=== PATIENT | male | born 1950 | race Caucasian/White ===

== ENCOUNTER 2021-09-22 14:38 | Inpatient (IN) | payer MEDICARE, BC, SELFPAY ==
--- NOTE | ~2021-09-22 | XR_ITS ---
EXAMINATION: XR abdomen/kub 1V INDICATION: Small bowel obstruction TECHNIQUE: Supine views of the abdomen were obtained on 3 radiographs. COMPARISON: 09/23/2021, 09/22/2021 FINDINGS: Enteric contrast from yesterday's small bowel follow-through partially opacifies the large bowel. There is a persistently dilated small bowel loop of the left upper quadrant. Overall, degree o f small bowel distention has improved. No free intraperitoneal gas is identified. The nasogastric tub e is in the stomach. IMPRESSION: 1. Persistent but improving small bowel distention in the left upper quadrant, consistent with ileus versus partial obstruction. Reviewed, dictated and finalized at location A. ENTICE STYLIST
--- NOTE | ~2021-09-22 | XR_ITS ---
EXAMINATION: XR sm bowel follow through WS DATE: 09/23/2021 14:27 INDICATION: Small bowel obstruction TECHNIQUE: Underground Bolting Machine Operator radiograph(s) of the abdomen was/were obtained. Water-soluble contrast was administe red through the nasogastric tube, and sequential radiographs of the abdomen were obtained until oral contrast was noted to be in the proximal colon. COMPARISON: None. FINDINGS: Underground Bolting Machine Operator radiograph demonstrates dilated small bowel in the left abdomen. The nasogastric tube is in the stomach. Transit time from the stomach to proximal colon was approximately three hours. Th e proximal small bowel is dilated. The distal small bowel appears normal in caliber. IMPRESSION: 1. Findings consistent with ileus versus partial small bowel obstruction. Reviewed, dictated and finalized at location A. RSTATE BUS DRIVER
--- NOTE | ~2021-09-22 | US_ITS ---
EXAMINATION: US renal BI DATE: 09/24/2021 08:36 INDICATION: Acute renal failure TECHNIQUE: Multiple ultrasound grayscale images of the kidneys were obtained. COMPARISON: None. FINDINGS: The right kidney measures 12.3 x 5.6 x 5.1 cm. The left kidney measures 11.0 x 4.5 x 5.7 cm. The kidn eys demonstrate normal echogenicity. There is no hydronephrosis in either kidney. No stones identifi ed. The bladder is normal. IMPRESSION: 1. Normal kidneys without hydronephrosis. Reviewed, dictated and finalized at location A. EYBALL COMMENTATOR
--- NOTE | ~2021-09-22 | CT_ITS ---
EXAMINATION: CT abdomen pelvis wo con DATE: 09/22/2021 17:04 INDICATION: Abdominal pain and vomiting TECHNIQUE: Computed tomography (CT) of the abdomen and pelvis was performed without intravenous contr ast. Automated exposure control and iterative reconstruction technique were employed. The dose-lengt h product was 919.28 mGy-cm. COMPARISON: None FINDINGS: Mild dependent atelectasis/scarring the bilateral lower lobes and in the lingula. There are couple 3 mm subpleural nodules in the posterior right lower lobe. Heart size is normal. Aortic valve calcifica tion and small amount of atherosclerotic coronary artery calcific location. No pericardial or pleural effusion. Elevation of the left hemidiaphragm which appears to result from prominent fluid distention of the st omach. There are dilated fluid-filled loops of bowel extending distally from the stomach and measurin g up to 4.5 cm maximal diameter. There to of feces consistent with delayed transit in the dilated sma ll bowel immediately proximal to the abrupt transition point which is seen in the anterior left upper quadrant of the abdomen located approximately 13 cm superolateral from the umbilicus. This is been i ndicated on series 3, image 84. The more distal small bowel is decompressed extending to the ileoceca l valve. There is a diverticulum arising anteriorly from the second portion of the duodenum. There is prominent sigmoid and distal descending colon predominance diverticulosis without adjacent inflammat ory change to suggest diverticulitis. The appendix is not visualized. No pericecal inflammatory chan e to suggest acute appendicitis. Diffuse hepatic steatosis. 1.8 cm cyst in segment Marco A of the liver. A few tiny splenic calcific lesio ns consistent with old granulomatous disease. Gallbladder, pancreas and bilateral adrenal glands are normal. There are few <2 mm nonobstructing stones in both kidneys. No hydronephrosis. Small amount of likely reactive ascites in the pelvis. No abscess or free intraperitoneal gas. Bladder is normal. No pathologically enlarged abdominal or pelvic lymphadenopathy. Mild lumbar levocurvature with moderate to severe spondylosis. L5 spondylolysis with bilateral pars intra-articular is defects and 4 mm ante rolisthesis L5 on S1. Fat attenuation within a lucent lesion at the L3 vertebral body which would be most consistent with a hemangioma. IMPRESSION: 1. Small bowel obstruction with transition point in the left upper quadrant. 2. A few tiny bilateral nonobstructing renal calculi. Reviewed, dictated and finalized at location A. TECHNICIAN
--- NOTE | ~2021-09-22 | XR_ITS ---
XR abdomen NG/feed tube insert INDICATION: Evaluate NG tube position. TECHNIQUE: Limited KUB perform for evaluating NG tube . COMPARISON: No prior studies for comparison. FINDINGS: NG tube tip in the stomach. Visualized bowel gas pattern is unremarkable.There is moderate gastric distention with air-fluid level. IMPRESSION: 1: NG tube tip in the stomach. Reviewed, dictated and finalized at location A. FACILITY MANAGER
[2021-09-22 15:23] VITALS: BP 118/88; PULSE 120; RESP 18; TEMP 36.2; O2SAT 97
[2021-09-22 15:52] LABS: Hematocrit 40.4 % (42.0-52.0); Hemoglobin 14.1 g/dL (14.0-18.0); Mean Corpuscular HGB Conc 34.9 g/dl (32-36); Mean Corpuscular Hemoglobin 34.4 pg (26-34); Mean Corpuscular Volume 98.5 fl (80-100); Mean Platelet Volume 10.8 fl (7.4-10.4); Platelet Count Result 228 k/mm3 (150-375); Red Cell Distribution Width 13.8 % (11.5-14.5); White Blood Count 15.3 K/mm3 (4.5-10.0)
[2021-09-22 16:02] LABS: Alanine Aminotransferase 31 U/L (4-50); Albumin Level 5.2 g/dL (3.5-5.1); Alkaline Phosphatase 96 U/L (38-126); Anion Gap 12 mmol/L (8-16); Aspartate Amino Transferase 42 U/L (17-59); Bilirubin,Total 0.6 mg/dL (0.2-1.3); Blood Urea Nitrogen 30 mg/dL (9-20); Calcium 10.8 mg/dL (8.4-10.2); Carbon Dioxide 32 mmol/L (22-30); Chloride 92 mmol/L (98-107); Estimated CRCL calculation 38 ml/min; Estimated Glomerular Filt Rate 40; Glucose 300 mg/dL (65-110); Lipase 166 U/L (23-300); Potassium 5.2 mmol/L (3.4-5.0); Sodium 136 mmol/L (137-145)
--- NOTE | 2021-09-22 16:32 | ED.GENADULT ---
HPI - General Adult General Chief complaint: Abdominal Pain Stated complaint: abd pain x 1 day, n/v Time Seen by Provider: 09/22/21 16:24 Source: patient and RN notes reviewed History of Present Illness HPI narrative: Patient is a 71 y/o male complaining of generalized abdominal pain starting 7:00 PM yesterday. He describes his pain as constant with no radiation. He rates his pain as 10/10. There is no alleviating or exacerbating factor. He has some vomiting, but no diarrhea. Related Data Home Medications Medication Instructions Recorded Confirmed aspirin 81 mg tablet,delayed 81 mg PO DAILY 09/11/19 09/22/21 release multivitamin,ic-dxnl-erofwjnm 1 tablet PO DAILY 09/11/19 09/22/21 rizatriptan 10 mg tablet See Rx Instructions PO .COMPLEX PRN 09/11/19 09/22/21 Allergies Allergy/AdvReac Type Severity Reaction Status Date / Time No Known Allergies AdvReac Unknown Unverified 09/22/21 20:26 Review of Systems Constitutional: Constitutional: Denies chills, Denies fever(s), Denies headache(s) and Denies weakness Eyes: Eyes: Denies blurry vision ENT: Denies headache(s) and Denies neck pain Cardiovascular: Cardiovascular: Denies chest pain and Denies dyspnea Respiratory: Respiratory: Denies cough and Denies dyspnea Gastrointestinal: Gastrointestinal: Reports abdominal pain, Denies diarrhea, Reports nausea and Reports vomiting Genitourinary: Genitourinary: Denies hematuria and Denies dysuria Musculoskeletal: Musculoskeletal: Denies back pain and Denies neck pain Neurologic: Denies headache(s) and Denies weakness [facility] Past Medical History Medical History Acute bilateral low back pain with left-sided sciatica Arthritis BMI 30.0-30.9,adult Body mass index (bmi) 29.0-29.9, adult (06/20/19) BPH without obstruction/lower urinary tract symptoms Chronic bilateral low back pain Dependence on other enabling machines and devices Diabetic eye exam no retinopathy on 03/18/2021 Diabetic peripheral neuropathy associated with type 2 diabetes mellitus Fatigue Fever blister Infection of mouth Insomnia Mixed hyperlipidemia Myalgia APARNA on CPAP Seasonal allergic rhinitis Type 2 diabetes mellitus without complication, without long-term current use of insulin Surgical History Surgical History History of appendectomy S/P tonsillectomy and adenoidectomy Family History Family History Grandparent Cerebrovascular accident, Onset Age: 78 Father Family history of Alzheimer's disease, Onset Age: 79 Mother Family history of Alzheimer's disease, Onset Age: 85 Social History Social History (Updated 09/22/21 @ 22:03 by Yesika Vernon NP) Social History: The patient lives with his . He has 4 children. He is retired from the [employer] service. The patient has never smoked. He used to drink alcohol but he does anymore. His is the durable power workers compensation defense attorney for healthcare. Code status full code Smoking status: Never smoker Alcohol intake: never Substance use: never Substance use type: does not use Spiritual care concerns: No Exam Const: General: no acute distress and well developed Orientation/consciousness: oriented to person, oriented to place, oriented to time and patient oriented x3 HENMT: Head: normocephalic Ears: external ears normal General nose exam: Normal external nose present Eyes: General: appearance normal, both eyes and all related structures Conjunctivae: conjunctivae normal Neck: Neck: normal visual inspection and full ROM Chest: Chest palpation & inspection: normal inspection of the chest and no tenderness Resp: Effort & Inspection: normal respiratory effort Auscultation: clear to auscultation bilaterally Cardio: Rate: tachycardic Rhythm: regular rhythm GI:
[2021-09-22 16:35] LABS: Add Urine Microscopic? YES; Appearance Urine Cloudy (Clear); Bilirubin Urine Negative (Negative); Blood Urine Negative (Negative); Color Urine Amber (Yellow); Glucose Urine UA 3+ mg/dL (Negative); Ketones Urine Trace mg/dL (Negative); Leukocyte Esterase Ur Negative LEU/UL (Negative); Mucus Urine Rare /lpf; Nitrate Urine Negative (Negative); Protein Urine 2+ mg/dL (Negative); RBC Urine 0-2 /hpf (0-2); Specific Grav Ur 1.021 (1.001-1.035); Squamous Epithelial Cell Urine Rare /hpf (Few); Urobilinogen Urine Negative mg/dL (<2.0); WBC Urine 0-3 /hpf
[2021-09-22] MEDS: SODIUM CHLORIDE 0.9% IV 1,000 ML 999 ML IV CONT (16:48)
[2021-09-22] MEDS: ONDANSETRON INJ 4 MG/2 ML VIAL IV PUSH ×2 (16:48→20:09)
[2021-09-22 16:55] LABS: Platelet Estimate Adequate (Adequate)
[2021-09-22 16:57] LABS: Band Neutrophils Percent 5 % (0-6); Lymphocytes Absolute Manual 0.61 K/mm3 (1.1-4.5); Monocytes Absolute Manual 1.22 K/mm3 (0.1-0.90); Monocytes Percent Manual 8 % (3-9); Neutrophils Absolute Manual 13.46 K/mm3 (1.3-6.7); Neutrophils Percent Manual 83 % (46-73); Total Cells Counted 100
[2021-09-22] MEDS: fentaNYL CITRATE INJ (*CRX) 100 MCG/2 ML VIAL 50 MCG IV PUSH (17:31)
[2021-09-22 17:32] VITALS: BP 160/83; PULSE 85; RESP 20; O2SAT 98
--- NOTE | 2021-09-22 17:33 | ECG_ITS ---
Measurements Intervals [place] Rate: 98 P: 29 NM: 164 QRS: -35 QRSD: 100 T: 30 QT: 340 QTc: 434 Interpretive Statements SINUS RHYTHM LEFT AXIS DEVIATION EARLY PRECORDIAL R/S TRANSITION VOLTAGE CRITERIA FOR LVH BORDERLINE T WAVE ABNORMALITY- INFERIOR LEADS BASELINE WANDER- III, AVR, AVL, AVF, V3-V5 BORDERLINE ECG Electronically Signed On 09-22-2021 19:53:32 REHABILITATION PSYCHOLOGIST by Jamison Oswald D.O.
[2021-09-22 18:37] VITALS: BP 154/97; PULSE 80; RESP 12; O2SAT 98
[2021-09-22 19:55] VITALS: BP 147/94; PULSE 96; RESP 20; O2SAT 98
[2021-09-22 20:00] VITALS: PULSE 80; RESP 12; O2SAT 98
[2021-09-22] MEDS: SODIUM CHLORIDE 0.9% IV 1,000 ML 125 ML IV CONT (20:09)
[2021-09-22 20:23] VITALS: BMI 29.0
--- NOTE | 2021-09-22 20:23 | ADMGEN ---
This patient, Hernan Delong, was admitted to 2 Medical Room 260-. Patient/family oriented to hospital policies and general routines including ID bracelet, bed and alarms, visiting hours, pain management, procedures, bathroom and other care routines, personal items, smoking policy, room service/diet, and visiting hours. Information on how to activate the Rapid Response Team has been discussed. Patient/Family are encouraged to report perceived risks to care and to ask questions if they do not understand what they are told or what they should do.
[2021-09-22 21:00] VITALS: BP 130/77; PULSE 100; RESP 16; TEMP 36.5; O2SAT 97
--- NOTE | 2021-09-22 21:53 | PM.IMHP ---
H&P: HPI History of Present Illness Date/Time: 09/22/21 21:53 this is a 71-year-old male patient who is only had 1 abdominal surgery which was his appendix many years ago. The patient has had no prior small-bowel obstructions. And the patient stated he has not had any colonoscopies. The patient came to the emergency room complaining of generalized abdominal pain that started around 7:00 p.m. yesterday. No radiation. The patient rated his pain 10/10. His abdomen was distended. The patient stated that he did vomit but he did notice any blood in his emesis. No diarrhea. No fever no chills. His white count is 15.3. Sodium 136. Potassium 5.2. Creatinine was 1.7 from a previous value 2 months ago was 1.33. Blood sugar was 300. Calcium 10.8. Urine 3+ glucose. An NG-tube was placed in the left near draining coffee-ground. The patient was started on normal saline, Zofran morphine and then given fentanyl. Abdominal pelvis CT was read as small bowel obstruction with transition point on the left upper quadrant. A few tiny bilateral nonobstructing renal calculi. Abdominal x-ray shows the NG tube in the tip of the stomach. Initially the patient had 500 cc abdomen is NG tube I flushed it and had another 500 out. Patient's abdomen was still distended but he did have some relief. Surgery has been consulted. I explained to the patient that most the time we can use conservative treatment such as an NG tube to resolve this small-bowel obstruction. The patient is being admitted to inpatient services on the date of service of 09/22/2021. Chief Complaint: Abdominal pain Review of Systems Review of Systems: All systems reviewed & are unremarkable except as noted in HPI and below Constitutional: Constitutional: Reports as per HPI and Reports no additional constitutional complaints Eyes: Eyes: Reports as per HPI and Reports no additional eye complaints ENT: Reports system reviewed and no additional complaints, except as documented and Reports Normal hearing present Cardiovascular: Cardiovascular: Reports no additional cardiovascular complaints Respiratory: Respiratory: Reports no additional respiratory complaints and Reports no additional respiratory complaints Gastrointestinal: Gastrointestinal: Reports as per HPI and Reports no additional gastrointestinal complaints Musculoskeletal: Musculoskeletal: Reports no additional musculoskeletal complaints Integumentary/Breasts: Skin/Breast: Reports system reviewed and no additional complaints, except as docu and Reports as per HPI Neurologic: Reports system reviewed and no additional complaints, except as documented, Reports as per HPI and Reports Normal hearing present Psychiatric: Psychiatric: Reports no additional psychiatric complaints and Reports as per HPI Endocrine: Endocrine: Reports no additional endocrine complaints Hematologic/Lymphatic: Hematologic/Lymphatic: Reports no additional hematologic/lymphatic complaints Allergic/Immunologic: Allergic/Immunologic: Reports no additional allergic/immunologic complaints PMFSH Past Medical History Medical History Acute bilateral low back pain with left-sided sciatica Arthritis BMI 30.0-30.9,adult Body mass index (bmi) 29.0-29.9, adult (06/20/19) BPH without obstruction/lower urinary tract symptoms Chronic bilateral low back pain Dependence on other enabling machines and devices Diabetic eye exam no retinopathy on 03/18/2021 Diabetic peripheral neuropathy associated with type 2 diabetes mellitus Fatigue Fever blister Infection of mouth Insomnia Mixed hyperlipidemia Myalgia APARNA on CPAP Seasonal allergic rhinitis Type 2 diabetes mellitus without complication, without long-term current use of insulin Surgical History Surgical History History of appendectomy S/P tonsillectomy and adenoidectomy Family History Family History (Review
[2021-09-22 23:45] LABS: Glucose Point of Care 202 mg/dl (65-105)
[2021-09-22] MEDS: INSULIN ASPART (*BKC) 100 UNITS/ML SUB-Q (23:45)
[2021-09-23] VITALS (7 sets, daily range): BP systolic 119–136; BP diastolic 66–81; PULSE 90–108; RESP 16; TEMP 36–37.2; O2SAT 90–97
[2021-09-23] MEDS: ONDANSETRON INJ 4 MG/2 ML VIAL IV PUSH (00:07)
--- NOTE | 2021-09-23 00:20 | PCRCNOTE ---
Pt does not want CPAP at this time, doesn't feel he can tolerate with NG tube
[2021-09-23] MEDS: SODIUM CHLORIDE 0.9% IV 1,000 ML 125 ML IV CONT ×2 (04:15→15:15)
[2021-09-23] MEDS: fentaNYL CITRATE INJ (*CRX) 100 MCG/2 ML VIAL 50 MCG IV PUSH (04:24)
[2021-09-23 05:59] LABS: Hematocrit 37.3 % (42.0-52.0); Hemoglobin 12.7 g/dL (14.0-18.0); Mean Corpuscular Hemoglobin 34.4 pg (26-34); Mean Corpuscular Volume 101.1 fl (80-100); Mean Platelet Volume 10.8 fl (7.4-10.4); Platelet Count Result 196 k/mm3 (150-375); Red Blood Count 3.69 M/mm3 (4.6-6.20); Red Cell Distribution Width 14.4 % (11.5-14.5); White Blood Count 22.6 K/mm3 (4.5-10.0)
[2021-09-23 06:06] LABS: Hemoglobin A1C 7.3 % (<5.7)
[2021-09-23 06:09] LABS: Lactate Dehydrogenase 646 U/L (313-618); Lipase 107 U/L (23-300)
[2021-09-23 06:10] LABS: Lactic Acid Reflex 1.9 mmol/L (0.7-2.1)
[2021-09-23] MEDS: INSULIN ASPART (*BKC) 100 UNITS/ML SUB-Q ×3 (06:15→18:03)
[2021-09-23 06:20] LABS: Glucose Point of Care 207 mg/dl (65-105)
[2021-09-23 06:31] LABS: Band Neutrophils Percent 11 % (0-6); Basophils Absolute Manual 0.22 K/mm3 (0.0-0.1); Basophils Percent Manual 1 % (0-1); Lymphocytes Absolute Manual 1.13 K/mm3 (1.1-4.5); Monocytes Absolute Manual 1.13 K/mm3 (0.1-0.90); Monocytes Percent Manual 5 % (3-9); Neutrophils Absolute Manual 20.11 K/mm3 (1.3-6.7); Neutrophils Percent Manual 78 % (46-73); Platelet Estimate Adequate (Adequate); Total Cells Counted 100
[2021-09-23 07:11] LABS: Anion Gap 10 mmol/L (8-16); Blood Urea Nitrogen 51 mg/dL (9-20); Calcium 10.2 mg/dL (8.4-10.2); Carbon Dioxide 35 mmol/L (22-30); Chloride 97 mmol/L (98-107); Estimated CRCL calculation 35 ml/min; Estimated Glomerular Filt Rate 35; Glucose 218 mg/dL (65-110); Potassium 4.8 mmol/L (3.4-5.0); Sodium 142 mmol/L (137-145)
--- NOTE | 2021-09-23 09:58 | PM.CNGS ---
Assessment and Plan Assessment and plan (1) Small bowel obstruction: Code(s): K56.609 - Unspecified intestinal obstruction, unspecified as to partial versus complete obstruction Status: Acute Assessment and Plan: Continue conservative management with NG tube decompression, bowel rest, IV rehydration, will get small-bowel series for evaluation and workup (2) LUIS DANIEL (acute kidney injury): Code(s): N17.9 - Acute kidney failure, unspecified Status: Acute Assessment and Plan: continue IV rehydration History of Present Illness Consult details Consult date: 09/23/21 Reason for consult: abdominal pain Requesting physician: Martha Ibarra MD Narrative: The patient is a 71-year-old male presenting to the emergency department complaining of severe, crampy abdominal pain. The patient reports the symptoms started acutely 7:00 p.m. on Monday. The patient reports his last bowel movement was 5:00 p.m. on Monday, and he noted it was loose. The patient reports progressively worsening symptoms since onset, including nausea and vomiting. He reports he has not had an appetite and has taken in very little orally. The patient denies previous symptomatology. The patient reports that his only abdominal surgery was an appendectomy many years ago. Review of Systems Constitutional: Constitutional: Reports anorexia, Denies body ache(s), Denies chills, Reports fatigue, Denies fever(s), Denies increased appetite, Reports lethargy, Reports poor appetite, Denies stops breathing during sleep, Reports weakness, Denies weight gain and Denies weight loss Eyes: Eyes: Reports no additional eye complaints ENT: Reports system reviewed and no additional complaints, except as documented Cardiovascular: Cardiovascular: Reports no additional cardiovascular complaints Respiratory: Respiratory: Reports no additional respiratory complaints Gastrointestinal: Gastrointestinal: Reports as per HPI, Reports abdominal pain, Reports belching, Reports bloating, Reports change in bowel habits, Reports change in stool character, Reports constipation, Reports GI cramping, Denies excessive flatus, Reports early satiety, Denies heartburn, Denies fecal incontinence, Denies diarrhea, Reports loose stools, Reports nausea, Reports vomiting and Denies hematemesis Genitourinary: Genitourinary: Reports no additional male genitourinary complaints Musculoskeletal: Musculoskeletal: Reports no additional musculoskeletal complaints Integumentary/Breasts: Skin/Breast: Reports system reviewed and no additional complaints, except as docu Neurologic: Reports system reviewed and no additional complaints, except as documented Psychiatric: Psychiatric: Reports no additional psychiatric complaints Endocrine: Endocrine: Reports no additional endocrine complaints Hematologic/Lymphatic: Hematologic/Lymphatic: Reports no additional hematologic/lymphatic complaints Allergic/Immunologic: Allergic/Immunologic: Reports no additional allergic/immunologic complaints [facility] Past Medical History Medical History Acute bilateral low back pain with left-sided sciatica Arthritis BMI 30.0-30.9,adult Body mass index (bmi) 29.0-29.9, adult (06/20/19) BPH without obstruction/lower urinary tract symptoms Chronic bilateral low back pain Dependence on other enabling machines and devices Diabetic eye exam no retinopathy on 03/18/2021 Diabetic peripheral neuropathy associated with type 2 diabetes mellitus Fatigue Fever blister Infection of mouth Insomnia Mixed hyperlipidemia Myalgia APARNA on CPAP Seasonal allergic rhinitis Type 2 diabetes mellitus without complication, without long-term current use of insulin Surgical History Surgical History History of appendectomy S/P tonsillectomy and adenoidectomy Family History Family History (Reviewed 09/23/21 @ 10:02 b
--- NOTE | 2021-09-23 10:05 | PM.IMPN ---
Progress Note: A&P Assessment and Plan (1) Small bowel obstruction: Code(s): K56.609 - Unspecified intestinal obstruction, unspecified as to partial versus complete obstruction Status: Acute Assessment and Plan: Presented with abdominal pain. CT showed small bowel obstruction with transition point in left upper quadrant. Continue bowel rest and NG suction. NPO diet. Appreciate general surgery consultation. Continue gentle IV fluids while NPO. Antiemetics analgesics available as needed. (2) LUIS DANIEL (acute kidney injury): Code(s): N17.9 - Acute kidney failure, unspecified Status: Acute Assessment and Plan: Creatinine elevated up to 1.9 today. Etiology for this unclear, may be prerenal but would have expected improvement with IV fluids. No signs of urinary obstruction but he does have history of BPH and tamsulosin is on hold while NPO, therefore will proceed with bladder scan to ensure he is not retaining urine. Renal ultrasound ordered, although this will not be completed until tomorrow due to the holiday. Consider Nephrology consultation if no improvement/further worsening of renal function. Continue IV fluids. Renally dose medications and avoid nephrotoxins. (3) Diabetic peripheral neuropathy associated with type 2 diabetes mellitus: Code(s): E11.42 - Type 2 diabetes mellitus with diabetic polyneuropathy Status: Chronic Assessment and Plan: A1c is 7.3. Blood sugars ranging 200-220 today. Continue Accu-Cheks, sliding scale insulin, hypoglycemic protocol. Home metformin on hold. Consider addition of Lantus if blood sugars remain elevated but will hold off for now as he is not eating. (4) Essential (primary) hypertension: Code(s): I10 - Essential (primary) hypertension Status: Acute Assessment and Plan: Blood pressure reviewed and has been well controlled. Last BP 128/71. P.o. antihypertensives are on hold at this time. Resume when no longer NPO. (5) APARNA on CPAP: Code(s): G47.33 - Obstructive sleep apnea (adult) (pediatric); Z99.89 - Dependence on other enabling machines and devices Status: Chronic Assessment and Plan: Resume CPAP when NG is removed. (6) Leukocytosis: Code(s): D72.829 - Elevated white blood cell count, unspecified Status: Acute Assessment and Plan: [place] [address]. Does have elevated bands, though no signs/symptoms to suggest underlying infectious process. He is afebrile. Will monitor closely for now. Repeat CBC with differential tomorrow morning. Subjective Date/time seen: 09/23/21 10:05 Interval history: Date of service: 09/23/2021 Hernan Delong is a 71-year-old male with a history of BPH, chronic back pain, type 2 diabetes mellitus, APARNA on CPAP, hyperlipidemia who is seen in follow-up for small-bowel obstruction. He is feeling better today. He endorses no abdominal pain at this time. He feels his abdomen is less swollen and no longer tender. He did have 2 episodes of emesis this morning, stating this was related to his NG tube being ?clogged.? No further episodes of emesis this morning and he denies nausea. He is not passing any gas. No belching. He denies urinary symptoms. He has been sitting up at the side the bed and the urinal. He has not been out of bed yet as he is hooked up to suction. He denies dizziness or lightheadedness. No chest pain, palpitations, shortness of breath, cough. Denies swelling in his extremities. He does complain of sore throat due to his NG tube in notes that it is difficult to talk because of the tube. Review of Systems Review of Systems: All systems reviewed & are unremarkable except as noted in HPI and below Exam Narrative: Mr. Delong is a well-nourished, well-appearing 71-year-old male who is lying supine in bed. He appears comfortable and is in NARD. Neuro: awake, alert and oriented x4, speech cl
[2021-09-23 13:11] LABS: Glucose Point of Care 203 mg/dl (65-105)
[2021-09-23 16:24] LABS: Glucose Point of Care 204 mg/dl (65-105)
[2021-09-24] VITALS: BP 141/78; PULSE 94; RESP 16; TEMP 36.1; O2SAT 93
[2021-09-24 00:51] LABS: Glucose Point of Care 178 mg/dl (65-105)
[2021-09-24] MEDS: SODIUM CHLORIDE 0.9% IV 1,000 ML 100 ML IV CONT ×2 (01:00→11:41)
[2021-09-24 04:00] VITALS: BP 160/86; PULSE 95; RESP 18; TEMP 36.5; O2SAT 93
[2021-09-24 06:01] LABS: Basophils Percent Auto 0.2 % (0.2-1.2); Hematocrit 36.6 % (42.0-52.0); Immature Granulocyte Percent A 2.2 % (0-0.5); Lymphocytes Absolute Auto 1.45 K/mm3 (0.9-3.2); Lymphocytes Percent Auto 10.6 % (18.3-44.2); Mean Corpuscular HGB Conc 32.8 g/dl (32-36); Mean Corpuscular Hemoglobin 34.4 pg (26-34); Mean Corpuscular Volume 104.9 fl (80-100); Mean Platelet Volume 11.5 fl (7.4-10.4); Monocytes Absolute Auto 1.8 K/mm3 (0.1-0.6); Neutrophils Absolute Auto 10.1 K/mm3 (1.3-6.7); Platelet Count Result 159 k/mm3 (150-375); Red Blood Count 3.49 M/mm3 (4.6-6.20); Red Cell Distribution Width 14.8 % (11.5-14.5); White Blood Count 13.7 K/mm3 (4.5-10.0)
[2021-09-24 06:02] LABS: Glucose Point of Care 188 mg/dl (65-105)
[2021-09-24 06:09] LABS: Alanine Aminotransferase 22 U/L (4-50); Albumin Level 4.2 g/dL (3.5-5.1); Alkaline Phosphatase 81 U/L (38-126); Anion Gap 6 mmol/L (8-16); Aspartate Amino Transferase 35 U/L (17-59); Bilirubin,Total 0.5 mg/dL (0.2-1.3); Blood Urea Nitrogen 54 mg/dL (9-20); Calcium 9.4 mg/dL (8.4-10.2); Carbon Dioxide 38 mmol/L (22-30); Chloride 103 mmol/L (98-107); Estimated CRCL calculation 43 ml/min; Estimated Glomerular Filt Rate 46; Glucose 210 mg/dL (65-110); Magnesium 2.7 mg/dL (1.6-2.3); Potassium 3.8 mmol/L (3.4-5.0); Sodium 147 mmol/L (137-145)
[2021-09-24 07:45] LABS: Glucose Point of Care 195 mg/dl (65-105)
[2021-09-24 08:55] VITALS: BP 150/83; PULSE 85; RESP 16; TEMP 36.6; O2SAT 95
--- NOTE | 2021-09-24 10:10 | PM.PNGS ---
Progress Note: A&P Assessment and Plan (1) Small bowel obstruction: Code(s): K56.609 - Unspecified intestinal obstruction, unspecified as to partial versus complete obstruction Status: Acute Assessment and Plan: improved, exam benign, SBS and KUB reviewed, will clamp NG, likely out later today, ADAT, home when kezia diet Subjective Subjective Date/Time Seen: 09/24/21 10:10 feels much better today, multiple BMs overnight Review of Systems Review of Systems: All systems reviewed & are unremarkable except as noted in HPI and below Exam Const: General: cooperative and comfortable Resp: Effort & Inspection: normal respiratory effort Auscultation: clear to auscultation bilaterally Cardio: Rate: regular rate Rhythm: regular rhythm GI: Inspection: normal to inspection and non-distended GI Palp: Yes Soft to palpation and No Tenderness to palpation present (GI) Objective Data Vital Signs Vital Signs: Vital Signs - 24 hr 09/23/21 12:00 09/23/21 15:45 09/23/21 19:56 Temperature 36.4 C L 37.2 C Pulse Rate 106 H 106 H 102 H Respiratory Rate 16 16 16 Blood Pressure 130/74 128/66 Pulse Oximetry 91 90 92 09/23/21 20:00 09/24/21 00:00 09/24/21 04:00 Temperature 36.0 C L 36.1 C L 36.5 C Pulse Rate 90 94 95 Respiratory Rate 16 16 18 Blood Pressure 136/81 141/78 H 160/86 H Pulse Oximetry 94 93 93 09/24/21 08:55 Temperature 36.6 C Pulse Rate 85 Respiratory Rate 16 Blood Pressure 150/83 H Pulse Oximetry 95 Intake/Output Intake/Output: Intake & Output 09/21/21 09/22/21 09/23/21 09/24/21 23:59 23:59 23:59 23:59 Intake Total 1000 2000 1240 Output Total 4700 1000 Balance 1000 -2700 240 Meds/Results Medications: Active Medications Generic Name Dose Route Start Last Admin Trade Name Freq PRN Reason Stop Dose Admin Dextrose 12.5 gm 09/22/21 21:59 Dextrose 50% 25 Gm/50 Ml Syringe IV PUSH PRN PRN Hypoglycemia Protocol Glucagon 1 mg 09/22/21 21:59 Glucagon For Inj 1 Mg Vial IM PRN PRN Hypoglycemia Protocol Glucose 15 gm 11/24/21 21:59 Glucose Oral Gel 15 Gm Of Glucse In 37.5 Gm Tube PO PRN PRN Hypoglycemia Protocol Hydralazine HCl 10 mg 09/22/21 22:19 Hydralazine Hcl 20 Mg/Ml Vial IV PUSH Q8H PRN Blood Pressure - High Sodium Chloride 1,000 mls @ 100 mls/hr 09/22/21 18:20 09/24/21 01:00 Normal Saline Iv IV CONT 100 mls/hr .Q10H SPENCER Administration Dextrose 1,000 mls @ 100 mls/hr 09/22/21 21:59 Dextrose 5% 1,000 Ml IVPB PRN PRN Hypoglycemia Protocol Acetaminophen 1,000 mg in 100 mls @ 400 mls/hr 09/23/21 10:26 Ofirmev 1,000 Mg Ivpb IVPB 09/24/21 10:25 Q6H PRN Pain Rated 1-6 Insulin Aspart 2 - 5 units 09/23/21 00:00 09/24/21 06:58 Insulin Aspart (*Bkc) 100 Units/Ml SUB-Q Not Given Q6HR SPENCER Protocol Morphine Sulfate 2 mg 09/23/21 10:26 Morphine Sulfate (*Crx) 2 Mg/Ml Inj IV PUSH Q4H PRN Pain Rated 7-10 Ondansetron HCl 4 mg 09/22/21 18:18 09/23/21 00:07 Ondansetron Inj 4 Mg/2 Ml Vial IV PUSH 4 mg Q4H PRN Administration Nausea Phenol 1 spray 09/23/21 10:34 Phenol/Sod Pheno [place] [facility] (*Bkc) MUCOUS MEM PRN PRN Sore Throat Radiology Results: ITS Impressions Abdomen/Pelvis CT 09/22/21 17:07 IMPRESSION: 1. Small bowel obstruction with transition point in the left upper quadrant. 2. A few tiny bilateral nonobstructing renal calculi. Small Bowel X-Ray 09/24/21 07:46 IMPRESSION: 1. Findings consistent with ileus versus partial small bowel obstruction. Abdomen X-Ray 09/24/21 08:34 IMPRESSION: 1. Persistent but improving small bowel distention in the left upper quadrant, consistent with ileus versus partial obstruction. Labs Labs: Laboratory Results - last 24 hr 09/23/21 09/23/21 09/24/21 13:09 16:20 00:47 WBC RBC Hgb Hct MCV MCH M
[2021-09-24 11:36] LABS: Glucose Point of Care 177 mg/dl (65-105)
[2021-09-24 13:01] VITALS: BP 148/89; PULSE 100; RESP 16; TEMP 36.6; O2SAT 97
--- NOTE | 2021-09-24 13:53 | PM.DS ---
DS: Admitting Diagnosis Discharge Date 09/24/2021 Admitting Diagnosis Small-bowel obstruction DS: Discharge Diagnosis Discharge Diagnosis (1) Small bowel obstruction: Code(s): K56.609 - Unspecified intestinal obstruction, unspecified as to partial versus complete obstruction Status: Acute Assessment and Plan: Presented with abdominal pain. CT showed small bowel obstruction with transition point in left upper quadrant. Managed with bowel rest, NG decompression, IV fluids. He was seen in consultation by General surgery. Small-bowel follow-through 09/24/2021 with transit time from stomach to proximal colon of 3 hours. He had an several stools following this. Abdominal x-ray on 09/24/2021 showed persistent but improving small bowel distension. NG tube was discontinued and he was able to tolerate a regular diet. Discussed case with General surgery, no need for surgical follow-up. He will follow with PCP. (2) LUIS DANIEL (acute kidney injury): Code(s): N17.9 - Acute kidney failure, unspecified Status: Acute Assessment and Plan: Creatinine increased up to 1.9 during admission. No evidence of retention or obstruction. Renal ultrasound showed normal kidneys without hydronephrosis. Likely due to dehydration and did improve with IV fluids. Creatinine 1.5 at time of discharge. Recommend repeat BMP in 1 week. Metformin held due to LUIS DANIEL until repeat labs. (3) Diabetic peripheral neuropathy associated with type 2 diabetes mellitus: Code(s): E11.42 - Type 2 diabetes mellitus with diabetic polyneuropathy Status: Chronic Assessment and Plan: A1c is 7.3. Blood sugars reasonably controlled during admission. Home metformin held as above due to LUIS DANIEL. Encouraged close monitoring of blood sugars at home. (4) Essential (primary) hypertension: Code(s): I10 - Essential (primary) hypertension Status: Acute Assessment and Plan: Blood pressure reviewed and was generally well controlled. Continue home antihypertensive regimen. (5) APARNA on CPAP: Code(s): G47.33 - Obstructive sleep apnea (adult) (pediatric); Z99.89 - Dependence on other enabling machines and devices Status: Chronic Assessment and Plan: CPAP not able to be continued during admission with NG in place. Continue with CPAP at home. (6) Leukocytosis: Code(s): D72.829 - Elevated white blood cell count, unspecified Status: Acute Assessment and Plan: [place] [address]. Does have elevated bands, though no signs/symptoms to suggest underlying infectious process. He remained afebrile. White count declined to 13,000 without intervention. Anticipate complete resolution. DS: Summary Hospital Course Hospital Course: Date of admission: 09/22/2021 Date of discharge: 09/24/2021 Hernan Delong is a 71-year-old male with a history of BPH, chronic back pain, type 2 diabetes mellitus, APARNA on CPAP, hyperlipidemia who presented to the emergency department on 09/22/2021 with complaints of generalized abdominal pain that he rated as 10/10. On presentation to the emergency department, he was tachycardic with additional vital signs stable, he was afebrile, WBC 15.3, potassium 5.2, BUN 30, creatinine 1.7, and CT abdomen/pelvis showed small-bowel obstruction with transition point in the left upper quadrant. NG tube was placed and he was admitted to the hospitalist service for further evaluation and management and he was seen in consultation by General surgery. Please see above for further details. He had symptomatic improvement with conservative management. NG tube was able to be discontinued and he was able to tolerate a regular diet. Per General surgery, he was determined to no longer require inpatient care for his resolving small-bowel obstruction. The patient was feeling back to his baseline and requested discharge home. Given overall improvement, he was det
[2021-09-24 14:13] LABS: Vitamin B12 > 1000.0 pg/mL (239-931)
[2021-09-24 15:34] LABS: Folic Acid > 20.0 ng/mL (2.76->20)
[2021-09-24 16:39] LABS: Glucose Point of Care 114 mg/dl (65-105)
[2021-09-24 16:44] VITALS: BP 155/86; PULSE 93; RESP 18; TEMP 36.8; O2SAT 98
== END 2021-09-24 17:30 | disposition home or self-care (01) | DRG 389 ==
LOC: ANHED 17:27 → ANH2MED 22:08
PROVIDERS: Emergency Medicine; Nurse Practitioner; Admitting Provider Internal Medicine; Emergency Provider Emergency Medicine; PCP Family Medicine; Visit Provider Physician Assistant
DX: K56.609 Unspecified intestinal obstruction, unspecified as to partial versus complete obstruction (principal); N17.9 Acute kidney failure, unspecified; E11.42 Type 2 diabetes mellitus with diabetic polyneuropathy; G47.33 Obstructive sleep apnea (adult) (pediatric); N40.0 Benign prostatic hyperplasia without lower urinary tract symptoms; I10 Essential (primary) hypertension; E78.2 Mixed hyperlipidemia; D72.829 Elevated white blood cell count, unspecified; M54.42 Lumbago with sciatica, left side; Z28.21 Immunization not carried out because of patient refusal; Z79.82 Long term (current) use of aspirin; Z79.84 Long term (current) use of oral hypoglycemic drugs; Z98.890 Other specified postprocedural states; Z99.89 Dependence on other enabling machines and devices
CPT/HCPCS: 36415; 74018; 74176; 74250; 76775; 80048; 80053; 81001; 82607; 82728; 82746; 82948; 83036; 83605; 83615; 83690; 83735; 84443; 85025; 85027; 93005; 96361; 96374; 96375; 99285; A9270; J1815; J2405; J3010; J7030

== ENCOUNTER 2022-03-19 13:45 | Inpatient (IN) | payer MEDICARE, BC, SELFPAY ==
[2022-03-19] VITALS (24 sets, daily range): BP systolic 96–145; BP diastolic 58–91; PULSE 64–103; RESP 18–20; TEMP 36.4–36.5; O2SAT 94–100; BMI 28.5; BMI 28.3
--- NOTE | ~2022-03-19 | XR_ITS ---
EXAMINATION: XR abdomen/kub 1V DATE: 03/21/2022 09:09 INDICATION: Small bowel obstruction TECHNIQUE: A supine view of the abdomen and pelvis was obtained. COMPARISON: 03/20/2022 FINDINGS: The diaphragm and cephalad portion of the abdomen including the stomach are excluded from the field-o f-view. Unclear whether the nasogastric tube remains in place. A couple persistent short segments of mildly dilated small bowel are seen in the abdomen along with small amounts of gas within a few addit ional nondilated loops of small bowel consistent with likely improving small bowel obstruction versus ileus. Small amount of gas and stool scattered throughout the colon. Couple phleboliths in the right hemipelvis. Moderate lumbar spondylosis. Moderate left and mild right sacroiliac and hip osteoarthri tis. IMPRESSION: 1. Improving small bowel obstruction versus ileus. Reviewed, dictated and finalized at location B.
--- NOTE | ~2022-03-19 | XR_ITS ---
EXAM: XR abdomen/kub 1V DATE: 03/19/2022 18:55 HISTORY: ng placement . COMPARISON: CT abdomen and pelvis performed on the same date. FINDINGS: NG tube terminating in the stomach. Clear lung bases. Dilated loops of small bowel in the upper abdomen. IMPRESSION: NG tube, in good position. Small bowel obstruction. Reviewed, dictated and finalized at location K.
--- NOTE | ~2022-03-19 | CT_ITS ---
EXAMINATION: CT abdomen pelvis w con DATE: 03/19/2022 15:15 INDICATION: abdominal pain, potential SBO TECHNIQUE: Computed tomography (CT) of the abdomen and pelvis was performed with 100 mL Omnipaque-300 intravenous contrast. Automated exposure control and iterative reconstruction technique were employe d. The dose-length product was 894.28 mGy-cm. COMPARISON: 09/22/2021 FINDINGS: Lower thorax: Unremarkable Liver: Left lobe cyst. Borderline steatosis. Biliary/Gallbladder: Gallbladder is normal. No bile duct dilation. Pancreas: No mass or duct dilation. Spleen: Normal. Adrenals:No mass. Kidneys: No mass or hydronephrosis. Bilateral ectopia. Punctate nonobstructive bilateral calcificatio ns. GI tract: Short segment water density wall edema affecting the mid small bowel in the right abdomen, with proximal small bowel dilation. Appendix not visualized. Diverticulosis without diverticulitis. Mesentery/Peritoneum: Interloop fluid surrounding loops of small bowel. Retroperitoneum: No mass. Pelvis: Pelvic organs are within normal limits. Small volume free pelvic fluid. Soft Tissues: Soft tissues and body wall unremarkable. Bones: No acute osseous finding. IMPRESSION: Short segment infectious, inflammatory, or ischemic small bowel wall edema in the right mid abdomen c ausing obstruction of more proximal small bowel. Presence of interloop fluid may indicate a higher gr feli of obstruction or early ischemia. Recommend surgical consultation. Reviewed, dictated and finalized at location K. IMPRESSION: Short segment infectious, inflammatory, or ischemic small bowel wall edema in t he right mid abdomen causing obstruction of more proximal small bowel. Presence of interloop fluid may indicate a higher grade of obstruction or early ischemi a. Recommend surgical consultation.
--- NOTE | ~2022-03-19 | XR_ITS ---
SMALL BOWEL SERIES ONLY INDICATION: Small bowel obstruction TECHNIQUE: Serial plain films and fluoroscopic spot films are performed following oral demonstration of thin barium. COMPARISON: 03/21/2022 FINDINGS: Barium was followed sequentially through the small bowel. Transit time to the small bowel i s less than 1 hour 30 minutes. There is mildly dilated proximal and mid small bowel with transition i n the central lower pelvis. There is point tenderness in the area of transition without compressing w ith balloon paddle. IMPRESSION: 1: Mildly dilated proximal and mid small bowel with transition in the lower abdomen near the midline with associated point tenderness. Findings suspicious for partial obstruction, although there is nor mal transit time to the colon. Reviewed, dictated and finalized at location A. IMPRESSION: 1: Mildly dilated proximal and mid small bowel with transition in the lower ab domen near the midline with associated point tenderness. Findings suspicious fo r partial obstruction, although there is normal transit time to the colon.
--- NOTE | ~2022-03-19 | XR_ITS ---
XR abdomen NG/feed tube insert INDICATION: Evaluate G-tube position. TECHNIQUE: Limited KUB perform for evaluating NG tube . COMPARISON: 03/21/2022 FINDINGS: NG tube tip in the stomach. There are dilated small bowel loops in the left upper abdomen.. IMPRESSION: 1: NG tube tip in the stomach. 2: Dilated small bowel left upper abdomen which may represent ileus or partial obstruction. Reviewed, dictated and finalized at location A.
--- NOTE | ~2022-03-19 | XR_ITS ---
EXAMINATION: XR abdomen NG/feed tube insert DATE: 03/20/2022 10:19 INDICATION: Nasogastric tube placement TECHNIQUE: A supine view of the abdomen and lower chest was obtained for evaluation of feeding tube placement. COMPARISON: 03/19/2022 FINDINGS: Again seen is a nasogastric tube with distal tip in proximal side port in the body of the stomach. Pe rsistent mildly dilated gas-filled loops of small bowel in the left upper quadrant. Additional gas sc attered throughout nondilated loops of small bowel in the right abdomen along with small amount of st ool in the transverse colon. Visualized portions of the lungs are clear. Heart size is normal. IMPRESSION: 1. Nasogastric tube in the stomach. 2. Small bowel obstruction. Reviewed, dictated and finalized at location A.
[2022-03-19 14:04] LABS: Basophils Percent Auto 0.4 % (0.2-1.2); Eosinophils Percent Auto 0.1 % (0-4.4); Hematocrit 41.3 % (42.0-52.0); Hemoglobin 13.7 g/dL (14.0-18.0); Immature Granulocyte Absolute 0.15 K/mm3 (0.00-0.031); Immature Granulocyte Percent A 1.5 % (0-0.5); Lymphocytes Absolute Auto 2.28 K/mm3 (0.9-3.2); Lymphocytes Percent Auto 22.3 % (18.3-44.2); Mean Corpuscular HGB Conc 33.2 g/dl (32-36); Mean Corpuscular Hemoglobin 33.7 pg (26-34); Mean Corpuscular Volume 101.7 fl (80-100); Mean Platelet Volume 10.9 fl (7.4-10.4); Monocytes Percent Auto 9.5 % (2.6-8.5); Neutrophils Absolute Auto 6.8 K/mm3 (1.3-6.7); Neutrophils Percent Auto 66.2 % (45.5-73.1); Platelet Count Result 168 k/mm3 (150-375); Red Blood Count 4.06 M/mm3 (4.6-6.20); Red Cell Distribution Width 14.2 % (11.5-14.5); White Blood Count 10.2 K/mm3 (4.5-10.0)
[2022-03-19 14:15] LABS: Alanine Aminotransferase 23 U/L (6-50); Alkaline Phosphatase 86 U/L (38-126); Anion Gap 10 mmol/L (8-16); Aspartate Amino Transferase 39 U/L (17-59); Bilirubin,Total 0.4 mg/dL (0.2-1.3); Blood Urea Nitrogen 20 mg/dL (9-20); Calcium 10.4 mg/dL (8.4-10.2); Carbon Dioxide 29 mmol/L (22-30); Chloride 101 mmol/L (98-107); Estimated CRCL calculation 58 ml/min; Estimated Glomerular Filt Rate > 60; Glucose 229 mg/dL (65-110); Lipase 212 U/L (23-300); Potassium 4.9 mmol/L (3.4-5.0); Sodium 140 mmol/L (137-145)
--- NOTE | 2022-03-19 14:26 | ED.NAVMDI ---
HPI - Nausea/Vomiting/Diarrhea General Chief complaint: Nausea/Vomiting/Diarrhea Stated complaint: vomiting, poss bowel obstruction Time Seen by Provider: 03/19/22 14:26 Source: patient Mode of arrival: ambulatory Limitations: no limitations History of Present Illness HPI Narrative: The patient is a 71-year-old male with a history of previous bowel obstruction in August/2021, hypertension, type 2 diabetes presenting to the emergency department for evaluation of vomiting, abdominal distention and pain. Patient reports acute onset nausea, with 3 episodes of nonbloody, nonbilious emesis this morning. Patient reports he has significant abdominal distention and pain in a bandlike pattern across his middle abdomen. Patient reports chronic back pain, that is somewhat exacerbated from the abdominal pain. He reports diaphoresis and general malaise. He denies fever or chills. Patient has a history of appendectomy, states that he was admitted in August for a small bowel obstruction that resolved with conservative management. Patient states that this feels similar. He reports belching sensation. He denies any passing of flatus, is unsure if he has had a bowel movement today. Patient denies testicular pain, penile pain, dysuria or hematuria. Related Data Home Medications Medication Instructions Recorded Confirmed aspirin 81 mg tablet,delayed 81 mg PO DAILY 09/11/19 12/13/21 release multivitamin,[id number] 1 tablet PO DAILY 09/11/19 12/13/21 rizatriptan 10 mg tablet See Rx Instructions PO .COMPLEX PRN 09/11/19 12/13/21 Allergies Allergy/AdvReac Type Severity Reaction Status Date / Time No Known Allergies AdvReac Unknown Verified 03/19/22 15:08 Review of Systems Review of Systems: CONSTITUTIONAL: Denies fever, chills, or sweats. EYES: Denies visual changes, redness, or discharge. ENT: Denies rhinorrhea, congestion, sore throat, or otalgia. CARDIOVASCULAR: Denies chest pain, palpitations, or edema. RESPIRATORY: Denies cough or dyspnea. GASTROINTESTINAL: Reports abdominal pain, nausea and vomiting, reports abdominal distension GENITOURINARY: Denies dysuria or hematuria. SKIN: Denies rash or itching. MUSCULOSKELETAL: Denies back pain, joint pain, or myalgia. NEUROLOGIC: Denies headache, numbness, or weakness. [facility] Past Medical History Medical History Acute bilateral low back pain with left-sided sciatica Acute non-recurrent maxillary sinusitis Arthritis BMI 30.0-30.9,adult Body mass index (bmi) 29.0-29.9, adult (06/20/19) BPH without obstruction/lower urinary tract symptoms Chronic bilateral low back pain Dependence on other enabling machines and devices Diabetic eye exam no retinopathy on 03/18/2021 Diabetic peripheral neuropathy associated with type 2 diabetes mellitus Fatigue Fever blister Infection of mouth Insomnia Mixed hyperlipidemia Myalgia APARNA on CPAP Seasonal allergic rhinitis Type 2 diabetes mellitus without complication, without long-term current use of insulin glucose 163 with hemoglobin A1c 7.6 on 12/08/2021 Surgical History Surgical History History of appendectomy S/P tonsillectomy and adenoidectomy Family History Family History Grandparent Cerebrovascular accident, Onset Age: 78 Father Family history of Alzheimer's disease, Onset Age: 79 Mother Family history of Alzheimer's disease, Onset Age: 85 Social History Social History Social History: The patient lives with his . He has 4 children. He is retired from the [employer]. The patient has never smoked. He used to drink alcohol but he does anymore. His is the [employer] labour market economist for healthcare. Code status full code Smoking status: Never smoker
[2022-03-19] MEDS: SODIUM CHLORIDE 0.9% IV 1,000 ML 999 ML IV CONT ×2 (14:42→17:52)
[2022-03-19] MEDS: ONDANSETRON INJ 4 MG/2 ML VIAL IV PUSH (14:43)
[2022-03-19] MEDS: MORPHINE SULFATE (*CRX) 4 MG/ML INJ IV PUSH ×2 (14:43→17:52)
--- NOTE | 2022-03-19 15:08 | PC.NURSE ---
Patient off unit to CT.
[2022-03-19 15:41] LABS: Appearance Urine Clear (Clear); Bilirubin Urine Negative (Negative); Blood Urine Negative (Negative); Color Urine Yellow (Yellow); Glucose Urine UA Trace mg/dL (Negative); Ketones Urine Trace mg/dL (Negative); Leukocyte Esterase Ur Negative LEU/UL (Negative); Nitrate Urine Negative (Negative); Protein Urine 1+ mg/dL (Negative); Specific Grav Ur 1.025 (1.001-1.035); Urobilinogen Urine 0.2 mg/dL (<2.0); pH Urine 6.5 (5.0-9.0)
[2022-03-19 15:56] LABS: Bacteria Urine Trace /hpf; Mucus Urine Rare /lpf; RBC Urine 0-2 /hpf (0-2); Squamous Epithelial Cell Urine Rare /hpf (Few); WBC Urine 0-3 /hpf
[2022-03-19 15:57] LABS: Add Urine Microscopic? YES
[2022-03-19 16:06] LABS: SARS-CoV-2 RNA PCR Negative
--- NOTE | 2022-03-19 16:36 | ECG_ITS ---
Measurements Intervals [place] Rate: 63 P: -2 AK: 136 QRS: -29 QRSD: 94 T: 3 QT: 389 QTc: 399 Interpretive Statements SINUS RHYTHM LEFT VENTRICULAR HYPERTROPHY BORDERLINE T WAVE ABNORMALITY- ANTEROLAT/INF LEADS BASELINE WANDER- V4-V6 BORDERLINE ECG Electronically Signed On 03-19-2022 17:11:25 CDT by Jamison Oswald D.O.
[2022-03-19 17:22] LABS: Lactic Acid Reflex 2.2 mmol/L (0.7-2.0)
--- NOTE | 2022-03-19 18:30 | PM.IMHP ---
H&P: HPI History of Present Illness Date/Time: 03/19/22 18:30 Chief Complaint: Vomiting and abdominal distention. Narrative: This is a very pleasant 71-year-old male with hypertension, type 2 diabetes mellitus, sleep apnea, BPH, and history of bowel obstruction who presented to the emergency department this afternoon from home for evaluation of vomiting and abdominal distention. This morning he had Cheerios and a banana for breakfast and his stomach was a bit upset thereafter. He was able to have a small lunch to consist of vegetable beef stew and crackers but he began to feel bloated and increasingly nauseated thereafter. He then drank some Coca-Cola to see if that would help him belch to relieve his symptoms though unfortunately it did not and he started vomiting. The symptoms are similar to when he had a bowel obstruction last year and he came in today for evaluation where indeed he was found to have another obstruction on imaging. NG tube has been inserted and has already put out little over 1 L of fluid. He is not having too much discomfort at this time and he has no complaints. Last bowel movement was either yesterday or early this morning and was unremarkable. No blood or mucus in the stool. He denies fever, chills, and sweats. Review of Systems Review of Systems: Twelve systems were reviewed. No fever, chills, or sweats. No recent cold or flu symptoms. No chest pain or shortness of breath. No concerns for aspiration. Glucose has been reasonable. No blurry vision, polydipsia, or polyuria. Except as documented, all other systems were reviewed and are negative. [facility], [facility] Past Medical History Medical History Arthritis BPH without obstruction/lower urinary tract symptoms Chronic anemia Chronic bilateral low back pain Diabetic eye exam No retinopathy on 03/18/2021 Diabetic peripheral neuropathy associated with type 2 diabetes mellitus Essential (primary) hypertension Insomnia Mixed hyperlipidemia APARNA on CPAP Seasonal allergic rhinitis Type 2 diabetes mellitus without complication, without long-term current use of insulin Hemoglobin A1c 7.6 on 12/08/2021 Surgical History Surgical History (Updated 03/19/22 @ 19:12 by Monserrat Mandel PA-C) History of appendectomy History of colonoscopy History of tonsillectomy and adenoidectomy Family History Family History Grandparent Cerebrovascular accident, Onset Age: 78 Father Family history of Alzheimer's disease, Onset Age: 79 Mother Family history of Alzheimer's disease, Onset Age: 85 Social History Social History (Updated 03/19/22 @ 19:09 by Monserrat Mandel PA-C) Social History: Surrogate decision-maker: Malena Delong, spouse. CODE STATUS: Full code Smoking status: Never smoker Alcohol intake: never Substance use: never Substance use type: does not use Living arrangements: with family Additional living arrangements comments: Lives at home with his . They have 4 children. They have 7 horses Additional occupation/education comments: Retired from the [employer]. Spiritual care concerns: No Meds Home Medications and Allergies Home Medications Medication Instructions Recorded Confirmed Type aspirin 81 mg tablet,delayed 81 mg PO DAILY 09/11/19 03/19/22 History release multivitamin,[id number]-[id number] 1 tablet PO DAILY 09/11/19 03/19/22 History rizatriptan 10 mg tablet See Rx Instructions PO .COMPLEX PRN 09/11/19 03/19/22 History metformin 500 mg tablet,extended 2,000 mg PO DAILY #360 tablet 04/07/21 03/19/22 Rx release 24 hr montelukast 10 mg tablet 10 mg PO DAILY #90 tablet 06/03/21 03/19/22 Rx duloxetine 60 mg capsule,delayed 60 mg PO DAILY #90 cap 09/10/21 03/19/22 Rx release meloxicam 15 mg tablet 15 mg PO DAILY PRN #90 tablet 10/26/21 03/19/22 Rx dutasteride 0.5 mg capsule 0
[2022-03-19 20:09] LABS: Reflex Lactic Acid Yes or No Add Lactic
[2022-03-19 20:36] LABS: Lactic Acid 2.7 mmol/L (0.7-2.0)
--- NOTE | 2022-03-19 22:04 | ADMGEN ---
This patient, Hernan Delong, was admitted to [facility] Surg Room 313-01. Patient/family oriented to hospital policies and general routines including ID bracelet, bed and alarms, visiting hours, pain management, procedures, bathroom and other care routines, personal items, smoking policy, room service/diet, and visiting hours. Information on how to activate the Rapid Response Team has been discussed. Patient/Family are encouraged to report perceived risks to care and to ask questions if they do not understand what they are told or what they should do.
[2022-03-20] VITALS (7 sets, daily range): BP systolic 109–153; BP diastolic 75–88; PULSE 82–107; RESP 16–18; TEMP 36.7–37.2; O2SAT 93–96
[2022-03-20 02:44] LABS: Glucose Point of Care 230 mg/dl (65-105)
[2022-03-20] MEDS: ONDANSETRON INJ 4 MG/2 ML VIAL IV PUSH (05:47)
[2022-03-20 06:23] LABS: Hematocrit 39.1 % (42.0-52.0); Hemoglobin 12.9 g/dL (14.0-18.0); Mean Corpuscular Hemoglobin 33.9 pg (26-34); Mean Corpuscular Volume 102.9 fl (80-100); Mean Platelet Volume 11.5 fl (7.4-10.4); Platelet Count Result 161 k/mm3 (150-375); Red Cell Distribution Width 14.4 % (11.5-14.5); White Blood Count 18.9 K/mm3 (4.5-10.0)
[2022-03-20 06:40] LABS: Alanine Aminotransferase 22 U/L (6-50); Albumin Level 4.6 g/dL (3.5-5.1); Alkaline Phosphatase 80 U/L (38-126); Anion Gap 9 mmol/L (8-16); Aspartate Amino Transferase 33 U/L (17-59); Bilirubin,Total 0.5 mg/dL (0.2-1.3); Blood Urea Nitrogen 31 mg/dL (9-20); Calcium 9.9 mg/dL (8.4-10.2); Carbon Dioxide 29 mmol/L (22-30); Chloride 101 mmol/L (98-107); Estimated CRCL calculation 41 ml/min; Estimated Glomerular Filt Rate 43; Glucose 213 mg/dL (65-110); Magnesium 2.1 mg/dL (1.6-2.3); Potassium 5.1 mmol/L (3.4-5.0); Sodium 139 mmol/L (137-145)
[2022-03-20 08:01] LABS: Hemoglobin A1C 7.9 % (<5.7)
[2022-03-20] MEDS: INSULIN ASPART (*BKC) 100 UNITS/ML SUB-Q (08:37)
--- NOTE | 2022-03-20 10:00 | PM.IMPN ---
Progress Note: A&P Assessment and Plan (1) Small bowel obstruction: Code(s): K56.609 - Unspecified intestinal obstruction, unspecified as to partial versus complete obstruction Status: Acute Assessment and Plan: CT shows a short segment of small bowel wall edema in the right mid abdomen causing the obstruction. NG tube yielded well over 1 L of fluid upon insertion, continue NG to suction. Monitor I&Os, vital signs, neuro status and patient is a fall risk Monitor serum electrolytes and CBC General surgery consulted for further evaluation of small bowel obstruction if the patient needs surgical intervention or fails to improve with NG decompression. Place NG tube for non operative management, NG tube to low intermittent suction Gentle IV fluid resuscitation given the patient's NPO status P.r.n. Anti emetics, avoid reglan (2) Chronic anemia: Code(s): D64.9 - Anemia, unspecified Status: Acute Assessment and Plan: Hemoglobin and hematocrit are stable on review of previous labs Recently started iron supplementation (3) Type 2 diabetes mellitus without complication, without long-term current use of insulin: Code(s): E11.9 - Type 2 diabetes mellitus without complications Status: Acute Assessment and Plan: Random glucose today was 229. Initiate sliding scale insulin, Accu-Cheks, and hypoglycemic protocol. Recent hemoglobin A1c was 7.6%. (4) Essential (primary) hypertension: Code(s): I10 - Essential (primary) hypertension Status: Acute Assessment and Plan: Blood pressures were reviewed and they have been running on the low end of normal. Antihypertensives are on hold as he is n.p.o. given bowel obstruction. Continue to monitor daily Subjective Date/time seen: 03/20/22 10:00 Patient is alert and oriented x4. Patient reports that he recently had a similar episode approximately 6 months ago and was relieved with conservative measures. He did not have a colonoscopy performed at that time. Patient had a colonoscopy approximately 4 years ago where he did not have any Silverio Stephanie or mass found at that time. Patient reports he has had a high-fiber diet to diabetes. He requested to speak with a registered dietitian for further information. Order placed. Dr. Chapa was consulted from the emergency department last night for further evaluation of the patient's small bowel obstruction. Patient did have an elevated WBC, creatinine and BUN. Will provide aggressive IV fluid resuscitation as well as have the NG tube to low intermittent suction. Zosyn was empirically started, will deescalate antibiotics as needed. Review of Systems Review of Systems: All systems reviewed & are unremarkable except as noted in HPI and below Exam Narrative: General: Well-developed, nontoxic-appearing male sitting up in bed. Weight: 94.7 kg. BMI: 20.3. HEENT: PERRL, EOMI. Sclerae anicteric. NG tube in the left naris draining opaque brownish fluid with scattered food particulates. Moist mucous membranes. Neck: Supple. Respiratory: Respirations are even and nonlabored. Lungs are clear to auscultation bilaterally. Cardiovascular: Regular rate and rhythm with S1-S2. Gastrointestinal: Abdomen is firm and distended with diffuse tympany. He is tender to deeper palpation throughout the periumbilical region. No guarding or rebound tenderness. Skin: Warm and dry. No rash or lesions on limited exam. Extremities: No cyanosis, clubbing, or edema. Radial and pedal pulses intact. Neurological: Alert. Cranial nerves 2-12 are grossly intact. No gross focal deficits to casual conversation. Psychiatric: Pleasant and cooperative with normal mood and affect. Judgment and insight intact. Objective Data Vital Signs Vital Signs: Vital Signs - 24 hr 03/19/22 13:46 03/19/22 14:15 03/19/22 14:45 Temperature 97.5 F L Pulse Rate 81 78 103 H Respiratory Rate 18 Blood Pressure 139/91 H 135/
[2022-03-20 12:02] LABS: Glucose Point of Care 160 mg/dl (65-105)
[2022-03-20 15:48] LABS: Glucose Point of Care 153 mg/dl (65-105)
[2022-03-21 05:44] VITALS: BP 151/94; PULSE 77; RESP 14; TEMP 35.9; O2SAT 94
[2022-03-21 07:44] LABS: Glucose Point of Care 159 mg/dl (65-105)
[2022-03-21 08:53] VITALS: O2SAT 95
[2022-03-21 10:23] LABS: Basophils Percent Auto 0.3 % (0.2-1.2); Eosinophils Percent Auto 0.1 % (0-4.4); Hematocrit 38.5 % (42.0-52.0); Hemoglobin 12.4 g/dL (14.0-18.0); Immature Granulocyte Absolute 0.11 K/mm3 (0.00-0.031); Immature Granulocyte Percent A 1.5 % (0-0.5); Lymphocytes Absolute Auto 1.66 K/mm3 (0.9-3.2); Lymphocytes Percent Auto 22.5 % (18.3-44.2); Mean Corpuscular HGB Conc 32.2 g/dl (32-36); Mean Corpuscular Hemoglobin 33.8 pg (26-34); Mean Corpuscular Volume 104.9 fl (80-100); Monocytes Percent Auto 14.1 % (2.6-8.5); Neutrophils Absolute Auto 4.6 K/mm3 (1.3-6.7); Neutrophils Percent Auto 61.5 % (45.5-73.1); Platelet Count Result 147 k/mm3 (150-375); Red Blood Count 3.67 M/mm3 (4.6-6.20); Red Cell Distribution Width 14.6 % (11.5-14.5); White Blood Count 7.4 K/mm3 (4.5-10.0)
[2022-03-21 10:40] LABS: Alanine Aminotransferase 19 U/L (6-50); Albumin Level 4.7 g/dL (3.5-5.1); Alkaline Phosphatase 76 U/L (38-126); Anion Gap 9 mmol/L (8-16); Aspartate Amino Transferase 35 U/L (17-59); Bilirubin,Total 0.8 mg/dL (0.2-1.3); Blood Urea Nitrogen 30 mg/dL (9-20); Carbon Dioxide 29 mmol/L (22-30); Chloride 101 mmol/L (98-107); Estimated CRCL calculation 50 ml/min; Estimated Glomerular Filt Rate 54; Glucose 170 mg/dL (65-110); Potassium 4.2 mmol/L (3.4-5.0); Sodium 139 mmol/L (137-145)
[2022-03-21 11:10] LABS: Glucose Point of Care 147 mg/dl (65-105)
--- NOTE | 2022-03-21 11:23 | PM.IMPN ---
Progress Note: A&P Assessment and Plan (1) Small bowel obstruction: Code(s): K56.609 - Unspecified intestinal obstruction, unspecified as to partial versus complete obstruction Status: Acute Assessment and Plan: CT shows a short segment of small bowel wall edema in the right mid abdomen causing the obstruction. NG tube yielded well over 1 L of fluid upon insertion, continue NG to suction. Monitor I&Os, vital signs, neuro status and patient is a fall risk Monitor serum electrolytes and CBC General surgery consulted for further evaluation of small bowel obstruction if the patient needs surgical intervention or fails to improve with NG decompression. Continue NG tube for non operative management, NG tube to low intermittent suction Gentle IV fluid resuscitation given the patient's NPO status P.r.n. Anti emetics, avoid reglan (2) Chronic anemia: Code(s): D64.9 - Anemia, unspecified Status: Acute Assessment and Plan: Hemoglobin and hematocrit are stable on review of previous labs Recently started iron supplementation (3) Type 2 diabetes mellitus without complication, without long-term current use of insulin: Code(s): E11.9 - Type 2 diabetes mellitus without complications Status: Acute Assessment and Plan: Random glucose today was 229. Initiate sliding scale insulin, Accu-Cheks, and hypoglycemic protocol. Recent hemoglobin A1c was 7.6%. (4) Essential (primary) hypertension: Code(s): I10 - Essential (primary) hypertension Status: Acute Assessment and Plan: Blood pressures were reviewed and they have been running on the low end of normal. Antihypertensives are on hold as he is n.p.o. given bowel obstruction. Continue to monitor daily Subjective Date/time seen: 03/21/22 11:23 Patient is alert and oriented this morning. He was sitting at the bedside with no NG tube in. Patient reports that he ?sneezed down the tube?. A repeat KUB was performed which revealed some resolution of the small-bowel obstructiono, however had the RN replace the NG tube and to notify General surgery of the event. General surgery to evaluate patient this morning. No other acute events reported by RN during the night. Patient reports he is doing well and does have some minimal tenderness to the left and right lower quadrants. Abdomen continues to be firm and distended. Review of Systems Review of Systems: All systems reviewed & are unremarkable except as noted in HPI and below Exam Narrative: General: Well-developed, nontoxic-appearing male sitting up in bed. Weight: 94.7 kg. BMI: 20.3. HEENT: PERRL, EOMI. Sclerae anicteric. NG tube in the left naris draining opaque brownish fluid with scattered food particulates. Moist mucous membranes. Neck: Supple. Respiratory: Respirations are even and nonlabored. Lungs are clear to auscultation bilaterally. Cardiovascular: Regular rate and rhythm with S1-S2. Gastrointestinal: Abdomen is firm and distended with diffuse tympany. He is tender to deeper palpation throughout the periumbilical region. No guarding or rebound tenderness. Skin: Warm and dry. No rash or lesions on limited exam. Extremities: No cyanosis, clubbing, or edema. Radial and pedal pulses intact. Neurological: Alert. Cranial nerves 2-12 are grossly intact. No gross focal deficits to casual conversation. Psychiatric: Pleasant and cooperative with normal mood and affect. Judgment and insight intact. Objective Data Vital Signs Vital Signs: Vital Signs - 24 hr 03/20/22 14:00 03/20/22 21:00 03/21/22 05:44 Temperature 98.5 F 98.9 F 96.6 F L Pulse Rate 98 92 77 Respiratory Rate 16 17 14 Blood Pressure 138/75 140/75 151/94 H Pulse Oximetry 94 93 94 03/21/22 08:53 Temperature Pulse Rate Respiratory Rate Blood Pressure Pulse Oximetry 95 Intake/Output Intake/Output: Intake & Output 03/18/22 03/19/22 03/20/22 03/21/22 23:59 23:59 23:59 2
[2022-03-21 13:58] VITALS: BP 143/89; PULSE 93; RESP 16; TEMP 36.9; O2SAT 98
--- NOTE | 2022-03-21 14:51 | PC.NURSE ---
pt called to front desk monitor at 0800 and stated that NG tube came out when he sneezed just then. At 0805 this nurse went in pt room and found NG tube was completely removed. This nurse contacted Jaki Viramontes to make hospitalist aware and to ask if NG tube needs reinserted. Jaki Viramontes stated that she will let nurse know to reinsert or not after pt has KUB. KUB was completed at 0928. Jaki Viramontes then stated to this nurse to reinsert NG. NG was reinserted by [address] under this nurse's supervision. Xray of abd was then obtained to verify placement. Ng is now hooked to low intermittent suction.
[2022-03-21 16:25] LABS: Glucose Point of Care 159 mg/dl (65-105)
--- NOTE | 2022-03-21 19:18 | PM.CNGS ---
Assessment and Plan Assessment and plan (1) Small bowel obstruction: Code(s): K56.609 - Unspecified intestinal obstruction, unspecified as to partial versus complete obstruction Status: Acute Assessment and Plan: The patient has been admitted since 03/19 and he is not currently on any IV fluids. I am not sure if this has been continuous since he was admitted or just during the day today, but will go ahead and start lactated Ringer's IV to help prevent dehydration and other consequences. I have reviewed the CT and discussed the findings with the patient. He has evidence of another small-bowel obstruction. The CT does show some bowel wall thickening concerning for inflammatory changes or possible ischemia over a short segment. He is not showing any worsening signs after 2 days, so hopefully this is resolving. Will continue NG decompression and close monitoring. I will plan for a Gastrografin small-bowel follow-through tomorrow to assess for ongoing obstruction. Discussed with patient that if this has not resolved, he will likely need surgical intervention. Will discuss further with patient tomorrow after imaging. (2) Essential (primary) hypertension: Code(s): I10 - Essential (primary) hypertension Status: Acute (3) Type 2 diabetes mellitus without complication, without long-term current use of insulin: Code(s): E11.9 - Type 2 diabetes mellitus without complications Status: Acute (4) APARNA on CPAP: Code(s): G47.33 - Obstructive sleep apnea (adult) (pediatric); Z99.89 - Dependence on other enabling machines and devices Status: Chronic History of Present Illness Consult details Consult date: 03/21/22 Reason for consult: other (Small-bowel obstruction) Requesting physician: Jaki Viramontes, [employer] Narrative: This is a 71-year-old man who I am asked to see for a small-bowel obstruction. He was admitted on 03/19/2022 with a recurrent bowel obstruction. He has a history of partial small bowel obstruction about 6 months ago and was treated with NG decompression. This resolved after several days and he was able to be discharged home. The patient states that 2 days ago he ate breakfast and about 3-4 hours later began feeling abdominal pain, distention, and nausea. Since he knew what this likely was based on his previous history, patient decided to come to the emergency department on 03/19. NG tube was placed and he was admitted for further treatment. The patient states that he did have 1 bowel movement yesterday and is passing some flatus. His follow-up x-rays have shown persistently dilated small concerning for continued obstruction. The patient does state that he had some milk with his cereal that he felt might been going slightly bad. Otherwise he denies any potential foods that could have caused this. He is still having some mild left lower quadrant pain, but denies any fevers or any other ongoing symptoms. The patient's only abdominal surgery is an open appendectomy that was done about 40 years ago. Review of Systems Review of Systems: All systems reviewed & are unremarkable except as noted in HPI and below Constitutional: Constitutional: Denies chills and Denies fever(s) Eyes: Eyes: Denies change in vision ENT: Denies hearing loss, Denies neck pain and Denies sore throat Cardiovascular: Cardiovascular: Denies chest pain and Denies dyspnea Respiratory: Respiratory: Denies cough, Denies dyspnea and Denies wheezing Gastrointestinal: Gastrointestinal: Reports as per HPI Genitourinary: Genitourinary: Denies hematuria and Denies dysuria Musculoskeletal: Musculoskeletal: Denies arthralgias, Denies joint swelling and Denies neck pain Allergic/Immunologic: Allergic/Immunologic: Denies wheezing [facility] Past Medical History Medical History Arthritis BPH without obstruction/lower urinary tract symptoms Chronic anemia Chronic bilater
[2022-03-21] MEDS: LACTATED RINGERS 1,000 ML 150 ML IV CONT (19:44)
[2022-03-21 21:28] VITALS: BP 139/96; PULSE 86; RESP 18; TEMP 36.1
[2022-03-22] MEDS: LACTATED RINGERS 1,000 ML 150 ML IV CONT ×3 (05:59→23:37)
[2022-03-22 06:00] VITALS: BP 171/88; PULSE 83; RESP 18; TEMP 36.1; O2SAT 97
[2022-03-22 06:15] VITALS: BP 150/98
--- NOTE | 2022-03-22 09:57 | PM.IMPN ---
Progress Note: A&P Assessment and Plan (1) Small bowel obstruction: Code(s): K56.609 - Unspecified intestinal obstruction, unspecified as to partial versus complete obstruction Status: Acute Assessment and Plan: CT shows a short segment of small bowel wall edema in the right mid abdomen causing the obstruction. NG tube yielded well over 1 L of fluid upon insertion, continue NG to suction. Monitor I&Os, vital signs, neuro status and patient is a fall risk Monitor serum electrolytes and CBC General surgery consulted for further evaluation of small bowel obstruction if the patient needs surgical intervention or fails to improve with NG decompression. Continue NG tube for non operative management, NG tube to low intermittent suction Pending Gastrografin results Gentle IV fluid resuscitation given the patient's NPO status P.r.n. Anti emetics, avoid reglan (2) Chronic anemia: Code(s): D64.9 - Anemia, unspecified Status: Acute Assessment and Plan: Hemoglobin and hematocrit are stable on review of previous labs Recently started iron supplementation (3) Type 2 diabetes mellitus without complication, without long-term current use of insulin: Code(s): E11.9 - Type 2 diabetes mellitus without complications Status: Acute Assessment and Plan: Random glucose today was 229. Initiate sliding scale insulin, Accu-Cheks, and hypoglycemic protocol. Recent hemoglobin A1c was 7.6%. (4) Essential (primary) hypertension: Code(s): I10 - Essential (primary) hypertension Status: Acute Assessment and Plan: Blood pressures were reviewed and they have been running on the low end of normal. Antihypertensives are on hold as he is n.p.o. given bowel obstruction. Continue to monitor daily Subjective Date/time seen: 03/22/22 09:57 Interval history: Patient is doing okay this morning. He continues to have bilateral lower abdominal pain. Gastrografin be performed this morning. General surgery was able to evaluate the patient. Discussed risks and benefits of possible plan of care. With the patient. No acute interventions performed. No acute events reported by RN during the night. Patient denies any excessive nausea, vomiting or diarrhea. Patient has not had a bowel movement he does report passing flatus. General surgery evaluated the patient as well as met the bedside woke him about the results from the Gastrografin. Patient will be able to start with clear liquid diet advance as tolerated to soft food for 2 weeks. Continue conservative treatment, avoid surgical intervention Review of Systems Review of Systems: All systems reviewed & are unremarkable except as noted in HPI and below Exam Narrative: General: Well-developed, nontoxic-appearing male sitting up in bed. Weight: 94.7 kg. BMI: 20.3. HEENT: PERRL, EOMI. Sclerae anicteric. NG tube in the left naris draining opaque brownish fluid with scattered food particulates. Moist mucous membranes. Neck: Supple. Respiratory: Respirations are even and nonlabored. Lungs are clear to auscultation bilaterally. Cardiovascular: Regular rate and rhythm with S1-S2. Gastrointestinal: Abdomen is firm and distended with diffuse tympany. He is tender to deeper palpation throughout the periumbilical region. No guarding or rebound tenderness. Skin: Warm and dry. No rash or lesions on limited exam. Extremities: No cyanosis, clubbing, or edema. Radial and pedal pulses intact. Neurological: Alert. Cranial nerves 2-12 are grossly intact. No gross focal deficits to casual conversation. Psychiatric: Pleasant and cooperative with normal mood and affect. Judgment and insight intact. Objective Data Vital Signs Vital Signs: Vital Signs - 24 hr 03/21/22 13:58 03/21/22 21:28 03/22/22 06:00 Temperature 98.5 F 97.0 F L 97.0 F L Pulse Rate 93 86 83 Respiratory Rate 16 18 18 Blood Pressure 143/89 H 139/96 H 171/88 H Pulse Oxi
[2022-03-22 10:20] LABS: Basophils Percent Auto 0.4 % (0.2-1.2); Hematocrit 42.9 % (42.0-52.0); Hemoglobin 14.4 g/dL (14.0-18.0); Immature Granulocyte Absolute 0.03 K/mm3 (0.00-0.031); Immature Granulocyte Percent A 0.7 % (0-0.5); Lymphocytes Absolute Auto 1.74 K/mm3 (0.9-3.2); Lymphocytes Percent Auto 38.6 % (18.3-44.2); Mean Corpuscular HGB Conc 33.6 g/dl (32-36); Mean Corpuscular Hemoglobin 34.4 pg (26-34); Mean Corpuscular Volume 102.6 fl (80-100); Mean Platelet Volume 10.9 fl (7.4-10.4); Monocytes Absolute Auto 0.7 K/mm3 (0.1-0.6); Monocytes Percent Auto 15.7 % (2.6-8.5); Neutrophils Percent Auto 44.6 % (45.5-73.1); Platelet Count Result 188 k/mm3 (150-375); Red Blood Count 4.18 M/mm3 (4.6-6.20); Red Cell Distribution Width 14.2 % (11.5-14.5); White Blood Count 4.5 K/mm3 (4.5-10.0)
[2022-03-22 10:32] LABS: Alanine Aminotransferase 23 U/L (6-50); Alkaline Phosphatase 89 U/L (38-126); Anion Gap 10 mmol/L (8-16); Aspartate Amino Transferase 43 U/L (17-59); Bilirubin,Total 0.8 mg/dL (0.2-1.3); Blood Urea Nitrogen 27 mg/dL (9-20); Calcium 10.3 mg/dL (8.4-10.2); Carbon Dioxide 34 mmol/L (22-30); Chloride 105 mmol/L (98-107); Estimated CRCL calculation 46 ml/min; Estimated Glomerular Filt Rate 50; Glucose 227 mg/dL (65-110); Potassium 4.1 mmol/L (3.4-5.0); Sodium 149 mmol/L (137-145)
--- NOTE | 2022-03-22 10:55 | PM.PNGS ---
Progress Note: A&P Assessment and Plan (1) Small bowel obstruction: Code(s): K56.609 - Unspecified intestinal obstruction, unspecified as to partial versus complete obstruction Status: Acute Assessment and Plan: Bowel function returning. I reviewed the SBFT. Patient might still have a partial obstruction. He is feeling better. I discussed options of proceeding with diagnostic laparoscopy with possible open, possible bowel resection. Also discussed trying to advance diet to see if symptoms have completely resolved. Discussed risks and benefits of both options. Patient would like to try liquids and advancing diet rather than proceeding with surgery. Will remove NG and start clear liquids. Subjective Subjective Date/Time Seen: 03/22/22 10:55 Interval history: Bowels moving. Pain improving. Exam GI: Inspection: non-distended GI Palp: Yes Soft to palpation, No Tenderness to palpation present (GI) and No Guarding due to palpation present (GI) Auscultation: normal bowel sounds Objective Data Vital Signs Vital Signs: Vital Signs - 24 hr 03/21/22 13:58 03/21/22 21:28 03/22/22 06:00 Temperature 36.9 C 36.1 C L 36.1 C L Pulse Rate 93 86 83 Respiratory Rate 16 18 18 Blood Pressure 143/89 H 139/96 H 171/88 H Pulse Oximetry 98 97 Oxygen Delivery 03/22/22 06:15 03/22/22 08:05 Temperature Pulse Rate Respiratory Rate Blood Pressure 150/98 H Pulse Oximetry Oxygen Delivery Room Air Intake/Output Intake/Output: Intake & Output 03/19/22 03/20/22 03/21/22 03/22/22 23:59 23:59 23:59 23:59 Intake Total 2000 821 413 0192 Output Total 1100 1450 1460 1200 Balance 900 -1200 -1260 -100 Meds/Results Medications: Active Medications Generic Name Dose Route Start Last Admin Trade Name Freq PRN Reason Stop Dose Admin Dextrose 12.5 gm 03/20/22 00:02 Dextrose 50% 25 Gm/50 Ml Syringe IV PUSH PRN PRN Hypoglycemia Protocol Glucagon 1 mg 03/20/22 00:02 Glucagon For Inj 1 Mg Vial IM PRN PRN Hypoglycemia Protocol Glucose 15 gm 03/20/22 00:02 Glucose Oral Gel 15 Gm Of Glucse In 37.5 Gm Tube PO PRN PRN Hypoglycemia Protocol Dextrose 1,000 mls @ 100 mls/hr 03/20/22 00:02 Dextrose 5% 1,000 Ml IVPB PRN PRN Hypoglycemia Protocol Piperacillin/Tazobactam/Dextrose 3.375 gm in 50 mls @ 100 mls/hr 03/20/22 08:00 03/22/22 10:00 Zosyn 3.375 Gm/D5w 50ml Pm IVPB Infused Q6H SPENCER Infusion Lactated Ringer's 1,000 mls @ 150 mls/hr 03/21/22 19:20 03/22/22 05:59 Lr - Lactated Ringers Iv IV CONT 150 mls/hr .Q6H40M SPENCER Administration Insulin Aspart 2 - 5 units 03/20/22 08:00 03/22/22 08:00 Insulin Aspart (*Bkc) 100 Units/Ml SUB-Q Not Given TIDWM [facility] Protocol Morphine Sulfate 2 mg 03/20/22 00:02 Morphine Sulfate (*Crx) 2 Mg/Ml Inj IV PUSH Q4H PRN Pain Rated 7-10 Ondansetron HCl 4 mg 03/20/22 00:02 03/20/22 05:47 Ondansetron Inj 4 Mg/2 Ml Vial IV PUSH 4 mg Q6H PRN Administration Nausea And Vomiting Radiology Results: ITS Impressions Abdomen/Pelvis CT 03/19/22 15:37 IMPRESSION: Short segment infectious, inflammatory, or ischemic small bowel wall edema in the right mid abdomen causing obstruction of more proximal small bowel. Presence of interloop fluid may indicate a higher grade of obstruction or early ischemia. Recommend surgical consultation. ADDENDUM: 03/21/22 1357 Examination was performed with 75 mL Omnipaque 300 and NOT 100 mL as originally dictated. Abdomen X-Ray 03/21/22 10:39 IMPRESSION: 1: NG tube tip in the stomach. 2: Dilated small bowel left upper abdomen which may represent ileus or partial obstruction. Small Bowel X-Ray 03/22/22 10:14 IMPRESSION: 1: Mildly dilated proximal and mid small bowel with transition in the lower abdomen near the midline with associated point tenderness. Findings
[2022-03-22] MEDS: INSULIN ASPART (*BKC) 100 UNITS/ML SUB-Q (12:20)
[2022-03-22 12:25] LABS: Glucose Point of Care 251 mg/dl (65-105)
[2022-03-22 14:05] VITALS: BP 136/71; PULSE 103; RESP 18; TEMP 37.3; O2SAT 96
[2022-03-22 17:14] LABS: Glucose Point of Care 144 mg/dl (65-105)
[2022-03-22 21:23] LABS: Glucose Point of Care 138 mg/dl (65-105)
[2022-03-22 21:34] VITALS: O2SAT 95
[2022-03-22 21:39] VITALS: BP 170/76; BP 175/80; PULSE 70; RESP 18; TEMP 36.4; O2SAT 99
[2022-03-22] MEDS: hydrALAZINE HCL 20 MG/ML VIAL 10 MG IV PUSH (21:50)
[2022-03-22 23:37] VITALS: BP 156/68
[2022-03-23 05:37] VITALS: BP 162/81; PULSE 65; RESP 18; TEMP 36.8; O2SAT 95
[2022-03-23 07:47] LABS: Glucose Point of Care 174 mg/dl (65-105)
[2022-03-23 08:21] VITALS: O2SAT 96
[2022-03-23] MEDS: LACTATED RINGERS 1,000 ML 100 ML IV CONT (08:21)
[2022-03-23 08:27] LABS: Hematocrit 38.4 % (42.0-52.0); Hemoglobin 12.5 g/dL (14.0-18.0); Mean Corpuscular HGB Conc 32.6 g/dl (32-36); Mean Corpuscular Volume 104.3 fl (80-100); Platelet Count Result 160 k/mm3 (150-375); Red Blood Count 3.68 M/mm3 (4.6-6.20); White Blood Count 3.8 K/mm3 (4.5-10.0)
[2022-03-23 08:48] LABS: Anion Gap 7 mmol/L (8-16); Blood Urea Nitrogen 19 mg/dL (9-20); Calcium 8.9 mg/dL (8.4-10.2); Carbon Dioxide 30 mmol/L (22-30); Chloride 100 mmol/L (98-107); Estimated CRCL calculation 58 ml/min; Estimated Glomerular Filt Rate > 60; Glucose 186 mg/dL (65-110); Potassium 3.4 mmol/L (3.4-5.0); Sodium 137 mmol/L (137-145)
[2022-03-23] MEDS: DUTASTERIDE 0.5 MG CAPSULE PO (09:05)
[2022-03-23] MEDS: MONTELUKAST SODIUM 10 MG TABLET PO (09:05)
[2022-03-23] MEDS: ASPIRIN 81 MG ENTERIC TABLET PO (09:05)
[2022-03-23] MEDS: TAMSULOSIN HCL 0.4 MG CAPSULE PO (09:05)
[2022-03-23] MEDS: DULoxetine HCL 60 MG CAPSULE.DR PO (09:05)
[2022-03-23] MEDS: lisinopriL 20 MG TABLET 40 MG PO (09:05)
--- NOTE | 2022-03-23 10:12 | PM.PNGS ---
Progress Note: A&P Assessment and Plan (1) Small bowel obstruction: Code(s): K56.609 - Unspecified intestinal obstruction, unspecified as to partial versus complete obstruction Status: Acute Assessment and Plan: Advance diet as tolerated. OK to discharge later today if tolerating solid diet. Recommend soft foods for 2 weeks then resume regular diabetic diet. Return to ED for recurrent symptoms. (2) Type 2 diabetes mellitus without complication, without long-term current use of insulin: Code(s): E11.9 - Type 2 diabetes mellitus without complications Status: Acute (3) APARNA on CPAP: Code(s): G47.33 - Obstructive sleep apnea (adult) (pediatric); Z99.89 - Dependence on other enabling machines and devices Status: Chronic (4) Essential (primary) hypertension: Code(s): I10 - Essential (primary) hypertension Status: Acute Subjective Subjective Date/Time Seen: 03/23/22 10:12 Interval history: Tolerating full liquid diet. No nausea/vomiting. Bowels moving. Up walking. Exam GI: Inspection: non-distended GI Palp: Yes Soft to palpation, No Tenderness to palpation present (GI) and No Guarding due to palpation present (GI) Auscultation: normal bowel sounds Objective Data Vital Signs Vital Signs: Vital Signs - 24 hr 03/22/22 14:05 03/22/22 20:00 03/22/22 21:39 Temperature 37.3 C 36.4 C L Pulse Rate 103 H 70 Respiratory Rate 18 18 Blood Pressure 136/71 170/76 H Pulse Oximetry 96 99 Oxygen Delivery Room Air 03/22/22 21:39 03/22/22 23:37 03/23/22 05:37 Temperature 36.8 C Pulse Rate 65 Respiratory Rate 18 Blood Pressure 175/80 H 156/68 H 162/81 H Pulse Oximetry 95 Oxygen Delivery 03/22/22 21:34 03/23/22 08:21 Temperature Pulse Rate Respiratory Rate Blood Pressure Pulse Oximetry 95 96 Oxygen Delivery Room Air Room Air Intake/Output Intake/Output: Intake & Output 03/20/22 03/21/22 03/22/22 03/23/22 23:59 23:59 23:59 23:59 Intake Total 154 078 4076 2254 Output Total 1450 1460 1200 Balance -1200 -1260 0719 2254 Meds/Results Medications: Active Medications Generic Name Dose Route Start Last Admin Trade Name Freq PRN Reason Stop Dose Admin Aspirin 81 mg 03/23/22 09:00 03/23/22 09:05 Aspirin 81 Mg Enteric Tablet PO 81 mg DAILY SPENCER Administration Dextrose 12.5 gm 03/20/22 00:02 Dextrose 50% 25 Gm/50 Ml Syringe IV PUSH PRN PRN Hypoglycemia Protocol Duloxetine HCl 60 mg 03/23/22 09:00 03/23/22 09:05 Duloxetine Hcl 60 Mg Capsule.Dr PO 60 mg DAILY SPENCER Administration Dutasteride 0.5 mg 03/23/22 09:00 03/23/22 09:05 Dutasteride 0.5 Mg Capsule PO 0.5 mg DAILY SPENCER Administration Glucagon 1 mg 03/20/22 00:02 Glucagon For Inj 1 Mg Vial IM PRN PRN Hypoglycemia Protocol Glucose 15 gm 03/20/22 00:02 Glucose Oral Gel 15 Gm Of Glucse In 37.5 Gm Tube PO PRN PRN Hypoglycemia Protocol Hydralazine HCl 10 mg 03/22/22 21:37 03/22/22 21:50 Hydralazine Hcl 20 Mg/Ml Vial IV PUSH 10 mg Q6H PRN Administration SBP > 165 or DBP > 105 Dextrose 1,000 mls @ 100 mls/hr 03/20/22 00:02 Dextrose 5% 1,000 Ml IVPB PRN PRN Hypoglycemia Protocol Piperacillin/Tazobactam/Dextrose 3.375 gm in 50 mls @ 100 mls/hr 03/20/22 08:00 03/23/22 08:54 Zosyn 3.375 Gm/D5w 50ml Pm IVPB Infused Q6H SPENCER Infusion Insulin Aspart 2 - 5 units 03/20/22 08:00 03/23/22 08:27 Insulin Aspart (*Bkc) 100 Units/Ml SUB-Q Not Given TIDWM [facility] Protocol Lisinopril 40 mg 03/23/22 09:00 03/23/22 09:05 Lisinopril 20 Mg Tablet PO 40 mg QAM SPENCER Administration Montelukast Sodium 10 mg 03/23/22 09:00 03/23/22 09:05 Montelukast Sodium 10 Mg Tablet PO 10 mg DAILY SPENCER Administration Morphine Sulfate 2 mg 03/20/22 00:02 Morphine Sulfate (*Crx) 2 Mg/Ml Inj IV PUSH Q4H PRN Pain Rated 7-10
[2022-03-23 11:48] LABS: Glucose Point of Care 168 mg/dl (65-105)
[2022-03-23 11:58] VITALS: BP 145/75; PULSE 70
--- NOTE | 2022-03-23 12:46 | PM.DS ---
DS: Admitting Diagnosis Discharge Date 03/23/2022 <Lyn Jain PA-C - Last Filed: 03/23/22 15:02> Admitting Diagnosis SBO <Lyn Jain PA-C - Last Filed: 03/23/22 15:02> DS: Discharge Diagnosis Discharge Diagnosis (1) Small bowel obstruction: Onset Date: ~03/19/22 <Lyn Jain PA-C - Last Filed: 03/23/22 15:02> Code(s): K56.609 - Unspecified intestinal obstruction, unspecified as to partial versus complete obstruction <Lyn Jain PA-C - Last Filed: 03/23/22 15:02> Status: Acute <Lyn Jain PA-C - Last Filed: 03/23/22 15:02> Assessment and Plan: Patient presented with abdominal distention and vomiting CT a/p showed short segment of small bowel wall edema in mid right abdomen causing obstruction of proximal bowel He was seen in consultation by general surgery Improved following NG decompression SBFT showed normal transit time to colon Bowel function returned Diet was advanced and patient was able to tolerate soft, low-fiber diet. <Lyn Jain PA-C - Last Filed: 03/23/22 15:02> (2) Chronic anemia: Code(s): D64.9 - Anemia, unspecified <Lyn Jain PA-C - Last Filed: 03/23/22 15:02> Status: Acute <Lyn Jain PA-C - Last Filed: 03/23/22 15:02> Assessment and Plan: H&H was consistent with prior labs Continue p.o. iron supplementation <Lyn Jain PA-C - Last Filed: 03/23/22 15:02> (3) Type 2 diabetes mellitus without complication, without long-term current use of insulin: Code(s): E11.9 - Type 2 diabetes mellitus without complications <Lyn Jain PA-C - Last Filed: 03/23/22 15:02> Status: Acute <Lyn Jain PA-C - Last Filed: 03/23/22 15:02> Assessment and Plan: A1c is 7.9 Ms. Regular [place] with Accu-Cheks, sliding scale insulin, hypoglycemic protocol Continue home metformin <Lyn Jain PA-C - Last Filed: 03/23/22 15:02> (4) Essential (primary) hypertension: Code(s): I10 - Essential (primary) hypertension <Lyn Jain PA-C - Last Filed: 03/23/22 15:02> Status: Acute <YUSUF Herrera Last Filed: 03/23/22 15:02> Assessment and Plan: Blood pressures reviewed in or slightly elevated, likely due to his p.o. antihypertensives be on hold Blood pressures improved with home regimen was resumed. BP 145/75 at time of discharge Continue p.o. quinapril <Lyn Jain PA-C - Last Filed: 03/23/22 15:02> DS: Summary Hospital Course Hospital Course: Date of admission: 03/19/2022 Date of discharge: 03/23/2022 Hernan Delong is a 71-year-old male with a history of type 2 diabetes mellitus, chronic anemia, hypertension, BPH, and history of small-bowel obstruction in August 2021 who presented to the emergency department on 03/19/2022 with complaints of viability, abdominal pain, and bloating. Upon presentation to the ED, he was found to have small-bowel obstruction. He was admitted to the hospitalist service for further evaluation management and was seen in consultation by General surgery. He had symptomatic improvement following get NG decompression. Was able to advance to a low-fiber diet which he will continue for 2 weeks. His bowel function returned it he was feeling back to his usual state of health. He was very eager for discharge home. Given overall improvement, he was determined to no longer require inpatient care and was discharged in hemodynamically stable condition on 03/23/2022. I discussed with the patient worrisome signs and symptoms for which to return and he was educated on his medications. He will follow-up with his primary care provider in 1-2 weeks. <YUSUF Herrera Last Filed: 03/23/22 15:02> Status at Discharge Functional status at discharge: independent ambulation <YUSUF Herrera Last Filed: 03/23/22 15:02> Overall stat
== END 2022-03-23 13:15 | disposition home or self-care (01) | DRG 390 ==
LOC: ANHED 16:40 → ANH3MEDSUR 18:16
PROVIDERS: Nurse Practitioner Family; Physician Assistant; Admitting Provider Family Medicine; Emergency Provider Emergency Medicine; PCP Family Medicine; Visit Provider Family Medicine
DX: K56.609 Unspecified intestinal obstruction, unspecified as to partial versus complete obstruction (principal); E11.42 Type 2 diabetes mellitus with diabetic polyneuropathy; Z20.822 Contact with and (suspected) exposure to COVID-19; D64.9 Anemia, unspecified; I10 Essential (primary) hypertension; N40.0 Benign prostatic hyperplasia without lower urinary tract symptoms; G47.00 Insomnia, unspecified; E78.2 Mixed hyperlipidemia; G47.33 Obstructive sleep apnea (adult) (pediatric); J30.2 Other seasonal allergic rhinitis; M19.90 Unspecified osteoarthritis, unspecified site; M54.50 Low back pain, unspecified; Z79.82 Long term (current) use of aspirin; Z79.84 Long term (current) use of oral hypoglycemic drugs; Z99.89 Dependence on other enabling machines and devices
CPT/HCPCS: 36415; 74018; 74177; 74250; 80048; 80053; 81001; 82948; 83036; 83605; 83690; 83735; 85025; 85027; 86850; 86900; 86901; 93005; 96361; 96365; 96375; 96376; 99285; A9270; C9803; G0378; J0131; J0360; J1815; J2270; J2405; J2543; J7030; J7120; Q9967; U0003; U0005

== ENCOUNTER 2022-11-07 10:06 | Outpatient (CLI) | payer MEDICARE, BC, SELFPAY ==
--- NOTE | ~2022-11-07 | XR_ITS ---
EXAMINATION: XR elbow LT min 3V DATE: 11/07/2022 10:32 INDICATION: Left elbow pain and swelling TECHNIQUE: Anteroposterior, two oblique and lateral views of the left elbow were obtained. COMPARISON: None. FINDINGS: Alignment is normal. No fracture or joint effusion. Joint spaces are normal. There is post erior soft tissue swelling of the elbow overlying the olecranon IMPRESSION: 1. Posterior soft tissue swelling of the elbow overlying the olecranon. Reviewed, dictated and finalized at location B. CENTER NURSE
== END 2022-11-07 10:07 | disposition home or self-care (01) ==
PROVIDERS: PCP Family Medicine; Visit Provider Family Medicine
DX: M25.522 Pain in left elbow (principal); M79.89 Other specified soft tissue disorders
CPT/HCPCS: 73080

== ENCOUNTER 2023-10-21 09:59 | Inpatient (IN) | payer MEDICARE, BC, SELFPAY ==
[2023-10-21] VITALS (15 sets, daily range): BP systolic 130–163; BP diastolic 80–96; PULSE 105–120; RESP 14–28; TEMP 36.7–37.1; O2SAT 93–100; BMI 27.1
--- NOTE | ~2023-10-21 | MR_ITS ---
EXAMINATION: MR brain/brain stem wo/w con DATE: 10/22/2023 07:50 INDICATION: Dizziness. Neurological deficits. TECHNIQUE: Magnetic resonance imaging (MRI) of the brain and brainstem was performed without and with 19 mL MultiHance intravenous contrast. COMPARISON: Head CT 10/21/2023 FINDINGS: There are scattered areas of nonspecific increased T2-weighted signal intensity in the cere bral white matter, which is within normal limits for the patient's age. There is no intracranial hemo rrhage, acute infarction, or abnormal intracranial mass lesion. There are dystrophic calcifications i n the bilateral basal ganglia. The ventricles are normal in size. There is mild mucosal thickening in the ethmoid sinuses. The orbits are normal. The mastoid air cells are normal. IMPRESSION: 1. Normal aging brain. Reviewed, dictated and finalized at location E. ER OPERATOR IMPRESSION: 1. Normal aging brain.
--- NOTE | ~2023-10-21 | CT_ITS ---
EXAMINATION: CT brain wo con DATE: 10/21/2023 19:28 INDICATION: Increased weakness. Multiple recent falls. TECHNIQUE: Computed tomography (CT) of the head was performed without intravenous contrast. The dose- length product was 605.33 mGy-cm. Automated exposure control and iterative reconstruction technique w ere employed. COMPARISON: None FINDINGS: Focal areas of hyperdensity in the basal ganglia bilaterally, suspicious for petechial hemo rrhages. No mass effect. Mild generalized atrophy. There are scattered mild periventricular and subco rtical white matter changes, most likely related to small vessel ischemic disease (microangiopathy). No ventriculomegaly or midline shift. Normal chacon-white differentiation. Paranasal sinuses and mastoi ds are pneumatized. No depressed skull fractures. There is intracranial atherosclerosis. No evidence for acute infarction. IMPRESSION: 1. Hyperdense foci of the basal ganglia bilaterally, suspicious for petechial hemorrhage versus devel oping calcification. Consider correlation with MRI brain. 2: Chronic age-related findings.. Reviewed, dictated and finalized at location A. E PLANER OPERATOR HELPER IMPRESSION: 1. Hyperdense foci of the basal ganglia bilaterally, suspicious for petechial h emorrhage versus developing calcification. Consider correlation with MRI brain. 2: Chronic age-related findings..
--- NOTE | ~2023-10-21 | CT_ITS ---
EXAMINATION: CTA chest PE abdomen pel DATE: 10/21/2023 12:53 INDICATION: Fever, chills, generalized weakness, back pain. TECHNIQUE: Computed tomography angiography (CTA) of the chest, abdomen and pelvis was performed with 100 mL Omnipaque-350 intravenous contrast timed to evaluate the pulmonary arteries. Coronal maximum i ntensity projection 3D-reconstructions were created by the technologist. Automated exposure control a nd iterative reconstruction technique were employed. Exam dose: 1358.31 mGy-cm total exam DLP. COMPARISON: 10/21/2023 2 view chest 03/19/2022 CT abdomen pelvis FINDINGS: There is mild patchy groundglass density of the lungs, primarily the lower lobes, which may be due to atelectasis, pulmonary edema or pneumonitis. There is cardiomegaly. No pericardial or pleural effusion. No thoracic aortic aneurysm or dissection. No hilar or mediastinal mass lesion or lymphadenopathy. No evidence of pulmonary embolism is detected. 1.8 cm medial segment left hepatic cyst. Liver is otherwise unremarkable. The gallbladder is unremark able. No gallbladder wall thickening or pericholecystic fluid or fat stranding. No bile duct or pancr eatic duct dilatation. No pancreatic mass lesion or calcification is detected. Normal splenic size, occasional calcified splenic granulomas. Normal morphology of the adrenal glands. There is ill-defined diminished contrast enhancement at the posterior aspect of the lower pole of the left kidney. Differential diagnosis includes infection, less likely neoplasm. There is incomplete rotation of the right kidney with anteriorly directed right renal pelvis. There i s a punctate nonobstructing right renal calculus. There is a 6 mm left renal cyst. Approximately 2.5 mm nonobstructing left renal calculus. Mild left renal scarring suggests chronic pyelonephritis. The urinary bladder is unremarkable. There is prostate enlargement. The appendix is not identified. There are numerous diverticula of left colon similar no CT evidence o f diverticulitis. No bowel obstruction, bowel wall thickening, pneumatosis or intraperitoneal free ai r. There is atherosclerotic calcification but normal caliber of the abdominal aorta. No intraperitoneal or retroperitoneal or pelvic mass lesion or adenopathy or ascites. Prominent degenerative disc disease in the lower cervical spine. Bilateral L5 pars interarticularis defects with grade 1 anterolisthesis at L5-S1 Multilevel degenerative disc disease of the lumbar and lumbosacral spine. IMPRESSION: Suspect acute left pyelonephritis superimposed upon chronic pyelonephritis. Differential diagnosis includes less likely left renal neoplasm. 6 mm left renal cysts Small nonobstructing calculus of each kidney Left hepatic 1.8 cm cyst Extensive diverticulosis of left colon; no CT evidence of diverticulitis. No evidence of pulmonary embolism Cardiomegaly Mild patchy groundglass density of the lungs, particularly lower lobes, which may be due to atelectas is, pulmonary edema or mild pneumonitis Reviewed, dictated and finalized at Location A. Reviewed, dictated and finalized at location A. HIC DESIGN PROFESSOR IMPRESSION: Suspect acute left pyelonephritis superimposed upon chronic pyelon ephritis. Differential diagnosis includes less likely left renal neoplasm. 6 mm left renal cysts Small nonobstructing calculus of each kidney Left hepatic 1.8 cm cyst Extensive diverticulosis of left colon; no CT evidence of diverticulitis. No evidence of pulmonary embolism Cardiomegaly Mild patchy groundglass density of the lungs, particularly lower lobes, which m ay be due to atelectasis, pulmonary edema or mild pneumonitis
--- NOTE | ~2023-10-21 | XR_ITS ---
XR chest 2V DATE: 10/21/2023 11:44 INDICATION: Weakness TECHNIQUE: AP and lateral views COMPARISON: None FINDINGS: Normal heart size. Mild aortic unfolding. No hilar or mediastinal enlargement. No pulmonary infiltrate or consolidation, pleural effusion or pulmonary vascular congestion or pneumo thorax is detected. Osteopenia. IMPRESSION: No active cardiopulmonary disease Reviewed, dictated and finalized at location A. UNT MANAGER EMPLOYEE BENEFITS
--- NOTE | 2023-10-21 10:35 | ECG_ITS ---
Measurements Intervals [place] Rate: 120 P: 18 CA: 155 QRS: -24 QRSD: 102 T: 52 QT: 307 QTc: 435 Interpretive Statements SINUS TACHYCARDIA BORDERLINE LEFT AXIS DEVIATION [QRS AXIS < -20] NONSPECIFIC ST CHANGES COMPARED TO ECG 03/19/2022 16:51:04 SINUS TACHYCARDIA NOW PRESENT NONSPECIFIC ST CHANGES ARE NEW Electronically Signed On 10-21-2023 19:49:55 PRINTING PRESS MACHINIST by Ayanna Rodas M.D.
--- NOTE | 2023-10-21 10:47 | ED.GENADULT ---
HPI - General Adult General Chief complaint: Urogenital-Male Stated complaint: chills, frequent urination Time Seen by Provider: 10/21/23 10:20 Source: patient, RN notes reviewed and old records reviewed Mode of arrival: ambulatory Limitations: no limitations History of Present Illness HPI narrative: This is a 73 year old male who presents for evaluation of fever. Patient states that for the past couple of days he has had subjective fever and chills. He also reports having increased urinary frequency. He denies abdominal pain, nausea, vomiting or hematuria. He denies cough, chest pain. He does have shortness of breath, and he is scheduled for stress test with DR. Sutton to evaluate his shortness of breath with exertion. Related Data Home Medications Medication Instructions Recorded Confirmed aspirin 81 mg tablet,delayed 81 mg PO DAILY 09/11/19 10/21/23 release (Adult Low Dose Aspirin) multivitamin,[id number] 1 tablet PO DAILY 09/11/19 10/21/23 (Complete Multivitamin tablet) rizatriptan 10 mg tablet See Rx Instructions PO .COMPLEX 09/11/19 10/21/23 PRN Migraine Headache atorvastatin 20 mg tablet 20 mg PO QHS 10/19/23 10/21/23 meloxicam 15 mg tablet 15 mg PO HS PRN pain 10/21/23 10/21/23 montelukast 10 mg tablet 10 mg PO HS 10/21/23 10/21/23 Allergies Allergy/AdvReac Type Severity Reaction Status Date / Time No Known Allergies AdvReac Unknown Verified 10/21/23 10:23 Review of Systems Constitutional: Constitutional: Reports chills, Reports fever(s) (subjective) and Denies weakness Cardiovascular: Cardiovascular: Denies syncope, Denies rapid heart rate, Denies irregular heart rhythm, Denies leg edema and Reports dyspnea Respiratory: Respiratory: Denies chest congestion, Denies hemoptysis, Denies excessive phlegm production and Denies dyspnea Gastrointestinal: Gastrointestinal: Denies abdominal pain, Denies hematochezia, Denies diarrhea and Denies vomiting Genitourinary: Genitourinary: Denies hematuria, Denies dysuria, Denies penile discharge, Denies testicular pain and Reports urinary frequency Musculoskeletal: Musculoskeletal: Reports back pain (chronic), Denies joint swelling, Denies loss of height and Denies muscle weakness Neurologic: Denies syncope, Denies focal weakness and Denies weakness PMFSH Past Medical History Medical History LUIS DANIEL (acute kidney injury) Aphthous ulcer of mouth (~04/22/22) Arthritis At moderate risk for fall (~07/18/22) BMI 26.0-26.9,adult BMI 27.0-27.9,adult BPH without obstruction/lower urinary tract symptoms Candidiasis (~09/28/22) Chronic anemia Chronic bilateral low back pain COVID-19 (09/23/22) Tested positive 09/28/2022. Diabetic eye exam No retinopathy on 03/18/2021. No retinopathy on 11/09/2022. Diabetic peripheral neuropathy associated with type 2 diabetes mellitus Dyspnea on exertion Encounter for prostate cancer screening PSA 0.42 on 07/29/2023. Essential (primary) hypertension Insomnia Left elbow pain (~07/2022) X-ray on 11/07/2022 revealed no evidence of fracture with soft tissue swelling over the olecranon process. Leukocytosis WBC 8.7 on 12/08/2021 Microalbuminuria due to type 2 diabetes mellitus (07/06/22) microalbumin ratio of 35 on 07/06/2022. Microalbumin ratio of 99 on 07/29/2023. Mixed hyperlipidemia Cholesterol 135, triglycerides 129, HDL 42, LDL 72 on 01/10/2023. cholesterol 139, triglycerides 108, HDL 46, LDL 74 with ratio 2.5 on 07/29/2023. APARNA on CPAP Overweight (BMI 25.0-29.9) Seasonal allergic rhinitis Small bowel obstruction (~03/19/22) Recurrent and resolved in-hospital 03/23/2022. Type 2 diabetes mellitus without complication, without long-term current use of insulin Hemoglobin A1c 7.6 on 12/08/2021. Glucose 182 with hemoglobin A1c 7.3 on 07/06/2022. glucose 183 with hemoglobin A1c 8.5 on 01/10/2023. Glucose 130 with hemoglobin A1c 7.5 on 07/29/2023 with microalbumin ratio of 9
[2023-10-21 10:55] LABS: Basophils Absolute Auto 0.1 K/mm3 (0.0-0.1); Basophils Percent Auto 0.3 % (0.2-1.2); Hematocrit 35.6 % (42.0-52.0); Hemoglobin 11.7 g/dL (14.0-18.0); Immature Granulocyte Absolute 0.46 K/mm3 (0.00-0.031); Immature Granulocyte Percent A 2.3 % (0-0.5); Lymphocytes Percent Auto 5.1 % (18.3-44.2); Mean Corpuscular HGB Conc 32.9 g/dl (32-36); Mean Corpuscular Hemoglobin 33.9 pg (26-34); Mean Corpuscular Volume 103.2 fl (80-100); Mean Platelet Volume 10.6 fl (7.4-10.4); Monocytes Absolute Auto 3.4 K/mm3 (0.1-0.6); Monocytes Percent Auto 17.4 % (2.6-8.5); Neutrophils Absolute Auto 14.8 K/mm3 (1.3-6.7); Neutrophils Percent Auto 74.9 % (45.5-73.1); Platelet Count Result 153 k/mm3 (150-375); Red Blood Count 3.45 M/mm3 (4.6-6.20); Red Cell Distribution Width 13.8 % (11.5-14.5); White Blood Count 19.7 K/mm3 (4.5-10.0)
[2023-10-21 11:14] LABS: INR 1.1; Lactic Acid Reflex 2.1 mmol/L (0.7-2.0); Prothrombin Time 14.3 Seconds (11.1-14.7)
[2023-10-21 11:15] LABS: Partial Thromboplastin Time 31.1 SECONDS (22.3-36.8)
[2023-10-21 11:16] LABS: Alanine Aminotransferase 22 U/L (6-50); Albumin Level 4.6 g/dL (3.5-5.1); Alkaline Phosphatase 90 U/L (38-126); Anion Gap 14 mmol/L (8-16); Aspartate Amino Transferase 27 U/L (17-59); Bilirubin,Total 0.9 mg/dL (0.2-1.3); Blood Urea Nitrogen 23 mg/dL (9-20); CRP 7.3 mg/dL (<1.0); Calcium 9.8 mg/dL (8.4-10.2); Carbon Dioxide 23 mmol/L (22-30); Chloride 99 mmol/L (98-107); Estimated CRCL calculation 45 ml/min; Estimated Glomerular Filt Rate 49; Glucose 305 mg/dL (65-110); Potassium 4.5 mmol/L (3.4-5.0); Sodium 136 mmol/L (137-145)
[2023-10-21 11:29] LABS: NT Pro B Type Natriuretic Pept 1220 pg/mL (19.9-100)
[2023-10-21 11:44] LABS: Appearance Urine Clear (Clear); Bacteria Urine Rare /hpf; Bilirubin Urine Negative (Negative); Color Urine Yellow (Yellow); Glucose Urine UA 3+ mg/dL (Negative); Ketones Urine Trace mg/dL (Negative); Leukocyte Esterase Ur Negative LEU/UL (Negative); Need Manual Microscopic Reviewed; Nitrate Urine Negative (Negative); Non Pathogenic Casts 0-2; Protein Urine 1+ mg/dL (Negative); RBC Urine 0-2 /hpf (0-2); Specific Grav Ur 1.033 (1.001-1.035); Squamous Epithelial Cell Urine None seen /hpf (Few); Urobilinogen Urine 0.2 mg/dL (<2.0); WBC Urine 21-50 /hpf; pH Urine 6.5 (5.0-9.0)
[2023-10-21 11:50] LABS: Influenza A QL RT-PCR Negative (Negative); Influenza B QL RT-PCR Negative (Negative); RSV RNA, RT-PCR Negative (Negative); SARS-CoV-2 RNA PCR Negative (Negative)
[2023-10-21 11:51] LABS: Add Urine Microscopic? YES
[2023-10-21 13:53] LABS: Reflex Lactic Acid Yes or No Add Lactic
[2023-10-21] MEDS: SODIUM CHLORIDE 0.9% IV 1,000 ML 999 ML IV CONT (14:18)
[2023-10-21 14:23] LABS: Lactic Acid 1.6 mmol/L (0.7-2.0)
--- NOTE | 2023-10-21 18:01 | ADMGEN ---
This patient, Hernan Delong, was admitted to [facility] Room 322-02. Patient/family oriented to hospital policies and general routines including ID bracelet, bed and alarms, visiting hours, pain management, procedures, bathroom and other care routines, personal items, smoking policy, room service/diet, and visiting hours. Information on how to activate the Rapid Response Team has been discussed. Patient/Family are encouraged to report perceived risks to care and to ask questions if they do not understand what they are told or what they should do.
--- NOTE | 2023-10-21 20:11 | PM.IMHP ---
H&P: HPI History of Present Illness Date/Time: 10/21/23 20:11 Chief Complaint: GENERALIZED WEAKNESS Narrative: THIS IS A 73-YEAR-OLD MALE WITH PAST MEDICAL HISTORY SIGNIFICANT FOR HYPERTENSION, TYPE DIABETES MELLITUS, BENIGN PROSTATIC HYPERPLASIA DIABETIC PERIPHERAL NEUROPATHY, SEASONAL ALLERGIES, OBSTRUCTIVE SLEEP APNEA ON CPAP. PATIENT IS A HORN COMES TO THE EMERGENCY ROOM AFTER HAVING EPISODE OF DIZZINESS WITH LIGHTHEADEDNESS AND FALL WHILE AFTER USING THE TOILET AND WHILE GETTING UP FELL OVER, PATIENT HAS BEEN HAVING FEVERS, CHILLS, GENERALIZED MUSCLE ACHES AND PAINS GENERALIZED WEAKNESS POOR PER ORALLY INTAKE FOR THE LAST 2 DAYS OR SO. PRELIMINARY WORKUP WAS SIGNIFICANT FOR URINALYSIS WITH NUMEROUS WBCS PRESENT. XR chest 2V DATE: 10/21/2023 11:44 INDICATION: Weakness? TECHNIQUE: AP and lateral views? COMPARISON: None? FINDINGS: Normal heart size. Mild aortic unfolding. No hilar or mediastinal enlargement. No pulmonary infiltrate or consolidation, pleural effusion or pulmonary vascular congestion or pneumothorax is detected. Osteopenia.? IMPRESSION: No active cardiopulmonary disease? EXAMINATION: CTA chest PE abdomen pel DATE: 10/21/2023 12:53 INDICATION: Fever, chills, generalized weakness, back pain. TECHNIQUE: Computed tomography angiography (CTA) of the chest, abdomen and pelvis was performed with 100 mL Omnipaque-350 intravenous contrast timed to evaluate the pulmonary arteries. Coronal maximum intensity projection 3D-reconstructions were created by the technologist. Automated exposure control and iterative reconstruction technique were employed. Exam dose:? 1358.31 mGy-cm total exam DLP.? COMPARISON: 10/21/2023 2 view chest 03/19/2022 CT abdomen pelvis FINDINGS: There is mild patchy groundglass density of the lungs, primarily the lower lobes, which may be due to atelectasis, pulmonary edema or pneumonitis. There is cardiomegaly. No pericardial or pleural effusion. No thoracic aortic aneurysm or dissection. No hilar or mediastinal mass lesion or lymphadenopathy. No evidence of pulmonary embolism is detected. 1.8 cm medial segment left hepatic cyst. Liver is otherwise unremarkable. The gallbladder is unremarkable. No gallbladder wall thickening or pericholecystic fluid or fat stranding. No bile duct or pancreatic duct dilatation. No pancreatic mass lesion or calcification is detected. Normal splenic size, occasional calcified splenic granulomas. Normal morphology of the adrenal glands. There is ill-defined diminished contrast enhancement at the posterior aspect of the lower pole of the left kidney. Differential diagnosis includes infection, less likely neoplasm. There is incomplete rotation of the right kidney with anteriorly directed right renal pelvis. There is a punctate nonobstructing right renal calculus. There is a 6 mm left renal cyst. Approximately 2.5 mm nonobstructing left renal calculus. Mild left renal scarring suggests chronic pyelonephritis. The urinary bladder is unremarkable. There is prostate enlargement. The appendix is not identified. There are numerous diverticula of left colon similar no CT evidence of diverticulitis. No bowel obstruction, bowel wall thickening, pneumatosis or intraperitoneal free air. There is atherosclerotic calcification but normal caliber of the abdominal aorta. No intraperitoneal or retroperitoneal or pelvic mass lesion or adenopathy or ascites. Prominent degenerative disc disease in the lower cervical spine. Bilateral L5 pars interarticularis defects with grade 1 anterolisthesis at L5-S1 Multilevel degenerative disc disease of the lumbar and lumbosacral spine. IMPRESSION:? Suspect acute left pyelonephritis superimposed upon chronic pyelonephritis. Differential diagnosis includes less likely left renal neoplasm. 6 mm left renal cysts Small nonobstructing calculus of each kidney Left hepatic 1.8 cm cyst Extensive diverticulosis of left colon; no CT evidence of diverticulitis. No evid
[2023-10-21] MEDS: LACTATED RINGERS 1,000 ML 125 ML IV CONT (21:02)
[2023-10-22] MEDS: LACTATED RINGERS 1,000 ML 125 ML IV CONT ×2 (04:55→14:12)
[2023-10-22] MEDS: AZITHROMYCIN 500 MG/NS 250 ML 500 MG/250 ML BAG 250 MG IVPB (05:26)
[2023-10-22 06:00] VITALS: BP 143/93; PULSE 106; RESP 20; TEMP 36.6; O2SAT 97
[2023-10-22 06:33] LABS: Basophils Absolute Auto 0.1 K/mm3 (0.0-0.1); Basophils Percent Auto 0.3 % (0.2-1.2); Hematocrit 32.6 % (42.0-52.0); Hemoglobin 10.5 g/dL (14.0-18.0); Immature Granulocyte Absolute 0.57 K/mm3 (0.00-0.031); Immature Granulocyte Percent A 2.5 % (0-0.5); Lymphocytes Percent Auto 8.6 % (18.3-44.2); Mean Corpuscular HGB Conc 32.2 g/dl (32-36); Mean Corpuscular Hemoglobin 33.7 pg (26-34); Mean Corpuscular Volume 104.5 fl (80-100); Mean Platelet Volume 10.8 fl (7.4-10.4); Monocytes Absolute Auto 3.7 K/mm3 (0.1-0.6); Monocytes Percent Auto 15.8 % (2.6-8.5); Neutrophils Absolute Auto 16.9 K/mm3 (1.3-6.7); Neutrophils Percent Auto 72.8 % (45.5-73.1); Platelet Count Result 143 k/mm3 (150-375); Red Blood Count 3.12 M/mm3 (4.6-6.20); White Blood Count 23.2 K/mm3 (4.5-10.0)
[2023-10-22 06:47] LABS: Alanine Aminotransferase 17 U/L (6-50); Albumin Level 3.9 g/dL (3.5-5.1); Alkaline Phosphatase 81 U/L (38-126); Anion Gap 12 mmol/L (8-16); Aspartate Amino Transferase 29 U/L (17-59); Bilirubin,Total 0.8 mg/dL (0.2-1.3); Blood Urea Nitrogen 21 mg/dL (9-20); Carbon Dioxide 21 mmol/L (22-30); Chloride 104 mmol/L (98-107); Estimated CRCL calculation 52 ml/min; Estimated Glomerular Filt Rate 59; Glucose 150 mg/dL (65-110); Potassium 3.9 mmol/L (3.4-5.0); Sodium 137 mmol/L (137-145)
--- NOTE | 2023-10-22 07:22 | PC.NURSE ---
To MRI per stretcher.
--- NOTE | 2023-10-22 08:12 | PC.NURSE ---
Returned to room from MRI per stretcher.
[2023-10-22] MEDS: DUTASTERIDE 0.5 MG CAPSULE PO (08:26)
[2023-10-22] MEDS: DULoxetine HCL 60 MG CAPSULE.DR PO ×2 (08:26→17:01)
[2023-10-22] MEDS: TAMSULOSIN HCL 0.4 MG CAPSULE PO (08:26)
[2023-10-22] MEDS: ASPIRIN 81 MG ENTERIC TABLET PO (08:26)
[2023-10-22] MEDS: NYSTATIN 100,000 UNITS/ML SUSP 5 ML ORAL.SUSP PO ×4 (08:27→22:05)
[2023-10-22] MEDS: FLUTICASONE PROPIONATE 0.05% NA SPR 16 GM BTL (*BKC) 1 SPRAY NASAL ×2 (08:27→22:01)
[2023-10-22 11:59] LABS: Glucose Point of Care 160 mg/dl (65-105)
[2023-10-22 13:23] LABS: Procalcitonin 0.7 ng/mL
--- NOTE | 2023-10-22 13:54 | PM.IMPN ---
Progress Note: A&P Assessment and Plan (1) Pyelonephritis: Code(s): N12 - Tubulo-interstitial nephritis, not specified as acute or chronic Status: Acute Assessment and Plan: ADMIT TO REGULAR MEDICAL FOR PATIENT STARTED ON ROCEPHIN CULTURES IN PROGRESS (2) Sepsis: Code(s): A41.9 - Sepsis, unspecified organism Status: Acute Assessment and Plan: LIKELY SOURCE ARE URINE AND LUNG INFILTRATE PATIENT TESTED NEGATIVE FOR COVID 10/22: increase Rocephin to 2 g every 24 hours. Continue azithromycin. (3) Type 2 diabetes mellitus without complication, without long-term current use of insulin: Code(s): E11.9 - Type 2 diabetes mellitus without complications Status: Acute Assessment and Plan: HOLDING METFORMIN 10/22: ACHS fingerstick glucose with SSI (4) APARNA on CPAP: Code(s): G47.33 - Obstructive sleep apnea (adult) (pediatric); Z99.89 - Dependence on other enabling machines and devices Status: Chronic Assessment and Plan: CONTINUE CPAP (5) Chronic bilateral low back pain: Qualifiers: Sciatica presence: without sciatica Qualified Code(s): M54.5 - Low back pain; G89.29 - Other chronic pain Code(s): M54.5 - Low back pain; G89.29 - Other chronic pain Status: Chronic Assessment and Plan: TYLENOL NEEDED (6) LUIS DANIEL (acute kidney injury): Code(s): N17.9 - Acute kidney failure, unspecified Status: Acute Assessment and Plan: LIKELY TO BE PRE RENAL AZOTEMIA CONTINUE TO MONITOR BUN AND CREATININE IV FLUIDS 10/22: On admission estimated GFR 49 creatinine 1.4 BUN 23, morning labs estimated GFR 59 creatinine 1.2 BUN 21 (7) Lung infiltrate: Code(s): R91.8 - Other nonspecific abnormal finding of lung field Status: Acute Assessment and Plan: ADDED zITHROMAX 10/22: changed azithromycin to oral Time Spent With Patient Time with patient: 25 - 35 minutes Subjective Date/time seen: 10/22/23 13:54 Interval history: 10/21 H&P: THIS IS A 73-YEAR-OLD MALE WITH PAST MEDICAL HISTORY SIGNIFICANT FOR HYPERTENSION, TYPE DIABETES MELLITUS, BENIGN PROSTATIC HYPERPLASIA DIABETIC PERIPHERAL NEUROPATHY, SEASONAL ALLERGIES, OBSTRUCTIVE SLEEP APNEA ON CPAP.? PATIENT IS A HORN COMES TO THE EMERGENCY ROOM AFTER HAVING EPISODE OF DIZZINESS WITH LIGHTHEADEDNESS AND FALL WHILE AFTER USING THE TOILET AND WHILE GETTING UP FELL OVER, PATIENT HAS BEEN HAVING FEVERS, CHILLS, GENERALIZED MUSCLE ACHES AND PAINS GENERALIZED WEAKNESS POOR PER ORALLY INTAKE FOR THE LAST 2 DAYS OR SO.? PRELIMINARY WORKUP WAS SIGNIFICANT FOR URINALYSIS WITH NUMEROUS WBCS PRESENT. 10/22: Patient reports that overall he is feeling quite well except he is having some incontinence episodes which is unusual for him. Workup to this point is consistent with urinary tract infection / pyelonephritis. Lung infiltrate also noted. Patient being treated with high-dose Rocephin as well as orally azithromycin. Patient reports that he has had a couple of falls related to intense activity. He has not had any dizziness or head injuries. Workup in the emergency department showed possible micro bleeds verses calcification formation so MRI was ordered which has not been read yet. We will avoid anticoagulation and hold future doses of aspirin until MRI results are available to rule out micro bleed. Review of Systems Review of Systems: All systems reviewed & are unremarkable except as noted in HPI and below Exam Narrative: GENERAL: Well-appearing, well-nourished, and in no acute distress. HEAD: Normocephalic, atraumatic. ENT:? Mucous membranes moist. CHEST: Clear to auscultation.? No respiratory distress. HEART: Regular rate and rhythm. ? Normal peripheral pulses. ABDOMEN: Soft, nontender, nondistended. left CVA tenderness EXTREMITIES: Normal range of motion. No peripheral edema. SKIN: Warm dry normal color NEURO: Alert and oriented x3. PSYCH: Normal mo
[2023-10-22 14:00] VITALS: BP 127/72; PULSE 103; RESP 18; TEMP 36.6; O2SAT 98
[2023-10-22 15:23] LABS: MRSA (PCR) NOT DETECTED (NOT DETECTE)
[2023-10-22 16:43] LABS: Glucose Point of Care 153 mg/dl (65-105)
[2023-10-22 21:05] VITALS: BP 136/73; PULSE 93; RESP 18; TEMP 35.9; O2SAT 98
[2023-10-22 21:16] LABS: Glucose Point of Care 214 mg/dl (65-105)
[2023-10-22] MEDS: MONTELUKAST SODIUM 10 MG TABLET PO (22:01)
[2023-10-22] MEDS: INSULIN ASPART (*BKC) 100 UNITS/ML SUB-Q (22:02)
[2023-10-22 23:28] VITALS: PULSE 79; RESP 19; O2SAT 97
[2023-10-23] MEDS: LACTATED RINGERS 1,000 ML 125 ML IV CONT (00:49)
[2023-10-23 06:00] VITALS: BP 155/79; PULSE 95; RESP 20; TEMP 36.4; O2SAT 93
[2023-10-23 06:31] LABS: Basophils Percent Auto 0.3 % (0.2-1.2); Eosinophils Percent Auto 0.1 % (0-4.4); Hematocrit 32.5 % (42.0-52.0); Hemoglobin 10.6 g/dL (14.0-18.0); Immature Granulocyte Absolute 0.52 K/mm3 (0.00-0.031); Immature Granulocyte Percent A 3.8 % (0-0.5); Lymphocytes Absolute Auto 1.53 K/mm3 (0.9-3.2); Lymphocytes Percent Auto 11.1 % (18.3-44.2); Mean Corpuscular HGB Conc 32.6 g/dl (32-36); Mean Corpuscular Hemoglobin 34.2 pg (26-34); Mean Corpuscular Volume 104.8 fl (80-100); Mean Platelet Volume 10.9 fl (7.4-10.4); Monocytes Absolute Auto 1.7 K/mm3 (0.1-0.6); Monocytes Percent Auto 12.5 % (2.6-8.5); Neutrophils Percent Auto 72.2 % (45.5-73.1); Platelet Count Result 147 k/mm3 (150-375); Red Cell Distribution Width 13.9 % (11.5-14.5); White Blood Count 13.8 K/mm3 (4.5-10.0)
[2023-10-23 06:48] LABS: Alanine Aminotransferase 19 U/L (6-50); Albumin Level 3.8 g/dL (3.5-5.1); Alkaline Phosphatase 85 U/L (38-126); Anion Gap 10 mmol/L (8-16); Aspartate Amino Transferase 37 U/L (17-59); Bilirubin,Total 0.7 mg/dL (0.2-1.3); Blood Urea Nitrogen 21 mg/dL (9-20); Carbon Dioxide 24 mmol/L (22-30); Chloride 103 mmol/L (98-107); Estimated CRCL calculation 57 ml/min; Estimated Glomerular Filt Rate > 60; Glucose 134 mg/dL (65-110); Magnesium 2.3 mg/dL (1.6-2.3); Potassium 3.8 mmol/L (3.4-5.0); Sodium 137 mmol/L (137-145)
[2023-10-23 07:30] LABS: Procalcitonin 0.6 ng/mL
[2023-10-23 07:49] LABS: Glucose Point of Care 164 mg/dl (65-105)
[2023-10-23] MEDS: DULoxetine HCL 60 MG CAPSULE.DR PO ×2 (08:17→16:52)
[2023-10-23] MEDS: VANCOMYCIN 1,250 MG/NS 250 ML 1,250 MG/250 ML BAG 166.67 MG IVPB (08:17)
[2023-10-23] MEDS: cefTRIAXone 2 GM/NS 100 ML 2 GM/100 ML BAG IVPB (08:17)
[2023-10-23] MEDS: DUTASTERIDE 0.5 MG CAPSULE PO (08:17)
[2023-10-23] MEDS: AZITHROMYCIN 250 MG TABLET 500 MG PO (08:17)
[2023-10-23] MEDS: TAMSULOSIN HCL 0.4 MG CAPSULE PO (08:17)
[2023-10-23] MEDS: FLUTICASONE PROPIONATE 0.05% NA SPR 16 GM BTL (*BKC) 1 SPRAY NASAL ×2 (09:00→21:32)
[2023-10-23] MEDS: NYSTATIN 100,000 UNITS/ML SUSP 5 ML ORAL.SUSP PO ×4 (09:00→21:31)
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
[2023-10-23] MEDS: VANCOMYCIN 1,000 MG/NS 250 ML 1,000 MG/250 ML BAG 250 MG IVPB (09:50)
[2023-10-23 11:35] LABS: Glucose Point of Care 155 mg/dl (65-105)
[2023-10-23 14:00] VITALS: BP 148/86; PULSE 99; RESP 16; TEMP 37.2; O2SAT 94
[2023-10-23 16:29] LABS: Glucose Point of Care 142 mg/dl (65-105)
[2023-10-23 20:20] VITALS: BP 182/92; PULSE 100; RESP 16; TEMP 36.2; O2SAT 95
[2023-10-23 20:30] LABS: Glucose Point of Care 158 mg/dl (65-105)
[2023-10-23] MEDS: MONTELUKAST SODIUM 10 MG TABLET PO (21:31)
[2023-10-23 22:28] VITALS: PULSE 78; RESP 18; O2SAT 98
[2023-10-24 05:50] VITALS: BP 153/89; PULSE 86; RESP 18; TEMP 35.7; O2SAT 98
[2023-10-24 07:57] LABS: Glucose Point of Care 130 mg/dl (65-105)
[2023-10-24] MEDS: TAMSULOSIN HCL 0.4 MG CAPSULE PO (09:19)
[2023-10-24] MEDS: AZITHROMYCIN 250 MG TABLET 500 MG PO (09:19)
[2023-10-24] MEDS: DUTASTERIDE 0.5 MG CAPSULE PO (09:19)
[2023-10-24] MEDS: NYSTATIN 100,000 UNITS/ML SUSP 5 ML ORAL.SUSP PO ×4 (09:19→20:33)
[2023-10-24] MEDS: VANCOMYCIN 1,500 MG/NS 500 ML 1,500 MG/500 ML BAG 250 MG IVPB (09:20)
[2023-10-24] MEDS: DULoxetine HCL 60 MG CAPSULE.DR PO ×2 (09:20→17:30)
[2023-10-24] MEDS: FLUTICASONE PROPIONATE 0.05% NA SPR 16 GM BTL (*BKC) 1 SPRAY NASAL ×2 (09:22→20:34)
[2023-10-24 09:36] LABS: Basophils Percent Auto 0.5 % (0.2-1.2); Eosinophils Percent Auto 0.1 % (0-4.4); Hematocrit 36.3 % (42.0-52.0); Hemoglobin 11.5 g/dL (14.0-18.0); Immature Granulocyte Absolute 0.43 K/mm3 (0.00-0.031); Immature Granulocyte Percent A 5.5 % (0-0.5); Lymphocytes Absolute Auto 1.23 K/mm3 (0.9-3.2); Lymphocytes Percent Auto 15.6 % (18.3-44.2); Mean Corpuscular HGB Conc 31.7 g/dl (32-36); Mean Corpuscular Hemoglobin 33.2 pg (26-34); Mean Corpuscular Volume 104.9 fl (80-100); Mean Platelet Volume 10.5 fl (7.4-10.4); Monocytes Absolute Auto 0.8 K/mm3 (0.1-0.6); Monocytes Percent Auto 9.5 % (2.6-8.5); Neutrophils Absolute Auto 5.4 K/mm3 (1.3-6.7); Neutrophils Percent Auto 68.8 % (45.5-73.1); Platelet Count Result 167 k/mm3 (150-375); Red Blood Count 3.46 M/mm3 (4.6-6.20); Red Cell Distribution Width 13.7 % (11.5-14.5); White Blood Count 7.9 K/mm3 (4.5-10.0)
[2023-10-24 09:45] LABS: Alanine Aminotransferase 25 U/L (6-50); Albumin Level 4.5 g/dL (3.5-5.1); Alkaline Phosphatase 109 U/L (38-126); Anion Gap 14 mmol/L (8-16); Aspartate Amino Transferase 36 U/L (17-59); Bilirubin,Total 0.8 mg/dL (0.2-1.3); Blood Urea Nitrogen 18 mg/dL (9-20); Calcium 9.7 mg/dL (8.4-10.2); Carbon Dioxide 23 mmol/L (22-30); Chloride 99 mmol/L (98-107); Estimated CRCL calculation 57 ml/min; Estimated Glomerular Filt Rate > 60; Glucose 237 mg/dL (65-110); Magnesium 2.3 mg/dL (1.6-2.3); Potassium 3.4 mmol/L (3.4-5.0); Sodium 136 mmol/L (137-145)
[2023-10-24 10:21] LABS: Procalcitonin 0.3 ng/mL
[2023-10-24 11:30] LABS: Glucose Point of Care 173 mg/dl (65-105)
[2023-10-24] MEDS: cefTRIAXone 2 GM/NS 100 ML 2 GM/100 ML BAG IVPB (12:32)
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
[2023-10-24 14:00] VITALS: BP 140/79; PULSE 95; RESP 18; TEMP 36.4; O2SAT 98
[2023-10-24 16:33] LABS: Glucose Point of Care 143 mg/dl (65-105)
--- NOTE | 2023-10-24 19:49 | PC.NURSE ---
Marisa Taylor LPN provided care for this patient on 10/24/23. I have reviewed her charting and agree with her assessments.
[2023-10-24 20:20] VITALS: BP 171/89; PULSE 96; RESP 16; TEMP 36.2; O2SAT 97
[2023-10-24] MEDS: MONTELUKAST SODIUM 10 MG TABLET PO (20:33)
[2023-10-24 20:41] LABS: Glucose Point of Care 198 mg/dl (65-105)
[2023-10-25 04:14] LABS: Legionella pneumophila Ag Ur Not Detected (Not Detected)
[2023-10-25 05:30] VITALS: BP 172/92; PULSE 88; RESP 22; TEMP 36.1; O2SAT 97
[2023-10-25] MEDS: lisinopriL 20 MG TABLET 40 MG PO (06:18)
[2023-10-25 06:47] LABS: Basophils Percent Auto 0.4 % (0.2-1.2); Eosinophils Percent Auto 0.3 % (0-4.4); Hematocrit 33.5 % (42.0-52.0); Hemoglobin 10.8 g/dL (14.0-18.0); Immature Granulocyte Absolute 0.34 K/mm3 (0.00-0.031); Immature Granulocyte Percent A 5.1 % (0-0.5); Lymphocytes Absolute Auto 1.36 K/mm3 (0.9-3.2); Lymphocytes Percent Auto 20.2 % (18.3-44.2); Mean Corpuscular HGB Conc 32.2 g/dl (32-36); Mean Corpuscular Hemoglobin 33.5 pg (26-34); Mean Platelet Volume 10.7 fl (7.4-10.4); Monocytes Absolute Auto 1.1 K/mm3 (0.1-0.6); Monocytes Percent Auto 16.5 % (2.6-8.5); Neutrophils Absolute Auto 3.9 K/mm3 (1.3-6.7); Neutrophils Percent Auto 57.5 % (45.5-73.1); Platelet Count Result 141 k/mm3 (150-375); Red Blood Count 3.22 M/mm3 (4.6-6.20); Red Cell Distribution Width 13.3 % (11.5-14.5); White Blood Count 6.7 K/mm3 (4.5-10.0)
[2023-10-25 06:54] LABS: Alanine Aminotransferase 22 U/L (6-50); Albumin Level 3.9 g/dL (3.5-5.1); Alkaline Phosphatase 92 U/L (38-126); Anion Gap 11 mmol/L (8-16); Aspartate Amino Transferase 29 U/L (17-59); Bilirubin,Total 0.6 mg/dL (0.2-1.3); Blood Urea Nitrogen 15 mg/dL (9-20); Calcium 9.1 mg/dL (8.4-10.2); Carbon Dioxide 22 mmol/L (22-30); Chloride 103 mmol/L (98-107); Estimated CRCL calculation 68 ml/min; Estimated Glomerular Filt Rate > 60; Glucose 152 mg/dL (65-110); Magnesium 2.3 mg/dL (1.6-2.3); Potassium 3.6 mmol/L (3.4-5.0); Sodium 136 mmol/L (137-145)
[2023-10-25 07:15] LABS: Vancomycin Trough 6.8 ug/mL (10.0-20.0)
[2023-10-25 07:50] LABS: Glucose Point of Care 139 mg/dl (65-105)
[2023-10-25] MEDS: AZITHROMYCIN 250 MG TABLET 500 MG PO (09:11)
[2023-10-25] MEDS: cefTRIAXone 2 GM/NS 100 ML 2 GM/100 ML BAG IVPB (09:11)
[2023-10-25] MEDS: FLUTICASONE PROPIONATE 0.05% NA SPR 16 GM BTL (*BKC) 1 SPRAY NASAL ×2 (09:11→20:20)
[2023-10-25] MEDS: NYSTATIN 100,000 UNITS/ML SUSP 5 ML ORAL.SUSP PO ×4 (09:11→20:25)
[2023-10-25] MEDS: TAMSULOSIN HCL 0.4 MG CAPSULE PO (09:12)
[2023-10-25] MEDS: DULoxetine HCL 60 MG CAPSULE.DR PO ×2 (09:12→16:26)
[2023-10-25] MEDS: DUTASTERIDE 0.5 MG CAPSULE PO (09:12)
[2023-10-25] MEDS: VANCOMYCIN 1,500 MG/NS 500 ML 1,500 MG/500 ML BAG 250 MG IVPB ×2 (09:52→20:25)
[2023-10-25 11:43] LABS: Glucose Point of Care 189 mg/dl (65-105)
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
[2023-10-25 13:24] LABS: Procalcitonin 0.2 ng/mL
[2023-10-25 16:10] LABS: Glucose Point of Care 181 mg/dl (65-105)
[2023-10-25 19:04] LABS: Pneumococcal Antigen Urine Not Detected (Not Detected)
[2023-10-25 20:15] VITALS: BP 150/88; PULSE 92; RESP 16; TEMP 36.8; O2SAT 98
[2023-10-25] MEDS: MONTELUKAST SODIUM 10 MG TABLET PO (20:26)
[2023-10-25 21:28] LABS: Glucose Point of Care 196 mg/dl (65-105)
[2023-10-25 22:50] VITALS: PULSE 92; RESP 18; O2SAT 97
[2023-10-26 05:35] VITALS: BP 145/75; PULSE 86; RESP 20; TEMP 36.1; O2SAT 92
[2023-10-26 07:01] LABS: Basophils Percent Auto 0.6 % (0.2-1.2); Eosinophils Percent Auto 0.3 % (0-4.4); Hematocrit 33.8 % (42.0-52.0); Hemoglobin 10.7 g/dL (14.0-18.0); Immature Granulocyte Absolute 0.44 K/mm3 (0.00-0.031); Immature Granulocyte Percent A 6.7 % (0-0.5); Lymphocytes Absolute Auto 1.49 K/mm3 (0.9-3.2); Lymphocytes Percent Auto 22.5 % (18.3-44.2); Mean Corpuscular HGB Conc 31.7 g/dl (32-36); Mean Corpuscular Hemoglobin 33.2 pg (26-34); Mean Platelet Volume 10.8 fl (7.4-10.4); Monocytes Absolute Auto 0.9 K/mm3 (0.1-0.6); Monocytes Percent Auto 14.1 % (2.6-8.5); Neutrophils Absolute Auto 3.7 K/mm3 (1.3-6.7); Neutrophils Percent Auto 55.8 % (45.5-73.1); Platelet Count Result 171 k/mm3 (150-375); Red Blood Count 3.22 M/mm3 (4.6-6.20); Red Cell Distribution Width 13.5 % (11.5-14.5); White Blood Count 6.6 K/mm3 (4.5-10.0)
[2023-10-26 07:15] LABS: Alanine Aminotransferase 21 U/L (6-50); Alkaline Phosphatase 96 U/L (38-126); Anion Gap 8 mmol/L (8-16); Aspartate Amino Transferase 27 U/L (17-59); Bilirubin,Total 0.5 mg/dL (0.2-1.3); Blood Urea Nitrogen 14 mg/dL (9-20); Calcium 9.2 mg/dL (8.4-10.2); Carbon Dioxide 24 mmol/L (22-30); Chloride 107 mmol/L (98-107); Estimated CRCL calculation 62 ml/min; Estimated Glomerular Filt Rate > 60; Glucose 170 mg/dL (65-110); Potassium 3.8 mmol/L (3.4-5.0); Sodium 139 mmol/L (137-145)
[2023-10-26 07:37] LABS: Glucose Point of Care 161 mg/dl (65-105)
[2023-10-26 08:08] LABS: Vancomycin Trough 14.8 ug/mL (10.0-20.0)
[2023-10-26] MEDS: VANCOMYCIN 1,750 MG/NS 500 ML 1,750 MG/500 ML BAG 250 MG IVPB ×2 (09:45→21:19)
[2023-10-26] MEDS: AZITHROMYCIN 250 MG TABLET 500 MG PO (09:46)
[2023-10-26] MEDS: DUTASTERIDE 0.5 MG CAPSULE PO (09:46)
[2023-10-26] MEDS: TAMSULOSIN HCL 0.4 MG CAPSULE PO (09:46)
[2023-10-26] MEDS: NYSTATIN 100,000 UNITS/ML SUSP 5 ML ORAL.SUSP PO ×4 (09:46→21:18)
[2023-10-26] MEDS: DULoxetine HCL 60 MG CAPSULE.DR PO ×2 (09:47→18:11)
[2023-10-26] MEDS: lisinopriL 20 MG TABLET 40 MG PO (09:47)
[2023-10-26] MEDS: FLUTICASONE PROPIONATE 0.05% NA SPR 16 GM BTL (*BKC) 1 SPRAY NASAL ×2 (09:47→21:17)
[2023-10-26 11:29] LABS: Glucose Point of Care 184 mg/dl (65-105)
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
[2023-10-26] MEDS: LIDOCAINE HCL 1% PF INJ 5 ML VIAL INFILTRATE (13:55)
[2023-10-26 13:59] VITALS: BP 150/86; PULSE 92; RESP 16; TEMP 35.6; O2SAT 96
[2023-10-26 16:22] LABS: Glucose Point of Care 155 mg/dl (65-105)
[2023-10-26 21:07] LABS: Glucose Point of Care 223 mg/dl (65-105)
[2023-10-26] MEDS: MONTELUKAST SODIUM 10 MG TABLET PO (21:18)
[2023-10-26] MEDS: CENTRAL LINE FLUSH 10 ML IV PUSH (21:19)
[2023-10-26] MEDS: INSULIN ASPART (*BKC) 100 UNITS/ML SUB-Q (21:31)
[2023-10-26 21:37] VITALS: BP 169/84; PULSE 82; RESP 14; TEMP 36.5; O2SAT 94
[2023-10-26 23:24] VITALS: PULSE 93; RESP 20; O2SAT 98
[2023-10-27 05:34] LABS: Basophils Percent Auto 0.7 % (0.2-1.2); Eosinophils Percent Auto 0.4 % (0-4.4); Hematocrit 31.3 % (42.0-52.0); Hemoglobin 10.3 g/dL (14.0-18.0); Immature Granulocyte Absolute 0.35 K/mm3 (0.00-0.031); Immature Granulocyte Percent A 6.5 % (0-0.5); Lymphocytes Absolute Auto 1.68 K/mm3 (0.9-3.2); Lymphocytes Percent Auto 31.3 % (18.3-44.2); Mean Corpuscular HGB Conc 32.9 g/dl (32-36); Mean Corpuscular Hemoglobin 33.9 pg (26-34); Mean Platelet Volume 10.1 fl (7.4-10.4); Monocytes Absolute Auto 0.9 K/mm3 (0.1-0.6); Monocytes Percent Auto 15.9 % (2.6-8.5); Neutrophils Absolute Auto 2.4 K/mm3 (1.3-6.7); Neutrophils Percent Auto 45.2 % (45.5-73.1); Platelet Count Result 164 k/mm3 (150-375); Red Blood Count 3.04 M/mm3 (4.6-6.20); Red Cell Distribution Width 13.3 % (11.5-14.5); White Blood Count 5.4 K/mm3 (4.5-10.0)
[2023-10-27] MEDS: CENTRAL LINE FLUSH 10 ML IV PUSH (05:44)
[2023-10-27 05:45] LABS: Alanine Aminotransferase 20 U/L (6-50); Albumin Level 3.6 g/dL (3.5-5.1); Alkaline Phosphatase 86 U/L (38-126); Anion Gap 7 mmol/L (8-16); Aspartate Amino Transferase 32 U/L (17-59); Bilirubin,Total 0.5 mg/dL (0.2-1.3); Blood Urea Nitrogen 13 mg/dL (9-20); Calcium 8.9 mg/dL (8.4-10.2); Carbon Dioxide 25 mmol/L (22-30); Chloride 107 mmol/L (98-107); Estimated CRCL calculation 76 ml/min; Estimated Glomerular Filt Rate > 60; Glucose 170 mg/dL (65-110); Magnesium 2.1 mg/dL (1.6-2.3); Potassium 3.8 mmol/L (3.4-5.0); Sodium 139 mmol/L (137-145)
[2023-10-27 05:57] VITALS: BP 162/93; PULSE 82; RESP 13; TEMP 36.2; O2SAT 99
[2023-10-27 07:33] LABS: Glucose Point of Care 157 mg/dl (65-105)
--- NOTE | 2023-10-27 09:19 | PCNWS ---
Weekly nutritional screen. Patient is tolerating current diet with adequate intake. No weight loss reported. No nutritional needs at this time.
[2023-10-27] MEDS: DUTASTERIDE 0.5 MG CAPSULE PO (09:29)
[2023-10-27] MEDS: lisinopriL 20 MG TABLET 40 MG PO (09:29)
[2023-10-27] MEDS: VANCOMYCIN 1,750 MG/NS 500 ML 1,750 MG/500 ML BAG 250 MG IVPB (09:29)
[2023-10-27] MEDS: DULoxetine HCL 60 MG CAPSULE.DR PO (09:29)
[2023-10-27] MEDS: NYSTATIN 100,000 UNITS/ML SUSP 5 ML ORAL.SUSP PO (09:29)
[2023-10-27] MEDS: TAMSULOSIN HCL 0.4 MG CAPSULE PO (09:29)
[2023-10-27] MEDS: FLUTICASONE PROPIONATE 0.05% NA SPR 16 GM BTL (*BKC) 1 SPRAY NASAL (09:30)
[2023-10-27 11:29] LABS: Glucose Point of Care 218 mg/dl (65-105)
[2023-10-27 13:58] VITALS: BP 179/93; PULSE 99; RESP 18; TEMP 35.8; O2SAT 99
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
== END 2023-10-27 15:23 | disposition home health service (06) | DRG 872 ==
LOC: ANHED 15:28 → ANH3MEDSUR 16:39
PROVIDERS: Nurse Practitioner; Admitting Provider Internal Medicine; Emergency Provider General Practice; PCP Family Medicine; Visit Provider Internal Medicine
DX: A41.01 Sepsis due to Methicillin susceptible Staphylococcus aureus (principal); N12 Tubulo-interstitial nephritis, not specified as acute or chronic; N17.9 Acute kidney failure, unspecified; B95.62 Methicillin resistant Staphylococcus aureus infection as the cause of diseases classified elsewhere; D64.9 Anemia, unspecified; I10 Essential (primary) hypertension; E11.42 Type 2 diabetes mellitus with diabetic polyneuropathy; E78.2 Mixed hyperlipidemia; N40.0 Benign prostatic hyperplasia without lower urinary tract symptoms; M54.59 Other low back pain; G89.29 Other chronic pain; G47.33 Obstructive sleep apnea (adult) (pediatric); Z20.822 Contact with and (suspected) exposure to COVID-19; Z79.4 Long term (current) use of insulin; Z79.82 Long term (current) use of aspirin
CPT/HCPCS: 36415; 36569; 70450; 70553; 71046; 71275; 74177; 80053; 80202; 81001; 82948; 83036; 83605; 83735; 83880; 84145; 85025; 85610; 85730; 86140; 87040; 87077; 87086; 87088; 87186; 87449; 87637; 87641; 87899; 93005; 96365; 97161; 97165; 99285; A9270; A9577; J0456; J0696; J1815; J3370; J7030; J7120; Q9967

== ENCOUNTER 2023-11-16 14:00 | Emergency (ER) | payer MEDICARE, BC, SELFPAY ==
--- NOTE | ~2023-11-16 | CT_ITS ---
EXAMINATION: CT cervical spine wo con DATE: 11/16/2023 16:44 INDICATION: Head injury TECHNIQUE: Computed tomography (CT) of the cervical spine was performed without intravenous contrast. The dose-length product (DLP) was 531.51 mGy-cm. Automated exposure control and iterative reconstruc tion technique were employed. COMPARISON: None FINDINGS: There are 2 mm of anterolisthesis of C5 on C6. There is moderate loss of intervertebral dis c space height from C3-4 through C6-7. The odontoid process is intact. There is multilevel severe fac et and uncovertebral joint osteoarthritis. The prevertebral soft tissues are normal. IMPRESSION: 1. Moderate cervical spondylosis without acute findings. Reviewed, dictated and finalized at location [facility]
--- NOTE | ~2023-11-16 | XR_ITS ---
XR shoulder RT min 2V DATE: 11/16/2023 16:54 INDICATION: Fall. No thrombi horse. Right shoulder pain. TECHNIQUE: 4 views COMPARISON: None FINDINGS: There is multilevel degenerative disc disease of the cervical spine. Normal alignment at the acromioclavicular and glenohumeral joints. No right shoulder fracture or disl ocation is detected. No abnormal right shoulder calcification. Mild right thoracic dextroscoliosis. IMPRESSION: No fracture or dislocation of right shoulder is detected Reviewed, dictated and finalized at location L. TS BROADCASTER
--- NOTE | ~2023-11-16 | CT_ITS ---
EXAMINATION: CT brain wo con INDICATION: Head injury COMPARISON: 10/21/2023 TECHNIQUE: Standard unenhanced head CT. The dose-length product (DLP) was 605.33 mGy-cm. The mA was a djusted according to patient size. Iterative reconstruction technique was employed. FINDINGS: No acute intraparenchymal hemorrhage. No evidence of mass lesion. No evidence of acute infa rction. There is mild periventricular and subcortical hypodensity probably related to small vessel is chemic disease. There is mild prominence of the sulci and ventricles related to cerebral atrophy. Int racranial calcified cerebral atherosclerosis is noted. No extra-axial collections. No mass effect or midline shift. The orbits and soft tissues are unremarkable. The visualized sinuses and mastoid air c ells are well aerated. IMPRESSION: 1. No acute intracranial abnormality. 2. Age related findings. Reviewed, dictated and finalized at location F. AGE CONTROL CLERK
--- NOTE | ~2023-11-16 | XR_ITS ---
XR chest 2V DATE: 11/16/2023 16:55 INDICATION: Fall. TECHNIQUE: PA and lateral views COMPARISON: 10/21/2023 CTA chest abdomen pelvis FINDINGS: Normal heart size. No hilar or mediastinal enlargement. No pulmonary infiltrate or consolid ation, pleural effusion or pulmonary vascular congestion or pneumothorax. IMPRESSION: No active cardiopulmonary disease Reviewed, dictated and finalized at location L. WHAT INSPECTOR AND PACKER
[2023-11-16 14:02] VITALS: BP 179/89; PULSE 97; RESP 16; TEMP 36.4; O2SAT 98
--- NOTE | 2023-11-16 16:36 | ED.GENADULT ---
HPI - General Adult General Chief complaint: Extremity Injury, Upper Stated complaint: knocked over by horse, no LOC Time Seen by Provider: 11/16/23 15:29 History of Present Illness HPI narrative: Hernan Delong is a 73 y/o male who presents today with his daugther. Daughter states that he was walking his horse in to the gate when his horse took off and he held on to the leash /rope and kept a momentum for a bit but then fell and was drug for a short distance and layed there and she went over, he was awake able to get up and walked over to the stable and sat down - he did not remember what had just happened. Here pt is alert and oriented X4 he still doesn't completely recall the whole event / No focal deficits noted on exam Related Data Home Medications Medication Instructions Recorded Confirmed aspirin 81 mg tablet,delayed 81 mg PO DAILY 09/11/19 11/01/23 release (Adult Low Dose Aspirin) multivitamin,ps-[id number] 1 tablet PO DAILY 09/11/19 11/01/23 (Complete Multivitamin tablet) rizatriptan 10 mg tablet See Rx Instructions PO .COMPLEX 09/11/19 11/01/23 PRN Migraine Headache atorvastatin 20 mg tablet 20 mg PO QHS 10/19/23 11/01/23 meloxicam 15 mg tablet 15 mg PO HS PRN pain 10/21/23 11/01/23 montelukast 10 mg tablet 10 mg PO HS 10/21/23 11/01/23 Allergies Allergy/AdvReac Type Severity Reaction Status Date / Time No Known Allergies AdvReac Unknown Verified 10/21/23 10:23 Review of Systems Review of Systems: CONSTITUTIONAL: Denies fever, chills, or sweats. EYES: Denies visual changes, redness, or discharge. ENT: Denies rhinorrhea, congestion, sore throat, or otalgia. CARDIOVASCULAR: Denies chest pain, palpitations, or edema. RESPIRATORY: Denies cough or dyspnea. GASTROINTESTINAL: Denies abdominal pain, nausea, vomiting, or diarrhea. GENITOURINARY: Denies dysuria or hematuria. SKIN: Denies rash or itching. MUSCULOSKELETAL: Right shoulder pain NEUROLOGIC: Denies headache, numbness, dizziness, or weakness. PSYCHIATRIC: Denies anxiety or depression. [facility] Past Medical History Medical History LUIS DANIEL (acute kidney injury) Aphthous ulcer of mouth (~04/22/22) Arthritis At moderate risk for fall (~07/18/22) BMI 26.0-26.9,adult BMI 27.0-27.9,adult BPH without obstruction/lower urinary tract symptoms Candidiasis (~09/28/22) Chronic anemia Chronic bilateral low back pain COVID-19 (09/23/22) Tested positive 09/28/2022. Diabetic eye exam No retinopathy on 03/18/2021. No retinopathy on 11/09/2022. Diabetic peripheral neuropathy associated with type 2 diabetes mellitus Dyspnea on exertion Encounter for prostate cancer screening PSA 0.42 on 07/29/2023. Essential (primary) hypertension Insomnia Left elbow pain (~07/2022) X-ray on 11/07/2022 revealed no evidence of fracture with soft tissue swelling over the olecranon process. Leukocytosis WBC 8.7 on 12/08/2021 Microalbuminuria due to type 2 diabetes mellitus (07/06/22) microalbumin ratio of 35 on 07/06/2022. Microalbumin ratio of 99 on 07/29/2023. Mixed hyperlipidemia Cholesterol 135, triglycerides 129, HDL 42, LDL 72 on 01/10/2023. cholesterol 139, triglycerides 108, HDL 46, LDL 74 with ratio 2.5 on 07/29/2023. APARNA on CPAP Overweight (BMI 25.0-29.9) Seasonal allergic rhinitis Small bowel obstruction (~03/19/22) Recurrent and resolved in-hospital 03/23/2022. Type 2 diabetes mellitus without complication, without long-term current use of insulin Hemoglobin A1c 7.6 on 12/08/2021. Glucose 182 with hemoglobin A1c 7.3 on 07/06/2022. glucose 183 with hemoglobin A1c 8.5 on 01/10/2023. Glucose 130 with hemoglobin A1c 7.5 on 07/29/2023 with microalbumin ratio of 99. Surgical History Surgical History History of appendectomy History of colonoscopy History of tonsillectomy and adenoidectomy Family History Family History (Reviewed 11/16/23 @ 16:42 by Luz Finch
== END 2023-11-16 18:25 | disposition home or self-care (01) ==
PROVIDERS: Emergency Provider Nurse Practitioner Family; PCP Family Medicine
DX: S06.0X0A Concussion without loss of consciousness, initial encounter (principal); S49.91XA Unspecified injury of right shoulder and upper arm, initial encounter; I10 Essential (primary) hypertension; E11.42 Type 2 diabetes mellitus with diabetic polyneuropathy; E78.2 Mixed hyperlipidemia; E66.3 Overweight; Z68.26 Body mass index [BMI] 26.0-26.9, adult; D64.9 Anemia, unspecified; G47.33 Obstructive sleep apnea (adult) (pediatric); M19.90 Unspecified osteoarthritis, unspecified site; Z86.16 Personal history of COVID-19; M47.812 Spondylosis without myelopathy or radiculopathy, cervical region; Z79.84 Long term (current) use of oral hypoglycemic drugs; Z79.82 Long term (current) use of aspirin; W55.19XA Other contact with horse, initial encounter
CPT/HCPCS: 70450; 71046; 72125; 73030; 99284

== ENCOUNTER 2023-12-11 02:29 | Day surgery (SDC) | payer MEDICARE, BC, SELFPAY ==
[2023-12-08 11:13] VITALS: BMI 25.7
[2023-12-11] VITALS (18 sets, daily range): BP systolic 128–169; BP diastolic 76–97; PULSE 75–89; RESP 10–21; TEMP 36.6; O2SAT 90–99; BMI 27.0
[2023-12-11 07:36] LABS: Basophils Percent Auto 0.5 % (0.2-1.2); Eosinophils Percent Auto 0.5 % (0-4.4); Hematocrit 36.2 % (42.0-52.0); Hemoglobin 11.9 g/dL (14.0-18.0); Immature Granulocyte Absolute 0.04 K/mm3 (0.00-0.031); Lymphocytes Absolute Auto 1.78 K/mm3 (0.9-3.2); Mean Corpuscular HGB Conc 32.9 g/dl (32-36); Mean Corpuscular Hemoglobin 33.9 pg (26-34); Mean Corpuscular Volume 103.1 fl (80-100); Mean Platelet Volume 10.6 fl (7.4-10.4); Monocytes Absolute Auto 0.5 K/mm3 (0.1-0.6); Monocytes Percent Auto 13.7 % (2.6-8.5); Neutrophils Absolute Auto 1.5 K/mm3 (1.3-6.7); Neutrophils Percent Auto 38.3 % (45.5-73.1); Platelet Count Result 153 k/mm3 (150-375); Red Blood Count 3.51 M/mm3 (4.6-6.20); Red Cell Distribution Width 13.8 % (11.5-14.5); White Blood Count 3.9 K/mm3 (4.5-10.0)
[2023-12-11 07:52] LABS: Anion Gap 8 mmol/L (8-16); Blood Urea Nitrogen 24 mg/dL (9-20); Calcium 9.8 mg/dL (8.4-10.2); Carbon Dioxide 26 mmol/L (22-30); Chloride 105 mmol/L (98-107); Estimated CRCL calculation 57 ml/min; Estimated Glomerular Filt Rate > 60; Glucose 186 mg/dL (65-110); Potassium 4.2 mmol/L (3.4-5.0); Sodium 139 mmol/L (137-145)
--- NOTE | 2023-12-11 08:34 | PM.IMHP ---
H&P: HPI History of Present Illness Date/Time: 12/11/23 08:34 Chief Complaint: Catheterization because of abnormal nuclear stress test/no complaints this morning Narrative: this is a 73-year-old man scheduled to have a left heart catheterization this morning because of abnormal findings on a nuclear stress test. He was recently referred to see my partner in the office because of symptoms of exertional dyspnea. Because of coronary risk factors he underwent stress testing which consisted of a exercise nuclear stress test. He was found to have left ventricular systolic dysfunction on that exam with an ejection fraction of 35%. There were no scintigraphic perfusion abnormalities identified. He is not reporting any chest pain pressure or heaviness he does notice that with physical activity he has less stamina and more easily short of breath for the last 5-6 months. Past medical history does include hypertension and diabetes as far as risk factors are concerned. Review of Systems Constitutional: Constitutional: Reports no additional constitutional complaints Eyes: Eyes: Reports no additional eye complaints ENT: Reports system reviewed and no additional complaints, except as documented Cardiovascular: Cardiovascular: Reports no additional cardiovascular complaints Respiratory: Respiratory: Reports dyspnea on exertion Gastrointestinal: Gastrointestinal: Reports no additional gastrointestinal complaints Musculoskeletal: Musculoskeletal: Reports no additional musculoskeletal complaints Integumentary/Breasts: Skin/Breast: Reports system reviewed and no additional complaints, except as docu Neurologic: Comments: Alert and oriented x3 [facility] Past Medical History Medical History LUIS DANIEL (acute kidney injury) Aphthous ulcer of mouth (~04/22/22) Arthritis At moderate risk for fall (~07/18/22) BMI 26.0-26.9,adult BMI 27.0-27.9,adult BPH without obstruction/lower urinary tract symptoms Candidiasis (~09/28/22) Chronic anemia Chronic bilateral low back pain COVID-19 (09/23/22) Tested positive 09/28/2022. Diabetic eye exam No retinopathy on 03/18/2021. No retinopathy on 11/09/2022. Diabetic peripheral neuropathy associated with type 2 diabetes mellitus Dyspnea on exertion Encounter for prostate cancer screening PSA 0.42 on 07/29/2023. Essential (primary) hypertension Insomnia Left elbow pain (~07/2022) X-ray on 11/07/2022 revealed no evidence of fracture with soft tissue swelling over the olecranon process. Leukocytosis WBC 8.7 on 12/08/2021 Microalbuminuria due to type 2 diabetes mellitus (07/06/22) microalbumin ratio of 35 on 07/06/2022. Microalbumin ratio of 99 on 07/29/2023. Mixed hyperlipidemia Cholesterol 135, triglycerides 129, HDL 42, LDL 72 on 01/10/2023. cholesterol 139, triglycerides 108, HDL 46, LDL 74 with ratio 2.5 on 07/29/2023. APARNA on CPAP Overweight (BMI 25.0-29.9) Seasonal allergic rhinitis Small bowel obstruction (~03/19/22) Recurrent and resolved in-hospital 03/23/2022. Type 2 diabetes mellitus without complication, without long-term current use of insulin Hemoglobin A1c 7.6 on 12/08/2021. Glucose 182 with hemoglobin A1c 7.3 on 07/06/2022. glucose 183 with hemoglobin A1c 8.5 on 01/10/2023. Glucose 130 with hemoglobin A1c 7.5 on 07/29/2023 with microalbumin ratio of 99. Surgical History Surgical History History of appendectomy History of colonoscopy History of tonsillectomy and adenoidectomy Family History Family History Grandparent Cerebrovascular accident, Onset Age: 78 Father Family history of Alzheimer's disease, Onset Age: 79 Mother Family history of Alzheimer's disease, Onset Age: 85 Social History Social History Social History: Surrogate chayo
--- NOTE | 2023-12-11 08:38 | WPDMODSED ---
Moderate Sedation Note-Pt Data Patient Data Diagnosis: left ventricular systolic dysfunction Present Complaint: exertional dyspnea Procedure to be performed/Plan: left heart catheterization Allergies Allergy/AdvReac Type Severity Reaction Status Date / Time No Known Allergies AdvReac Unknown Verified 12/11/23 07:22 Home Medications Medication Instructions Recorded Confirmed Type aspirin 81 mg tablet,delayed 81 mg PO DAILY 09/11/19 12/08/23 History release (Adult Low Dose Aspirin) multivitamin,[id number] 1 tablet PO DAILY 09/11/19 12/08/23 History (Complete Multivitamin tablet) rizatriptan 10 mg tablet See Rx Instructions PO .COMPLEX 09/11/19 12/08/23 History PRN Migraine Headache metformin 500 mg tablet,extended 2,000 mg PO DAILY #360 tabs 07/11/22 12/08/23 Rx release 24 hr duloxetine 60 mg capsule,delayed 60 mg PO BID #180 caps 01/17/23 12/08/23 Rx release (Cymbalta) empagliflozin 25 mg tablet 25 mg PO QAM #90 tabs 01/17/23 12/08/23 Rx (Jardiance) fluticasone propionate 50 1 spray intranasal BID #16 grams 01/17/23 12/08/23 Rx mcg/actuation nasal spray,suspension (Flonase Allergy Relief) tamsulosin 0.4 mg capsule (Flomax) 0.4 mg PO DAILY #90 caps 02/28/23 12/08/23 Rx lisinopril 40 mg tablet 40 mg PO DAILY #90 tabs 10/04/23 12/08/23 Rx atorvastatin 20 mg tablet 20 mg PO QHS 10/19/23 12/08/23 History meloxicam 15 mg tablet 15 mg PO HS PRN pain 10/21/23 12/08/23 History montelukast 10 mg tablet 10 mg PO HS 10/21/23 12/08/23 History triamcinolone acetonide 0.1 % 1 applic PO TID PRN mouth 10/23/23 12/08/23 Rx dental paste irritation #0 grams dutasteride 0.5 mg capsule 0.5 mg PO DAILY #90 caps 12/08/23 12/11/23 Rx magnesium 500 mg tablet 500 mg PO DAILY 12/08/23 12/08/23 History vitamin B complex (B 1 tablet PO DAILY 12/08/23 12/08/23 History Complex-Vitamin B12 tablet) Current Medications: Active Medications Sodium Chloride (Normal Saline Iv) 500 mls @ 100 mls/hr IV CONT .Q5H SPENCER Sedation/Anesthesia: No previous sedation/anesthesia problems (including family history). [facility] Past Medical History Medical History LUIS DANIEL (acute kidney injury) Aphthous ulcer of mouth (~04/22/22) Arthritis At moderate risk for fall (~07/18/22) BMI 26.0-26.9,adult BMI 27.0-27.9,adult BPH without obstruction/lower urinary tract symptoms Candidiasis (~09/28/22) Chronic anemia Chronic bilateral low back pain COVID-19 (09/23/22) Tested positive 09/28/2022. Diabetic eye exam No retinopathy on 03/18/2021. No retinopathy on 11/09/2022. Diabetic peripheral neuropathy associated with type 2 diabetes mellitus Dyspnea on exertion Encounter for prostate cancer screening PSA 0.42 on 07/29/2023. Essential (primary) hypertension Insomnia Left elbow pain (~07/2022) X-ray on 11/07/2022 revealed no evidence of fracture with soft tissue swelling over the olecranon process. Leukocytosis WBC 8.7 on 12/08/2021 Microalbuminuria due to type 2 diabetes mellitus (07/06/22) microalbumin ratio of 35 on 07/06/2022. Microalbumin ratio of 99 on 07/29/2023. Mixed hyperlipidemia Cholesterol 135, triglycerides 129, HDL 42, LDL 72 on 01/10/2023. cholesterol 139, triglycerides 108, HDL 46, LDL 74 with ratio 2.5 on 07/29/2023. APARNA on CPAP Overweight (BMI 25.0-29.9) Seasonal allergic rhinitis Small bowel obstruction (~03/19/22) Recurrent and resolved in-hospital 03/23/2022. Type 2 diabetes mellitus without complication, without long-term current use of insulin Hemoglobin A1c 7.6 on 12/08/2021. Glucose 182 with hemoglobin A1c 7.3 on 07/06/2022. glucose 183 with hemoglobin A1c 8.5 on 01/10/2023. Glucose 130 with hemoglobin A1c 7.5 on 07/29/2023 with microalbumin ratio of 99. Surgical History Surgical History History of appendectomy History of colonoscopy History of tonsillectomy and adenoidectomy Famil
--- NOTE | 2023-12-11 09:16 | WPDCARDPROC ---
Cardiac Cath Procedure Note Date of procedure:: 12/11/23 Performing physician:: Gaurav Harris MD Indication:: left ventricular systolic dysfunction Brief clinical history:: this is a 73-year-old man reporting symptoms of exertional dyspnea. Nuclear stress testing demonstrated evidence of left ventricular systolic dysfunction. Catheterization was recommended to exclude ischemic heart disease. Patient does have a systolic murmur compatible with aortic valve stenosis which appears to be mild by physical exam Procedure Procedure performed:: coronary angiography Sedation/Medication given:: fentanyl 50 mg Versed 2 mg case start time 8:47 a.m. case end time 9:12 a.m. sedation provided by Jodi Delgado RN, trained observer Access site:: right femoral artery Estimated blood loss:: 20 cc Procedure note:: patient was brought to the cardiac catheterization lab in the postabsorptive state where the right femoral triangle was prepared and draped usual fashion. Anesthesia was provided with 1% lidocaine infiltrated locally. Using the modified Seldinger technique a 5 Malawian vascular sheath was placed into the femoral artery. Left heart catheterization was then carried out. I advanced a 5 Malawian angled pigtail catheter into the central aorta and into the aortic root. Attempts to cross the aortic valve with this catheter with both the J wire and a straight wire were unsuccessful. I removed the pigtail catheter proceed with coronary angiography. The left coronary artery was engaged and injected using a standard 5 [place]awian FL4 catheter. The right coronary artery was engaged and injected using a standard 5 [place] JR4 catheter. It was notable that maneuvering catheters in the central aorta was somewhat challenging because of tortuosity in the iliac artery. Following coronary angiography using the right coronary catheter and the straight wire I was able to cross the aortic valve and enter the left ventricle. At that time I used a long exchange length J-wire to exchange this out for a a pigtail catheter. With the J-wire in the left ventricle as we advanced the pigtail catheter into the arterial circulation the torque on the catheter because of the iliac tortuosity cause the J wire to come back into the aorta proximal to the valve. Following this further attempts to perform a left ventriculogram were abandoned as this was not the principal reason for performing this study today. Findings:: central aortic pressure is 150/74. The left ventricle was not studied hemodynamically as described above the left main coronary artery is short and nicely patent the left anterior descending is a large to medium caliber artery attending down to the apex. There is minimal luminal irregularity in the LAD but no flow-limiting lesions are seen in the LAD or its branches. The circumflex is a large caliber artery giving rise to the marginal branches the posterolateral branches and a small left PDA. The circumflex system is free of disease. The right coronary artery is moderate to large caliber is codominant giving rise to an RPDA and is without disease. Conclusion:: 1. Codominant coronary circulation with no significant coronary artery disease 2. aortic valve calcification and sclerosis which did make crossing the valve challenging along with tortuosity in the iliac system. The valve was crossed as described above but the pigtail catheter was not successfully placed into the left ventricle and further attempt to perform left ventriculogram were abandoned as this was not the principal reason for today's exam. Gaurav Harris MD [facility]
== END 2023-12-11 15:00 | disposition home or self-care (01) ==
PROVIDERS: PCP Family Medicine; Visit Provider Specialist
PROC: (CPT 93454; principal; 2023-12-11 08:30)
DX: R06.09 Other forms of dyspnea (principal); R94.39 Abnormal result of other cardiovascular function study; I35.8 Other nonrheumatic aortic valve disorders; E11.42 Type 2 diabetes mellitus with diabetic polyneuropathy; I10 Essential (primary) hypertension; E78.2 Mixed hyperlipidemia; G47.33 Obstructive sleep apnea (adult) (pediatric); N40.0 Benign prostatic hyperplasia without lower urinary tract symptoms; Z79.82 Long term (current) use of aspirin; Z79.84 Long term (current) use of oral hypoglycemic drugs
CPT/HCPCS: 36415; 80048; 85025; 93454; C1769; C1887; C1894; J1644; J2250; J3010; J7040

== ENCOUNTER 2024-06-14 08:45 | Outpatient (CLI) | payer MEDICARE, BC, SELFPAY ==
[2024-06-14 09:30] LABS: Anion Gap 9 mmol/L (4-12); Blood Urea Nitrogen 21 mg/dL (9-20); Calcium 9.4 mg/dL (8.4-10.2); Carbon Dioxide 27 mmol/L (22-30); Chloride 103 mmol/L (98-107); Estimated Glomerular Filt Rate > 60; Glucose 237 mg/dL (65-110); Potassium 4.6 mmol/L (3.4-5.0); Sodium 139 mmol/L (137-145)
[2024-06-14 09:33] LABS: Hemoglobin A1C 10.1 % (<5.7)
== END 2024-06-14 08:46 | disposition home or self-care (01) ==
PROVIDERS: PCP Family Medicine; Visit Provider Family Medicine
DX: E11.9 Type 2 diabetes mellitus without complications (principal)
CPT/HCPCS: 36415; 80048; 83036

== ENCOUNTER 2024-07-25 07:41 | Outpatient (CLI) | payer MEDICARE, BC, SELFPAY | END 2024-07-25 07:42 | disposition home or self-care (01) | LOC: ANHAUDIO 07:43 | PROVIDERS: PCP Family Medicine; Visit Provider Otolaryngology | DX: H90.42 Sensorineural hearing loss, unilateral, left ear, with unrestricted hearing on the contralateral side (principal) | CPT/HCPCS: 92557; 92567 ==

== ENCOUNTER 2024-07-25 18:22 | Emergency (ER) | payer MEDICARE, BC, SELFPAY ==
--- NOTE | ~2024-07-25 | CT_ITS ---
EXAMINATION: CT brain wo con DATE: 07/25/2024 22:01 INDICATION: syncope . TECHNIQUE: Computed tomography (CT) of the head was performed without intravenous contrast. The mA wa s adjusted according to patient size. Iterative reconstruction technique was employed. The dose-lengt h product was 605.33 mGy-cm. COMPARISON: 11/16/2023. FINDINGS: No acute intracranial hemorrhage or extra-axial fluid collection. No hydrocephalus, mass, or herniation. No acute ischemic infarct. Unremarkable dural venous sinus attenuation. No acute osseous abnormality. The aerated spaces are clear. Mild atrophy and chronic white matter change. Atherosclerotic intracranial calcification. Bilateral b oliverio ganglia calcification. IMPRESSION: No acute intracranial process. Reviewed, dictated and finalized at location K.
--- NOTE | ~2024-07-25 | XR_ITS ---
EXAMINATION: XR chest 2V Exam Date/Time: 07/25/2024 21:14 CDT HISTORY: syncope Comparison: 11/16/2023. RESULT: Lines, tubes, and devices: None. Lungs and pleura: Clear. Cardiomediastinal silhouette: Stable. Other: No acute osseous or upper abdominal finding. IMPRESSION: No acute cardiopulmonary process. Reviewed, dictated and finalized at location K.
[2024-07-25 18:51] VITALS: BP 130/77; PULSE 103; RESP 15; TEMP 36.6; O2SAT 97
--- NOTE | 2024-07-25 19:12 | ECG_ITS ---
Test Date: 2024-07-25 21:12:52 Measurements Intervals [place] Rate: 72 P: -14 CO: 145 QRS: -17 QRSD: 98 T: 25 QT: 368 QTc: 405 Interpretive Statements SINUS RHYTHM EARLY PRECORDIAL R/S TRANSITION POSSIBLE LEFT VENTRICULAR HYPERTROPHY BASELINE ARTIFACT- I, II, III, AVR BORDERLINE ECG No previous ECG available for comparison Electronically Signed On 07-26-2024 06:38:43 CDT by Jamison Oswald D.O.
[2024-07-25 21:09] VITALS: BP 162/77; PULSE 73; RESP 14; TEMP 36.4; O2SAT 95
[2024-07-25 21:15] LABS: Basophils Percent Auto 0.5 % (0.2-1.2); Eosinophils Percent Auto 0.1 % (0-4.4); Hematocrit 28.8 % (42.0-52.0); Hemoglobin 9.6 g/dL (14.0-18.0); Immature Granulocyte Absolute 0.37 K/mm3 (0.00-0.031); Immature Granulocyte Percent A 4.7 % (0-0.5); Lymphocytes Absolute Auto 1.66 K/mm3 (0.9-3.2); Lymphocytes Percent Auto 21.3 % (18.3-44.2); Mean Corpuscular HGB Conc 33.3 g/dl (32-36); Mean Corpuscular Volume 102.1 fl (80-100); Mean Platelet Volume 9.8 fl (7.4-10.4); Monocytes Absolute Auto 1.3 K/mm3 (0.1-0.6); Monocytes Percent Auto 16.9 % (2.6-8.5); Neutrophils Absolute Auto 4.4 K/mm3 (1.3-6.7); Neutrophils Percent Auto 56.5 % (45.5-73.1); Platelet Count Result 201 k/mm3 (150-375); Red Blood Count 2.82 M/mm3 (4.6-6.20); Red Cell Distribution Width 14.6 % (11.5-14.5); White Blood Count 7.8 K/mm3 (4.5-10.0)
[2024-07-25 21:26] LABS: Alanine Aminotransferase 17 U/L (6-50); Albumin Level 4.1 g/dL (3.5-5.1); Alkaline Phosphatase 76 U/L (38-126); Anion Gap 7 mmol/L (4-12); Aspartate Amino Transferase 33 U/L (17-59); Bilirubin,Total 0.4 mg/dL (0.2-1.3); Blood Urea Nitrogen 20 mg/dL (9-20); Calcium 9.1 mg/dL (8.4-10.2); Carbon Dioxide 26 mmol/L (22-30); Chloride 102 mmol/L (98-107); Estimated CRCL calculation 44 ml/min; Estimated Glomerular Filt Rate 49; Glucose 137 mg/dL (65-110); Potassium 4.3 mmol/L (3.4-5.0); Sodium 135 mmol/L (137-145)
[2024-07-25 21:42] VITALS: BP 162/72; PULSE 82; RESP 22; TEMP 36.5; O2SAT 98
[2024-07-25 22:01] LABS: Add Urine Microscopic? NO; Appearance Urine Clear (Clear); Bilirubin Urine Negative (Negative); Blood Urine Negative (Negative); Color Urine Yellow (Yellow); Glucose Urine UA 3+ mg/dL (Negative); Ketones Urine Negative (Negative); Leukocyte Esterase Ur Negative LEU/UL (Negative); Nitrate Urine Negative (Negative); Protein Urine Negative (Negative); Specific Grav Ur 1.014 (1.001-1.035); Urobilinogen Urine 0.2 mg/dL (<2.0)
[2024-07-25 22:04] LABS: INR 1.1
[2024-07-25 22:05] LABS: Partial Thromboplastin Time 31.4 Seconds (22.3-36.8)
[2024-07-25] MEDS: LACTATED RINGERS 1,000 ML 999 ML IV CONT (22:10)
--- NOTE | 2024-07-25 22:20 | ED.SYNCOPE ---
HPI - Syncope General Chief Complaint: Syncope Stated Complaint: FREQ FALLS, ?SYNCOPAL EVENTS Time Seen by Provider: 07/25/24 21:47 History of Present Illness HPI narrative: 74-year-old male with a past medical history significant for nonischemic cardiomyopathy with the ejection fraction about 35% on last echo. Previous negative catheterization procedures in 2022. Also history of type 2 diabetes. Presented to the emergency department today with a chief complaint of falls and potential syncopal episodes at home. Patient states he was seen in the hospital about 10 days prior at a different facility and was prescribed antibiotics for an infection of some sort. Took the entirety of the antibiotic course and states that he still gets random possible syncopal events. He states he gets a ?aura? before the syncopal event where he gets tunnel vision with everything going extremely bright prior to him falling and potentially passing out. It happened twice today most recently while he was walking in the kitchen and just prior was seated without symptoms. He did complain of some left-sided rib discomfort after the fall but denies any head injury, headache, vision changes, fever, chills, chest pain, shortness a breath, nausea or vomiting. No blood thinner use or seizure history but states he did urinate himself during this last fall. These falls are unwitnessed by family members. Patient is mostly concerned that he has some potential infection causing his symptoms. Related Data Home Medications Medication Instructions Recorded Confirmed aspirin 81 mg tablet,delayed 81 mg PO DAILY 09/11/19 05/20/24 release (Adult Low Dose Aspirin) multivitamin,[id number]-lhlq-lgrmbaxn 1 tablet PO DAILY 09/11/19 05/20/24 (Complete Multivitamin tablet) rizatriptan 10 mg tablet See Rx Instructions PO .COMPLEX 09/11/19 05/20/24 PRN Migraine Headache atorvastatin 20 mg tablet 20 mg PO QHS 10/19/23 05/20/24 montelukast 10 mg tablet 10 mg PO HS 10/21/23 05/20/24 magnesium 500 mg tablet 500 mg PO DAILY 12/08/23 05/20/24 vitamin B complex (B 1 tablet PO DAILY 12/08/23 05/20/24 Complex-Vitamin B12 tablet) carvedilol 6.25 mg tablet 6.25 mg PO Q12H 02/06/24 05/20/24 sacubitril 49 mg-valsartan 51 mg 1 tablet PO BID 02/06/24 05/20/24 tablet (Entresto) Allergies Allergy/AdvReac Type Severity Reaction Status Date / Time No Known Allergies AdvReac Unknown Verified 07/25/24 18:55 Review of Systems Review of Systems: As reviewed above in HPI [facility] Past Medical History Medical History LUIS DANIEL (acute kidney injury) Aphthous ulcer of mouth (~04/22/22) Arthritis At moderate risk for fall (~07/18/22) Bacteremia due to Staphylococcus aureus ESR 42 on 11/06/2023. WBC 2.6 on 11/06/2023. BMI 26.0-26.9,adult BMI 27.0-27.9,adult BPH without obstruction/lower urinary tract symptoms Candidiasis (~09/28/22) Chronic anemia Chronic bilateral low back pain Controlled type 2 diabetes mellitus with hyperglycemia, without long-term current use of insulin Hemoglobin A1c 7.6 on 12/08/2021. Glucose 182 with hemoglobin A1c 7.3 on 07/06/2022. glucose 183 with hemoglobin A1c 8.5 on 01/10/2023. Glucose 130 with hemoglobin A1c 7.5 on 07/29/2023 with microalbumin ratio of 99. Glucose 223 with hemoglobin A1c 8.3 on 01/02/2024. fasting glucose 237 with hemoglobin A1c 10.1 on 06/14/2024. COVID-19 (09/23/22) Tested positive 09/28/2022. Diabetic eye exam No retinopathy on 03/18/2021. No retinopathy on 11/09/2022. Diabetic peripheral neuropathy associated with type 2 diabetes mellitus Dyspnea on exertion No significant coronary artery disease on catheterization on 12/11/2023. Encounter for prostate cancer screening PSA 0.42 on 07/29/2023. Essential (primary) hypertension Frequent falls (~06/2024) Generalized weakness (~06/2024) Hearing loss, left (~05/06/24) Insomnia Left elbow pain (~07/2022) X-ray on 11/07/2022 revealed
[2024-07-25 22:50] LABS: Troponin I < 0.012 ng/mL (0.000-0.034)
[2024-07-26] VITALS: BP 157/85; PULSE 66
[2024-07-26 00:01] VITALS: BP 139/87; PULSE 72
[2024-07-26 00:02] VITALS: BP 127/88; PULSE 91
[2024-07-26 00:18] VITALS: BP 157/85; PULSE 88; RESP 14; TEMP 36.7; O2SAT 100
== END 2024-07-26 00:19 | disposition home or self-care (01) ==
PROVIDERS: Physician Assistant; Emergency Provider Student in an Organized Health Care Education/Training Program; PCP Family Medicine
DX: R55 Syncope and collapse (principal); R29.6 Repeated falls; I42.8 Other cardiomyopathies; E11.42 Type 2 diabetes mellitus with diabetic polyneuropathy; E78.2 Mixed hyperlipidemia; E66.3 Overweight; Z68.26 Body mass index [BMI] 26.0-26.9, adult; D64.9 Anemia, unspecified; G47.33 Obstructive sleep apnea (adult) (pediatric); Z86.16 Personal history of COVID-19; Z79.899 Other long term (current) drug therapy; Z79.82 Long term (current) use of aspirin; Z77.22 Contact with and (suspected) exposure to environmental tobacco smoke (acute) (chronic); R94.31 Abnormal electrocardiogram [ECG] [EKG]
CPT/HCPCS: 36415; 70450; 71046; 80053; 81003; 84484; 85025; 85610; 85730; 92557; 92567; 93005; 96360; 99284; J7120

== ENCOUNTER → 2024-07-26 10:08 | Outpatient (CLI) | payer MEDICARE, BC, SELFPAY ==
--- NOTE | ~2024-07-26 | XR_ITS ---
3 VIEWS LUMBAR SPINE Ordering provider: Zohaib Hoyt MD History: . M54.5 - mid to left side Low back pain,no known injury . Comparison: None. FINDINGS: VERTEBRAL BODIES:S-shaped scoliosis. No visible fracture or subluxation. DISK SPACES: Narrowing of the disc L1-L2, L2-L3, L3-L4 and L5-S1. Multilevel facet joint disease. Bilateral sacroiliitis. SOFT TISSUES: Normal. IMPRESSION: No acute osseous abnormality lumbar spine. Reviewed, dictated and finalized at location A.
== END ==
LOC: EXPTROY 10:11
PROVIDERS: PCP Family Medicine; Visit Provider Family Medicine
DX: M54.50 Low back pain, unspecified (principal); R55 Syncope and collapse
CPT/HCPCS: 72110

== ENCOUNTER 2024-08-01 09:10 | Outpatient (CLI) | payer MEDICARE, BC, SELFPAY ==
--- NOTE | ~2024-08-01 | US_ITS ---
EXAMINATION: US carotid duplex BI DATE: 08/01/2024 09:57 INDICATION: Syncope and collapse TECHNIQUE: Grayscale, color Doppler, and pulsed Doppler images of the cervical carotid arteries were obtained. The degree of vessel stenosis is placed in one of the following categories: normal, <50%, 5 0-69%, >=70% but less than near-occlusion, near-occlusion, or total occlusion. Note that percent sten osis relative to normal distal artery lumen diameter is indirectly measured from velocity measurement s as described by Kaiden, et al. Radiology 2003; [id number]. COMPARISON: None. FINDINGS: RIGHT: The right common carotid artery (CCA) peak systolic velocity (PSV) is 55 cm/s. The right internal car otid artery (ICA) PSV is 90 cm/s. The right ICA end-diastolic velocity (EDV) is 27 cm/s. The right IC A/CCA PSV ratio is 1.6. Grayscale and color Doppler images yield an estimate of <50% diameter reducti on from plaque in the ICA. The external carotid artery (ECA) PSV is 62 cm/s. There is antegrade flow in the right vertebral artery. LEFT: The left CCA PSV is 62 cm/s. The left ICA PSV is 74 cm/s. The left ICA EDV is 27 cm/s. The left ICA/C CA PSV ratio is 1.2. Grayscale and color Doppler images yield an estimate of <50% diameter reduction from plaque in the ICA. The ECA PSV is 51 cm/s. There is antegrade flow in the left vertebral artery. IMPRESSION: 1. <50% stenosis in the right internal carotid artery. 2. <50% stenosis in the left internal carotid artery. Reviewed, dictated and finalized at location A.
== END 2024-08-01 09:11 | disposition home or self-care (01) ==
LOC: ANHIMG 09:11
PROVIDERS: PCP Family Medicine; Visit Provider Family Medicine
DX: R55 Syncope and collapse (principal); I65.23 Occlusion and stenosis of bilateral carotid arteries
CPT/HCPCS: 93880

== ENCOUNTER 2024-08-09 07:31 | Outpatient (CLI) | payer MEDICARE, BC, SELFPAY ==
[2024-08-09 07:58] LABS: Basophils Absolute Auto 0.1 K/mm3 (0.0-0.1); Basophils Percent Auto 0.3 % (0.2-1.2); Eosinophils Percent Auto 0.3 % (0-4.4); Hematocrit 32.1 % (42.0-52.0); Hemoglobin 10.3 g/dL (14.0-18.0); Immature Granulocyte Absolute 0.71 K/mm3 (0.00-0.031); Immature Granulocyte Percent A 4.8 % (0-0.5); Lymphocytes Absolute Auto 1.87 K/mm3 (0.9-3.2); Lymphocytes Percent Auto 12.7 % (18.3-44.2); Mean Corpuscular HGB Conc 32.1 g/dl (32-36); Mean Corpuscular Hemoglobin 33.3 pg (26-34); Mean Corpuscular Volume 103.9 fl (80-100); Monocytes Absolute Auto 1.6 K/mm3 (0.1-0.6); Neutrophils Absolute Auto 10.4 K/mm3 (1.3-6.7); Neutrophils Percent Auto 70.9 % (45.5-73.1); Platelet Count Result 215 k/mm3 (150-375); Red Blood Count 3.09 M/mm3 (4.6-6.20); Red Cell Distribution Width 14.6 % (11.5-14.5); White Blood Count 14.7 K/mm3 (4.5-10.0)
[2024-08-09 08:12] LABS: Anion Gap 10 mmol/L (4-12); Blood Urea Nitrogen 22 mg/dL (9-20); Calcium 9.4 mg/dL (8.4-10.2); Carbon Dioxide 26 mmol/L (22-30); Chloride 101 mmol/L (98-107); Estimated Glomerular Filt Rate 59; Glucose 192 mg/dL (65-110); Potassium 4.4 mmol/L (3.4-5.0); Sodium 137 mmol/L (137-145)
[2024-08-09 11:03] LABS: Iron 76 ug/dL (49-181)
[2024-08-09 11:13] LABS: Percent Iron Saturation 33 % (20-50)
== END 2024-08-09 07:32 | disposition home or self-care (01) ==
PROVIDERS: PCP Family Medicine; Visit Provider Family Medicine
DX: D64.9 Anemia, unspecified (principal); E11.9 Type 2 diabetes mellitus without complications
CPT/HCPCS: 36415; 80048; 82728; 83540; 83550; 85025

== ENCOUNTER 2024-08-15 14:14 | Outpatient (CLI) | payer MEDICARE, BC, SELFPAY ==
--- NOTE | ~2024-08-15 | MR_ITS ---
EXAMINATION: MR lumbar spine wo con DATE: 08/15/2024 15:22 INDICATION: Other chronic pain. TECHNIQUE: Magnetic resonance imaging (MRI) of the lumbar spine was performed without intravenous con trast. Sequences included sagittal T2-weighted FSE, sagittal T2-weighted FS FSE, sagittal T1-weighted FSE, and axial T2-weighted FSE. COMPARISON: Lumbar spine radiographs 07/26/2024 FINDINGS: There is 16 degrees dextroscoliosis of thoracolumbar spine. There are chronic bilateral L5 pars defects. There is 4 mm anterolisthesis of L5 on S1. There is mild chronic anterior wedging of T1 2 vertebral bodies. There is severely decreased disc height at L1-L2, L2-L3, and L3-L4, mildly decrea sed disc height at L4-L5, and moderately decreased disc height at L5-S1. The distal spinal cord signa l intensity is normal. The conus medullaris is at T12-L1. The following disc levels are specifically discussed: L1-L2: The disc is bulging and has an annular fissure. There is moderate bilateral facet joint osteoa rthritis. There is mild left neural foraminal stenosis. There is mild central canal stenosis. L2-L3: The disc is bulging with superimposed central extrusion. There is mild bilateral facet joint o steoarthritis. There is mild bilateral neural foraminal stenosis. There is mild central canal stenosi s. L3-L4: The disc is bulging. There is mild bilateral facet joint osteoarthritis. There is mild bilater al neural foraminal stenosis. There is mild central canal stenosis. L4-L5: The disc is bulging and has a superimposed central extrusion. There is severe bilateral facet joint osteoarthritis. There is mild right neural foraminal stenosis. There is mild central canal sten osis. L5-S1: The disc is bulging and has an annular fissure. There is severe bilateral facet joint osteoart hritis. There is moderate right and mild left neural foraminal stenosis. There is mild central canal stenosis. IMPRESSION: 1. Chronic bilateral L5 pars defects with grade 1 anterolisthesis of L5 on S1. 2. Severe lumbar spondylosis. 3. Thoracolumbar dextroscoliosis. Reviewed, dictated and finalized at location A.
--- NOTE | ~2024-08-15 | MR_ITS ---
EXAMINATION: MR brain/brain stem wo/w con DATE: 08/15/2024 15:19 INDICATION: Other chronic pain. TECHNIQUE: Magnetic resonance imaging (MRI) of the brain and brainstem was performed without and with 17 mL MultiHance intravenous contrast. COMPARISON: Brain MRI 10/22/2023, head CT 07/25/2024 FINDINGS: There is no intracranial hemorrhage, acute infarction, or abnormal intracranial mass lesion . There are scattered areas of nonspecific increased T2-weighted signal intensity in the cerebral whi te matter, which is within normal limits for the patient's age. The ventricles are normal in size. Th e orbits are normal. The paranasal sinuses are clear. The mastoid air cells are normal. IMPRESSION: 1. Normal aging brain. Reviewed, dictated and finalized at location A. IMPRESSION: 1. Normal aging brain.
== END 2024-08-15 14:15 | disposition home or self-care (01) ==
LOC: ANHIMG 14:18
PROVIDERS: PCP Family Medicine; Visit Provider Family Medicine
DX: M47.896 Other spondylosis, lumbar region (principal)
CPT/HCPCS: 70553; 72148; A9577

== ENCOUNTER 2024-09-06 07:14 | Outpatient (CLI) | payer MEDICARE, BC, SELFPAY ==
[2024-09-06 08:41] LABS: Basophils Percent Auto 0.8 % (0.2-1.2); Eosinophils Percent Auto 0.4 % (0-4.4); Hemoglobin 9.7 g/dL (14.0-18.0); Immature Granulocyte Absolute 0.08 K/mm3 (0.00-0.031); Immature Granulocyte Percent A 1.6 % (0-0.5); Lymphocytes Absolute Auto 1.79 K/mm3 (0.9-3.2); Lymphocytes Percent Auto 36.2 % (18.3-44.2); Mean Corpuscular HGB Conc 31.3 g/dl (32-36); Mean Corpuscular Hemoglobin 33.1 pg (26-34); Mean Corpuscular Volume 105.8 fl (80-100); Mean Platelet Volume 10.3 fl (7.4-10.4); Monocytes Absolute Auto 0.9 K/mm3 (0.1-0.6); Monocytes Percent Auto 18.2 % (2.6-8.5); Neutrophils Absolute Auto 2.1 K/mm3 (1.3-6.7); Neutrophils Percent Auto 42.8 % (45.5-73.1); Platelet Count Result 228 k/mm3 (150-375); Red Blood Count 2.93 M/mm3 (4.6-6.20); Red Cell Distribution Width 16.4 % (11.5-14.5); White Blood Count 4.9 K/mm3 (4.5-10.0)
[2024-09-06 09:20] LABS: Macrocytosis 1+ (NORMAL); Platelet Estimate Adequate (Adequate); Schistocytes None Seen
[2024-09-06 09:20] LABS: Add Urine Microscopic? YES; Appearance Urine Clear (Clear); Bacteria Urine None Seen /hpf; Bilirubin Urine Negative (Negative); Blood Urine Negative (Negative); Color Urine Yellow (Yellow); Glucose Urine UA 3+ mg/dL (Negative); Ketones Urine Negative (Negative); Leukocyte Esterase Ur Negative LEU/UL (Negative); Nitrate Urine Negative (Negative); Non Pathogenic Casts 0-2; Protein Urine Trace mg/dL (Negative); RBC Urine 0-2 /hpf (0-2); Squamous Epithelial Cell Urine None Seen /hpf (Few); Urobilinogen Urine 0.2 mg/dL (<2.0); WBC Urine 0-5 /hpf (0-3); pH Urine 6.5 (5.0-9.0)
[2024-09-06 10:49] LABS: Creatinine Urine 71.1 mg/dL
[2024-09-06 10:53] LABS: MALB Creatinine Ratio 88.7 mg/g (0-30); Microalbumin Urine Random 63.1 mg/L (0-16.7)
[2024-09-06 12:59] LABS: Iron 84 ug/dL (49-181)
[2024-09-06 13:09] LABS: Percent Iron Saturation 28 % (20-50)
[2024-09-06 13:53] LABS: Anion Gap 9 mmol/L (4-12); Blood Urea Nitrogen 15 mg/dL (9-20); Carbon Dioxide 27 mmol/L (22-30); Chloride 102 mmol/L (98-107); Potassium 4.6 mmol/L (3.4-5.0); Sodium 138 mmol/L (137-145)
[2024-09-06 13:54] LABS: Alanine Aminotransferase 14 U/L (6-50); Albumin Level 4.4 g/dL (3.5-5.1); Alkaline Phosphatase 92 U/L (38-126); Aspartate Amino Transferase 26 U/L (17-59); Bilirubin,Total 0.5 mg/dL (0.2-1.3); Calcium 9.6 mg/dL (8.4-10.2); Cholesterol 91 mg/dL (0-200); Estimated Glomerular Filt Rate > 60; Glucose 179 mg/dL (65-110); HDL Direct 30 mg/dL; Triglycerides 133 mg/dL (<150)
[2024-09-06 14:24] LABS: Prostate Specific Antigen 0.5 ng/mL (< OR = 4.0); Thyroid Stimulating Hormone 0.885 uIU/mL (0.465-4.680)
[2024-09-06 15:58] LABS: Folic Acid > 20.0 ng/mL (2.76->20)
[2024-09-06 17:16] LABS: LDL Cholesterol Direct < 30 mg/dL
== END 2024-09-06 07:15 | disposition home or self-care (01) ==
PROVIDERS: PCP Family Medicine; Visit Provider Family Medicine
DX: E11.65 Type 2 diabetes mellitus with hyperglycemia (principal); D64.9 Anemia, unspecified; Z12.5 Encounter for screening for malignant neoplasm of prostate; E78.2 Mixed hyperlipidemia
CPT/HCPCS: 36415; 80048; 80061; 80076; 81001; 82043; 82607; 82728; 82746; 83540; 83550; 84153; 84443; 85025; G0103

== ENCOUNTER 2024-11-26 14:04 | Inpatient (IN) | payer MEDICARE, BC, SELFPAY ==
[2024-11-26] VITALS (7 sets, daily range): BP systolic 109–133; BP diastolic 64–80; PULSE 99–110; RESP 16–22; TEMP 36.4–37.2; O2SAT 92–99; BMI 25.7
--- NOTE | ~2024-11-26 | XR_ITS ---
Exam: Abdomen 1V HISTORY: Small bowel obstruction COMPARISON: 11/26/2024. Reference is also made to a CT examination of the abdomen and pelvis dated 11/26/2024 TECHNIQUE: Supine and upright images of the abdomen FINDINGS: Redemonstration of a high-grade small bowel obstruction, with mural thickening and distention of the small bowel loops to a maximal dimension of 4.8 cm (to the left of midline). No free air is detected on upright evaluation. Multiple air-fluid levels are noted on upright examination, in a stairstep pattern. Air remains within the colon, as well as within the rectum. IMPRESSION: High-grade small bowel obstruction, as detailed above. Reviewed, dictated and finalized at location A. [employer]
--- NOTE | ~2024-11-26 | XR_ITS ---
EXAMINATION: XR abdomen/kub 1V DATE: 11/28/2024 10:10 INDICATION: Small bowel obstruction. TECHNIQUE: A supine view of the abdomen on 2 radiographs was obtained. COMPARISON: Abdomen radiographs 11/27/2024 FINDINGS: There are dilated loops of small bowel. The colon is normal in caliber. The nasogastric tub e tip is in the stomach. IMPRESSION: 1. Persistently dilated small bowel, consistent with small bowel obstruction. Reviewed, dictated and finalized at location A. NDARY TEACHER
--- NOTE | ~2024-11-26 | XR_ITS ---
SMALL BOWEL SERIES ONLY INDICATION: Small bowel obstruction TECHNIQUE: Serial plain films and fluoroscopic spot films are performed following ingestion of thin b arium via nasogastric tube. COMPARISON: CT examination of the abdomen and pelvis dated 11/26 2024 FINDINGS: Barium was followed sequentially through the small bowel. Mural thickening with dilatation of multiple loops of small bowel, primarily to the left of midline. One hour imaging demonstrates tra nsit into the proximal colon with decompression of multiple loops of small bowel at 1 hour 30 minutes . Transit time is normal. IMPRESSION: Resolution of small bowel obstruction, as detailed above. Reviewed, dictated and finalized at location A. HANT MILLER
--- NOTE | ~2024-11-26 | CT_ITS ---
EXAMINATION: CT abdomen pelvis w con DATE: 11/26/2024 18:55 INDICATION: Abdominal pain. TECHNIQUE: Computed tomography (CT) of the abdomen and pelvis was performed with 100 mL Omnipaque 350 intravenous contrast. Automated exposure control and iterative reconstruction technique were employe d. The dose-length product was 746.58 mGy-cm. COMPARISON: CT abdomen and pelvis 10/21/2023 FINDINGS: The visualized portions of the lung bases demonstrate mild atelectasis. No pleural effusion . The heart size is normal. No pericardial effusion. There are cysts in the liver measuring up to 1.9 cm. The gallbladder, pancreas, and adrenal glands are normal. Calcifications in the spleen are consi stent with old granulomatous disease. There is cortical thinning of the kidneys. There is a 7 mm cyst in left kidney. There are two 2 mm stones in left kidney. There is diverticulosis of the colon witho ut evidence of diverticulitis. The appendix is not visualized. There are multiple dilated loops of sm all bowel with transition point in the anterior midabdomen. There are no pathologically enlarged lymp h nodes. There is trace pelvic ascites. There is severe lumbar spondylosis. There are chronic bilater al L5 pars defects. There is 3 mm anterolisthesis of L5 on S1. IMPRESSION: 1. Small bowel obstruction with transition point in the anterior mid abdomen. Reviewed, dictated and finalized at location A. DESK OPERATOR
--- NOTE | ~2024-11-26 | XR_ITS ---
EXAMINATION: XR abdomen gastric tube insert DATE: 11/26/2024 20:03 INDICATION: Nasogastric tube placement. TECHNIQUE: An upright view of the abdomen was obtained. COMPARISON: CT abdomen and pelvis 11/26/24 FINDINGS: There are dilated loops of small bowel. The colon is decompressed. The lower abdomen is exc luded. The nasogastric tube tip is in the stomach. IMPRESSION: 1. Nasogastric tube tip in the stomach. 2. Small bowel obstruction. Reviewed, dictated and finalized at location A. LEADER
--- OUTSIDE RECORDS SUMMARY | 2024-11-26 14:42 | XMS_ITS | Referral Summary ---
Author Organization [facility] [address] [place] [address] [place] [address] Care Team Providers Care Front Tender Name Role Phone Zohaib Hoyt MD Primary Care Provider [phone] Encounters Date Type Department Care Team Description 10/10/2024 9:05 AM REGULATORY COMPLIANCE COORDINATOR - 10/10/2024 11:59 PM REGULATORY COMPLIANCE COORDINATOR Hospital Encounter [facility] [address] [place] [address] Peter Knox MD Lumbar radiculopathy (Primary Dx); Isthmic spondylolisthesis Discharge Disposition: Discharge to home or self care 09/23/2024 11:15 AM REGULATORY COMPLIANCE COORDINATOR Office Visit [facility] Cardiology [address] [place] [address] Ford Sutton MD Nonrheumatic aortic valve stenosis (Primary Dx); NICM (nonischemic cardiomyopathy) (CMS/HCC) (HCC); Hypertension associated with diabetes (HCC); Hyperlipidemia associated with type 2 diabetes mellitus (HCC); APARNA (obstructive sleep apnea) 09/13/2024 Telephone [facility] Orthopaedic Surgery [address] [facility] 2nd Floor [address] [place] [address] Alexis Reyes CMA Scheduling Appointments 09/13/2024 Orders Only [facility] Orthopaedic Surgery [address] [facility] 12th [place] [address] [place] [address] Zafar Ayala MD Isthmic spondylolisthesis (Primary Dx); Lumbar radiculopathy 09/13/2024 1:00 PM REGULATORY COMPLIANCE COORDINATOR - 09/13/2024 11:59 PM REGULATORY COMPLIANCE COORDINATOR Hospital Encounter [facility] [address] [place] [address] Lumbar spine pain Discharge Disposition: Discharge to home or self care 09/13/2024 1:40 PM REGULATORY COMPLIANCE COORDINATOR Office Visit [facility] Orthopaedic Surgery [address] [facility] 12th [place] [address] [place] [address] Zafar Ayala MD Lumbar radiculopathy (Primary Dx); Lumbar spine pain; Spinal stenosis, lumbar region, without neurogenic claudication; Spondylolisthesis of lumbosacral region 09/10/2024 5:58 PM REGULATORY COMPLIANCE COORDINATOR - 09/10/2024 11:59 PM REGULATORY COMPLIANCE COORDINATOR Hospital Encounter [facility]) [address] [place] [address] Discharge Disposition: Discharge to home or self care from Last 3 Months Allergies No known active allergies Medications DULoxetine DR (CYMBALTA) 60 mg capsule Take 1 capsule (60 mg total) by mouth 2 (two) times a day 08/22/2023 Active dutasteride (AVODART) 0.5 mg capsule Take 1 capsule (0.5 mg total) by mouth daily 08/22/2023 Active Jardiance 25 mg tablet Take 1 tablet (25 mg total) by mouth every morning 10/04/2023 Active fluticasone propionate (FLONASE) 50 mcg/actuation nasal spray as needed 10/04/2023 Active metFORMIN XR (GLUCOPHAGE XR) 500 mg 24 hr tablet Take 4 tablets (2,000 mg total) by mouth daily 09/21/2023 Active tamsulosin (FLOMAX) 0.4 mg extended release capsule Take 1 capsule (0.4 mg total) by mouth daily 08/22/2023 Active aspirin 81 mg enteric coated tablet Take 1 tablet (81 mg total) by mouth daily Active cyanocobalamin (Vitamin B-12) 1,000 mcg tabletIndicatio ns:Prevention of Vitamin B12 Deficiency Take 1 tablet (1,000 mcg total) by mouth daily Active magnesium oxide (MAG-OX) 400 mg (241.3 mg elemental magnesium) tabletIndicatio ns:hypomagnesem ia Take 1 tablet (400 mg total) by mouth daily Active multivitamin tabletIndicatio ns:Vitamin Deficiency Prevention Take 1 tablet by mouth Active rizatriptan (MAXALT) 10 mg tabletIndicatio ns:Migraine Take 1 tablet (10 mg total) by mouth once as needed for migraine May repeat in 2 hours if unresolved. Do not exceed 30 mg in 24 hours. Active meloxicam (MOBIC) 15 mg tablet Take 1 tablet (15 mg total) by mouth daily Active carvediloL (COREG) 6.25 mg tabletIndicatio ns:NICM (nonischemic cardiomyopathy) (CMS/HCC) (HCC),Hypertens ion associated with diabetes (HCC) Take 1 tablet (6.25 mg total) by mouth 2 (two) times a day with meals 60 tablet 11 12/15/2023 12/14/19 25 Active sacubitriL-vals vj (ENTRESTO) 49-51 mg tabletIndicatio ns:chronic heart failure Take 1 tablet by mouth 2 (two) times a day 60 tablet 12/15/2023 12/14/19 25 Active triamcinolone (KENALOG) 0.1 % paste 09/02/2024 Active atorvastatin (LIPITOR) 20 mg tabletIndicatio ns:Hyperlipidem ia associated with type 2 diabetes mellitus (HCC) TAKE 1 TABLET(20 MG) BY MOUTH DAILY 30 tablet 11 10/14/2024 Active Active Problems Problem Noted Date Diagnosed Date NICM (nonischemic cardiomyopathy) (CMS/HCC) 11/30 Nonrheumatic aortic valve stenosis 12/15/2023 APARNA (obstructive sleep apnea) 10/13/2023 Hyperlipidemia associated with type 2 diabetes m ellitus 10/13/2023 Hypertension associated with diabetes 10/13/2023 Multiple risk factors for coronary artery diseas e 10/13/2023 Chest discomfort 10/13/2023 PLAZA (dyspnea on exertion) 10/13/2023 Social History Tobacco Use Types Packs/Day Years Used Date Smoking Tobacco: Never Cigarettes Smokeless Tobacco: Never Tobacco Cessation:Counseling Given: Not Answered Personal Safety Answer Date Recorded Have you ever been in or are you currently in a harmful physical or emotional relationship or is someone making you feel afraid or unsafe? Denies 10/10/2024 Sex and Gender Information Value Date Recorded Sex Assigned at Not on file Legal Sex Male 8:28 AM REGULATORY COMPLIANCE COORDINATOR Gender Identity Male 08/29/2024 11:56 AM CDT Sexual Orientation Straight 08/29/2024 11 :56 AM CDT Last Filed Vital Signs Vital Sign Reading Time Taken Comments Blood Pressure 147/86 10/10/2024 10:03 AM REGULATORY COMPLIANCE COORDINATOR Pulse 80 10/10/2024 10:03 AM REGULATORY COMPLIANCE COORDINATOR Temperature - - Respiratory Rate 18 10/10/2024 10:03 AM REGULATORY COMPLIANCE COORDINATOR Oxygen Saturation 97% 10/10/2024 10:03 AM REGULATORY COMPLIANCE COORDINATOR Inhaled Oxygen Concentration - - Weight 84.8 kg (187 lb) 09/23/2024 10:58 AM REGULATORY COMPLIANCE COORDINATOR Height 182.9 cm (6') 09/23/2024 10:58 AM REGULATORY COMPLIANCE COORDINATOR Body Mass Index 25.36 09/23/2024 10:58 AM REGULATORY COMPLIANCE COORDINATOR Plan of Treatment Not on file Procedures Procedure Name Priority Date/Time Associated Diagnosis Comments IR EPIDURAL INJECTION LUMBOSACRAL W GUIDANCE Schedule Routine, Read Routine (OP Routine) 10/10/2024 9:59 AM REGULATORY COMPLIANCE COORDINATOR Isthmic spondylolisthesis Lumbar radiculopathy XR SPINE LUMBAR ROUTINE Schedule Routine, Read Routine (OP Routine) 09/13/2024 1:07 PM REGULATORY COMPLIANCE COORDINATOR Lumbar spine pain NEURO MR OUTSIDE REFERENCE Routine 09/10/2024 5:58 PM REGULATORY COMPLIANCE COORDINATOR LIPID PANEL Routine 01/02/2024 4:45 PM REGULATORY COMPLIANCE COORDINATOR BASIC METABOLIC PANEL Routine 01/02/2024 NICM (nonischemic cardiomyopathy) (CMS/HCC) (HCC) Hypertension associated with diabetes (HCC) from Last 3 Months or Most Recently Relevant to Health Maintenance Results * IR Epidural Injection Lumbosacral W Guidance (Interlaminar) (10/10/2024 9:59 AM REGULATORY COMPLIANCE COORDINATOR) Narrative [facility] - 10/10/2024 9:59 AM REGULATORY COMPLIANCE COORDINATOR The images from this study are not interpreted by Radiology. ??Please refer to the physician's procedure / OR operative note. us Zafar Ayala MD IMG IR PROCEDURES Final Result [facility] * XR Spine Lumbar 4 or More Views (09/13/2024 1:07 PM REGULATORY COMPLIANCE COORDINATOR) Anatomical Region Laterality Modality L-spine N/A Computed Radiogr aphy 09/13/2024 1:14 PM REGULATORY COMPLIANCE COORDINATOR Impressions 09/13/2024 1:14 PM REGULATORY COMPLIANCE COORDINATOR 1. ??Grade 1 spondylolytic spondylolisthesis of L5 on S1 without abnormal motion on bending. 2. ??Moderate multilevel lumbar degenerative disc disease. Electronically signed by: Ted Crawley M.D. Narrative 09/13/2024 1:14 PM REGULATORY COMPLIANCE COORDINATOR EXAMINATION: XR SPINE LUMBAR 4 OR MORE VIEWS HISTORY: back pain FINDINGS: 4 view examination of the lumbar spine is read with comparison to lumbar spine MRI 08/15/2024. ??Mild lumbar dextroscoliosis. ??There is grade 1 anterolisthesis of L5 on S1 secondary to pars interarticularis defects. ??No abnormal motion on bending. ??No compression fracture. ??There is multilevel degenerative disc disease most pronounced and moderate at L1-L2, L3-L4 and L5-S1. Procedure Note Vincent Crawley, Ted Schwarz MD - 09/13/2024 EXAMINATION: XR SPINE LUMBAR 4 OR MORE VIEWS HISTORY: back pain FINDINGS: 4 view examination of the lumbar spine is read with comparison to lumbar spine MRI 08/15/2024. Mild lumbar dextroscoliosis. There is grade 1 anterolisthesis of L5 on S1 secondary to pars interarticularis defects. No abnormal motion on bending. No compression fracture. There is multilevel degenerative disc disease most pronounced and moderate at L1-L2, L3-L4 and L5-S1. IMPRESSION: 1. Grade 1 spondylolytic spondylolisthesis of L5 on S1 without abnormal motion on bending. 2. Moderate multilevel lumbar degenerative disc disease. Electronically signed by: Ted Crawley M.D. Zafar yAala MD IMG XR PROCEDURES Final Result * Neuro MR Outside Reference (09/10/2024 5:58 PM REGULATORY COMPLIANCE COORDINATOR) Impressions RAD[facility]ACS[facility] - 09/10/2024 5:58 PM REGULATORY COMPLIANCE COORDINATOR These images are for Reference purposes only and have not been reviewed by [facility] Radiology. ??There will be no report generated by a [facility] Radiologist. Narrative [facility] - 09/10/2024 5:58 PM REGULATORY COMPLIANCE COORDINATOR EXAMINATION: ??Images For Reference Purposes Only Zafar Ayala MD IMG MRI PROCEDURES Erna l Result Performing Organization Address [facility]/ZIP Co de Phone Number [facility] * Lipid panel (01/02/2024 4:45 PM REGULATORY COMPLIANCE COORDINATOR) SCRIBED Cholesterol, Total 92 <200 [facility] SCRIBED HDL 40 >40 [facility] SCRIBED LDL 35 <100 [facility] SCRIBED Triglycerides 90 <150 [facility] Blood Historical Provider LAB BLOOD ORDERABLES Edit ed Result - Final Performing Organization Address [facility] Co de Phone Number [facility] * (ABNORMAL) Basic metabolic panel (01/02/2024) SCRIBED Sodium 136 135 - 146 mmol/L [facility] SCRIBED Potassium 4.8 3.5 - 5.3 mmol/L [facility] SCRIBED Chloride 103 98 - 110 mmol/L [facility] SCRIBED Carbon Dioxide 26 20 - 32 mmol/L [facility] SCRIBED Anion Gap N/A N/A mmol/L [facility] SCRIBED Urea Nitrogen (BUN) 27(A) 7 - 25 mg/dl [facility] SCRIBED Creatinine 1.25 0.70 - 1.28 mg/dl [facility] SCRIBED Glucose 223(A) 65 - 99 mg/dl [facility] SCRIBED Calcium 9.4 8.6 - 10.3 mg/dl [facility] SCRIBED eGFR in N/A N/A [facility] SCRIBED eGFR in NonAfrican Haitian 60 > or = 60 [facility] Blood 01/02/2024 Ford Sutton MD LAB BLOOD ORDERABLES Erna gay Result [facility] from Last 3 Months or Most Recently Relevant to Health Maintenance Insurance MEDICARE [facility] MEDICARE [facility] FEDERAL Member Subscriber Plan / Payer (Ef fective 2015-Present) Name:Hernan Delong Relation to Subscriber:Self Name:Hernan Delong Payer ID:[id number] (NAIC) Group ID:[id number] Type:[facility] Address: [address] [place] [id number] Care Teams Front Tender Relationship Specialty Start Date End Date Zohaib Hoyt MD [address] [address] PCP - General Family Medicine 08/07/23
--- OUTSIDE RECORDS SUMMARY | 2024-11-26 14:43 | XMS_ITS | Clinical Summary ---
Author Organization [facility] [address] [place] Address [address] [place] [address] Care Team Providers Care Service Representative Name Role Phone Zohaib Hoyt MD Primary Care Provider [phone] Allergies No known active allergies Medications DULoxetine [...] times a day with meals 60 tablet 12/15/2023 12/14/19 25 Active sacubitriL-vals vj (ENTRESTO) 49-51 mg tabletIndicatio ns:chronic heart failure Take 1 tablet by mouth 2 (two) times a day 60 tablet 11 12/15/2023 12/14/19 25 Active triamcinolone (KENALOG) 0.1 [...] 10/13/2023 Hyperlipidemia associated with type 2 diabetes jorje ellitus 10/13/2023 Hypertension associated with diabetes 10/13/2023 Multiple risk factors for coronary artery diseas e 10/13/2023 Chest discomfort 10/13/2023 PLAZA (dyspnea on exertion) 10/13/2023 Encounters Date Type Department Care Team Description 10/10/2024 9:05 AM MANUFACTURING QUALITY MANAGER - 10/10/2024 11:59 PM MANUFACTURING QUALITY MANAGER Hospital Encounter [facility] [address] [place] [address] Peter Knox MD Lumbar radiculopathy (Primary Dx); Isthmic spondylolisthesis Discharge Disposition: Discharge to home or self care 09/23/2024 11:15 AM MANUFACTURING QUALITY MANAGER Office Visit [facility] Medical Group Cardiology [address] [place] [address] Ford Sutton MD Nonrheumatic aortic valve stenosis (Primary Dx); NICM (nonischemic cardiomyopathy) (CMS/HCC) (HCC); Hypertension associated with diabetes (HCC); Hyperlipidemia associated with type 2 diabetes mellitus (HCC); APARNA (obstructive sleep apnea) 09/13/2024 1:40 PM MANUFACTURING QUALITY MANAGER Office Visit [facility] Orthopaedic Surgery [address] [facility] 12th [place] [address] [place] [address] Zafar Ayala MD Lumbar radiculopathy (Primary Dx); Lumbar spine pain; Spinal stenosis, lumbar region, without neurogenic claudication; Spondylolisthesis of lumbosacral region 09/13/2024 1:00 PM MANUFACTURING QUALITY MANAGER - 09/13/2024 11:59 PM MANUFACTURING QUALITY MANAGER Hospital Encounter [facility] [place] [address] Lumbar spine pain Discharge Disposition: Discharge to home or self care 09/13/2024 Telephone [facility] Orthopaedic Surgery [address] [facility] 2nd Floor [address] [place] [address] Alexis Reyes CMA Scheduling Appointments 09/13/2024 Orders Only [facility] Orthopaedic Surgery [address] [place] [address] Advanced Medicine 12th [place] [address] [place] [address] Zafar Ayala MD Isthmic spondylolisthesis (Primary Dx); Lumbar radiculopathy 09/10/2024 5:58 PM MANUFACTURING QUALITY MANAGER - 09/10/2024 11:59 PM MANUFACTURING QUALITY MANAGER Hospital Encounter [facility] [place] [address] Discharge Disposition: Discharge to home or self care from Last 3 Months Surgical History Surgery Date Site/Laterality Comments APPENDECTOMY TONSILLECTOMY Medical History Medical History Date Comments Diabetes mellitus (HCC) BPH (benign prostatic hyperplasia) Hypertension Sleep apnea Arthritis Migraines Heart disease Family History Medical History Relation Name Comments Stroke Father David Delong Cancer Mother Shannon Delong Stroke Mother Shannon Delong Stroke Son Relation Name Status Comments Father David Delong Mother Shannon Delong Son Social History Tobacco Use Types Packs/Day Years [...] on file Legal Sex Male 8:28 AM MANUFACTURING QUALITY MANAGER Gender Identity Male 08/29/2024 11:56 AM CDT Sexual Orientation Straight 08/29/2024 11 :56 AM CDT Obstetrics History Last Filed Vital Signs Vital Sign Reading Time Taken Comments Blood Pressure 147/86 10/10/2024 10:03 AM MANUFACTURING QUALITY MANAGER Pulse 80 10/10/2024 10:03 AM MANUFACTURING QUALITY MANAGER Temperature - - Respiratory Rate 18 10/10/2024 10:03 AM MANUFACTURING QUALITY MANAGER Oxygen Saturation 97% 10/10/2024 10:03 AM MANUFACTURING QUALITY MANAGER Inhaled Oxygen Concentration - - Weight 84.8 kg (187 lb) 09/23/2024 10:58 AM MANUFACTURING QUALITY MANAGER Height 182.9 cm (6') 09/23/2024 10:58 AM MANUFACTURING QUALITY MANAGER Body Mass Index 25.36 09/23/2024 10:58 AM MANUFACTURING QUALITY MANAGER Plan of Treatment Health Maintenance Due Date Last Done Comments Albumin Creatinine Ratio, Urine 1948 Depression Screening 1950 Hemoglobin A1C 1948 Hepatitis C Screening 1948 Dilated Eye Exam 1948 Foot Exam 1948 Pneumococcal vaccine 65+ (1 of 2 - PCV) 1954 DTaP/Tdap/Td Vaccine (1 - Tdap) 1959 Hepatitis B Screening 1966 Zoster Vaccine (1 of 2) 1998 Well Visit 65+ 2013 Influenza Vaccine (#1) 2024 Lipid Panel 01/01/2025 01/02/2024, 11/30, 07/29/2023 eGFR 01/01/2025 01/02/2024 Fall Risk Assessment 10/10/2025 10/10/2024 Procedures Procedure Name Priority Date/Time Associated Diagnosis Comments IR EPIDURAL INJECTION LUMBOSACRAL W GUIDANCE Schedule Routine, Read Routine (OP Routine) 10/10/2024 9:59 AM MANUFACTURING QUALITY MANAGER Isthmic spondylolisthesis Lumbar radiculopathy XR SPINE LUMBAR ROUTINE Schedule Routine, Read Routine (OP Routine) 09/13/2024 1:07 PM MANUFACTURING QUALITY MANAGER Lumbar spine pain NEURO MR OUTSIDE REFERENCE Routine 09/10/2024 5:58 PM MANUFACTURING QUALITY MANAGER LIPID PANEL Routine 01/02/2024 4:45 PM MANUFACTURING QUALITY MANAGER BASIC METABOLIC PANEL Routine 01/02/2024 NICM (nonischemic cardiomyopathy) (CMS/HCC) (HCC) Hypertension associated with diabetes (HCC) from Last 3 Months or Most Recently Relevant to Health Maintenance Results * IR Epidural Injection Lumbosacral W Guidance (Interlaminar) (10/10/2024 9:59 AM MANUFACTURING QUALITY MANAGER) Narrative [facility] - 10/10/2024 9:59 AM MANUFACTURING QUALITY MANAGER The images from this study are not interpreted by Radiology. ??Please refer to the physician's procedure / OR operative note. us Zafar Ayala MD IMG IR PROCEDURES Final Result [facility] * XR Spine Lumbar 4 or More Views (09/13/2024 1:07 PM MANUFACTURING QUALITY MANAGER) Anatomical Region Laterality Modality L-spine N/A Computed Radiogr aphy 09/13/2024 1:14 PM MANUFACTURING QUALITY MANAGER Impressions 09/13/2024 1:14 PM MANUFACTURING QUALITY MANAGER 1. ??Grade 1 spondylolytic spondylolisthesis of L5 on S1 without abnormal motion on bending. 2. ??Moderate multilevel lumbar degenerative disc disease. Electronically signed by: Ted Crawley M.D. Narrative 09/13/2024 1:14 PM MANUFACTURING QUALITY MANAGER EXAMINATION: XR SPINE LUMBAR 4 OR MORE [...] Electronically signed by: Ted Crawley M.D. Zafar Ayala MD IMG XR PROCEDURES Final Result * Neuro MR Outside Reference (09/10/2024 5:58 PM MANUFACTURING QUALITY MANAGER) Impressions [facility] - 09/10/2024 5:58 PM MANUFACTURING QUALITY MANAGER These images are for Reference purposes only and have not been reviewed by [facility] Radiology. ??There will be no report generated by a [facility] Radiologist. Narrative [facility] - 09/10/2024 5:58 PM MANUFACTURING QUALITY MANAGER EXAMINATION: ??Images For Reference Purposes Only Zafar Ayala MD IMG MRI PROCEDURES Erna l Result [facility] * Lipid panel (01/02/2024 4:45 PM MANUFACTURING QUALITY MANAGER) SCRIBED Cholesterol, Total 92 <200 [facility] SCRIBED HDL 40 >40 [facility] SCRIBED LDL 35 <100 [facility] SCRIBED Triglycerides 90 <150 [facility] Blood Historical Provider LAB BLOOD ORDERABLES Edit ed Result - Final [facility] * (ABNORMAL) Basic metabolic panel (01/02/2024) [...] N/A N/A [facility] SCRIBED eGFR in NonAfrican Northern Irish 60 > or = 60 [facility] Blood 01/02/2024 Ford Sutton MD LAB BLOOD ORDERABLES Erna l Result Performing Organization Address City/[facility]/ZIP Co de Phone Number [facility] from Last 3 Months or Most Recently Relevant to Health Maintenance Insurance MEDICARE [facility] FEDERAL MEDICARE [facility] FEDERAL Care Teams Service Representative Relationship Specialty Start Date End Date Zohaib Hoyt MD [address] [address] PCP - General Family Medicine 08/07/23
--- OUTSIDE RECORDS SUMMARY | 2024-11-26 14:43 | XMS_ITS | Continuity of Care Document ---
Author Organization [facility] Address [address] [place] [address] [place] [address] Phone Care Team Providers Care Financial Institution President Name Role Phone Owen Altamirano DO Unavailable Unavailable Advance Directives Directive Yes / No Effective Date File Name No Information Encounters Encounter Description Practice Location Reason(s) For Visit Diagnoses Date Provider Providers Copied on Encounter [facility], [address], [place], [place], [id number], [place] tel:[phone] [facility] No Information Evelia Doty. [address] [facility], [place], [address], [place]. tel: [phone] Family History Family Member Type Diagnosis Age At Onset No Information Payers Payer name Insurance type Covered democrat ID Authoriza tion(s) [facility] [id number] Social History Type Description Quantity Date Captured Comments Sex Male Smoking Status No Information Chief Complaint And Reason For Visit No Information Reason For Referral Reason For Referral No Information History Of Present Illness Encounter Date Complaint History Of Prese nt Illness No Information Functional Status Date Functional Assessmen t No Information Instructions Date Instruction Additional Infor mation No Information Assessments Type Assessment Date No Information Patient Care Teams Name Effective Dates (start - stop) Status Members No Information
--- NOTE | 2024-11-26 15:36 | ED.GENADULT ---
HPI - General Adult General Chief complaint: Abdominal Pain <Peyton Davila February, CARDIOLOGY NURSE - Last Filed: 11/26/24 15:40> Stated complaint: abd pain, hx SBO <Peyton Davila February, CARDIOLOGY NURSE - Last Filed: 11/26/24 15:40> Time Seen by Provider: 11/26/24 15:36 <Peyton Davila February, CARDIOLOGY NURSE - Last Filed: 11/26/24 15:40> Focused HPI: Hernan Delong is a 74 y/o male who presents today with reports of having severe abdominal pain that started at about 0400 today. He states he has had bowel obstruction with sepsis before and he states this feels about the same. Last BM was today at about 1000, he is still passing gas. He denies nausea/vomiting Last time he ate was breakfast at 0600- at 1200 he had a cup of tea + bowel sounds/abdomen distended and painful with palpation GENERAL: Well-appearing, well-nourished, and in no acute distress. HEAD: Normocephalic, atraumatic. CHEST: Clear to auscultation. ?No respiratory distress. HEART: Regular rate and rhythm.? NEURO: ?Alert and oriented x3. Patient screened in triage and initial orders placed.? ?Additional care and disposition to be based upon?diagnostic testing and treatment. <Peyton Davila February, - Last Filed: 11/26/24 15:40> History of Present Illness HPI narrative: Agree with the HPI above would like to add patient has a history of nonischemic cardiomyopathy, EF approximately 35%, hypertension, diabetes. Denies any chest pain, shortness a breath, diarrhea, fever, chills. <Johnson Mcneill MD - Last Filed: 11/26/24 20:18> Related Data Home medications: Home Medications ?Medication ?Instructions ?Recorded ?Confirmed ?Last Taken ?Type aspirin 81 mg tablet,delayed 81 mg PO DAILY 09/11/19 09/10/24 12/10/23 History release (Adult Low Dose Aspirin) multivitamin,[id number] 1 tablet PO DAILY 09/11/19 09/10/24 12/11/23 07:00 History (Complete Multivitamin tablet) rizatriptan 10 mg tablet See Rx Instructions PO .COMPLEX 09/11/19 09/10/24 Unknown History PRN Migraine Headache atorvastatin 20 mg tablet 20 mg PO QHS 10/19/23 09/10/24 12/10/23 History magnesium 500 mg tablet 500 mg PO DAILY 12/08/23 09/10/24 12/11/23 07:00 History vitamin B complex (B 1 tablet PO DAILY 12/08/23 09/10/24 12/11/23 07:00 History Complex-Vitamin B12 tablet) carvedilol 6.25 mg tablet 6.25 mg PO Q12H 02/06/24 09/10/24 Unknown History sacubitril 49 mg-valsartan 51 mg 1 tablet PO BID 02/06/24 09/10/24 Unknown History tablet (Entresto) omeprazole magnesium 20 mg 20 mg PO DAILY 08/07/24 09/10/24 Unknown History tablet,delayed release (Prilosec OTC) <Peyton Torres, CARDIOLOGY NURSE - Last Filed: 11/26/24 15:40> Allergies/adverse reactions: Allergies Allergy/AdvReac Type Severity Reaction Status Date / Time No Known Allergies AdvReac Unknown Verified 08/01/24 15:20 <Peyton Torres, CARDIOLOGY NURSE - Last Filed: 11/26/24 15:40> Review of Systems Review of Systems: As reviewed above in HPI <Johnson Mcneill MD - Last Filed: 11/26/24 20:18> [facility] Past Medical History Medical History: Medical History BMI 24.0-24.9, adult Dyspepsia and disorder of function of stomach (~08/07/24) Syncope and collapse Carotid Doppler study normal on 08/01/2024. MRI of the brain and brainstem on 08/15/2024 was normal with normal aging. MRI of the lumbar spine revealed severe degenerative disc disease and facet arthropathy. BMI 25.0-25.9,adult At high risk for falls Chronic low back pain with left-sided sciatica Generalized weakness (~06/2024) Frequent falls (~06/2024) Controlled type 2 diabetes mellitus with hyperglycemia, without long-term current use of insulin Hemoglobin A1c 7.6 on 12/08/2021. Glucose 182 with hemoglobin A1c 7.3 on 07/06/2022. glucose 183 with hemoglobin A1c 8.5 on 01/10/2023. Glucose 130 with hemoglobin A1c 7.5 on 07/29/2023 with microalbumin ratio of 99. Glucose 223 with hemoglobin A1c 8.3 on 01/02/2024. fasting glucose 237 with hemoglobin A1c 10.1 on 06/14/2024. Fasting blood was 182 on 08/09/2024. Glucose 179 With microalbumin ratio of 88.7 on 09/06/2024. Hearing loss, left (~05/06/24) Nonischemic cardiomyopathy (~2022) nuclear stress test 11/15/2023 with moderate to severe left ventricular systolic dysfunction with ejection fraction 35% with no S PO scan or EKG. Cardiac catheterization 12/11/2023 with no significant coronary artery disease. Bacteremia due to Staphylococcus aureus ESR 42 on 11/06/2023. WBC 2.6 on 11/06/2023. Lung infiltrate Pyelonephritis Sepsis Dyspnea on exertion No significant coronary artery disease on catheterization on 12/11/2023. BMI 27.0-27.9,adult Encounter for prostate cancer screening PSA 0.42 on 07/29/2023. PSA 0.5 on 09/06/2024. Left elbow pain (~07/2022) X-ray on 11/07/2022 revealed no evidence of fracture with soft tissue swelling over the olecranon process. COVID-19 (09/23/22) Tested positive 09/28/2022. Candidiasis (~09/28/22) At moderate risk for fall (~07/18/22) Microalbuminuria due to type 2 diabetes mellitus (07/06/22) microalbumin ratio of 35 on 07/06/2022. Microalbumin ratio of 99 on 07/29/2023. Microalbumin ratio of 88.7 on 09/06/2024. Aphthous ulcer of mouth (~04/22/22) Overweight (BMI 25.0-29.9) BMI 26.0-26.9,adult Chronic anemia Small bowel obstruction (~03/19/22) Recurrent and resolved in-hospital 03/23/2022. Leukocytosis WBC 8.7 on 12/08/2021 LUIS DANIEL (acute kidney injury) Diabetic eye exam No retinopathy on 03/18/2021. No retinopathy on 11/09/2022. Acute bilateral low back pain with left-sided sciatica Seasonal allergic rhinitis Arthritis BPH without obstruction/lower urinary tract symptoms Chronic bilateral low back pain X-ray of the lumbar spine on 07/26/2024 revealed degenerative disc disease and facet arthropathy at multiple levels with scoliosis of the lumbar spine. MRI of the lumbar spine on 08/15/2024 reveals severe degenerative disc disease with central canal stenosis and facet arthropathy with neural foraminal narrowing multiple levels. Diabetic peripheral neuropathy associated with type 2 diabetes mellitus Essential (primary) hypertension Insomnia Mixed hyperlipidemia Cholesterol 135, triglycerides 129, HDL 42, LDL 72 on 01/10/2023. cholesterol 139, triglycerides 108, HDL 46, LDL 74 with ratio 2.5 on 07/29/2023. Cholesterol 92, triglycerides 90, HDL 40, LDL 35 with ratio of 2.3 on 01/02/2024. Cholesterol 91, triglycerides 133, HDL 30, LDL less than 30 on 09/06/2024. APARNA on CPAP Type 2 diabetes mellitus without complication, without long-term current use of insulin Hemoglobin A1c 7.6 on 12/08/2021. Glucose 182 with hemoglobin A1c 7.3 on 07/06/2022. glucose 183 with hemoglobin A1c 8.5 on 01/10/2023. Glucose 130 with hemoglobin A1c 7.5 on 07/29/2023 with microalbumin ratio of 99. Glucose 223 with hemoglobin A1c 8.3 on 01/02/2024. <Peyton Torres, CARDIOLOGY NURSE - Last Filed: 11/26/24 15:40> Surgical History Surgical History: Surgical History History of colonoscopy History of tonsillectomy and adenoidectomy History of appendectomy <Peyton Davila February, CARDIOLOGY NURSE - Last Filed: 11/26/24 15:40> Family History Family History: Family History Grandparent Cerebrovascular accident, Onset Age: 78 Father Family history of Alzheimer's disease, Onset Age: 79 Mother Family history of Alzheimer's disease, Onset Age: 85 <Peyton TorresJanN - Last Filed: 11/26/24 15:40> Social History Social History: Social History Social History: Surrogate decision-maker: Malena Delong, spouse. CODE STATUS: Full code Smoking status: Never smoker Second hand tobacco smoke exposure: Yes Alcohol intake: former Substance use: never Substance use type: does not use Do You Feel Safe in your Home?: Yes Lack of Transportation: No Lack of Food: Never True Current Housing: I Have Housing Concerned About Future Housing: No Difficulty Paying Gas/Electric Bills: No Difficulty Paying for Meds: No Currently Unemployed: No Education: Bachelor's Degree Difficulty w/ Childcare or Family Care: No Living arrangements: with family Additional living arrangements comments: Lives at home with his . They have 4 children. They have 7 horses Additional occupation/education comments: Retired from the [employer]. Spiritual care concerns: No <Peyton Torres APRN - Last Filed: 11/26/24 15:40> Exam Narrative: GENERAL: Uncomfortable appearing but not in any acute distress HEAD: [Normocephalic, atraumatic.] EYES: [PERRLA and EOMI.] ENT: Nares clear, no rhinorrhea or epistaxis. Mucous membranes moist. NECK: Supple. CHEST: [Clear to auscultation. No respiratory distress.] HEART: [Regular rate and rhythm]. No murmur heard. [Normal peripheral pulses.] ABDOMEN: [Soft, nondistended], tender to palpation in the periumbilical region without any appreciable masses, hernias or signs of peritonitis, [No rigidity or guarding] EXTREMITIES: Normal range of motion. [No edema.] SKIN: Warm, dry, no rash. NEURO: [No focal deficits]. Alert and oriented [x3.] PSYCH: [Normal mood and affect.] <Johnson Mcneill MD - Last Filed: 11/26/24 20:18> Course Vital Signs Vital signs: Vital Signs Temperature 36.4 C L 11/26/24 14:11 Pulse Rate 99 11/26/24 14:11 Respiratory Rate 18 11/26/24 14:11 Blood Pressure 113/75 11/26/24 14:11 Pulse Oximetry 99 11/26/24 14:11 Temperature 36.4 C 11/26/24 18:10 Pulse Rate 110 H 11/26/24 20:09 Respiratory Rate 22 H 11/26/24 20:09 Blood Pressure 120/71 11/26/24 20:09 Pulse Oximetry 95 11/26/24 20:09 <Peyton Torres APRN - Last Filed: 11/26/24 15:40> Vital Signs Temperature 36.4 C L 11/26/24 14:11 Pulse Rate 99 11/26/24 14:11 Respiratory Rate 18 11/26/24 14:11 Blood Pressure 113/75 11/26/24 14:11 Pulse Oximetry 99 11/26/24 14:11 Temperature 36.4 C 11/26/24 18:10 Pulse Rate 110 H 11/26/24 20:09 Respiratory Rate 22 H 11/26/24 20:09 Blood Pressure 120/71 11/26/24 20:09 Pulse Oximetry 95 11/26/24 20:09 <Johnson Mcneill MD - Last Filed: 11/26/24 20:18> Medical Decision Making MDM Narrative Medical decision making narrative: 74-year-old male with past medical history of previous small-bowel obstruction, hypertension, diabetes, cardiomyopathy with reduced ejection fraction. Presents to the emergency department today with pain is lower/middle abdomen and nauseousness without vomiting. Last bowel movement 10:00 p.m. last night, last oral intake around noon. Patient's pain got worse throughout the evening and came to the ER for evaluation. Patient states it feels very similar to last time he had a bowel obstruction. His abdomen is soft nondistended but is tender to palpation in the lower abdominal quadrants and periumbilical region. Strong symmetric pulses, warm extremities, he is tachycardic with a pulse of 107, normal blood pressure, no tachypnea, fever or hypoxia. Considerations for bowel obstruction or high given his history, gastroenteritis, appendicitis, cholelithiasis cholecystitis, urinary tract infection or nonspecific enterocolitis or also possible. Workup was ordered including CBC, CMP, lipase, urinalysis and a CT scan with contrast. He was given analgesia, fluid bolus and maintenance fluids. Workup shows a leukocytosis of 20, negative lactic acid, largely unremarkable electrolytes besides a mildly elevated potassium, we will obtain EKG. His CT scan shows a small bowel obstruction with a transition point. Patient will be admitted to the hospital and consult General surgery for recommendations and evaluation. Patient was started on Zosyn given his high leukocytosis in the setting of small-bowel obstruction and NG tube was ordered with confirmatory KUB for placement. Awaiting consult from General surgery for admission purposes. Urinalysis pending as patient states he is not able to pee yet. Will be hydrated. Spoke to Dr. Russell who was made aware of the patient and agreed with current plan of care. Patient will be admitted to the hospitalist service with General surgery on consultation. I spoke to Dr. Maldonado and she accepted the patient to a telemetry monitored bed at this time. <Johnson Mcneill MD - Last Filed: 11/26/24 20:18> Medical Records Medical records reviewed: Yes I reviewed the external patient's medical records. <Johnson Mcneill MD - Last Filed: 11/26/24 20:18> Vital Signs Vital Signs: Vital Signs Temperature 36.4 C L 11/26/24 14:11 Pulse Rate 99 11/26/24 14:11 Respiratory Rate 18 11/26/24 14:11 Blood Pressure 113/75 11/26/24 14:11 Pulse Oximetry 99 11/26/24 14:11 Temperature 36.4 C 11/26/24 18:10 Pulse Rate 110 H 11/26/24 20:09 Respiratory Rate 22 H 11/26/24 20:09 Blood Pressure 120/71 11/26/24 20:09 Pulse Oximetry 95 11/26/24 20:09 <Peyton Torres APRN - Last Filed: 11/26/24 15:40> Vital Signs Temperature 36.4 C L 11/26/24 14:11 Pulse Rate 99 11/26/24 14:11 Respiratory Rate 18 11/26/24 14:11 Blood Pressure 113/75 11/26/24 14:11 Pulse Oximetry 99 11/26/24 14:11 Temperature 36.4 C 11/26/24 18:10 Pulse Rate 110 H 11/26/24 20:09 Respiratory Rate 22 H 11/26/24 20:09 Blood Pressure 120/71 11/26/24 20:09 Pulse Oximetry 95 11/26/24 20:09 <Johnson Mcneill MD - Last Filed: 11/26/24 20:18> Lab Data Lab results reviewed: Yes I reviewed the patient's lab results. <Johnson Mcneill MD - Last Filed: 11/26/24 20:18> Result diagrams: 11/26/24 17:41 11/26/24 17:41 <Peyton Torres APRN - Last Filed: 11/26/24 15:40> Labs: Lab Results 11/26/24 Range/Units 17:41 WBC 20.0 H (4.5-10.0) K/mm3 RBC 3.63 L (4.6-6.20) M/mm3 Hgb 12.2 L (14.0-18.0) g/dL Hct 36.6 L (42.0-52.0) % MCV 100.8 H (80-100) fl MCH 33.6 (26-34) pg MCHC 33.3 (32-36) g/dl RDW 13.5 (11.5-14.5) % Plt Count 182 (150-375) k/mm3 MPV 10.6 H (7.4-10.4) fl Immature Gran % (Auto) 1.6 H (0-0.5) % Neut % (Auto) 79.4 H (45.5-73.1) % Lymph % (Auto) 5.3 L (18.3-44.2) % Campbell % (Auto) 13.2 H (2.6-8.5) % Eos % (Auto) 0.2 (0-4.4) % Baso % (Auto) 0.3 (0.2-1.2) % Lymph # (Auto) 1.06 (0.9-3.2) K/mm3 Campbell # (Auto) 2.6 H (0.1-0.6) K/mm3 Eos # (Auto) 0.0 (0-0.3) K/mm3 Baso # (Auto) 0.1 (0.0-0.1) K/mm3 Abs Immat Gran (auto) 0.32 H (0.00-0.031) K/mm3 Absolute Neuts (auto) 15.9 H (1.3-6.7) K/mm3 Absolute Nucleated RBC 0.000 (0.0-0.012) K/mm3 Nucleated RBC % 0.0 (0.0-0.2) % Sodium 138 (137-145) mmol/L Potassium 5.2 H (3.4-5.0) mmol/L Chloride 100 (98-107) mmol/L Carbon Dioxide 25 (22-30) mmol/L Anion Gap 13 H (4-12) mmol/L BUN 22 H (9-20) mg/dL Creatinine 1.10 (0.7-1.3) mg/dL Estim Creat Clear Calc 56 ml/min Estimated GFR > 60 (59 - ) Glucose 224 H (65-110) mg/dL Lactic Acid 1.3 (0.7-2.0) mmol/L Calcium 10.0 (8.4-10.2) mg/dL Total Bilirubin 0.7 (0.2-1.3) mg/dL AST 25 (17-59) U/L ALT 16 (6-50) U/L Alkaline Phosphatase 117 (38-126) U/L Total Protein 9.0 H (6.3-8.2) g/dL Albumin 4.7 (3.5-5.1) g/dL Lipase 98 (23-300) U/L <Peyton Torres, CARDIOLOGY NURSE - Last Filed: 11/26/24 15:40> Lab Results 11/26/24 Range/Units 17:41 WBC 20.0 H (4.5-10.0) K/mm3 RBC 3.63 L (4.6-6.20) M/mm3 Hgb 12.2 L (14.0-18.0) g/dL Hct 36.6 L (42.0-52.0) % MCV 100.8 H (80-100) fl MCH 33.6 (26-34) pg MCHC 33.3 (32-36) g/dl RDW 13.5 (11.5-14.5) % Plt Count 182 (150-375) k/mm3 MPV 10.6 H (7.4-10.4) fl Immature Gran % (Auto) 1.6 H (0-0.5) % Neut % (Auto) 79.4 H (45.5-73.1) % Lymph % (Auto) 5.3 L (18.3-44.2) % Campbell % (Auto) 13.2 H (2.6-8.5) % Eos % (Auto) 0.2 (0-4.4) % Baso % (Auto) 0.3 (0.2-1.2) % Lymph # (Auto) 1.06 (0.9-3.2) K/mm3 Campbell # (Auto) 2.6 H (0.1-0.6) K/mm3 Eos # (Auto) 0.0 (0-0.3) K/mm3 Baso # (Auto) 0.1 (0.0-0.1) K/mm3 Abs Immat Gran (auto) 0.32 H (0.00-0.031) K/mm3 Absolute Neuts (auto) 15.9 H (1.3-6.7) K/mm3 Absolute Nucleated RBC 0.000 (0.0-0.012) K/mm3 Nucleated RBC % 0.0 (0.0-0.2) % Sodium 138 (137-145) mmol/L Potassium 5.2 H (3.4-5.0) mmol/L Chloride 100 (98-107) mmol/L Carbon Dioxide 25 (22-30) mmol/L Anion Gap 13 H (4-12) mmol/L BUN 22 H (9-20) mg/dL Creatinine 1.10 (0.7-1.3) mg/dL Estim Creat Clear Calc 56 ml/min Estimated GFR > 60 (59 - ) Glucose 224 H (65-110) mg/dL Lactic Acid 1.3 (0.7-2.0) mmol/L Calcium 10.0 (8.4-10.2) mg/dL Total Bilirubin 0.7 (0.2-1.3) mg/dL AST 25 (17-59) U/L ALT 16 (6-50) U/L Alkaline Phosphatase 117 (38-126) U/L Total Protein 9.0 H (6.3-8.2) g/dL Albumin 4.7 (3.5-5.1) g/dL Lipase 98 (23-300) U/L <Johnson Mcneill MD - Last Filed: 11/26/24 20:18> Imaging Data Attestation: I personally reviewed and interpreted this imaging study as follows: <Johnson Mcneill MD - Last Filed: 11/26/24 20:18> My impression: Impressions Abdomen/Pelvis CT 11/26/24 18:58 IMPRESSION: 1. Small bowel obstruction with transition point in the anterior mid abdomen. <Johnson Mcneill MD - Last Filed: 11/26/24 20:18> Discharge Plan Discharge Clinical Impression: SBO (small bowel obstruction), Leukocytosis, Hx of cardiomyopathy <Peyton Davila February, CARDIOLOGY NURSE - Last Filed: 11/26/24 15:40> Patient Disposition: Still a Patient <Peyton Davila February, CARDIOLOGY NURSE - Last Filed: 11/26/24 15:40> Condition: Stable <Peyton Davila February, CARDIOLOGY NURSE - Last Filed: 11/26/24 15:40> Instructions: Antibiotic Form <Peyton Davila February, CARDIOLOGY NURSE - Last Filed: 11/26/24 15:40> Patient Language: Amharic <Peyton Davila February, CARDIOLOGY NURSE - Last Filed: 11/26/24 15:40> Prescriptions: No Action fluticasone propionate [Flonase Allergy Relief] 50 mcg/actuation spray,suspension 1 spray intranasal BID Qty: 16 11RF Rx Instructions: administer into each nostril Entresto 49-51 mg tablet 1 tablet PO BID Patient Comments: started by pond worker carvedilol 6.25 mg tablet 6.25 mg PO Q12H Patient Comments: started by pond worker Rx Instructions: must administer with a meal/food magnesium 500 mg Tablet 500 mg PO DAILY vitamin B complex [B Complex-Vitamin B12] Tablet 1 tablet PO DAILY Rx Instructions: 5000 units rizatriptan 10 mg tablet See Rx Instructions PO .COMPLEX PRN (Reason: Migraine Headache) Rx Instructions: take one tablet by oral route once, may repeat at 2 hour intervals: do not exceed 30 mg in 24 hours aspirin [Adult Low Dose Aspirin] 81 mg tablet,delayed release (DR/EC) 81 mg PO DAILY Complete Multivitamin Tablet 1 tablet PO DAILY atorvastatin 20 mg tablet 20 mg PO QHS Patient Comments: started by pond worker 10/13/2023. dutasteride 0.5 mg capsule 0.5 mg PO DAILY Qty: 90 3RF metformin 500 mg tablet extended release 24 hr 2,000 mg PO DAILY Qty: 360 5RF Rx Instructions: pt takes 2000 mg all at once each morning triamcinolone acetonide 0.1 % paste 1 applic dental TID PRN (Reason: mouth irritation) Qty: 5 5RF Rx Instructions: use after food and/or drink and/or oral hygiene Jardiance 25 mg tablet 25 mg PO QAM Qty: 90 3RF tamsulosin [Flomax] 0.4 mg capsule 0.4 mg PO DAILY Qty: 90 3RF duloxetine [Cymbalta] 60 mg capsule,delayed release(DR/EC) 60 mg PO BID Qty: 180 3RF omeprazole magnesium [Prilosec OTC] 20 mg tablet,delayed release (DR/EC) 20 mg PO DAILY <Peyton Torres APRN - Last Filed: 11/26/24 15:40> Follow-up/Referrals: Zohaib Hoyt MD [Primary Care Provider] - <Peyton Torres APRN - Last Filed: 11/26/24 15:40> Time of Disposition: 19:59 <Peyton Torres APRN - Last Filed: 11/26/24 15:40> 19:59 <Johnson Mcneill MD - Last Filed: 11/26/24 20:18>
--- OUTSIDE RECORDS SUMMARY | 2024-11-26 15:55 | XMS_ITS | Clinical Summary ---
Author Organization [facility] [address] Address [address] [place] [id number] Care Team Providers Care Electric Drill Operator Name Role Phone Zohaib Hoyt MD Primary Care Provider [phone] Allergies No known active allergies Medications DULoxetine [...] Department Care Team Description 10/10/2024 9:05 AM FRUIT SHIPPER - 10/10/2024 11:59 PM FRUIT SHIPPER Hospital Encounter [facility] [address] [place] [address] Peter Knox MD Lumbar radiculopathy (Primary Dx); Isthmic spondylolisthesis Discharge Disposition: Discharge to home or self care 09/23/2024 11:15 AM FRUIT SHIPPER Office Visit [facility] Cardiology [address] [place] [address] Ford Sutton MD Nonrheumatic aortic valve stenosis (Primary Dx); NICM (nonischemic cardiomyopathy) (CMS/HCC) (HCC); Hypertension associated with diabetes (HCC); Hyperlipidemia associated with type 2 diabetes mellitus (HCC); APARNA (obstructive sleep apnea) 09/13/2024 1:40 PM FRUIT SHIPPER Office Visit [facility] Orthopaedic Surgery [address] [facility] 12th [place] [address] [place] [address] Zafar Ayala MD Lumbar radiculopathy (Primary Dx); Lumbar spine pain; Spinal stenosis, lumbar region, without neurogenic claudication; Spondylolisthesis of lumbosacral region 09/13/2024 1:00 PM FRUIT SHIPPER - 09/13/2024 11:59 PM FRUIT SHIPPER Hospital Encounter [facility] [place] [address] Lumbar spine pain Discharge Disposition: Discharge to home or self care 09/13/2024 Telephone [facility] Orthopaedic Surgery [address] [facility] 2nd [address] [place] [address] Alexis Reyes CMA Scheduling Appointments 09/13/2024 Orders Only [facility] Orth[facility] Surgery [address] [place] [address] Advanced Medicine 12th [place] [address] [place] [address] Zafar Ayala MD Isthmic spondylolisthesis (Primary Dx); Lumbar radiculopathy 09/10/2024 5:58 PM FRUIT SHIPPER - 09/10/2024 11:59 PM FRUIT SHIPPER Hospital Encounter [facility] [place] [address] Discharge Disposition: Discharge to home or self [...] on file Legal Sex Male 8:28 AM FRUIT SHIPPER Gender Identity Male 08/29/2024 11:56 AM CDT Sexual Orientation Straight 08/29/2024 11 :56 AM CDT Obstetrics History Last Filed Vital Signs Vital Sign Reading Time Taken Comments Blood Pressure 147/86 10/10/2024 10:03 AM FRUIT SHIPPER Pulse 80 10/10/2024 10:03 AM FRUIT SHIPPER Temperature - - Respiratory Rate 18 10/10/2024 10:03 AM FRUIT SHIPPER Oxygen Saturation 97% 10/10/2024 10:03 AM FRUIT SHIPPER Inhaled Oxygen Concentration - - Weight 84.8 kg (187 lb) 09/23/2024 10:58 AM FRUIT SHIPPER Height 182.9 cm (6') 09/23/2024 10:58 AM FRUIT SHIPPER Body Mass Index 25.36 09/23/2024 10:58 AM FRUIT SHIPPER Plan of Treatment Health Maintenance Due Date [...] Read Routine (OP Routine) 10/10/2024 9:59 AM FRUIT SHIPPER Isthmic spondylolisthesis Lumbar radiculopathy XR SPINE LUMBAR ROUTINE Schedule Routine, Read Routine (OP Routine) 09/13/2024 1:07 PM FRUIT SHIPPER Lumbar spine pain NEURO MR OUTSIDE REFERENCE Routine 09/10/2024 5:58 PM FRUIT SHIPPER LIPID PANEL Routine 01/02/2024 4:45 PM FRUIT SHIPPER BASIC METABOLIC PANEL Routine 01/02/2024 NICM (nonischemic cardiomyopathy) (CMS/HCC) (HCC) Hypertension associated with diabetes (HCC) from Last 3 Months or Most Recently Relevant to Health Maintenance Results * IR Epidural Injection Lumbosacral W Guidance (Interlaminar) (10/10/2024 9:59 AM FRUIT SHIPPER) Narrative [facility] - 10/10/2024 9:59 AM FRUIT SHIPPER The images from this study are not interpreted by Radiology. ??Please refer to the physician's procedure / OR operative note. us Zafar Ayala MD IMG IR PROCEDURES Final Result [facility] * XR Spine Lumbar 4 or More Views (09/13/2024 1:07 PM FRUIT SHIPPER) Anatomical Region Laterality Modality L-spine N/A Computed Radiogr aphy 09/13/2024 1:14 PM FRUIT SHIPPER Impressions 09/13/2024 1:14 PM FRUIT SHIPPER 1. ??Grade 1 spondylolytic spondylolisthesis of L5 on S1 without abnormal motion on bending. 2. ??Moderate multilevel lumbar degenerative disc disease. Electronically signed by: Ted Crawley M.D. Narrative 09/13/2024 1:14 PM FRUIT SHIPPER EXAMINATION: XR SPINE LUMBAR 4 OR MORE [...] Neuro MR Outside Reference (09/10/2024 5:58 PM FRUIT SHIPPER) Impressions [facility] - 09/10/2024 5:58 PM FRUIT SHIPPER These images are for Reference purposes only and have not been reviewed by [facility]. ??There will be no report generated by a [facility] Radiologist. Narrative [facility] - 09/10/2024 5:58 PM FRUIT SHIPPER EXAMINATION: ??Images For Reference Purposes Only Zafar Ayala MD IMG MRI PROCEDURES Erna l Result [facility] * Lipid panel (01/02/2024 4:45 PM FRUIT SHIPPER) SCRIBED Cholesterol, Total 92 <200 [facility] SCRIBED [...] N/A N/A [facility] SCRIBED eGFR in NonAfrican Mosotho 60 > or = 60 [facility] Blood 01/02/2024 Ford Sutton MD LAB BLOOD ORDERABLES Erna l Result Performing Organization Address [facility]/ZIP Co de Phone Number [facility] from Last 3 Months or Most Recently Relevant to Health Maintenance Insurance MEDICARE [facility] FEDERAL MEDICARE [facility] FEDERAL Care Teams Electric Drill Operator Relationship Specialty Start Date End Date Zohaib Hoyt MD [address] [address] PCP - General Family Medicine 08/07/23
--- OUTSIDE RECORDS SUMMARY | 2024-11-26 15:55 | XMS_ITS | Continuity of Care Document ---
Author Organization [facility] Address [address] [place] [address] [place] [address] Phone Care Team Providers Care Emergency Worker Name Role Phone Owen Altamirano DO Unavailable Unavailable Advance Directives Directive Yes / No Effective Date File Name No Information Encounters Encounter Description Practice Location Reason(s) For Visit Diagnoses Date Provider Providers Copied on Encounter [facility], [address], [place], [place], [id number], [place] tel:[phone] [facility] No Information Evelia Doty. [address] [facility], [place], [address], [place]. tel: [phone] Family History Family Member Type Diagnosis Age At Onset No Information Payers Payer name Insurance type Covered green party ID Authoriza tion(s) [facility] [id number] Social History Type Description Quantity Date Captured [...]
--- OUTSIDE RECORDS SUMMARY | 2024-11-26 15:55 | XMS_ITS | Referral Summary ---
Author Organization [facility] [address] Address [address] [place] [address] Care Team Providers Care Taffy Puller Name Role Phone Zohaib Hoyt MD Primary Care Provider [phone] Encounters Date Type Department Care Team Description 10/10/2024 9:05 AM PILL PACKER - 10/10/2024 11:59 PM PILL PACKER Hospital Encounter [facility] [address] [place] [address] Peter Knox MD Lumbar radiculopathy (Primary Dx); Isthmic spondylolisthesis Discharge Disposition: Discharge to home or self care 09/23/2024 11:15 AM PILL PACKER Office Visit [facility] Cardiology [address] [place] [address] Ford Sutton MD Nonrheumatic aortic valve stenosis (Primary Dx); NICM (nonischemic cardiomyopathy) (CMS/HCC) (HCC); Hypertension associated with diabetes (HCC); Hyperlipidemia associated with type 2 diabetes mellitus (HCC); APARNA (obstructive sleep apnea) 09/13/2024 Telephone [facility] Orthopaedic Surgery [address] [facility] 2nd Floor [address] [place] [address] Alexis Reyes CMA Scheduling Appointments 09/13/2024 Orders Only [facility] Orthopa[facility] Surgery [address] [facility] 12th [place] [address] [place] [address] Zafar Ayala MD Isthmic spondylolisthesis (Primary Dx); Lumbar radiculopathy 09/13/2024 1:00 PM PILL PACKER - 09/13/2024 11:59 PM PILL PACKER Hospital Encounter [facility] [address] [place] [address] Lumbar spine pain Discharge Disposition: Discharge to home or self care 09/13/2024 1:40 PM PILL PACKER Office Visit [facility] Orthopaedic Surgery [address] [facility] 12th [place] [address] [place] [address] Zafar Ayala MD Lumbar radiculopathy (Primary Dx); Lumbar spine pain; Spinal stenosis, lumbar region, without neurogenic claudication; Spondylolisthesis of lumbosacral region 09/10/2024 5:58 PM PILL PACKER - 09/10/2024 11:59 PM PILL PACKER Hospital Encounter [facility] [address] [place] [address] Discharge Disposition: Discharge to home or self [...] on file Legal Sex Male 8:28 AM PILL PACKER Gender Identity Male 08/29/2024 11:56 AM CDT Sexual Orientation Straight 08/29/2024 11 :56 AM CDT Last Filed Vital Signs Vital Sign Reading Time Taken Comments Blood Pressure 147/86 10/10/2024 10:03 AM PILL PACKER Pulse 80 10/10/2024 10:03 AM PILL PACKER Temperature - - Respiratory Rate 18 10/10/2024 10:03 AM PILL PACKER Oxygen Saturation 97% 10/10/2024 10:03 AM PILL PACKER Inhaled Oxygen Concentration - - Weight 84.8 kg (187 lb) 09/23/2024 10:58 AM PILL PACKER Height 182.9 cm (6') 09/23/2024 10:58 AM PILL PACKER Body Mass Index 25.36 09/23/2024 10:58 AM PILL PACKER Plan of Treatment Not on file Procedures Procedure Name Priority Date/Time Associated Diagnosis Comments IR EPIDURAL INJECTION LUMBOSACRAL W GUIDANCE Schedule Routine, Read Routine (OP Routine) 10/10/2024 9:59 AM PILL PACKER Isthmic spondylolisthesis Lumbar radiculopathy XR SPINE LUMBAR ROUTINE Schedule Routine, Read Routine (OP Routine) 09/13/2024 1:07 PM PILL PACKER Lumbar spine pain NEURO MR OUTSIDE REFERENCE Routine 09/10/2024 5:58 PM PILL PACKER LIPID PANEL Routine 01/02/2024 4:45 PM PILL PACKER BASIC METABOLIC PANEL Routine 01/02/2024 NICM (nonischemic cardiomyopathy) (CMS/HCC) (HCC) Hypertension associated with diabetes (HCC) from Last 3 Months or Most Recently Relevant to Health Maintenance Results * IR Epidural Injection Lumbosacral W Guidance (Interlaminar) (10/10/2024 9:59 AM PILL PACKER) Narrative [facility] - 10/10/2024 9:59 AM PILL PACKER The images from this study are not interpreted by Radiology. ??Please refer to the physician's procedure / OR operative note. us Zafar Ayala MD IMG IR PROCEDURES Final Result [facility] * XR Spine Lumbar 4 or More Views (09/13/2024 1:07 PM PILL PACKER) Anatomical Region Laterality Modality L-spine N/A Computed Radiogr aphy 09/13/2024 1:14 PM PILL PACKER Impressions 09/13/2024 1:14 PM PILL PACKER 1. ??Grade 1 spondylolytic spondylolisthesis of L5 on S1 without abnormal motion on bending. 2. ??Moderate multilevel lumbar degenerative disc disease. Electronically signed by: Ted Crawley M.D. Narrative 09/13/2024 1:14 PM PILL PACKER EXAMINATION: XR SPINE LUMBAR 4 OR MORE [...] Neuro MR Outside Reference (09/10/2024 5:58 PM PILL PACKER) Impressions [facility] - 09/10/2024 5:58 PM PILL PACKER These images are for Reference purposes only and have not been reviewed by [facility] Radiology. ??There will be no report generated by a [facility] Radiologist. Narrative [facility] - 09/10/2024 5:58 PM PILL PACKER EXAMINATION: ??Images For Reference Purposes Only Zafar Ayala MD IMG MRI PROCEDURES Erna l Result Performing Organization Address [facility]/ZIP Co de Phone Number [facility] * Lipid panel (01/02/2024 4:45 PM PILL PACKER) SCRIBED Cholesterol, Total 92 <200 [facility] SCRIBED HDL 40 >40 [facility] SCRIBED LDL 35 <100 [facility] SCRIBED Triglycerides 90 <150 [facility] Blood Historical Provider LAB BLOOD ORDERABLES Edit ed Result - Final Performing Organization Address [facility] Co de Phone Number [facility] * [...] N/A N/A [facility] SCRIBED eGFR in NonAfrican [place]yanese 60 > or = 60 [facility] Blood 01/02/2024 Ford Sutton MD LAB BLOOD ORDERABLES Erna gay Result [facility] from Last 3 Months or Most Recently Relevant to Health Maintenance [place] [address] [facility] MEDICARE [facility] FEDERAL Member Subscriber Plan / Payer (Ef fective 2015-Present) Name:Hernan Delong Relation to Subscriber:Self Name:Hernan Delong Payer ID:[id number] (NAIC) Group ID:[id number] Type:[facility] Address: [address] [place] [id number] Care Teams Taffy Puller Relationship Specialty Start Date End Date Zohaib Hoyt MD [address] [address] PCP - General Family Medicine 08/07/23
[2024-11-26 17:55] LABS: Basophils Absolute Auto 0.1 K/mm3 (0.0-0.1); Basophils Percent Auto 0.3 % (0.2-1.2); Eosinophils Percent Auto 0.2 % (0-4.4); Hematocrit 36.6 % (42.0-52.0); Hemoglobin 12.2 g/dL (14.0-18.0); Immature Granulocyte Absolute 0.32 K/mm3 (0.00-0.031); Immature Granulocyte Percent A 1.6 % (0-0.5); Lymphocytes Absolute Auto 1.06 K/mm3 (0.9-3.2); Lymphocytes Percent Auto 5.3 % (18.3-44.2); Mean Corpuscular HGB Conc 33.3 g/dl (32-36); Mean Corpuscular Hemoglobin 33.6 pg (26-34); Mean Corpuscular Volume 100.8 fl (80-100); Mean Platelet Volume 10.6 fl (7.4-10.4); Monocytes Absolute Auto 2.6 K/mm3 (0.1-0.6); Monocytes Percent Auto 13.2 % (2.6-8.5); Neutrophils Absolute Auto 15.9 K/mm3 (1.3-6.7); Neutrophils Percent Auto 79.4 % (45.5-73.1); Platelet Count Result 182 k/mm3 (150-375); Red Blood Count 3.63 M/mm3 (4.6-6.20); Red Cell Distribution Width 13.5 % (11.5-14.5)
[2024-11-26 18:06] LABS: Lactic Acid Reflex 1.3 mmol/L (0.7-2.0)
[2024-11-26 18:07] LABS: Alanine Aminotransferase 16 U/L (6-50); Albumin Level 4.7 g/dL (3.5-5.1); Alkaline Phosphatase 117 U/L (38-126); Anion Gap 13 mmol/L (4-12); Aspartate Amino Transferase 25 U/L (17-59); Bilirubin,Total 0.7 mg/dL (0.2-1.3); Blood Urea Nitrogen 22 mg/dL (9-20); Carbon Dioxide 25 mmol/L (22-30); Chloride 100 mmol/L (98-107); Estimated CRCL calculation 56 ml/min; Estimated Glomerular Filt Rate > 60; Glucose 224 mg/dL (65-110); Lipase 98 U/L (23-300); Potassium 5.2 mmol/L (3.4-5.0); Sodium 138 mmol/L (137-145)
--- NOTE | 2024-11-26 19:27 | ECG_ITS ---
Test Date: 2024-11-26 20:29:21 Measurements Intervals Rogers Rate: 104 P: -1 NE: 169 QRS: -29 QRSD: 99 T: 10 QT: 320 QTc: 423 Interpretive Statements SINUS TACHYCARDIA BORDERLINE LEFT AXIS DEVIATION [QRS AXIS < -20] MODERATE VOLTAGE CRITERIA FOR LVH, CONSIDER NORMAL VARIANT [MEETS CRITERIA IN ONE OF: R(aVL), S(V1), R(V5), R(V5/V6)+S(V1)] NONSPECIFIC T-WAVE ABNORMALITY ABNORMAL RHYTHM ECG Compared to ECG 07/25/2024 21:12:52 NO SIGNIFICANT CHANGES Electronically Signed On 11-27-2024 15:54:09 FOOD PACKER by Alvin Carvalho M.D.
[2024-11-26] MEDS: PIPERACILLIN/TAZ 4.5G/NS 100ML 4.5 GM/100 ML BAG IVPB (20:01)
[2024-11-26] MEDS: MORPHINE SULFATE (*CRX) 4 MG/ML INJ IV PUSH (20:05)
[2024-11-26] MEDS: ONDANSETRON INJ 4 MG/2 ML VIAL IV PUSH (20:05)
[2024-11-26] MEDS: LACTATED RINGERS 1,000 ML 999 ML IV CONT (20:07)
--- NOTE | 2024-11-26 20:29 | P.HP_ITS ---
H&P: HPI History of Present Illness Date/Time: 11/26/24 20:29 Chief Complaint: Abdominal pain Narrative: This is a 74-year-old male with past medical history significant for cardiomyopathy, congestive heart failure, type 2 diabetes mellitus, chronic kidney disease, chronic back pain, hypertension, obstructive sleep apnea on CPAP. Patient presents to the emergency room due to epigastric abdominal pain that walking up from his sleep, this happen at around 4:00 a.m. patient tried to sit on his recliner and waited out however pain got worse which prompted him to come to the emergency room. Patient has had this problem before where he was found to have a small-bowel obstruction. At the time of my visit he was rating his pain at 2/10 intensity. Patient had been in his usual state of health prior to this. Preliminary workup was significant for CT of abdomen and pelvis for small-bowel obstruction. Patient has been admitted for further evaluation management and treatment. EXAMINATION: CT abdomen pelvis w con DATE: 11/26/2024 18:55 INDICATION: Abdominal pain. TECHNIQUE: Computed tomography (CT) of the abdomen and pelvis was performed with 100 mL Omnipaque 350 intravenous contrast. Automated exposure control and iterative reconstruction technique were employed. The dose-length product was 746.58 mGy-cm. COMPARISON: CT abdomen and pelvis 10/21/2023 FINDINGS: The visualized portions of the lung bases demonstrate mild atelectasis. No pleural effusion. The heart size is normal. No pericardial effusion. There are cysts in the liver measuring up to 1.9 cm. The gallbladder, pancreas, and adrenal glands are normal. Calcifications in the spleen are consistent with old granulomatous disease. There is cortical thinning of the kidneys. There is a 7 mm cyst in left kidney. There are two 2 mm stones in left kidney. There is diverticulosis of the colon without evidence of diverticulitis. The appendix is not visualized. There are multiple dilated loops of small bowel with transition point in the anterior midabdomen. There are no pathologically enlarged lymph nodes. There is trace pelvic ascites. There is severe lumbar spondylosis. There are chronic bilateral L5 pars defects. There is 3 mm anterolisthesis of L5 on S1. IMPRESSION: 1. Small bowel obstruction with transition point in the anterior mid abdomen. EXAMINATION: XR abdomen gastric tube insert DATE: 11/26/2024 20:03 INDICATION: Nasogastric tube placement. TECHNIQUE: An upright view of the abdomen was obtained. COMPARISON: CT abdomen and pelvis 11/26/24 FINDINGS: There are dilated loops of small bowel. The colon is decompressed. The lower abdomen is excluded. The nasogastric tube tip is in the stomach. IMPRESSION: 1. Nasogastric tube tip in the stomach. 2. Small bowel obstruction. REPLACED BY [facility] Past Medical History Medical History BMI 24.0-24.9, adult Dyspepsia and disorder of function of stomach (~08/07/24) Syncope and collapse Carotid Doppler study normal on 08/01/2024. MRI of the brain and brainstem on 08/15/2024 was normal with normal aging. MRI of the lumbar spine revealed severe degenerative disc disease and facet arthropathy. BMI 25.0-25.9,adult At high risk for falls Chronic low back pain with left-sided sciatica Generalized weakness (~06/2024) Frequent falls (~06/2024) Controlled type 2 diabetes mellitus with hyperglycemia, without long-term current use of insulin Hemoglobin A1c 7.6 on 12/08/2021. Glucose 182 with hemoglobin A1c 7.3 on 07/06/2022. glucose 183 with hemoglobin A1c 8.5 on 01/10/2023. Glucose 130 with hemoglobin A1c 7.5 on 07/29/2023 with microalbumin ratio of 99. Glucose 223 with hemoglobin A1c 8.3 on 01/02/2024. fasting glucose 237 with hemoglobin A1c 10.1 on 06/14/2024. Fasting blood was 182 on 08/09/2024. Glucose 179 With microalbumin ratio of 88.7 on 09/06/2024. Hearing loss, left (~05/06/24) Nonischemic cardiomyopathy (~2022) nuclear stress test 11/15/2023 with moderate to severe left ventricular systolic dysfunction with ejection fraction 35% with no S PO scan or EKG. Cardiac catheterization 12/11/2023 with no significant coronary artery disease. Bacteremia due to Staphylococcus aureus ESR 42 on 11/06/2023. WBC 2.6 on 11/06/2023. Lung infiltrate Pyelonephritis Sepsis Dyspnea on exertion No significant coronary artery disease on catheterization on 12/11/2023. BMI 27.0-27.9,adult Encounter for prostate cancer screening PSA 0.42 on 07/29/2023. PSA 0.5 on 09/06/2024. Left elbow pain (~07/2022) X-ray on 11/07/2022 revealed no evidence of fracture with soft tissue swelling over the olecranon process. COVID-19 (09/23/22) Tested positive 09/28/2022. Candidiasis (~09/28/22) At moderate risk for fall (~07/18/22) Microalbuminuria due to type 2 diabetes mellitus (07/06/22) microalbumin ratio of 35 on 07/06/2022. Microalbumin ratio of 99 on 0 07/29/2023. Microalbumin ratio of 88.7 on 09/06/2024. Aphthous ulcer of mouth (~04/22/22) Overweight (BMI 25.0-29.9) BMI 26.0-26.9,adult Chronic anemia Small bowel obstruction (~03/19/22) Recurrent and resolved in-hospital 03/23/2022. Leukocytosis WBC 8.7 on 12/08/2021 LUIS DANIEL (acute kidney injury) Diabetic eye exam No retinopathy on 03/18/2021. No retinopathy on 11/09/2022. Acute bilateral low back pain with left-sided sciatica Seasonal allergic rhinitis Arthritis BPH without obstruction/lower urinary tract symptoms Chronic bilateral low back pain X-ray of the lumbar spine on 07/26/2024 revealed degenerative disc disease and facet arthropathy at multiple levels with scoliosis of the lumbar spine. MRI of the lumbar spine on 08/15/2024 reveals severe degenerative disc disease with central canal stenosis and facet arthropathy with neural foraminal narrowing multiple levels. Diabetic peripheral neuropathy associated with type 2 diabetes mellitus Essential (primary) hypertension Insomnia Mixed hyperlipidemia Cholesterol 135, triglycerides 129, HDL 42, LDL 72 on 01/10/2023. cholesterol 139, triglycerides 108, HDL 46, LDL 74 with ratio 2.5 on 07/29/2023. Cholesterol 92, triglycerides 90, HDL 40, LDL 35 with ratio of 2.3 on 01/02/2024. Cholesterol 91, triglycerides 133, HDL 30, LDL less than 30 on 09/06/2024. APARNA on CPAP Type 2 diabetes mellitus without complication, without long-term current use of insulin Hemoglobin A1c 7.6 on 12/08/2021. Glucose 182 with hemoglobin A1c 7.3 on 07/06/2022. glucose 183 with hemoglobin A1c 8.5 on 01/10/2023. Glucose 130 with hemoglobin A1c 7.5 on 07/29/2023 with microalbumin ratio of 99. Glucose 223 with hemoglobin A1c 8.3 on 01/02/2024. Surgical History Surgical History History of colonoscopy History of tonsillectomy and adenoidectomy History of appendectomy Family History Family History Grandparent Cerebrovascular accident, Onset Age: 78 Father Family history of Alzheimer's disease, Onset Age: 79 Mother Family history of Alzheimer's disease, Onset Age: 85 Social History Social History Social History: Surrogate decision-maker: Malena Delong, spouse. CODE STATUS: Full code Smoking status: Never smoker Second hand tobacco smoke exposure: Yes Alcohol intake: former Substance use: never Substance use type: does not use Do You Feel Safe in your Home?: Yes Lack of Transportation: No Lack of Food: Never True Current Housing: I Have Housing Concerned About Future Housing: No Difficulty Paying Gas/Electric Bills: No Difficulty Paying for Meds: No Currently Unemployed: No Education: Bachelor's Degree Difficulty w/ Childcare or Family Care: No Living arrangements: with family Additional living arrangements comments: Lives at home with his . They have 4 children. They have 7 horses Additional occupation/education comments: Retired from the [employer]. Spiritual care concerns: No Meds Home Medications and Allergies Home Medications ?Medication ?Instructions ?Recorded ?Confirmed ?Type aspirin 81 mg tablet,delayed 81 mg PO DAILY 09/11/19 11/26/24 History release (Adult Low Dose Aspirin) multivitamin,[id number] 1 tablet PO DAILY 09/11/19 11/26/24 History (Complete Multivitamin tablet) fluticasone propionate 50 1 spray intranasal BID #16 grams 01/17/23 11/26/24 Rx mcg/actuation nasal spray,suspension (Flonase Allergy Relief) atorvastatin 20 mg tablet 20 mg PO QHS 10/19/23 11/26/24 History dutasteride 0.5 mg capsule 0.5 mg PO DAILY #90 caps 12/08/23 11/26/24 Rx magnesium 500 mg tablet 500 mg PO DAILY 12/08/23 11/26/24 History vitamin B complex (B 1 tablet PO DAILY 12/08/23 11/26/24 History Complex-Vitamin B12 tablet) metformin 500 mg tablet,extended 2,000 mg (4 x 500 mg) PO DAILY 01/15/24 11/26/24 Rx release 24 hr #360 tabs carvedilol 6.25 mg tablet 6.25 mg PO Q12H 02/06/24 11/26/24 History sacubitril 49 mg-valsartan 51 mg 1 tablet PO BID 02/06/24 11/26/24 History tablet (Entresto) empagliflozin 25 mg tablet 25 mg PO QAM #90 tabs 02/16/24 11/26/24 Rx (Jardiance) tamsulosin 0.4 mg capsule (Flomax) 0.4 mg PO DAILY #90 caps 02/29/24 11/26/24 Rx duloxetine 60 mg capsule,delayed 60 mg PO BID #180 caps 04/24/24 11/26/24 Rx release (Cymbalta) omeprazole magnesium 20 mg 20 mg PO DAILY 08/07/24 11/26/24 History tablet,delayed release (Prilosec OTC) Allergies Allergy/AdvReac Type Severity Reaction Status Date / Time No Known Allergies AdvReac Unknown Verified 08/01/24 15:20 Vital Signs Vital Signs - 24 hr 11/26/24 14:11 11/26/24 18:10 11/26/24 20:09 Temperature 97.5 F L 97.6 F Pulse Rate 99 107 H 110 H Respiratory Rate 18 18 22 H Blood Pressure 113/75 109/72 120/71 Pulse Oximetry 99 99 95 Exam Narrative: Patient is sitting in bed, NG in helped up to low intermittent suction Const: General: comfortable, no acute distress, well developed, alert, awake and average body habitus Nutritional Appearance: average body habitus Orientation/consciousness: patient oriented x3 Other: Appears comfortable HENMT: Head: normal to inspection, normocephalic and atraumatic Ears: hearing grossly normal bilaterally Face/Nose/Sinus: normal facial exam Face and sinus: normal facial exam Eyes: General: appearance normal, both eyes and all related structures Pupils: Equal, round and reactive pupils present EOM: EOMs intact bilaterally Neck: Neck: full ROM, no lymphadenopathy and no JVD Thyroid: thyroid normal Lymphatic: no lymphadenopathy noted Resp: Effort & Inspection: normal respiratory effort and able to speak in complete sentences Auscultation: clear to auscultation bilaterally Cardio: Jugular venous distension: no JVD Rate: regular rate Rhythm: regular rhythm Heart sounds: S1 normal heart sound present and S2 normal heart sound present GI: Inspection: distended and no visible herniation GI Palp: Yes Soft to palpation and Yes No hepatosplenomegaly present Auscultation: absent bowel sounds : General: Yes deferred Skin: Rashes: no rashes Wounds: no wounds Neuro: General: patient oriented x3 and CN's II-XI intact bilaterally Cranial nerves: Yes CN's II-XII intact bilaterally and Yes Equal, round and reactive pupils present Cognition (Neuro): normal cognition Speech: normal speech Gait exam (Neuro): Unable to assess gait Motor exam (neuro): 5/5 motor strength present throughout Extrem: General: normal to inspection, full ROM, no joint enlargement and no pedal edema H&P: Results Labs Labs: Short CBC 11/26/24 Range/Units 17:41 WBC 20.0 H (4.5-10.0) K/mm3 Hgb 12.2 L (14.0-18.0) g/dL Hct 36.6 L (42.0-52.0) % Plt Count 182 (150-375) k/mm3 BMP 11/26/24 17:41 Sodium 138 Potassium 5.2 H Chloride 100 Carbon Dioxide 25 BUN 22 H Creatinine 1.10 Glucose 224 H Calcium 10.0 Liver Function 11/26/24 Range/Units 17:41 Total Bilirubin 0.7 (0.2-1.3) mg/dL AST 25 (17-59) U/L ALT 16 (6-50) U/L Alkaline Phosphatase 117 (38-126) U/L Albumin 4.7 (3.5-5.1) g/dL Assessment and Plan Assessment and plan (1) SBO (small bowel obstruction): Code(s): K56.609 - Unspecified intestinal obstruction, unspecified as to partial versus complete obstruction Status: Acute Assessment and Plan: Admit to regular medical floor NG in to low intermittent suction NPO IV fluids Supportive care General surgery consult (2) Nonischemic cardiomyopathy: Onset Date: ~2022 Code(s): I42.8 - Other cardiomyopathies Status: Acute Assessment and Plan: Appears stable Euvolemic Daily intake and output (3) Mixed hyperlipidemia: Code(s): E78.2 - Mixed hyperlipidemia Status: Chronic (4) Controlled type 2 diabetes mellitus with hyperglycemia, without long-term current use of insulin: Code(s): E11.65 - Type 2 diabetes mellitus with hyperglycemia Status: Acute Assessment and Plan: Currently NPO Accu-Cheks q.6 (5) BPH without obstruction/lower urinary tract symptoms: Code(s): N40.0 - Benign prostatic hyperplasia without lower urinary tract symptoms Status: Chronic (6) APARNA on CPAP: Code(s): G47.33 - Obstructive sleep apnea (adult) (pediatric); Z99.89 - Dependence on other enabling machines and devices Status: Chronic Hospitalist [facility] Advance Care Plan I have confirmed that the patient's Advanced Care Plan is present, code status is documented, or surrogate decision maker is listed in patient medical record.: Yes Medication Reconciliation I have utilized all available resources to obtain, update and review the patients current medications (includes all prescriptions, OTC, herbals, cannabis, and nutritional supplements).: Yes
--- NOTE | 2024-11-26 20:55 | ADMGEN ---
This patient, Hernan Delong, was admitted to 2 Medical Room 240-. Patient/family oriented to hospital policies and general routines including ID bracelet, bed and alarms, visiting hours, pain management, procedures, bathroom and other care routines, personal items, smoking policy, room service/diet, and visiting hours. Information on how to activate the Rapid Response Team has been discussed. Patient/Family are encouraged to report perceived risks to care and to ask questions if they do not understand what they are told or what they should do.
[2024-11-26] MEDS: LACTATED RINGERS 1,000 ML 125 ML IV CONT (21:38)
[2024-11-26 23:16] LABS: Add Urine Microscopic? YES; Appearance Urine Clear (Clear); Bacteria Urine None Seen /hpf; Bilirubin Urine Negative (Negative); Blood Urine Negative (Negative); Color Urine Yellow (Yellow); Glucose Urine UA 3+ mg/dL (Negative); Ketones Urine Negative (Negative); Leukocyte Esterase Ur Negative LEU/UL (Negative); Nitrate Urine Negative (Negative); Non Pathogenic Casts 0-2; Protein Urine Trace mg/dL (Negative); RBC Urine 0-2 /hpf (0-2); Specific Grav Ur > 1.045 (1.001-1.035); Squamous Epithelial Cell Urine None Seen /hpf (Few); Urobilinogen Urine 0.2 mg/dL (<2.0); WBC Urine 0-5 /hpf (0-3)
[2024-11-27] VITALS (9 sets, daily range): BP systolic 132–140; BP diastolic 62–66; PULSE 92–110; RESP 19–20; TEMP 36.9–37.1; O2SAT 92–99
[2024-11-27 06:01] LABS: Basophils Percent Auto 0.2 % (0.2-1.2); Hematocrit 31.9 % (42.0-52.0); Hemoglobin 10.3 g/dL (14.0-18.0); Immature Granulocyte Absolute 0.29 K/mm3 (0.00-0.031); Immature Granulocyte Percent A 1.7 % (0-0.5); Lymphocytes Absolute Auto 1.83 K/mm3 (0.9-3.2); Mean Corpuscular HGB Conc 32.3 g/dl (32-36); Mean Corpuscular Hemoglobin 32.8 pg (26-34); Mean Corpuscular Volume 101.6 fl (80-100); Mean Platelet Volume 10.8 fl (7.4-10.4); Monocytes Absolute Auto 2.4 K/mm3 (0.1-0.6); Monocytes Percent Auto 14.2 % (2.6-8.5); Neutrophils Absolute Auto 12.1 K/mm3 (1.3-6.7); Neutrophils Percent Auto 72.9 % (45.5-73.1); Platelet Count Result 155 k/mm3 (150-375); Red Blood Count 3.14 M/mm3 (4.6-6.20); Red Cell Distribution Width 13.4 % (11.5-14.5); White Blood Count 16.6 K/mm3 (4.5-10.0)
[2024-11-27 06:20] LABS: Anion Gap 9 mmol/L (4-12); Blood Urea Nitrogen 19 mg/dL (9-20); Calcium 9.4 mg/dL (8.4-10.2); Carbon Dioxide 25 mmol/L (22-30); Chloride 103 mmol/L (98-107); Estimated CRCL calculation 56 ml/min; Estimated Glomerular Filt Rate > 60; Glucose 159 mg/dL (65-110); Magnesium 2.1 mg/dL (1.6-2.3); Phosphorus 3.9 mg/dL (2.5-4.5); Potassium 4.6 mmol/L (3.4-5.0); Sodium 137 mmol/L (137-145)
--- NOTE | 2024-11-27 07:38 | PM.IMPN ---
Progress Note: A&P Assessment and Plan (1) SBO (small bowel obstruction): Code(s): K56.609 - Unspecified intestinal obstruction, unspecified as to partial versus complete obstruction Status: Acute Assessment and Plan: Admit to regular medical floor NG in to low intermittent suction NPO IV fluids Supportive care General surgery consult-no acute interventions (2) Nonischemic cardiomyopathy: Onset Date: ~2022 Code(s): I42.8 - Other cardiomyopathies Status: Acute Assessment and Plan: Appears stable Euvolemic Daily intake and output (3) Mixed hyperlipidemia: Code(s): E78.2 - Mixed hyperlipidemia Status: Chronic (4) Controlled type 2 diabetes mellitus with hyperglycemia, without long-term current use of insulin: Code(s): E11.65 - Type 2 diabetes mellitus with hyperglycemia Status: Acute Assessment and Plan: Currently NPO Accu-Cheks q.6 (5) BPH without obstruction/lower urinary tract symptoms: Code(s): N40.0 - Benign prostatic hyperplasia without lower urinary tract symptoms Status: Chronic (6) APARNA on CPAP: Code(s): G47.33 - Obstructive sleep apnea (adult) (pediatric); Z99.89 - Dependence on other enabling machines and devices Status: Chronic Time Spent With Patient Time with patient: 25 - 35 minutes Subjective Date/time seen: 11/27/24 07:38 Interval history: Abd pain 74-year-old male with PMH/o cardiomyopathy, congestive heart failure, type 2 diabetes mellitus, chronic kidney disease, chronic back pain, hypertension, obstructive sleep apnea on CPAP. Pt admitted from ED for epigastric abdominal pain that walking up from his sleep. Patient has had this problem before where he was found to have a small-bowel obstruction. Preliminary workup was significant for CT of abdomen and pelvis for small-bowel obstruction. Patient has been admitted for further evaluation management and treatment. IMPRESSION: 1. Nasogastric tube tip in the stomach. 2. Small bowel obstruction. Gen surgery consulted. PT is NPO, IV fluids WBC 20.0->16.6 (today) HGB/HCT 10.3/31.9 K 5.2-.4,6 (today) BUN/CR 19/1.09 Pt is seen and examined. He is comfortable, NG in place. no nausea Exam Narrative: Patient is sitting in bed, NG in place to low intermittent suction Const: General: comfortable, no acute distress, well developed, alert, awake and average body habitus Nutritional Appearance: average body habitus Orientation/consciousness: patient oriented x3 Other: Appears comfortable HENMT: Head: normal to inspection, normocephalic and atraumatic Ears: hearing grossly normal bilaterally Face/Nose/Sinus: normal facial exam Face and sinus: normal facial exam Eyes: General: appearance normal, both eyes and all related structures Pupils: Equal, round and reactive pupils present EOM: EOMs intact bilaterally Neck: Neck: full ROM, no lymphadenopathy and no JVD Thyroid: thyroid normal Lymphatic: no lymphadenopathy noted Resp: Effort & Inspection: normal respiratory effort and able to speak in complete sentences Auscultation: clear to auscultation bilaterally Cardio: Jugular venous distension: no JVD Rate: regular rate Rhythm: regular rhythm Heart sounds: S1 normal heart sound present and S2 normal heart sound present GI: Inspection: distended and no visible herniation Auscultation: absent bowel sounds : General: Yes deferred Skin: Rashes: no rashes Wounds: no wounds Neuro: General: patient oriented x3, CN's II-XI intact bilaterally and Unable to assess gait Cranial nerves: Yes CN's II-XII intact bilaterally and Yes Equal, round and reactive pupils present Cognition (Neuro): normal cognition Speech: normal speech Gait exam (Neuro): Unable to assess gait Motor exam (neuro): 5/5 motor strength present throughout Extrem: General: normal to inspection, full ROM, no joint enlargement and no pedal edema Objective Data Vital Signs Vital Signs: Vital Signs - 24 hr 11/26/24 14:11 11/26/24 18:10 11/26/24 20:09 Temperature 97.5 F L 97.6 F Pulse Rate 99 107 H 110 H Respiratory Rate 18 18 22 H Blood Pressure 113/75 109/72 120/71 Pulse Oximetry 99 99 95 Oxygen Delivery 11/26/24 20:19 11/26/24 20:39 11/26/24 21:00 Temperature Pulse Rate 108 H Respiratory Rate 19 Blood Pressure 112/80 Pulse Oximetry 92 94 Oxygen Delivery Room Air Room Air 11/26/24 21:05 11/26/24 22:22 11/27/24 00:00 Temperature 99.0 F Pulse Rate 99 104 H 109 H Respiratory Rate 16 Blood Pressure 133/64 Pulse Oximetry 92 Oxygen Delivery 11/27/24 03:41 11/27/24 04:00 Temperature 98.8 F Pulse Rate 110 H 107 H Respiratory Rate 20 Blood Pressure 134/66 Pulse Oximetry 92 Oxygen Delivery Intake/Output Intake/Output: Intake & Output 11/24/24 11/25/24 11/26/24 11/27/24 23:59 23:59 23:59 23:59 Intake Total 100 Output Total 770 Balance 100 -770 Meds/Results Medications: Active Medications Generic Name Dose Route Start Last Admin Trade Name Freq PRN Reason Stop Dose Admin Acetaminophen 650 mg 11/26/24 19:34 Acetaminophen 325 Mg Tablet PO Q4H PRN Mild Pain (1-3) or Fever Morphine Sulfate 2 mg 11/26/24 19:34 Morphine Sulfate (*Crx) 2 Mg/Ml Inj IV PUSH Q2H PRN Pain Rated 7-10 Ondansetron HCl 4 mg 11/26/24 19:34 Ondansetron Inj 4 Mg/2 Ml Vial IV PUSH Q4H PRN Nausea Radiology Results: ITS Impressions Abdomen/Pelvis CT 11/26/24 18:58 IMPRESSION: 1. Small bowel obstruction with transition point in the anterior mid abdomen. Abdomen X-Ray 11/26/24 20:09 IMPRESSION: 1. Nasogastric tube tip in the stomach. 2. Small bowel obstruction. Labs Labs: Laboratory Results - last 24 hr 11/26/24 11/26/24 11/27/24 17:41 23:05 05:46 WBC 20.0 H 16.6 H RBC 3.63 L 3.14 L Hgb 12.2 L 10.3 L Hct 36.6 L 31.9 L MCV 100.8 H 101.6 H MCH 33.6 32.8 MCHC 33.3 32.3 RDW 13.5 13.4 Plt Count 182 155 MPV 10.6 H 10.8 H Immature Gran % (Auto) 1.6 H 1.7 H Neut % (Auto) 79.4 H 72.9 Lymph % (Auto) 5.3 L 11.0 L [place] % (Auto) 13.2 H 14.2 H Eos % (Auto) 0.2 0.0 Baso % (Auto) 0.3 0.2 Lymph # (Auto) 1.06 1.83 [place] # (Auto) 2.6 H 2.4 H Eos # (Auto) 0.0 0.0 Baso # (Auto) 0.1 0.0 Abs Immat Gran (auto) 0.32 H 0.29 H Absolute Neuts (auto) 15.9 H 12.1 H Absolute Nucleated RBC 0.000 0.000 Nucleated RBC % 0.0 0.0 Sodium 138 137 Potassium 5.2 H 4.6 Chloride 100 103 Carbon Dioxide 25 25 Anion Gap 13 H 9 BUN 22 H 19 Creatinine 1.10 1.09 Estim Creat Clear Calc 56 56 Estimated GFR > 60 > 60 Glucose 224 H 159 H Lactic Acid 1.3 Calcium 10.0 9.4 Phosphorus 3.9 Magnesium 2.1 Total Bilirubin 0.7 AST 25 ALT 16 Alkaline Phosphatase 117 Total Protein 9.0 H Albumin 4.7 Lipase 98 Urine Color Yellow Urine Appearance Clear Urine pH 5.0 Ur Specific [place] > 1.045 H Urine Protein Trace Urine Glucose (UA) 3+ H Urine Ketones Negative Ur Blood (Man) Negative Urine Nitrate Negative Urine Bilirubin Negative Urine Urobilinogen 0.2 Leukocyte Esterase Rfl Negative Urine RBC 0-2 Urine WBC 0-5 Ur Squamous Epith Cells None seen Urine Bacteria None seen Urine Casts 0-2
--- NOTE | 2024-11-27 10:14 | PM.CNGS ---
Assessment and Plan Assessment and plan (1) SBO (small bowel obstruction): Code(s): K56.609 - Unspecified intestinal obstruction, unspecified as to partial versus complete obstruction Status: Acute Assessment and Plan: CT scan showed evidence of a small bowel obstruction with transition point in the mid anterior abdomen. He seems to already be improving some with NG tube decompression. No peritoneal signs on exam. WBC 20,000 on admission and down to 16,000 today. I will order an obstructive series this morning. Continue conservative management with NG tube decompression, bowel rest, and I will order continuous IV fluids. Could consider small bowel follow through depending on how he is progressing over the next day or two. Discussed with the patient that there is a possibility of requiring surgical exploration if this does not resolve with conservative treatment. We will continue to follow with serial abdominal exams and labs/imaging. (2) Controlled type 2 diabetes mellitus with hyperglycemia, without long-term current use of insulin: Code(s): E11.65 - Type 2 diabetes mellitus with hyperglycemia Status: Acute (3) Nonischemic cardiomyopathy: Onset Date: ~2022 Code(s): I42.8 - Other cardiomyopathies Status: Acute (4) Essential (primary) hypertension: Code(s): I10 - Essential (primary) hypertension Status: Acute (5) Leukocytosis: Code(s): D72.829 - Elevated white blood cell count, unspecified Status: Acute Assessment and Plan: WBC 20k on admission and down to 16 today. Could be reactive. No signs of perforation. Lactic acid normal and no peritoneal signs on exam. Will continue IV Zosyn for now. Plan I have discussed the patient's case and plan of care with Dr. Russell. Thank you for allowing us to see the patient in consultation and we will continue to follow along with you. History of Present Illness Consult details Consult date: 11/27/24 Reason for consult: other (Small bowel obstruction) Requesting physician: Johnson Mcneill MD Narrative: This is a 74-year-old man who we have been asked to see in surgical consultation for a small-bowel obstruction. He has had 2 previous hospitalizations in 2020 and 2021 for small-bowel obstructions that were treated conservatively. He has a remote history of an open appendectomy many years ago. Yesterday, he woke up around 4:00 a.m. with lower abdominal pain. His pain progressed throughout the morning and felt similar to his previous bowel obstructions. He called his PCP, who recommended he go to the ED for evaluation. In the ED, he was mildly tachycardic with a heart rate in the low 100s. Otherwise, vital signs were stable. [place] [address]. Lactic acid 1.3. CT scan of the abdomen and pelvis showed a small-bowel obstruction with transition point in the mid anterior abdomen. He had an NG tube placed. He received 1 dose of IV Zosyn in the ED, as well as IV fluids. He has been admitted to the medical floor. He reports passing little flatus this morning. Last bowel movement, was yesterday morning and reportedly normal. No recent diarrhea, nausea, or vomiting. Review of Systems Review of Systems: All systems reviewed & are unremarkable except as noted in HPI and below PMFSH Past Medical History Medical History BMI 24.0-24.9, adult Dyspepsia and disorder of function of stomach (~08/07/24) Syncope and collapse Carotid Doppler study normal on 08/01/2024. MRI of the brain and brainstem on 08/15/2024 was normal with normal aging. MRI of the lumbar spine revealed severe degenerative disc disease and facet arthropathy. BMI 25.0-25.9,adult At high risk for falls Chronic low back pain with left-sided sciatica Generalized weakness (~06/2024) Frequent falls (~06/2024) Controlled type 2 diabetes mellitus with hyperglycemia, without long-term current use of insulin Hemoglobin A1c 7.6 on 12/08/2021. Glucose 182 with hemoglobin A1c 7.3 on 07/06/2022. glucose 183 with hemoglobin A1c 8.5 on 01/10/2023. Glucose 130 with hemoglobin A1c 7.5 on 07/29/2023 with microalbumin ratio of 99. Glucose 223 with hemoglobin A1c 8.3 on 01/02/2024. fasting glucose 237 with hemoglobin A1c 10.1 on 06/14/2024. Fasting blood was 182 on 08/09/2024. Glucose 179 With microalbumin ratio of 88.7 on 09/06/2024. Hearing loss, left (~05/06/24) Nonischemic cardiomyopathy (~2022) nuclear stress test 11/15/2023 with moderate to severe left ventricular systolic dysfunction with ejection fraction 35% with no S PO scan or EKG. Cardiac catheterization 12/11/2023 with no significant coronary artery disease. Bacteremia due to Staphylococcus aureus ESR 42 on 11/06/2023. WBC 2.6 on 11/06/2023. Lung infiltrate Pyelonephritis Sepsis Dyspnea on exertion No significant coronary artery disease on catheterization on 12/11/2023. BMI 27.0-27.9,adult Encounter for prostate cancer screening PSA 0.42 on 07/29/2023. PSA 0.5 on 09/06/2024. Left elbow pain (~07/2022) X-ray on 11/07/2022 revealed no evidence of fracture with soft tissue swelling over the olecranon process. COVID-19 (09/23/22) Tested positive 09/28/2022. Candidiasis (~09/28/22) At moderate risk for fall (~07/18/22) Microalbuminuria due to type 2 diabetes mellitus (07/06/22) microalbumin ratio of 35 on 07/06/2022. Microalbumin ratio of 99 on 07/29/2023. Microalbumin ratio of 88.7 on 09/06/2024. Aphthous ulcer of mouth (~04/22/22) Overweight (BMI 25.0-29.9) BMI 26.0-26.9,adult Chronic anemia Small bowel obstruction (~03/19/22) Recurrent and resolved in-hospital 03/23/2022. Leukocytosis WBC 8.7 on 12/08/2021 LUIS DANIEL (acute kidney injury) Diabetic eye exam No retinopathy on 03/18/2021. No retinopathy on 11/09/2022. Acute bilateral low back pain with left-sided sciatica Seasonal allergic rhinitis Arthritis BPH without obstruction/lower urinary tract symptoms Chronic bilateral low back pain X-ray of the lumbar spine on 07/26/2024 revealed degenerative disc disease and facet arthropathy at multiple levels with scoliosis of the lumbar spine. MRI of the lumbar spine on 08/15/2024 reveals severe degenerative disc disease with central canal stenosis and facet arthropathy with neural foraminal narrowing multiple levels. Diabetic peripheral neuropathy associated with type 2 diabetes mellitus Essential (primary) hypertension Insomnia Mixed hyperlipidemia Cholesterol 135, triglycerides 129, HDL 42, LDL 72 on 01/10/2023. cholesterol 139, triglycerides 108, HDL 46, LDL 74 with ratio 2.5 on 07/29/2023. Cholesterol 92, triglycerides 90, HDL 40, LDL 35 with ratio of 2.3 on 01/02/2024. Cholesterol 91, triglycerides 133, HDL 30, LDL less than 30 on 09/06/2024. APARNA on CPAP Type 2 diabetes mellitus without complication, without long-term current use of insulin Hemoglobin A1c 7.6 on 12/08/2021. Glucose 182 with hemoglobin A1c 7.3 on 07/06/2022. glucose 183 with hemoglobin A1c 8.5 on 01/10/2023. Glucose 130 with hemoglobin A1c 7.5 on 07/29/2023 with microalbumin ratio of 99. Glucose 223 with hemoglobin A1c 8.3 on 01/02/2024. Surgical History Surgical History History of colonoscopy History of tonsillectomy and adenoidectomy History of appendectomy Family History Family History Grandparent Cerebrovascular accident, Onset Age: 78 Father Family history of Alzheimer's disease, Onset Age: 79 Mother Family history of Alzheimer's disease, Onset Age: 85 Social History Social History Social History: Surrogate decision-maker: Malena Delong, spouse. CODE STATUS: Full code Smoking status: Never smoker Second hand tobacco smoke exposure: Yes Alcohol intake: former Substance use: never Substance use type: does not use Do You Feel Safe in your Home?: Yes Lack of Transportation: No Lack of Food: Never True Current Housing: I Have Housing Concerned About Future Housing: No Difficulty Paying Gas/Electric Bills: No Difficulty Paying for Meds: No Currently Unemployed: No Education: Bachelor's Degree Difficulty w/ Childcare or Family Care: No Living arrangements: with family Additional living arrangements comments: Lives at home with his . They have 4 children. They have 7 horses Additional occupation/education comments: Retired from the [employer]. Spiritual care concerns: No Meds Home Medications and Allergies Home Medications ?Medication ?Instructions ?Recorded ?Confirmed ?Type aspirin 81 mg tablet,delayed 81 mg PO DAILY 09/11/19 11/26/24 History release (Adult Low Dose Aspirin) multivitamin,qm-nscq-kesndvsd 1 tablet PO DAILY 09/11/19 11/26/24 History (Complete Multivitamin tablet) fluticasone propionate 50 1 spray intranasal BID #16 grams 01/17/23 11/26/24 Rx mcg/actuation nasal spray,suspension (Flonase Allergy Relief) atorvastatin 20 mg tablet 20 mg PO QHS 10/19/23 11/26/24 History dutasteride 0.5 mg capsule 0.5 mg PO DAILY #90 caps 12/08/23 11/26/24 Rx magnesium 500 mg tablet 500 mg PO DAILY 12/08/23 11/26/24 History vitamin B complex (B 1 tablet PO DAILY 12/08/23 11/26/24 History Complex-Vitamin B12 tablet) metformin 500 mg tablet,extended 2,000 mg (4 x 500 mg) PO DAILY 01/15/24 11/26/24 Rx release 24 hr #360 tabs carvedilol 6.25 mg tablet 6.25 mg PO Q12H 02/06/24 11/26/24 History sacubitril 49 mg-valsartan 51 mg 1 tablet PO BID 02/06/24 11/26/24 History tablet (Entresto) empagliflozin 25 mg tablet 25 mg PO QAM #90 tabs 02/16/24 11/26/24 Rx (Jardiance) tamsulosin 0.4 mg capsule (Flomax) 0.4 mg PO DAILY #90 caps 02/29/24 11/26/24 Rx duloxetine 60 mg capsule,delayed 60 mg PO BID #180 caps 04/24/24 11/26/24 Rx release (Cymbalta) omeprazole magnesium 20 mg 20 mg PO DAILY 08/07/24 11/26/24 History tablet,delayed release (Prilosec OTC) Allergies Allergy/AdvReac Type Severity Reaction Status Date / Time No Known Allergies AdvReac Unknown Verified 08/01/24 15:20 Vital Signs Vital Signs - 24 hr 11/26/24 14:11 11/26/24 18:10 11/26/24 20:09 Temperature 97.5 F L 97.6 F Pulse Rate 99 107 H 110 H Respiratory Rate 18 18 22 H Blood Pressure 113/75 109/72 120/71 Pulse Oximetry 99 99 95 Oxygen Delivery 11/26/24 20:19 11/26/24 20:39 11/26/24 21:00 Temperature Pulse Rate 108 H Respiratory Rate 19 Blood Pressure 112/80 Pulse Oximetry 92 94 Oxygen Delivery Room Air Room Air 11/26/24 21:05 11/26/24 22:22 11/27/24 00:00 Temperature 99.0 F Pulse Rate 99 104 H 109 H Respiratory Rate 16 Blood Pressure 133/64 Pulse Oximetry 92 Oxygen Delivery 11/27/24 03:41 11/27/24 04:00 Temperature 98.8 F Pulse Rate 110 H 107 H Respiratory Rate 20 Blood Pressure 134/66 Pulse Oximetry 92 Oxygen Delivery Exam Const: General: comfortable and no acute distress Nutritional Appearance: average body habitus Orientation/consciousness: patient oriented x3 HENMT: Head: normocephalic and atraumatic Ears: hearing grossly normal bilaterally Mouth: Yes moist mucous membranes Eyes: General: appearance normal, both eyes and all related structures Pupils: Equal, round and reactive pupils present Neck: Neck: normal visual inspection and full ROM Resp: Effort & Inspection: no respiratory distress Auscultation: clear to auscultation bilaterally Cardio: Rate: regular rate Rhythm: regular rhythm Peripheral pulses: Peripheral pulses 2+ throughout GI: Inspection: scar (Vertical right lower quadrant scar), no visible herniation (No hernia, but diastasis recti noted) and other (Mildly distended) GI Palp: Yes Soft to palpation, Yes Tenderness to palpation present (GI) (Mild periumbilical and mid upper abdominal tenderness), No Guarding due to palpation present (GI), Yes No hepatosplenomegaly present and No Rebound tenderness present Skin: General skin exam: normal color Neuro: General: moves all extremities and no focal motor deficits Speech: normal speech Motor exam (neuro): 5/5 motor strength present throughout Extrem: General: normal to inspection and no edema Psych: Mental Status: mental status grossly normal Attitude: cooperative Insight: Good insight present (Psych) Judgement: Good judgement present (Psych) Results Labs 11/27/24 05:46 11/27/24 05:46 Labs: Abnormal lab results 11/26/24 11/26/24 11/27/24 Range/Units 17:41 23:05 05:46 WBC 20.0 H 16.6 H (4.5-10.0) K/mm3 RBC 3.63 L 3.14 L (4.6-6.20) M/mm3 Hgb 12.2 L 10.3 L (14.0-18.0) g/dL Hct 36.6 L 31.9 L (42.0-52.0) % MCV 100.8 H 101.6 H (80-100) fl MPV 10.6 H 10.8 H (7.4-10.4) fl Immature Gran % (Auto) 1.6 H 1.7 H (0-0.5) % Neut % (Auto) 79.4 H (45.5-73.1) % Lymph % (Auto) 5.3 L 11.0 L (18.3-44.2) % [place] % (Auto) 13.2 H 14.2 H (2.6-8.5) % [place] # (Auto) 2.6 H 2.4 H (0.1-0.6) K/mm3 Abs Immat Gran (auto) 0.32 H 0.29 H (0.00-0.031) K/mm3 Absolute Neuts (auto) 15.9 H 12.1 H (1.3-6.7) K/mm3 Potassium 5.2 H (3.4-5.0) mmol/L Anion Gap 13 H (4-12) mmol/L BUN 22 H (9-20) mg/dL Glucose 224 H 159 H (65-110) mg/dL Total Protein 9.0 H (6.3-8.2) g/dL Ur Specific [place] > 1.045 H (1.001-1.035) Urine Glucose (UA) 3+ H (Negative) mg/dL Diabetes panel 11/26/24 11/27/24 Range/Units 17:41 05:46 Sodium 138 137 (137-145) mmol/L Potassium 5.2 H 4.6 (3.4-5.0) mmol/L Chloride 100 103 (98-107) mmol/L Carbon Dioxide 25 25 (22-30) mmol/L BUN 22 H 19 (9-20) mg/dL Creatinine 1.10 1.09 (0.7-1.3) mg/dL Glucose 224 H 159 H (65-110) mg/dL Calcium 10.0 9.4 (8.4-10.2) mg/dL AST 25 (17-59) U/L ALT 16 (6-50) U/L Alkaline Phosphatase 117 (38-126) U/L Total Protein 9.0 H (6.3-8.2) g/dL Albumin 4.7 (3.5-5.1) g/dL Calcium panel 11/26/24 11/27/24 Range/Units 17:41 05:46 Calcium 10.0 9.4 (8.4-10.2) mg/dL Phosphorus 3.9 (2.5-4.5) mg/dL Albumin 4.7 (3.5-5.1) g/dL Pituitary panel 11/26/24 11/27/24 Range/Units 17:41 05:46 Sodium 138 137 (137-145) mmol/L Potassium 5.2 H 4.6 (3.4-5.0) mmol/L Chloride 100 103 (98-107) mmol/L Carbon Dioxide 25 25 (22-30) mmol/L BUN 22 H 19 (9-20) mg/dL Creatinine 1.10 1.09 (0.7-1.3) mg/dL Glucose 224 H 159 H (65-110) mg/dL Calcium 10.0 9.4 (8.4-10.2) mg/dL Adrenal panel 11/26/24 11/27/24 Range/Units 17:41 05:46 Sodium 138 137 (137-145) mmol/L Potassium 5.2 H 4.6 (3.4-5.0) mmol/L Chloride 100 103 (98-107) mmol/L Carbon Dioxide 25 25 (22-30) mmol/L BUN 22 H 19 (9-20) mg/dL Creatinine 1.10 1.09 (0.7-1.3) mg/dL Glucose 224 H 159 H (65-110) mg/dL Calcium 10.0 9.4 (8.4-10.2) mg/dL Total Bilirubin 0.7 (0.2-1.3) mg/dL AST 25 (17-59) U/L ALT 16 (6-50) U/L Alkaline Phosphatase 117 (38-126) U/L Total Protein 9.0 H (6.3-8.2) g/dL Albumin 4.7 (3.5-5.1) g/dL All other labs normal. Imaging Additional studies: ITS Impressions Abdomen/Pelvis CT 11/26/24 18:58 IMPRESSION: 1. Small bowel obstruction with transition point in the anterior mid abdomen. Abdomen X-Ray 11/26/24 20:09 IMPRESSION: 1. Nasogastric tube tip in the stomach. 2. Small bowel obstruction.
[2024-11-27] MEDS: PIPERACILLN/TAZ 3.375GM/NS50ML 3.375 GM/50 ML BAG IVPB ×3 (11:35→23:20)
[2024-11-27] MEDS: SODIUM CHLORIDE 0.9% IV 1,000 ML 100 ML IV CONT (11:35)
[2024-11-27] MEDS: BISACODYL 10 MG SUPPOSITORY RECTAL (14:30)
[2024-11-28] VITALS (11 sets, daily range): BP systolic 140–150; BP diastolic 77–80; PULSE 72–123; RESP 16–20; TEMP 36.4–36.6; O2SAT 94–98
[2024-11-28] MEDS: SODIUM CHLORIDE 0.9% IV 1,000 ML 100 ML IV CONT ×2 (04:16→20:11)
[2024-11-28] MEDS: PIPERACILLN/TAZ 3.375GM/NS50ML 3.375 GM/50 ML BAG IVPB ×4 (05:32→23:29)
[2024-11-28 06:20] LABS: Hematocrit 32.8 % (42.0-52.0); Hemoglobin 10.4 g/dL (14.0-18.0); Mean Corpuscular HGB Conc 31.7 g/dl (32-36); Mean Corpuscular Hemoglobin 32.8 pg (26-34); Mean Corpuscular Volume 103.5 fl (80-100); Mean Platelet Volume 10.8 fl (7.4-10.4); Platelet Count Result 163 k/mm3 (150-375); Red Blood Count 3.17 M/mm3 (4.6-6.20); Red Cell Distribution Width 13.6 % (11.5-14.5); White Blood Count 12.9 K/mm3 (4.5-10.0)
[2024-11-28 06:40] LABS: Anion Gap 13 mmol/L (4-12); Blood Urea Nitrogen 18 mg/dL (9-20); Carbon Dioxide 23 mmol/L (22-30); Chloride 105 mmol/L (98-107); Estimated CRCL calculation 60 ml/min; Estimated Glomerular Filt Rate > 60; Glucose 98 mg/dL (65-110); Potassium 4.2 mmol/L (3.4-5.0); Sodium 141 mmol/L (137-145)
--- NOTE | 2024-11-28 08:59 | P.PNIM_ITS ---
Progress Note: A&P Assessment and Plan (1) SBO (small bowel obstruction): Code(s): K56.609 - Unspecified intestinal obstruction, unspecified as to partial versus complete obstruction Status: Acute Assessment and Plan: Admit to regular medical floor NG in to low intermittent suction NPO IV fluids Supportive care passing gas, denies nausea, pain NG output about 1700 surgery note reviewed: * Obstructive series yesterday showed high grade SBO. He has started showing signs of bowel function overnight and seems to be clinically improving, but still has high NG output. * Continue NG, bowel rest, and IV fluids * Repeat KUB, consider SBFT if plain films improved (2) Nonischemic cardiomyopathy: Onset Date: ~2022 Code(s): I42.8 - Other cardiomyopathies Status: Acute Assessment and Plan: Appears stable Euvolemic Daily intake and output (3) Mixed hyperlipidemia: Code(s): E78.2 - Mixed hyperlipidemia Status: Chronic (4) Controlled type 2 diabetes mellitus with hyperglycemia, without long-term current use of insulin: Code(s): E11.65 - Type 2 diabetes mellitus with hyperglycemia Status: Acute Assessment and Plan: Currently NPO Accu-Cheks q.6 (5) BPH without obstruction/lower urinary tract symptoms: Code(s): N40.0 - Benign prostatic hyperplasia without lower urinary tract symptoms Status: Chronic (6) APARNA on CPAP: Code(s): G47.33 - Obstructive sleep apnea (adult) (pediatric); Z99.89 - Dependence on other enabling machines and devices Status: Chronic Time Spent With Patient Time with patient: 25 - 35 minutes Subjective Date/time seen: 11/28/24 08:59 Interval history: Abd pain 74-year-old male with PMH/o cardiomyopathy, congestive heart failure, type 2 diabetes mellitus, chronic kidney disease, chronic back pain, hypertension, obstructive sleep apnea on CPAP. Pt admitted from ED for epigastric abdominal pain that walking up from his sleep. Patient has had this problem before where he was found to have a small-bowel obstruction. Preliminary workup was significant for CT of abdomen and pelvis for small-bowel obstruction. Patient has been admitted for further evaluation management and treatment. IMPRESSION: 1. Nasogastric tube tip in the stomach. 2. Small bowel obstruction. Gen surgery consulted. PT is NPO, IV fluids WBC 20.0->16.6 (today) HGB/HCT 10.3/31.9 K 5.2-.4,6 (today) BUN/CR 19/1.09 Pt is seen and examined. He is comfortable, NG in place. no nausea 11/28- still have high ng output. surgery is following Exam Narrative: Patient is sitting in bed, NG in place to low intermittent suction Const: General: comfortable, no acute distress, well developed, alert, awake and average body habitus Nutritional Appearance: average body habitus Orientation/consciousness: patient oriented x3 Other: Appears comfortable HENMT: Head: normal to inspection, normocephalic and atraumatic Ears: hearing grossly normal bilaterally Face/Nose/Sinus: normal facial exam Face and sinus: normal facial exam Eyes: General: appearance normal, both eyes and all related structures Pupils: Equal, round and reactive pupils present EOM: EOMs intact bilaterally Neck: Neck: full ROM, no lymphadenopathy and no JVD Thyroid: thyroid normal Lymphatic: no lymphadenopathy noted Resp: Effort & Inspection: normal respiratory effort and able to speak in complete sentences Auscultation: clear to auscultation bilaterally Cardio: Jugular venous distension: no JVD Rate: regular rate Rhythm: regular rhythm Heart sounds: S1 normal heart sound present and S2 normal heart sound present GI: Inspection: distended and no visible herniation Auscultation: absent bowel sounds : General: Yes deferred Skin: Rashes: no rashes Wounds: no wounds Neuro: General: patient oriented x3, CN's II-XI intact bilaterally and Unable to assess gait Cranial nerves: Yes CN's II-XII intact bilaterally and Yes Equal, round and reactive pupils present Cognition (Neuro): normal cognition Speech: normal speech Gait exam (Neuro): Unable to assess gait Motor exam (neuro): 5/5 motor strength present throughout Extrem: General: normal to inspection, full ROM, no joint enlargement and no pedal edema Objective Data Vital Signs Vital Signs: Vital Signs - 24 hr 11/27/24 12:00 11/27/24 14:00 11/27/24 16:00 Temperature 98.7 F Pulse Rate 99 108 H 92 Respiratory Rate 19 Blood Pressure 132/62 Pulse Oximetry 92 Oxygen Delivery 11/27/24 20:00 11/27/24 21:00 11/27/24 21:01 Temperature 98.5 F Pulse Rate 101 H 102 H Respiratory Rate 20 Blood Pressure 140/66 Pulse Oximetry 99 Oxygen Delivery Room Air 11/28/24 00:00 11/28/24 04:00 11/28/24 05:41 Temperature 97.9 F Pulse Rate 95 100 91 Respiratory Rate 20 Blood Pressure 144/80 H Pulse Oximetry 94 Oxygen Delivery 11/28/24 08:03 11/28/24 08:43 11/28/24 08:43 Temperature Pulse Rate 92 91 Respiratory Rate 20 Blood Pressure Pulse Oximetry 94 Oxygen Delivery Room Air Intake/Output Intake/Output: Intake & Output 11/25/24 11/26/24 11/27/24 11/28/24 23:59 23:59 23:59 23:59 Intake Total 100 1150 290 Output Total 2595 1425 Balance 100 -6205 -1135 Meds/Results Medications: Active Medications Generic Name Dose Route Start Last Admin Trade Name Freq PRN Reason Stop Dose Admin Acetaminophen 650 mg 11/26/24 19:34 Acetaminophen 325 Mg Tablet PO Q4H PRN Mild Pain (1-3) or Fever Sodium Chloride 1,000 mls @ 100 mls/hr 11/27/24 10:20 11/28/24 04:16 Normal Saline Iv IV CONT 100 mls/hr .Q10H SPENCER Administration Piperacillin/Tazobactam/Dextrose 3.375 gm in 50 mls @ 100 mls/hr 11/27/24 11:00 11/28/24 06:02 Zosyn 3.375 Gm/Ns 50 Ml IVPB Infused Q6HR SPENCER Infusion Morphine Sulfate 2 mg 11/26/24 19:34 Morphine Sulfate (*Crx) 2 Mg/Ml Inj IV PUSH Q2H PRN Pain Rated 7-10 Ondansetron HCl 4 mg 11/26/24 19:34 Ondansetron Inj 4 Mg/2 Ml Vial IV PUSH Q4H PRN Nausea Radiology Results: ITS Impressions Abdomen/Pelvis CT 11/26/24 18:58 IMPRESSION: 1. Small bowel obstruction with transition point in the anterior mid abdomen. Abdomen X-Ray 11/27/24 11:17 IMPRESSION: High-grade small bowel obstruction, as detailed above. Labs Labs: Laboratory Results - last 24 hr 11/28/24 05:23 WBC 12.9 H RBC 3.17 L Hgb 10.4 L Hct 32.8 L MCV 103.5 H MCH 32.8 MCHC 31.7 L RDW 13.6 Plt Count 163 MPV 10.8 H Sodium 141 Potassium 4.2 Chloride 105 Carbon Dioxide 23 Anion Gap 13 H BUN 18 Creatinine 1.02 Estim Creat Clear Calc 60 Estimated GFR > 60 Glucose 98 Calcium 9.0
--- NOTE | 2024-11-28 09:49 | P.PNGS_ITS ---
Progress Note: A&P Assessment and Plan (1) SBO (small bowel obstruction): Code(s): K56.609 - Unspecified intestinal obstruction, unspecified as to partial versus complete obstruction Status: Acute Assessment and Plan: * Obstructive series yesterday showed high grade SBO. He has started showing signs of bowel function overnight and seems to be clinically improving, but still has high NG output. * Continue NG, bowel rest, and IV fluids * Repeat KUB, consider SBFT if plain films improved (2) Controlled type 2 diabetes mellitus with hyperglycemia, without long-term current use of insulin: Code(s): E11.65 - Type 2 diabetes mellitus with hyperglycemia Status: Acute (3) Nonischemic cardiomyopathy: Onset Date: ~2022 Code(s): I42.8 - Other cardiomyopathies Status: Acute (4) Leukocytosis: Code(s): D72.829 - Elevated white blood cell count, unspecified Status: Acute Assessment and Plan: * WBC trending down to 12k, trend labs Plan I have discussed the patient's case and plan of care with Dr. Russell. Subjective Subjective Date/Time Seen: 11/28/24 09:49 Patient reports: no new complaints, feels better, pain is less, flatus and bowel movement (last night) Interval history: Patient feeling better today. He passed a lot of flatus yesterday and had a BM last night. He denies any abdominal pain today. Still high NG output with 1700 out over the last 24 hours. Exam Const: General: comfortable and no acute distress Orientation/consciousness: patient oriented x3 GI: Inspection: other (less distended) GI Palp: Yes Soft to palpation, Yes Tenderness to palpation present (GI) (periumbilical, LUQ, LLQ), No Guarding due to palpation present (GI) and No Rebound tenderness present Auscultation: Hypoactive bowel sounds present Objective Data Vital Signs Vital Signs: Vital Signs - 24 hr 11/27/24 12:00 11/27/24 14:00 11/27/24 16:00 Temperature 98.7 F Pulse Rate 99 108 H 92 Respiratory Rate 19 Blood Pressure 132/62 Pulse Oximetry 92 Oxygen Delivery 11/27/24 20:00 11/27/24 21:00 11/27/24 21:01 Temperature 98.5 F Pulse Rate 101 H 102 H Respiratory Rate 20 Blood Pressure 140/66 Pulse Oximetry 99 Oxygen Delivery Room Air 11/28/24 00:00 11/28/24 04:00 11/28/24 05:41 Temperature 97.9 F Pulse Rate 95 100 91 Respiratory Rate 20 Blood Pressure 144/80 H Pulse Oximetry 94 Oxygen Delivery 11/28/24 08:03 11/28/24 08:43 11/28/24 08:43 Temperature Pulse Rate 92 91 Respiratory Rate 20 Blood Pressure Pulse Oximetry 94 Oxygen Delivery Room Air Intake/Output Intake/Output: Intake & Output 11/25/24 11/26/24 11/27/24 11/28/24 23:59 23:59 23:59 23:59 Intake Total 100 1150 290 Output Total 2595 1425 Balance 100 1445 -1135 Meds/Results Medications: Active Medications Generic Name Dose Route Start Last Admin Trade Name Freq PRN Reason Stop Dose Admin Acetaminophen 650 mg 11/26/24 19:34 Acetaminophen 325 Mg Tablet PO Q4H PRN Mild Pain (1-3) or Fever Sodium Chloride 1,000 mls @ 100 mls/hr 11/27/24 10:20 11/28/24 04:16 Normal Saline Iv IV CONT 100 mls/hr .Q10H SPENCER Administration Piperacillin/Tazobactam/Dextrose 3.375 gm in 50 mls @ 100 mls/hr 11/27/24 11:00 11/28/24 06:02 Zosyn 3.375 Gm/Ns 50 Ml IVPB Infused Q6HR SPENCER Infusion Morphine Sulfate 2 mg 11/26/24 19:34 Morphine Sulfate (*Crx) 2 Mg/Ml Inj IV PUSH Q2H PRN Pain Rated 7-10 Ondansetron HCl 4 mg 11/26/24 19:34 Ondansetron Inj 4 Mg/2 Ml Vial IV PUSH Q4H PRN Nausea Radiology Results: ITS Impressions Abdomen/Pelvis CT 11/26/24 18:58 IMPRESSION: 1. Small bowel obstruction with transition point in the anterior mid abdomen. Abdomen X-Ray 11/27/24 11:17 IMPRESSION: High-grade small bowel obstruction, as detailed above. Labs Labs: Laboratory Results - last 24 hr 11/28/24 05:23 WBC 12.9 H RBC 3.17 L Hgb 10.4 L Hct 32.8 L MCV 103.5 H MCH 32.8 MCHC 31.7 L RDW 13.6 Plt Count 163 MPV 10.8 H Sodium 141 Potassium 4.2 Chloride 105 Carbon Dioxide 23 Anion Gap 13 H BUN 18 Creatinine 1.02 Estim Creat Clear Calc 60 Estimated GFR > 60 Glucose 98 Calcium 9.0
[2024-11-28] MEDS: PANTOPRAZOLE SODIUM IV 40 MG VIAL IV PUSH (20:15)
[2024-11-29] VITALS (8 sets, daily range): BP systolic 148–177; BP diastolic 70–96; PULSE 65–91; RESP 14–20; TEMP 36.1–36.4; O2SAT 90–100
[2024-11-29] MEDS: PIPERACILLN/TAZ 3.375GM/NS50ML 3.375 GM/50 ML BAG IVPB ×3 (05:59→18:21)
[2024-11-29] MEDS: PANTOPRAZOLE SODIUM IV 40 MG VIAL IV PUSH ×2 (08:24→20:51)
--- NOTE | 2024-11-29 11:12 | P.PNIM_ITS ---
Progress Note: A&P Assessment and Plan (1) SBO (small bowel obstruction): Code(s): K56.609 - Unspecified intestinal obstruction, unspecified as to partial versus complete obstruction Status: Acute Assessment and Plan: Admit to regular medical floor NG in to low intermittent suction NPO IV fluids Supportive care passing gas, denies nausea, pain NG output about 1700 surgery note reviewed: * Obstructive series yesterday showed high grade SBO. He has started showing signs of bowel function overnight and seems to be clinically improving, but still has high NG output. * Continue NG, bowel rest, and IV fluids * Repeat KUB, consider SBFT if plain films improved (2) Nonischemic cardiomyopathy: Onset Date: ~2022 Code(s): I42.8 - Other cardiomyopathies Status: Acute Assessment and Plan: Appears stable Euvolemic Daily intake and output (3) Mixed hyperlipidemia: Code(s): E78.2 - Mixed hyperlipidemia Status: Chronic (4) Controlled type 2 diabetes mellitus with hyperglycemia, without long-term current use of insulin: Code(s): E11.65 - Type 2 diabetes mellitus with hyperglycemia Status: Acute Assessment and Plan: Currently NPO Accu-Cheks q.6 (5) BPH without obstruction/lower urinary tract symptoms: Code(s): N40.0 - Benign prostatic hyperplasia without lower urinary tract symptoms Status: Chronic (6) APARNA on CPAP: Code(s): G47.33 - Obstructive sleep apnea (adult) (pediatric); Z99.89 - Dependence on other enabling machines and devices Status: Chronic Subjective Date/time seen: 11/29/24 11:12 Interval history: Abd pain 74-year-old male with PMH/o cardiomyopathy, congestive heart failure, type 2 diabetes mellitus, chronic kidney disease, chronic back pain, hypertension, obstructive sleep apnea on CPAP. Pt admitted from ED for epigastric abdominal pain that walking up from his sleep. Patient has had this problem before where he was found to have a small-bowel obstruction. Preliminary workup was significant for CT of abdomen and pelvis for small-bowel obstruction. Patient has been admitted for further evaluation management and treatment. IMPRESSION: 1. Nasogastric tube tip in the stomach. 2. Small bowel obstruction. Gen surgery consulted. PT is NPO, IV fluids WBC 20.0->16.6 (today) HGB/HCT 10.3/31.9 K 5.2-.4,6 (today) BUN/CR 19/1.09 Pt is seen and examined. He is comfortable, NG in place. no nausea 11/28- still have high ng output. surgery is following 11.29 doing well. NG d/andrew yesterday, diet is advanced - no nausea. anticipate discharge in the next couple of days of stable Exam Const: General: comfortable, no acute distress, well developed, alert, awake and average body habitus Nutritional Appearance: average body habitus Orientation/consciousness: patient oriented x3 Other: Appears comfortable HENMT: Head: normal to inspection, normocephalic and atraumatic Ears: hearing grossly normal bilaterally Face/Nose/Sinus: normal facial exam Face and sinus: normal facial exam Eyes: General: appearance normal, both eyes and all related structures Pupils: Equal, round and reactive pupils present EOM: EOMs intact bilaterally Neck: Neck: full ROM, no lymphadenopathy and no JVD Thyroid: thyroid normal Lymphatic: no lymphadenopathy noted Resp: Effort & Inspection: normal respiratory effort and able to speak in complete sentences Auscultation: clear to auscultation bilaterally Cardio: Jugular venous distension: no JVD Rate: regular rate Rhythm: regular rhythm Heart sounds: S1 normal heart sound present and S2 normal heart sound present GI: Inspection: no visible herniation Auscultation: normal bowel sounds : General: Yes deferred Skin: Rashes: no rashes Wounds: no wounds Neuro: General: patient oriented x3, CN's II-XI intact bilaterally and Unable to assess gait Cranial nerves: Yes CN's II-XII intact bilaterally and Yes Equal, round and reactive pupils present Cognition (Neuro): normal cognition Speech: normal speech Gait exam (Neuro): Unable to assess gait Motor exam (neuro): 5/5 motor strength present throughout Extrem: General: normal to inspection, full ROM, no joint enlargement and no pedal edema Objective Data Vital Signs Vital Signs: Vital Signs - 24 hr 11/28/24 12:01 11/28/24 14:00 11/28/24 16:03 Temperature 97.5 F L Pulse Rate 89 86 123 H Respiratory Rate 16 Blood Pressure 140/77 Pulse Oximetry 97 Oxygen Delivery 11/28/24 20:00 11/28/24 20:10 11/28/24 21:54 Temperature 97.6 F Pulse Rate 94 96 Respiratory Rate 18 Blood Pressure 150/77 H Pulse Oximetry 98 Oxygen Delivery Room Air 11/28/24 23:25 11/29/24 00:00 11/29/24 04:00 Temperature Pulse Rate 72 65 83 Respiratory Rate 16 Blood Pressure Pulse Oximetry 96 Oxygen Delivery Autopap 11/29/24 06:00 Temperature 97.2 F L Pulse Rate 86 Respiratory Rate 20 Blood Pressure 148/70 H Pulse Oximetry 90 Oxygen Delivery Intake/Output Intake/Output: Intake & Output 11/26/24 11/27/24 11/28/24 11/29/24 23:59 23:59 23:59 23:59 Intake Total 100 1150 2220.0 1240 Output Total 2595 2675 Balance 100 -1445 -455.0 1240 Meds/Results Medications: Active Medications Generic Name Dose Route Start Last Admin Trade Name Freq PRN Reason Stop Dose Admin Acetaminophen 650 mg 11/26/24 19:34 Acetaminophen 325 Mg Tablet PO Q4H PRN Mild Pain (1-3) or Fever Sodium Chloride 1,000 mls @ 100 mls/hr 11/27/24 10:20 11/28/24 23:28 Normal Saline Iv IV CONT Not Given .Q10H SPENCER Piperacillin/Tazobactam/Dextrose 3.375 gm in 50 mls @ 100 mls/hr 11/27/24 11:00 11/29/24 06:29 Zosyn 3.375 Gm/Ns 50 Ml IVPB Infused Q6HR SPENCER Infusion Morphine Sulfate 2 mg 11/26/24 19:34 Morphine Sulfate (*Crx) 2 Mg/Ml Inj IV PUSH Q2H PRN Pain Rated 7-10 Ondansetron HCl 4 mg 11/26/24 19:34 Ondansetron Inj 4 Mg/2 Ml Vial IV PUSH Q4H PRN Nausea Pantoprazole Sodium 40 mg 11/28/24 21:00 11/29/24 08:24 Pantoprazole Sodium Iv 40 Mg Vial IV PUSH 40 mg Q12HR SPENCER Administration Radiology Results: ITS Impressions Abdomen/Pelvis CT 11/26/24 18:58 IMPRESSION: 1. Small bowel obstruction with transition point in the anterior mid abdomen. Abdomen X-Ray 11/28/24 10:13 IMPRESSION: 1. Persistently dilated small bowel, consistent with small bowel obstruction. Small Bowel X-Ray 11/28/24 15:01 IMPRESSION: Resolution of small bowel obstruction, as detailed above.
[2024-11-29] MEDS: SODIUM CHLORIDE 0.9% IV 1,000 ML 100 ML IV CONT (11:34)
--- NOTE | 2024-11-29 12:31 | P.PNGS_ITS ---
Progress Note: A&P Assessment and Plan (1) SBO (small bowel obstruction): Code(s): K56.609 - Unspecified intestinal obstruction, unspecified as to partial versus complete obstruction Status: Acute Assessment and Plan: * SBFT showed resolved obstruction, tolerating clears * Advance to full liquids * Possibly home in next 1-2 days if able to tolerate solid diet (2) Controlled type 2 diabetes mellitus with hyperglycemia, without long-term current use of insulin: Code(s): E11.65 - Type 2 diabetes mellitus with hyperglycemia Status: Acute (3) Nonischemic cardiomyopathy: Onset Date: ~2022 Code(s): I42.8 - Other cardiomyopathies Status: Acute (4) Leukocytosis: Code(s): D72.829 - Elevated white blood cell count, unspecified Status: Acute Assessment and Plan: * WBC trending down to 12k, trend labs Subjective Subjective Date/Time Seen: 11/29/24 12:31 Interval history: Bowels moving. Tolerating clears. Slight residual tenderness but no nausea or vomiting. Exam Const: General: comfortable and no acute distress Orientation/consciousness: patient oriented x3 GI: Inspection: other (less distended) GI Palp: Yes Soft to palpation, Yes Tenderness to palpation present (GI) (periumbilical, LUQ, LLQ), No Guarding due to palpation present (GI) and No Rebound tenderness present Auscultation: Hypoactive bowel sounds present Objective Data Vital Signs Vital Signs: Vital Signs - 24 hr 11/28/24 14:00 11/28/24 16:03 11/28/24 20:00 Temperature 97.5 F L Pulse Rate 86 123 H 94 Respiratory Rate 16 Blood Pressure 140/77 Pulse Oximetry 97 Oxygen Delivery 11/28/24 20:10 11/28/24 21:54 11/28/24 23:25 Temperature 97.6 F Pulse Rate 96 72 Respiratory Rate 18 16 Blood Pressure 150/77 H Pulse Oximetry 98 96 Oxygen Delivery Room Air Autopap 11/29/24 00:00 11/29/24 04:00 11/29/24 06:00 Temperature 97.2 F L Pulse Rate 65 83 86 Respiratory Rate 20 Blood Pressure 148/70 H Pulse Oximetry 90 Oxygen Delivery Intake/Output Intake/Output: Intake & Output 11/26/24 11/27/24 11/28/24 11/29/24 23:59 23:59 23:59 23:59 Intake Total 100 1150 2220.0 2240 Output Total 2595 2675 Balance 100 -1445 -455.0 2240 Meds/Results Medications: Active Medications Generic Name Dose Route Start Last Admin Trade Name Freq PRN Reason Stop Dose Admin Acetaminophen 650 mg 11/26/24 19:34 Acetaminophen 325 Mg Tablet PO Q4H PRN Mild Pain (1-3) or Fever Sodium Chloride 1,000 mls @ 100 mls/hr 11/27/24 10:20 11/29/24 11:34 Normal Saline Iv IV CONT 100 mls/hr .Q10H SPENCER Administration Piperacillin/Tazobactam/Dextrose 3.375 gm in 50 mls @ 100 mls/hr 11/27/24 11:00 11/29/24 11:34 Zosyn 3.375 Gm/Ns 50 Ml IVPB 100 mls/hr Q6HR SPENCER Administration Morphine Sulfate 2 mg 11/26/24 19:34 Morphine Sulfate (*Crx) 2 Mg/Ml Inj IV PUSH Q2H PRN Pain Rated 7-10 Ondansetron HCl 4 mg 11/26/24 19:34 Ondansetron Inj 4 Mg/2 Ml Vial IV PUSH Q4H PRN Nausea Pantoprazole Sodium 40 mg 11/28/24 21:00 11/29/24 08:24 Pantoprazole Sodium Iv 40 Mg Vial IV PUSH 40 mg Q12HR SPENCER Administration Radiology Results: ITS Impressions Abdomen/Pelvis CT 11/26/24 18:58 IMPRESSION: 1. Small bowel obstruction with transition point in the anterior mid abdomen. Abdomen X-Ray 11/28/24 10:13 IMPRESSION: 1. Persistently dilated small bowel, consistent with small bowel obstruction. Small Bowel X-Ray 11/28/24 15:01 IMPRESSION: Resolution of small bowel obstruction, as detailed above.
--- NOTE | 2024-11-29 16:32 | PC.NURSE ---
Fluids, telemetry discontinued per MD order. Advanced diet to low fiber/low residue - dinner ordered. Patient has tolerated Full liquid diet well today. Will continue to monitor progress and update as able.
[2024-11-30] MEDS: PIPERACILLN/TAZ 3.375GM/NS50ML 3.375 GM/50 ML BAG IVPB ×3 (00:06→12:27)
[2024-11-30 05:40] LABS: Hematocrit 31.8 % (42.0-52.0); Hemoglobin 10.4 g/dL (14.0-18.0); Mean Corpuscular HGB Conc 32.7 g/dl (32-36); Mean Corpuscular Hemoglobin 32.7 pg (26-34); Mean Platelet Volume 10.3 fl (7.4-10.4); Platelet Count Result 172 k/mm3 (150-375); Red Blood Count 3.18 M/mm3 (4.6-6.20); Red Cell Distribution Width 13.2 % (11.5-14.5); White Blood Count 3.7 K/mm3 (4.5-10.0)
[2024-11-30 05:57] LABS: Anion Gap 10 mmol/L (4-12); Blood Urea Nitrogen 10 mg/dL (9-20); Calcium 8.7 mg/dL (8.4-10.2); Carbon Dioxide 24 mmol/L (22-30); Chloride 109 mmol/L (98-107); Estimated CRCL calculation 68 ml/min; Estimated Glomerular Filt Rate > 60; Glucose 160 mg/dL (65-110); Potassium 3.1 mmol/L (3.4-5.0); Sodium 143 mmol/L (137-145)
[2024-11-30 06:00] VITALS: BP 147/83; PULSE 77; RESP 18; TEMP 36.3; O2SAT 96
[2024-11-30] MEDS: POTASSIUM CHLORIDE 20 MEQ PACKET (FOR LIQUID) 40 MEQ PO (08:42)
[2024-11-30] MEDS: PANTOPRAZOLE SODIUM IV 40 MG VIAL IV PUSH (08:42)
--- NOTE | 2024-11-30 12:03 | PM.PNGS ---
Progress Note: A&P Assessment and Plan (1) SBO (small bowel obstruction): Code(s): K56.609 - Unspecified intestinal obstruction, unspecified as to partial versus complete obstruction Status: Acute Assessment and Plan: resolved, exam benign, +bowel fxn, ok to dc from surgical standpoint Subjective Subjective Date/Time Seen: 11/30/24 12:03 Interval history: kezia diet, +bowel fxn Review of Systems Review of Systems: All systems reviewed & are unremarkable except as noted in HPI and below Exam Const: General: cooperative, comfortable and no acute distress Resp: Auscultation: clear to auscultation bilaterally Cardio: Rate: regular rate Rhythm: regular rhythm GI: Inspection: normal to inspection and non-distended GI Palp: No abdominal tenderness, Yes Soft to palpation and No Tenderness to palpation present (GI) Objective Data Vital Signs Vital Signs: Vital Signs - 24 hr 11/29/24 14:00 11/29/24 16:00 11/29/24 20:46 Temperature 36.1 C L Pulse Rate 90 91 Respiratory Rate 14 Blood Pressure 167/82 H Pulse Oximetry 99 Oxygen Delivery Room Air 11/29/24 21:58 11/30/24 06:00 11/30/24 08:40 Temperature 36.4 C 36.3 C L Pulse Rate 82 77 Respiratory Rate 18 18 Blood Pressure 177/96 H 147/83 H Pulse Oximetry 100 96 Oxygen Delivery Room Air Intake/Output Intake/Output: Intake & Output 11/27/24 11/28/24 11/29/24 11/30/24 23:59 23:59 23:59 23:59 Intake Total 1150 2220.0 2940 340 Output Total 2595 2675 Balance -1445 -455.0 2940 340 Meds/Results Medications: Active Medications Generic Name Dose Route Start Last Admin Trade Name Freq PRN Reason Stop Dose Admin Acetaminophen 650 mg 11/26/24 19:34 Acetaminophen 325 Mg Tablet PO Q4H PRN Mild Pain (1-3) or Fever Piperacillin/Tazobactam/Dextrose 3.375 gm in 50 mls @ 100 mls/hr 11/27/24 11:00 11/30/24 05:46 Zosyn 3.375 Gm/Ns 50 Ml IVPB Infused Q6HR SPENCER Infusion Morphine Sulfate 2 mg 11/26/24 19:34 Morphine Sulfate (*Crx) 2 Mg/Ml Inj IV PUSH Q2H PRN Pain Rated 7-10 Ondansetron HCl 4 mg 11/26/24 19:34 Ondansetron Inj 4 Mg/2 Ml Vial IV PUSH Q4H PRN Nausea Pantoprazole Sodium 40 mg 11/28/24 21:00 11/30/24 08:42 Pantoprazole Sodium Iv 40 Mg Vial IV PUSH 40 mg Q12HR SPENCER Administration Potassium Chloride 40 meq 11/30/24 09:00 11/30/24 08:42 Potassium Chloride 20 Meq Packet (For Liquid) PO 40 meq DAILY SPENCER Administration Radiology Results: ITS Impressions Abdomen/Pelvis CT 11/26/24 18:58 IMPRESSION: 1. Small bowel obstruction with transition point in the anterior mid abdomen. Abdomen X-Ray 11/28/24 10:13 IMPRESSION: 1. Persistently dilated small bowel, consistent with small bowel obstruction. Small Bowel X-Ray 11/28/24 15:01 IMPRESSION: Resolution of small bowel obstruction, as detailed above. Labs Labs: Laboratory Results - last 24 hr 11/30/24 04:44 WBC 3.7 L RBC 3.18 L Hgb 10.4 L Hct 31.8 L MCV 100.0 MCH 32.7 MCHC 32.7 RDW 13.2 Plt Count 172 MPV 10.3 Sodium 143 Potassium 3.1 L Chloride 109 H Carbon Dioxide 24 Anion Gap 10 BUN 10 D Creatinine 0.89 Estim Creat Clear Calc 68 Estimated GFR > 60 Glucose 160 H Calcium 8.7
--- NOTE | 2024-11-30 13:19 | PM.DS ---
DS: Admitting Diagnosis Discharge Date 11/30 Admitting Diagnosis sbo DS: Discharge Diagnosis Discharge Diagnosis (1) SBO (small bowel obstruction): Code(s): K56.609 - Unspecified intestinal obstruction, unspecified as to partial versus complete obstruction Status: Acute (2) Nonischemic cardiomyopathy: Onset Date: ~2022 Code(s): I42.8 - Other cardiomyopathies Status: Acute (3) Mixed hyperlipidemia: Code(s): E78.2 - Mixed hyperlipidemia Status: Chronic (4) Controlled type 2 diabetes mellitus with hyperglycemia, without long-term current use of insulin: Code(s): E11.65 - Type 2 diabetes mellitus with hyperglycemia Status: Acute (5) BPH without obstruction/lower urinary tract symptoms: Code(s): N40.0 - Benign prostatic hyperplasia without lower urinary tract symptoms Status: Chronic (6) APARNA on CPAP: Code(s): G47.33 - Obstructive sleep apnea (adult) (pediatric); Z99.89 - Dependence on other enabling machines and devices Status: Chronic DS: Summary Hospital Course Hospital Course: 74-year-old male with PMH/o cardiomyopathy, congestive heart failure, type 2 diabetes mellitus, chronic kidney disease, chronic back pain, hypertension, obstructive sleep apnea on CPAP. Pt admitted from ED for epigastric abdominal pain that walking up from his sleep. Patient has had this problem before where he was found to have a small-bowel obstruction. Preliminary workup was significant for CT of abdomen and pelvis for small-bowel obstruction. Patient has been admitted for further evaluation management and treatment. IMPRESSION: 1. Nasogastric tube tip in the stomach. 2. Small bowel obstruction. Gen surgery consulted. PT is NPO, IV fluids WBC 20.0->16.6 ->12.9->3.7 HGB/HCT 10.3/31.9 BUN/CR 19/1.09 Surgery was consulted. He was kept npo, and NG to suction. The he started showing signs of bowel function overnight and seems to be clinically improving. NG was discontinued and diet was slowly advanced. He is comfortable, moving bowel, having gas, no nausea. Cleared with surgery for discharge. Status at Discharge Functional status at discharge: independent ambulation Overall status at discharge: patient is back to baseline Time Spent with Patient Time attestation: Total time spent providing and/or coordinating discharge services: Time spent: Greater than 30 minutes Exam Narrative: comfortable, dressed and ready to go home. Const: General: comfortable, no acute distress, well developed, alert, awake and average body habitus Nutritional Appearance: average body habitus Orientation/consciousness: patient oriented x3 Other: Appears comfortable HENMT: Head: normal to inspection, normocephalic and atraumatic Ears: hearing grossly normal bilaterally Face/Nose/Sinus: normal facial exam Face and sinus: normal facial exam Eyes: General: appearance normal, both eyes and all related structures Pupils: Equal, round and reactive pupils present EOM: EOMs intact bilaterally Neck: Neck: full ROM, no lymphadenopathy and no JVD Thyroid: thyroid normal Lymphatic: no lymphadenopathy noted Resp: Effort & Inspection: normal respiratory effort and able to speak in complete sentences Auscultation: clear to auscultation bilaterally Cardio: Jugular venous distension: no JVD Rate: regular rate Rhythm: regular rhythm Heart sounds: S1 normal heart sound present and S2 normal heart sound present GI: GI Palp: Yes Soft to palpation Auscultation: normal bowel sounds : General: Yes deferred Skin: Rashes: no rashes Wounds: no wounds Neuro: General: patient oriented x3, CN's II-XI intact bilaterally and Unable to assess gait Cranial nerves: Yes CN's II-XII intact bilaterally and Yes Equal, round and reactive pupils present Cognition (Neuro): normal cognition Speech: normal speech Gait exam (Neuro): Unable to assess gait Motor exam (neuro): 5/5 motor strength present throughout Extrem: General: normal to inspection, full ROM, no joint enlargement and no pedal edema DS: Data Data Completed and Pending Completed studies during hospitalization: small bowel xray, abd kub Labs on day of discharge: Labs from last 24 hours 11/30/24 04:44 WBC 3.7 L RBC 3.18 L Hgb 10.4 L Hct 31.8 L MCV 100.0 MCH 32.7 MCHC 32.7 RDW 13.2 Plt Count 172 MPV 10.3 Sodium 143 Potassium 3.1 L Chloride 109 H Carbon Dioxide 24 Anion Gap 10 BUN 10 D Creatinine 0.89 Estim Creat Clear Calc 68 Estimated GFR > 60 Glucose 160 H Calcium 8.7 Discharge Plan Discharge Attending physician on discharge: Dustin Grey Consulting providers: Lawson Russell Discharging Clinician: Cheyenne Young Patient Disposition: Home, Self-Care Activity: may shower Diet: as tolerated, diabetic and other - see discharge instructions Discharge Instructions: please follow instruction from surgery for diet. Watch for abd pain, nausea, bloating. F/u with PCP Patient Instructions: Antibiotic Form Patient Language: [place] Island[place] Stand Alone Forms: General Discharge Information Follow-up/Referrals: Zohaib Hoyt MD [Primary Care Provider] - 2 Weeks Discharge Medications: Continued fluticasone propionate [Flonase Allergy Relief] 50 mcg/actuation spray,suspension 1 spray intranasal BID Qty: 16 11RF Rx Instructions: administer into each nostril Entresto 49-51 mg tablet 1 tablet PO BID Patient Comments: started by regional environmental manager carvedilol 6.25 mg tablet 6.25 mg PO Q12H Patient Comments: started by regional environmental manager Rx Instructions: must administer with a meal/food magnesium 500 mg Tablet 500 mg PO DAILY vitamin B complex [B Complex-Vitamin B12] Tablet 1 tablet PO DAILY Rx Instructions: 5000 units aspirin [Adult Low Dose Aspirin] 81 mg tablet,delayed release (DR/EC) 81 mg PO DAILY Complete Multivitamin Tablet 1 tablet PO DAILY atorvastatin 20 mg tablet 20 mg PO QHS Patient Comments: started by regional environmental manager 10/13/2023. dutasteride 0.5 mg capsule 0.5 mg PO DAILY Qty: 90 3RF metformin 500 mg tablet extended release 24 hr 2,000 mg PO DAILY Qty: 360 5RF Rx Instructions: pt takes 2000 mg all at once each morning Jardiance 25 mg tablet 25 mg PO QAM Qty: 90 3RF tamsulosin [Flomax] 0.4 mg capsule 0.4 mg PO DAILY Qty: 90 3RF duloxetine [Cymbalta] 60 mg capsule,delayed release(DR/EC) 60 mg PO BID Qty: 180 3RF omeprazole magnesium [Prilosec OTC] 20 mg tablet,delayed release (DR/EC) 20 mg PO DAILY Date of admission: 11/26/24 19:34 Primary Care Provider: Zohaib Hoyt Admitting Provider: Cornell Maldonado V. Attending physician on admission: Cornell Maldonado V. Condition: Stable Hospitalist MIPS Heart Failure (Exclusion) Patient has history of Heart Transplant or Left Ventricular Assistive Device?: No IF YES, STOP HERE Heart Failure (Qualifier) Patient has current or prior documentation of LVEF less than or equal to 40%, or mod/servere depressed LVSF?: No IF NO, STOP HERE
== END 2024-11-30 14:25 | disposition home or self-care (01) | DRG 389 ==
LOC: ANHED 19:59 → ANH2MED 20:36
PROVIDERS: Nurse Practitioner Family; Surgery; Admitting Provider Internal Medicine; Emergency Provider Student in an Organized Health Care Education/Training Program; PCP Family Medicine; Visit Provider General Practice
DX: K56.609 Unspecified intestinal obstruction, unspecified as to partial versus complete obstruction (principal); I13.0 Hypertensive heart and chronic kidney disease with heart failure and stage 1 through stage 4 chronic kidney disease, or unspecified chronic kidney disease; I42.8 Other cardiomyopathies; E78.2 Mixed hyperlipidemia; E11.65 Type 2 diabetes mellitus with hyperglycemia; N40.0 Benign prostatic hyperplasia without lower urinary tract symptoms; G47.33 Obstructive sleep apnea (adult) (pediatric); E11.22 Type 2 diabetes mellitus with diabetic chronic kidney disease; I50.9 Heart failure, unspecified; N18.9 Chronic kidney disease, unspecified; E11.42 Type 2 diabetes mellitus with diabetic polyneuropathy; D72.829 Elevated white blood cell count, unspecified; Z86.16 Personal history of COVID-19; Z90.49 Acquired absence of other specified parts of digestive tract; Z79.82 Long term (current) use of aspirin; Z79.84 Long term (current) use of oral hypoglycemic drugs
CPT/HCPCS: 36415; 74018; 74019; 74177; 74250; 80048; 80053; 81001; 83605; 83690; 83735; 84100; 85025; 85027; 93005; 96365; 96375; 99285; A9270; J2270; J2405; J2470; J2543; J7030; J7120; Q9967

== ENCOUNTER 2025-02-28 18:25 | Inpatient (IN) | payer MEDICARE, BC, SELFPAY ==
--- NOTE | ~2025-02-28 | CT_ITS ---
CT abdomen pelvis w con Ordering provider: Baldomero Wood History: 74 years Male with . abd pain . Comparison: November 26, 2024 Technique: CT abdomen and pelvis with IV and without oral contrast. Automated exposure control and it erative reconstruction technique were employed. The dose-length product was 672.48 mGy-cm. 100 mL Omn ipaque 350 was given IV. Findings: VISUALIZED LOWER CHEST: 5 mm nodule is seen in the right lower lobe posteriorly. 6 months follow-up C T is advised. Otherwise, Normal. UPPER ABDOMINAL ORGANS: Liver: 2 cm hypodensity seen in the right lobe of the liver most likely a cyst unchanged from previou s examination.. Focal area of biliary dilatation is seen in the left lobe of the liver unchanged. Gallbladder: Normal. Spleen: Normal. Stomach/duodenum: Normal. Pancreas: Normal. Adrenals: Normal. Kidneys: Scarring is seen in the left kidney upper pole. PELVIC ORGANS: The bladder is normal. BOWEL AND MESENTERY: Colon: No evidence of diverticulitis. Appendix is not demonstrated. Small Bowel: Dilated small bowel is noted suggestive of obstruction. The area of transition is seen i n the mid abdomen anteriorly. Peritoneum/mesentery: No free air. Minimal free fluid is seen in the left side near to the small manuela l, mid abdomen between the small bowel loops and in the right lower quadrant near to the small bowel loops.. Perforation cannot be excluded. No mesenteric lymphadenopathy. Small mesenteric lymph nodes a re seen in the right lower quadrant. RETROPERITONEUM: Mild atheromatous disease of the abdominal aorta. No retroperitoneal lymphadenopat hy. MUSCULOSKELETAL: Superficial soft tissues: The superficial soft tissues are normal. Bones: Age appropriate degenerative changes of the spine. Minimal anterolisthesis at the level of L5- S1. IMPRESSION: 1. Small bowel obstruction. 2. Minimal free fluid which may indicate perforation. Clinical correlation and follow-up advised. Brittnee in the ER was notified with the result of the patient at 9:45 PM on February 28, 2025. Reviewed, dictated and finalized at location A. IMPRESSION: 1. Small bowel obstruction. 2. Minimal free fluid which may indicate perforation. Clinical correlation and follow-up advised. Brittnee in the ER was notified with the result of the patient at 9:45 PM on February.
--- NOTE | ~2025-02-28 | XR_ITS ---
SMALL BOWEL SERIES Ordering provider: Alhaji Palacios MD History: . SBO, use water soluble contrast . Comparison: Technique: The patient was given oral barium. Overhead images were obtained immediately and at 15 min agdaagux intervals until contrast arrived in the cecum. FINDINGS: ECONOMIC ADVISER FILM: Nonobstructive bowel gas pattern. No organomegaly. No pathologic calcifications. TRANSIT TIME FOR CONTRAST THROUGH THE SMALL BOWEL: 30 minutes which is less than normal limits. STOMACH AND DUODENUM: Normal. JEJUNUM AND ILEUM: No intrinsic or extrinsic mass effect, mucosal abnormality, stricture, or sign of obstruction. IMPRESSION: short transit time. Otherwise, No definite abnormality seen. Reviewed, dictated and finalized at location A.
--- NOTE | ~2025-02-28 | XR_ITS ---
XR abdomen gastric tube insert Ordering provider: Baldomero Wood MD History: . NG tube placement . Comparison: November 26, 2024 FINDINGS/impression: Nasogastric tube is seen with the tip in the area of this fundus of the stomach. Reviewed, dictated and finalized at location A.
[2025-02-28 18:35] VITALS: BP 132/87; PULSE 79; RESP 16; TEMP 36.9; O2SAT 100
[2025-02-28 19:00] VITALS: BP 149/80; PULSE 79; RESP 15; O2SAT 99
[2025-02-28 19:17] LABS: Basophils Percent Auto 0.7 % (0.2-1.2); Eosinophils Percent Auto 0.3 % (0-4.4); Hematocrit 33.1 % (42.0-52.0); Hemoglobin 10.6 g/dL (14.0-18.0); Immature Granulocyte Absolute 0.06 K/mm3 (0.00-0.031); Lymphocytes Absolute Auto 1.97 K/mm3 (0.9-3.2); Lymphocytes Percent Auto 34.4 % (18.3-44.2); Mean Corpuscular Hemoglobin 32.7 pg (26-34); Mean Corpuscular Volume 102.2 fl (80-100); Mean Platelet Volume 10.8 fl (7.4-10.4); Monocytes Percent Auto 16.8 % (2.6-8.5); Neutrophils Absolute Auto 2.7 K/mm3 (1.3-6.7); Neutrophils Percent Auto 46.8 % (45.5-73.1); Platelet Count Result 168 k/mm3 (150-375); Red Blood Count 3.24 M/mm3 (4.6-6.20); Red Cell Distribution Width 15.1 % (11.5-14.5); White Blood Count 5.7 K/mm3 (4.5-10.0)
[2025-02-28 19:31] LABS: Lactic Acid Reflex 1.6 mmol/L (0.7-2.0)
[2025-02-28 19:32] LABS: Alanine Aminotransferase 17 U/L (6-50); Albumin Level 4.6 g/dL (3.5-5.1); Alkaline Phosphatase 91 U/L (38-126); Anion Gap 10 mmol/L (4-12); Aspartate Amino Transferase 24 U/L (17-59); Bilirubin,Total 0.4 mg/dL (0.2-1.3); Blood Urea Nitrogen 19 mg/dL (9-20); Calcium 9.6 mg/dL (8.4-10.2); Carbon Dioxide 26 mmol/L (22-30); Chloride 100 mmol/L (98-107); Estimated CRCL calculation 62 ml/min; Estimated Glomerular Filt Rate > 60; Glucose 168 mg/dL (65-110); Lipase 202 U/L (23-300); Magnesium 2.3 mg/dL (1.6-2.3); Potassium 4.3 mmol/L (3.4-5.0); Sodium 136 mmol/L (137-145)
--- NOTE | 2025-02-28 19:59 | ED_ITS ---
HPI - Abdominal Pain General Chief Complaint: Abdominal Pain Stated Complaint: Poss bowel obstruction Time Seen by Provider: 02/28/25 19:03 History of Present Illness HPI narrative: Patient is a 74-year-old male who presents to the emergency department this evening complaining of generalized abdominal pain. States that it started sometime earlier today. Admits above chin, otherwise denies any nausea, vomiting or diarrhea, denies any constipation. Patient states that he does have a history of a bowel obstruction and was concerned for that. Otherwise denies any additional symptoms or concerns. Related Data Home Medications ?Medication ?Instructions ?Recorded ?Confirmed ?Last Taken ?Type aspirin 81 mg tablet,delayed 81 mg PO DAILY 09/11/19 11/26/24 12/10/23 History release (Adult Low Dose Aspirin) multivitamin,[id number] 1 tablet PO DAILY 09/11/19 11/26/24 12/11/23 07:00 History (Complete Multivitamin tablet) atorvastatin 20 mg tablet 20 mg PO QHS 10/19/23 11/26/24 12/10/23 History magnesium 500 mg tablet 500 mg PO DAILY 12/08/23 11/26/24 12/11/23 07:00 History vitamin B complex (B 1 tablet PO DAILY 12/08/23 11/26/24 12/11/23 07:00 History Complex-Vitamin B12 tablet) carvedilol 6.25 mg tablet 6.25 mg PO Q12H 02/06/24 11/26/24 Unknown History sacubitril 49 mg-valsartan 51 mg 1 tablet PO BID 02/06/24 11/26/24 Unknown History tablet (Entresto) omeprazole magnesium 20 mg 20 mg PO DAILY 08/07/24 11/26/24 Unknown History tablet,delayed release (Prilosec OTC) Allergies Allergy/AdvReac Type Severity Reaction Status Date / Time No Known Allergies AdvReac Unknown Verified 02/28/25 19:00 Review of Systems 2 Review of Systems: All systems are reviewed and are negative unless stated otherwise in the HPI. [facility] Past Medical History Medical History Dyspepsia and disorder of function of stomach (08/07/24) Syncope and collapse Carotid Doppler study normal on 08/01/2024. MRI of the brain and brainstem on 08/15/2024 was normal with normal aging. MRI of the lumbar spine revealed severe degenerative disc disease and facet arthropathy. At high risk for falls Chronic low back pain with left-sided sciatica Generalized weakness (~06/2024) Frequent falls (~06/2024) Controlled type 2 diabetes mellitus with hyperglycemia, without long-term current use of insulin Hemoglobin A1c 7.6 on 12/08/2021. Glucose 182 with hemoglobin A1c 7.3 on 07/06/2022. glucose 183 with hemoglobin A1c 8.5 on 01/10/2023. Glucose 130 with hemoglobin A1c 7.5 on 07/29/2023 with microalbumin ratio of 99. Glucose 223 with hemoglobin A1c 8.3 on 01/02/2024. fasting glucose 237 with hemoglobin A1c 10.1 on 06/14/2024. Fasting blood was 182 on 08/09/2024. Glucose 179 With microalbumin ratio of 88.7 on 09/06/2024. Hearing loss, left (05/06/24) Nonischemic cardiomyopathy (2022) nuclear stress test 11/15/2023 with moderate to severe left ventricular systolic dysfunction with ejection fraction 35% with no S PO scan or EKG. Cardiac catheterization 12/11/2023 with no significant coronary artery disease. Bacteremia due to Staphylococcus aureus ESR 42 on 11/06/2023. WBC 2.6 on 11/06/2023. Lung infiltrate Pyelonephritis Sepsis Dyspnea on exertion No significant coronary artery disease on catheterization on 12/11/2023. Encounter for prostate cancer screening PSA 0.42 on 07/29/2023. PSA 0.5 on 09/06/2024. Left elbow pain (~07/2022) X-ray on 11/07/2022 revealed no evidence of fracture with soft tissue swelling over the olecranon process. COVID-19 (09/23/22) Tested positive 09/28/2022. Candidiasis (~09/28/22) Microalbuminuria due to type 2 diabetes mellitus (07/06/22) microalbumin ratio of 35 on 07/06/2022. Microalbumin ratio of 99 on 07/29/2023. Microalbumin ratio of 88.7 on 09/06/2024. Aphthous ulcer of mouth (04/22/22) Chronic anemia Small bowel obstruction (05/21/22) Recurrent and resolved in-hospital 03/23/2022. Leukocytosis WBC 8.7 on 12/08/2021 Diabetic eye exam No retinopathy on 03/18/2021. No retinopathy on 11/09/2022. Acute bilateral low back pain with left-sided sciatica Seasonal allergic rhinitis Arthritis BPH without obstruction/lower urinary tract symptoms Chronic bilateral low back pain X-ray of the lumbar spine on 07/26/2024 revealed degenerative disc disease and facet arthropathy at multiple levels with scoliosis of the lumbar spine. MRI of the lumbar spine on 08/15/2024 reveals severe degenerative disc disease with central canal stenosis and facet arthropathy with neural foraminal narrowing multiple levels. Diabetic peripheral neuropathy associated with type 2 diabetes mellitus Essential (primary) hypertension Insomnia Mixed hyperlipidemia Cholesterol 135, triglycerides 129, HDL 42, LDL 72 on 01/10/2023. cholesterol 139, triglycerides 108, HDL 46, LDL 74 with ratio 2.5 on 07/29/2023. Cholesterol 92, triglycerides 90, HDL 40, LDL 35 with ratio of 2.3 on 01/02/2024. Cholesterol 91, triglycerides 133, HDL 30, LDL less than 30 on 09/06/2024. APARNA on CPAP Type 2 diabetes mellitus without complication, without long-term current use of insulin Hemoglobin A1c 7.6 on 12/08/2021. Glucose 182 with hemoglobin A1c 7.3 on 07/06/2022. glucose 183 with hemoglobin A1c 8.5 on 01/10/2023. Glucose 130 with hemoglobin A1c 7.5 on 07/29/2023 with microalbumin ratio of 99. Glucose 223 with hemoglobin A1c 8.3 on 01/02/2024. Surgical History Surgical History History of colonoscopy History of tonsillectomy and adenoidectomy History of appendectomy Family History Family History Grandparent Cerebrovascular accident, Onset Age: 78 Father Family history of Alzheimer's disease, Onset Age: 79 Mother Family history of Alzheimer's disease, Onset Age: 85 Social History Social History Social History: Surrogate decision-maker: Malena Baljeet, spouse. CODE STATUS: Full code Smoking status: Never smoker Second hand tobacco smoke exposure: Yes Alcohol intake: former Substance use: never Substance use type: does not use Do You Feel Safe in your Home?: Yes Lack of Transportation: No Lack of Food: Never True Current Housing: I Have Housing Concerned About Future Housing: No Difficulty Paying Gas/Electric Bills: No Difficulty Paying for Meds: No Currently Unemployed: No Education: Bachelor's Degree Difficulty w/ Childcare or Family Care: No Living arrangements: with family Additional living arrangements comments: Lives at home with his . They have 4 children. They have 7 horses Additional occupation/education comments: Retired from the [employer]. Spiritual care concerns: No Exam 2 Narrative: General: Alert, awake, afebrile, in no acute distress. HEENT: PERRL, no rhinorrhea, no post nasal drip, oropharynx clear. Neck: Trachea midline, no JVD, no lymphadenopathy. Cardiovascular: Regular rate and rhythm, no murmurs, rubs or gallops, no peripheral edema. Respiratory: Clear to auscultation bilaterally, no tachypnea, no wheezing, no rhonchi, no rubs, no respiratory distress. Abdomen: Soft, nontender, nondistended, no rebound, no guarding, no peritoneal signs, reducible ventral abdominal hernia, no evidence of strangulation or incarceration. Musculoskeletal: No joint swelling or deformity, normal muscle tone. Skin: No rashes or petechia, no signs of infection. Psychiatric: Alert and oriented, normal behavior and judgment for situation. Neurological: Alert and oriented to person, place, and time. Follows all commands. No focal deficits, speech is clear and fluent. Course Vital Signs Vital signs: Vital Signs Temperature 98.4 F 02/28/25 18:35 Pulse Rate 79 02/28/25 18:35 Respiratory Rate 16 02/28/25 18:35 Blood Pressure 132/87 02/28/25 18:35 Pulse Oximetry 100 02/28/25 18:35 Temperature 98.4 F 02/28/25 18:35 Pulse Rate 81 02/28/25 21:24 Respiratory Rate 16 02/28/25 21:24 Blood Pressure 155/92 H 02/28/25 21:24 Pulse Oximetry 96 02/28/25 21:24 MDM - Abdominal Pain MDM Narrative Medical decision making narrative: The patient was evaluated by myself in the emergency department. History is obtained from patient who is an independent historian and physical exam was performed. External medical records were reviewed at this time. IV was established and pertinent tests were ordered. Laboratory results obtained revealing no acute process. Imaging studies obtained included CT abdomen and pelvis with IV contrast which was independently interpreted by me revealing: IMPRESSION: 1. Small bowel obstruction. 2. Minimal free fluid which may indicate perforation. Clinical correlation and follow-up advised. Differential diagnosis considerations include diverticulitis, appendicitis, pancreatitis, bowel obstruction. Comorbidities impacting this visit include history of bowel obstruction. I have evaluated and discussed social determinants of health with the patient that could potentially impact subsequent diagnosis and treatment plans. On repeat assessment of the patient, reevaluation revealed that the patient is doing well and is in no acute distress. Patient symptoms have remained stable since he arrived to our emergency department. Repeat vital signs were all reviewed and noted to be stable. Differential diagnosis and treatment plan were discussed with the patient at bedside. Patient agrees with discussion and after shared medical decision making agrees with admission. All questions were answered to the patient's satisfaction. Case was discussed with the on-call general surgeon Dr. Palacios at 0 and he agreed to evaluate the patient. Per his request, NG tube will be placed at this time. Patient will be admitted to our medical service. Case was discussed with the on-call REFRIGERATION SERVICE INSPECTOR Monserrat at 0 and she accepted admission. Lab Data 02/28/25 19:08 02/28/25 19:08 Labs: Lab Results 02/28/25 02/28/25 Range/Units 19:08 20:21 WBC 5.7 (4.5-10.0) K/mm3 RBC 3.24 L (4.6-6.20) M/mm3 Hgb 10.6 L (14.0-18.0) g/dL Hct 33.1 L (42.0-52.0) % MCV 102.2 H (80-100) fl MCH 32.7 (26-34) pg MCHC 32.0 (32-36) g/dl RDW 15.1 H (11.5-14.5) % Plt Count 168 (150-375) k/mm3 MPV 10.8 H (7.4-10.4) fl Immature Gran % (Auto) 1.0 H (0-0.5) % Neut % (Auto) 46.8 (45.5-73.1) % Lymph % (Auto) 34.4 (18.3-44.2) % [place] % (Auto) 16.8 H (2.6-8.5) % Eos % (Auto) 0.3 (0-4.4) % Baso % (Auto) 0.7 (0.2-1.2) % Lymph # (Auto) 1.97 (0.9-3.2) K/mm3 [place] # (Auto) 1.0 H (0.1-0.6) K/mm3 Eos # (Auto) 0.0 (0-0.3) K/mm3 Baso # (Auto) 0.0 (0.0-0.1) K/mm3 Abs Immat Gran (auto) 0.06 H (0.00-0.031) K/mm3 Absolute Neuts (auto) 2.7 (1.3-6.7) K/mm3 Absolute Nucleated RBC 0.000 (0.0-0.012) K/mm3 Nucleated RBC % 0.0 (0.0-0.2) % Sodium 136 L (137-145) mmol/L Potassium 4.3 (3.4-5.0) mmol/L Chloride 100 (98-107) mmol/L Carbon Dioxide 26 (22-30) mmol/L Anion Gap 10 (4-12) mmol/L BUN 19 (9-20) mg/dL Creatinine 1.07 (0.7-1.3) mg/dL Estim Creat Clear Calc 62 ml/min Estimated GFR > 60 (59 - ) Glucose 168 H (65-110) mg/dL Lactic Acid 1.6 (0.7-2.0) mmol/L Calcium 9.6 (8.4-10.2) mg/dL Magnesium 2.3 (1.6-2.3) mg/dL Total Bilirubin 0.4 (0.2-1.3) mg/dL AST 24 (17-59) U/L ALT 17 (6-50) U/L Alkaline Phosphatase 91 (38-126) U/L Total Protein 8.0 (6.3-8.2) g/dL Albumin 4.6 (3.5-5.1) g/dL Lipase 202 (23-300) U/L Urine Color Yellow (Yellow) Urine Appearance Clear (Clear) Urine pH 6.0 (5.0-9.0) Ur Specific [place] 1.043 H (1.001-1.035) Urine Protein Trace (Negative) mg/dL Urine Glucose (UA) 3+ H (Negative) mg/dL Urine Ketones Negative (Negative) mg/dL Ur Blood (Man) Negative (Negative) Urine Nitrate Negative (Negative) Urine Bilirubin Negative (Negative) Urine Urobilinogen 0.2 (<2.0) mg/dL Leukocyte Esterase Rfl Negative (Negative) MADELIN/UL Urine RBC 0-2 (0-2) /hpf Urine WBC 0-5 (0-3) /hpf Ur Squamous Epith Cells None seen (Few) /hpf Urine Bacteria None seen /hpf Urine Casts 0-2 Imaging Data Radiologist's impression: ITS Impressions Abdomen/Pelvis CT 02/28/25 21:26 IMPRESSION: 1. Small bowel obstruction. 2. Minimal free fluid which may indicate perforation. Clinical correlation and follow-up advised. Brittnee in the ER was notified with the result of the patient at 9:45 PM on February 28, 2025. Discharge Plan Discharge Clinical Impression: Abdominal pain, SBO (small bowel obstruction) Patient Disposition: Still a Patient Condition: Stable Instructions: Antibiotic Form Patient Language: [place] Prescriptions: No Action fluticasone propionate [Flonase Allergy Relief] 50 mcg/actuation spray,suspension 1 spray intranasal BID Qty: 16 11RF Rx Instructions: administer into each nostril Entresto 49-51 mg tablet 1 tablet PO BID Patient Comments: started by senior interaction designer carvedilol 6.25 mg tablet 6.25 mg PO Q12H Patient Comments: started by senior interaction designer Rx Instructions: must administer with a meal/food magnesium 500 mg Tablet 500 mg PO DAILY vitamin B complex [B Complex-Vitamin B12] Tablet 1 tablet PO DAILY Rx Instructions: 5000 units aspirin [Adult Low Dose Aspirin] 81 mg tablet,delayed release (DR/EC) 81 mg PO DAILY Complete Multivitamin Tablet 1 tablet PO DAILY atorvastatin 20 mg tablet 20 mg PO QHS Patient Comments: started by senior interaction designer 10/13/2023. metformin 500 mg tablet extended release 24 hr 2,000 mg PO DAILY Qty: 360 5RF Rx Instructions: pt takes 2000 mg all at once each morning duloxetine [Cymbalta] 60 mg capsule,delayed release(DR/EC) 60 mg PO BID Qty: 180 3RF omeprazole magnesium [Prilosec OTC] 20 mg tablet,delayed release (DR/EC) 20 mg PO DAILY meloxicam 15 mg tablet 15 mg PO DAILY PRN (Reason: pain) Qty: 90 3RF Jardiance 25 mg tablet 25 mg PO QAM Qty: 90 3RF tamsulosin [Flomax] 0.4 mg capsule 0.4 mg PO DAILY Qty: 90 3RF dutasteride 0.5 mg capsule 0.5 mg PO DAILY Qty: 90 3RF Follow-up/Referrals: Zohaib Hoyt MD [Primary Care Provider] -
[2025-02-28 20:24] VITALS: BP 155/86; PULSE 76; RESP 15; O2SAT 97
[2025-02-28 20:29] LABS: Add Urine Microscopic? YES; Appearance Urine Clear (Clear); Bacteria Urine None Seen /hpf; Bilirubin Urine Negative (Negative); Blood Urine Negative (Negative); Color Urine Yellow (Yellow); Glucose Urine UA 3+ mg/dL (Negative); Ketones Urine Negative (Negative); Leukocyte Esterase Ur Negative LEU/UL (Negative); Nitrate Urine Negative (Negative); Non Pathogenic Casts 0-2; Protein Urine Trace mg/dL (Negative); RBC Urine 0-2 /hpf (0-2); Specific Grav Ur 1.043 (1.001-1.035); Squamous Epithelial Cell Urine None Seen /hpf (Few); Urobilinogen Urine 0.2 mg/dL (<2.0); WBC Urine 0-5 /hpf (0-3)
[2025-02-28 21:24] VITALS: BP 155/92; PULSE 81; RESP 16; O2SAT 96
--- NOTE | 2025-02-28 22:15 | P.HP_ITS ---
H&P: HPI History of Present Illness Date/Time: 02/28/25 22:15 Chief Complaint: Abdominal pain. Narrative: This is a very pleasant 74-year-old male with history of bowel obstruction, heart failure with mildly reduced ejection fraction with an EF of 40% in 11/2023, mild aortic stenosis and mitral valve regurgitation, hypertension, type 2 diabetes mellitus, obstructive sleep apnea, and benign prostate hyperplasia who presented to the emergency department for evaluation of abdominal pain. He reports a gradual onset of generalized abdominal discomfort which began earlier today, similar to prior episodes of bowel obstruction. His last bowel movement was at 17:00 and was a bit softer than normal may be admixed with a little bit of mucus. He is otherwise feeling okay and denies fever, chest pain, shortness of breath, nausea, vomiting, diarrhea, melena, and hematochezia. In the ED: Vital signs were stable on arrival. Labs are significant for WBC count of 5.7, hemoglobin 10.6, glucose 160, lactic acid 1.6. CT of the abdomen and pelvis showed small-bowel obstruction with minimal free fluid which may indicate perforation. ED physician spoke with the on-call surgeon who recommended NG tube for decompression and bowel rest. He is being admitted in this setting for close monitoring. Review of Systems Review of Systems: 12 systems were reviewed and are negativ e except for as per HPI. [facility] Past Medical History Medical History Chronic anemia Heart failure with mildly reduced ejection fraction Dyspepsia and disorder of function of stomach (08/07/24) Syncope and collapse Carotid Doppler study normal on 08/01/2024. MRI of the brain and brainstem on 08/15/2024 was normal with normal aging. MRI of the lumbar spine revealed severe degenerative disc disease and facet arthropathy. At high risk for falls Chronic low back pain with left-sided sciatica Generalized weakness (~06/2024) Frequent falls (~06/2024) Controlled type 2 diabetes mellitus with hyperglycemia, without long-term current use of insulin Hemoglobin A1c 7.6 on 12/08/2021. Glucose 182 with hemoglobin A1c 7.3 on 07/06/2022. glucose 183 with hemoglobin A1c 8.5 on 01/10/2023. Glucose 130 with hemoglobin A1c 7.5 on 07/29/2023 with microalbumin ratio of 99. Glucose 223 with hemoglobin A1c 8.3 on 01/02/2024. fasting glucose 237 with hemoglobin A1c 10.1 on 06/14/2024. Fasting blood was 182 on 08/09/2024. Glucose 179 With microalbumin ratio of 88.7 on 09/06/2024. Hearing loss, left (05/06/24) Nonischemic cardiomyopathy (2022) nuclear stress test 11/15/2023 with moderate to severe left ventricular systolic dysfunction with ejection fraction 35% with no S PO scan or EKG. Cardiac catheterization 12/11/2023 with no significant coronary artery disease. Bacteremia due to Staphylococcus aureus ESR 42 on 11/06/2023. WBC 2.6 on 11/06/2023. Lung infiltrate Pyelonephritis Sepsis Dyspnea on exertion No significant coronary artery disease on catheterization on 12/11/2023. Encounter for prostate cancer screening PSA 0.42 on 07/29/2023. PSA 0.5 on 09/06/2024. Left elbow pain (~07/2022) X-ray on 11/07/2022 revealed no evidence of fracture with soft tissue swelling over the olecranon process. COVID-19 (09/23/22) Tested positive 09/28/2022. Candidiasis (~09/28/22) Microalbuminuria due to type 2 diabetes mellitus (07/06/22) microalbumin ratio of 35 on 07/06/2022. Microalbumin ratio of 99 on 07/29/2023. Microalbumin ratio of 88.7 on 09/06/2024. Aphthous ulcer of mouth (04/22/22) Small bowel obstruction (03/19/22) Recurrent and resolved in-hospital 03/23/2022. Leukocytosis WBC 8.7 on 12/08/2021 Diabetic eye exam No retinopathy on 03/18/2021. No retinopathy on 11/09/2022. Acute bilateral low back pain with left-sided sciatica Seasonal allergic rhinitis Arthritis BPH without obstruction/lower urinary tract symptoms Chronic bilateral low back pain X-ray of the lumbar spine on 07/26/2024 revealed degenerative disc disease and facet arthropathy at multiple levels with scoliosis of the lumbar spine. MRI of the lumbar spine on 08/15/2024 reveals severe degenerative disc disease with central canal stenosis and facet arthropathy with neural foraminal narrowing multiple levels. Diabetic peripheral neuropathy associated with type 2 diabetes mellitus Essential (primary) hypertension Insomnia Mixed hyperlipidemia Cholesterol 135, triglycerides 129, HDL 42, LDL 72 on 01/10/2023. cholesterol 139, triglycerides 108, HDL 46, LDL 74 with ratio 2.5 on 07/29/2023. Cholesterol 92, triglycerides 90, HDL 40, LDL 35 with ratio of 2.3 on 01/02/2024. Cholesterol 91, triglycerides 133, HDL 30, LDL less than 30 on 09/06/2024. APARNA on CPAP Type 2 diabetes mellitus without complication, without long-term current use of insulin Hemoglobin A1c 7.6 on 12/08/2021. Glucose 182 with hemoglobin A1c 7.3 on 07/06/2022. glucose 183 with hemoglobin A1c 8.5 on 01/10/2023. Glucose 130 with hemoglobin A1c 7.5 on 07/29/2023 with microalbumin ratio of 99. Glucose 223 with hemoglobin A1c 8.3 on 01/02/2024. Surgical History Surgical History History of colonoscopy History of tonsillectomy and adenoidectomy History of appendectomy Family History Family History Grandparent Cerebrovascular accident, Onset Age: 78 Father Family history of Alzheimer's disease, Onset Age: 79 Mother Family history of Alzheimer's disease, Onset Age: 85 Social History Social History Social History: Surrogate decision-maker: Malena Delong, spouse. CODE STATUS: Full code Smoking status: Never smoker Second hand tobacco smoke exposure: Yes Alcohol intake: never Substance use: never Substance use type: does not use Do You Feel Safe in your Home?: Yes Lack of Transportation: No Lack of Food: Never True Current Housing: I Have Housing Concerned About Future Housing: No Difficulty Paying Gas/Electric Bills: No Difficulty Paying for Meds: No Currently Unemployed: No Education: Bachelor's Degree Difficulty w/ Childcare or Family Care: No Living arrangements: with family Additional living arrangements comments: Lives at home with his . They have 4 children. They have 7 horses Additional occupation/education comments: Retired from the [employer]. Spiritual care concerns: No Meds Home Medications and Allergies Home Medications ?Medication ?Instructions ?Recorded ?Confirmed ?Type aspirin 81 mg tablet,delayed 81 mg PO DAILY 09/11/19 03/01/25 History release (Adult Low Dose Aspirin) multivitamin,hi-zjas-edsxkvnz 1 tablet PO DAILY 09/11/19 03/01/25 History (Complete Multivitamin tablet) fluticasone propionate 50 1 spray intranasal BID #16 grams 01/17/23 03/01/25 Rx mcg/actuation nasal spray,suspension (Flonase Allergy Relief) atorvastatin 20 mg tablet 20 mg PO QHS 10/19/23 03/01/25 History magnesium 500 mg tablet 500 mg PO DAILY 12/08/23 03/01/25 History vitamin B complex (B 1 tablet PO DAILY 12/08/23 03/01/25 History Complex-Vitamin B12 tablet) metformin 500 mg tablet,extended 2,000 mg (4 x 500 mg) PO DAILY 01/15/24 03/01/25 Rx release 24 hr #360 tabs carvedilol 6.25 mg tablet 6.25 mg PO Q12H 02/06/24 03/01/25 History sacubitril 49 mg-valsartan 51 mg 1 tablet PO BID 02/06/24 03/01/25 History tablet (Entresto) duloxetine 60 mg capsule,delayed 60 mg PO BID #180 caps 04/24/24 03/01/25 Rx release (Cymbalta) omeprazole magnesium 20 mg 20 mg PO DAILY 08/07/24 03/01/25 History tablet,delayed release (Prilosec OTC) meloxicam 15 mg tablet 15 mg PO DAILY PRN pain #90 tabs 12/23/24 03/01/25 Rx dutasteride 0.5 mg capsule 0.5 mg PO DAILY #90 caps 02/25/25 03/01/25 Rx empagliflozin 25 mg tablet 25 mg PO QAM #90 tabs 02/25/25 03/01/25 Rx (Jardiance) tamsulosin 0.4 mg capsule (Flomax) 0.4 mg PO DAILY #90 caps 02/25/25 03/01/25 Rx Allergies Allergy/AdvReac Type Severity Reaction Status Date / Time No Known Allergies AdvReac Unknown Verified 02/28/25 19:00 Vital Signs Vital Signs - 24 hr 02/28/25 18:35 02/28/25 19:00 02/28/25 20:24 Temperature 98.4 F Pulse Rate 79 79 76 Respiratory Rate 16 15 15 Blood Pressure 132/87 149/80 H 155/86 H Pulse Oximetry 100 99 97 02/28/25 21:24 Temperature Pulse Rate 81 Respiratory Rate 16 Blood Pressure 155/92 H Pulse Oximetry 96 Exam Narrative: General: Well-developed, nontoxic-appearing male in the semi-Serra position in bed. Weight: 84 kg. BMI: 25.1. HEENT: PERRL, EOMI. Sclerae anicteric. Tacky mucous membranes. Neck: Supple. Respiratory: Respirations are even and nonlabored. Lungs are clear to auscultation bilaterally. Cardiovascular: Regular rate and rhythm with S1-S2. Gastrointestinal: Abdomen is slightly distended with occasional high-pitched tinkling bowel sounds. He is somewhat tender to palpation throughout the abdomen. No guarding or rebound tenderness. Skin: Warm and dry. No rash or lesions on limited exam. Extremities: No cyanosis, clubbing, or edema. Radial and pedal pulses intact. Neurological: Alert. Cranial nerves 2-12 are grossly intact. No gross focal deficits to casual conversation. Psychiatric: Pleasant and cooperative with normal mood and affect. Judgment and insight intact. H&P: Results Labs Labs: Short CBC 02/28/25 Range/Units 19:08 WBC 5.7 (4.5-10.0) K/mm3 Hgb 10.6 L (14.0-18.0) g/dL Hct 33.1 L (42.0-52.0) % Plt Count 168 (150-375) k/mm3 BMP 02/28/25 19:08 Sodium 136 L Potassium 4.3 Chloride 100 Carbon Dioxide 26 BUN 19 Creatinine 1.07 Glucose 168 H Calcium 9.6 Liver Function 02/28/25 Range/Units 19:08 Total Bilirubin 0.4 (0.2-1.3) mg/dL AST 24 (17-59) U/L ALT 17 (6-50) U/L Alkaline Phosphatase 91 (38-126) U/L Albumin 4.6 (3.5-5.1) g/dL Urine 02/28/25 Range/Units 20:21 Urine Color Yellow (Yellow) Urine Appearance Clear (Clear) Urine pH 6.0 (5.0-9.0) Ur Specific [place] 1.043 H (1.001-1.035) Urine Protein Trace (Negative) mg/dL Urine Glucose (UA) 3+ H (Negative) mg/dL Imaging Abdomen/Pelvis CT 02/28/25 21:26 IMPRESSION: 1. Small bowel obstruction. 2. Minimal free fluid which may indicate perforation. Clinical correlation and follow-up advised. Assessment and Plan Assessment and plan (1) Small bowel obstruction: Code(s): K56.609 - Unspecified intestinal obstruction, unspecified as to partial versus complete obstruction Status: Acute (2) Heart failure with mildly reduced ejection fraction: Code(s): I50.22 - Chronic systolic (congestive) heart failure Status: Acute (3) Type 2 diabetes mellitus: Code(s): E11.9 - Type 2 diabetes mellitus without complications Status: Acute (4) Chronic anemia: Code(s): D64.9 - Anemia, unspecified Status: Acute (5) Essential (primary) hypertension: Code(s): I10 - Essential (primary) hypertension Status: Acute Plan The patient presented to the emergency department for evaluation of generalized abdominal discomfort which began today as detailed in HPI. Labs, imaging, EKG, and all reports were personally reviewed. CT scan shows a small-bowel obstruction with minimal free fluid which may indicate perforation however his exam is pretty benign he is nontoxic in appearance. General surgery was consulted by the ED physician and they recommend and G-tube insertion for decompression and bowel rest. Analgesics and antiemetics are available as needed. Avoid over-hydration given his history of reduced ejection fraction. Blood pressures have been running a bit high, likely due to pain, and will be monitored. Initiate sliding scale insulin, Accu-Cheks, and hypoglycemic protocol. Findings and treatment plan were discussed with the patient. Questions were solicited and answered to satisfaction. The patient's medical management will be taken over by the hospitalist team in a.m. Quality VTE Prophylaxis VTE prophylaxis: pharmacologic ordered The patient has been admitted under observation status. Hospitalist MIPS Advance Care Plan I have confirmed that the patient's Advanced Care Plan is present, code status is documented, or surrogate decision maker is listed in patient medical record.: Yes Medication Reconciliation I have utilized all available resources to obtain, update and review the patients current medications (includes all prescriptions, OTC, herbals, cannabis, and nutritional supplements).: Yes
[2025-02-28] MEDS: ONDANSETRON INJ 4 MG/2 ML VIAL IV PUSH (22:43)
[2025-02-28] MEDS: MORPHINE SULFATE (*CRX) 2 MG/ML INJ IV PUSH (22:43)
[2025-02-28 23:07] VITALS: BP 155/93; PULSE 80; RESP 15; O2SAT 99
[2025-03-01] VITALS (9 sets, daily range): BP systolic 116–140; BP diastolic 66–84; PULSE 76–90; RESP 13–20; TEMP 35.7–36.8; O2SAT 94–100; BMI 25.1
--- NOTE | 2025-03-01 00:18 | ADMGEN ---
This patient, Hernan Delong, was admitted to [address] [place] [address] Room 310-01. Patient/family oriented to hospital policies and general routines including ID bracelet, bed and alarms, visiting hours, pain management, procedures, bathroom and other care routines, personal items, smoking policy, room service/diet, and visiting hours. Information on how to activate the Rapid Response Team has been discussed. Patient/Family are encouraged to report perceived risks to care and to ask questions if they do not understand what they are told or what they should do.
[2025-03-01 00:30] LABS: Glucose Point of Care 178 mg/dl (65-105)
[2025-03-01 06:05] LABS: Anion Gap 9 mmol/L (4-12); Blood Urea Nitrogen 18 mg/dL (9-20); Calcium 9.3 mg/dL (8.4-10.2); Carbon Dioxide 27 mmol/L (22-30); Chloride 103 mmol/L (98-107); Estimated CRCL calculation 57 ml/min; Estimated Glomerular Filt Rate > 60; Glucose 172 mg/dL (65-110); Magnesium 2.3 mg/dL (1.6-2.3); Potassium 4.7 mmol/L (3.4-5.0); Sodium 139 mmol/L (137-145)
--- NOTE | 2025-03-01 06:50 | P.PNIM_ITS ---
Progress Note: A&P Assessment and Plan (1) Small bowel obstruction: Code(s): K56.609 - Unspecified intestinal obstruction, unspecified as to partial versus complete obstruction Status: Acute Assessment and Plan: Abdomen/pelvis CT showed SBO with minimal free fluid which may indicate perforation - NG tube placed to low intermittent suction, placement confirmed with imaging - Gentle IV fluid resuscitation given the patient's NPO status. Monitor volume status given HF. - P.r.n. Anti emetics - Monitor I&Os, vital signs, neuro status and patient is a fall risk - Monitor serum electrolytes and CBC - General surgery consulted to further evaluate small bowel obstruction if the patient needs surgical intervention or fails to improve with NG decompression. (2) Heart failure with mildly reduced ejection fraction: Code(s): I50.22 - Chronic systolic (congestive) heart failure Status: Acute Assessment and Plan: Does not appear in acute exacerbation, patient remains euvolemic. Closely monitor volume status as patient is NPO on fluids (3) Type 2 diabetes mellitus: Code(s): E11.9 - Type 2 diabetes mellitus without complications Status: Acute Assessment and Plan: - hypoglycemia protocol - POC blood glucose ACHS - home medication - jardiance 25 mg daily, metformin 2000 mg daily - correct regimen ordered - SSI, will resume jardiance during admission when patient is no longer NPO - A1c ordered Glucose remains well controlled, continue to monitor. (4) Chronic anemia: Code(s): D64.9 - Anemia, unspecified Status: Acute Assessment and Plan: H/H 10.6/33.1 on admission, appears at baseline No signs of active bleeding B12 and folate WNL Iron panel unremarkable Continue to monitor (5) Essential (primary) hypertension: Code(s): I10 - Essential (primary) hypertension Status: Acute Assessment and Plan: Chronic, home medications currently on hold Resume carvedilol 6.25 mg BID and entresto 49-51 daily when diet resumed Blood pressures remain stable at this time despite being off medications, continue to monitor Time Spent With Patient Time with patient: 25 - 35 minutes Subjective Date/time seen: 03/01/25 06:50 Interval history: 74-year-old male with history of bowel obstruction, heart failure with mildly reduced ejection fraction with an EF of 40% in 11/2023, mild aortic stenosis and mitral valve regurgitation, hypertension, type 2 diabetes mellitus, obstructive sleep apnea, and benign prostate hyperplasia who presented to the hospital for abdominal pain. Patient is pleasant sitting up in bed. He endorses slight abdominal discomfort. He has no other complaints denying chest pain, shortness of breath, p alpitations, nausea/vomiting. Review of Systems Review of Systems: All systems reviewed & are unremarkable except as noted in HPI and below Exam Narrative: AF HR 87 RR 18 SPO2 99 BP 129/84 General: male in no acute respiratory distress who is nontoxic appearing, sitting up in bed. HEENT: Normocephalic. Atraumatic. Extraocular movement intact. Sclera clear and anicteric. No facial asymmetry. NG tube in place. Chest: Lungs are clear to auscultation bilaterally. No wheezes or crackles. CV: Heart was regular rate and rhythm. Abd: Abdomen was soft. Slight tenderness to epigastric and LLQ. Nondistended. Positive bowel sounds. Ext: No clubbing, cyanosis, or edema. DP pulses bilaterally. Neuro: Patient is alert and oriented x4. Speech is clear. Objective Data Vital Signs Vital Signs: Vital Signs - 24 hr 02/28/25 18:35 02/28/25 19:00 02/28/25 20:24 Temperature 98.4 F Pulse Rate 79 79 76 Respiratory Rate 16 15 15 Blood Pressure 132/87 149/80 H 155/86 H Pulse Oximetry 100 99 97 Oxygen Delivery 02/28/25 21:24 02/28/25 23:07 03/01/25 00:09 Temperature Pulse Rate 81 80 Respiratory Rate 16 15 Blood Pressure 155/92 H 155/93 H Pulse Oximetry 96 99 98 Oxygen Delivery Room Air 03/01/25 00:10 Temperature 96.7 F L Pulse Rate 81 Respiratory Rate 16 Blood Pressure 138/77 Pulse Oximetry 99 Oxygen Delivery Meds/Results Medications: Active Medications Generic Name Dose Route Start Last Admin Trade Name Freq PRN Reason Stop Dose Admin Dextrose 12.5 gm 03/01/25 05:35 Dextrose 50% 25 Gm/50 Ml Syringe IV PUSH PRN PRN Hypoglycemia Protocol Glucagon 1 mg 03/01/25 05:35 Glucagon For Inj 1 Mg Vial IM PRN PRN Hypoglycemia Protocol Glucose 15 gm 03/01/25 05:35 Glucose Oral Gel 15 Gm Of Glucse In 37.5 Gm Tube PO PRN PRN Hypoglycemia Protocol Dextrose 1,000 mls @ 100 mls/hr 03/01/25 05:35 Dextrose 5% 1,000 Ml IVPB PRN PRN Hypoglycemia Protocol Insulin Aspart 3 - 6 units 03/01/25 06:00 Insulin Aspart (*Bkc) 100 Units/Ml SUB-Q Q6HR SPENCER Protocol Morphine Sulfate 2 mg 03/01/25 05:35 Morphine Sulfate (*Crx) 2 Mg/Ml Inj IV PUSH Q4H PRN Pain Rated 7-10 Ondansetron HCl 4 mg 03/01/25 05:35 Ondansetron Inj 4 Mg/2 Ml Vial IV PUSH Q6H PRN Nausea And Vomiting Radiology Results: ITS Impressions Abdomen/Pelvis CT 02/28/25 21:26 IMPRESSION: 1. Small bowel obstruction. 2. Minimal free fluid which may indicate perforation. Clinical correlation and follow-up advised. Brittnee in the ER was notified with the result of the patient at 9:45 PM on February 28, 2025. Labs Labs: Laboratory Results - last 24 hr 02/28/25 02/28/25 03/01/25 19:08 20:21 00:12 WBC 5.7 RBC 3.24 L Hgb 10.6 L Hct 33.1 L MCV 102.2 H MCH 32.7 MCHC 32.0 RDW 15.1 H Plt Count 168 MPV 10.8 H Immature Gran % (Auto) 1.0 H Neut % (Auto) 46.8 Lymph % (Auto) 34.4 [place] % (Auto) 16.8 H Eos % (Auto) 0.3 Baso % (Auto) 0.7 Lymph # (Auto) 1.97 [place] # (Auto) 1.0 H Eos # (Auto) 0.0 Baso # (Auto) 0.0 Abs Immat Gran (auto) 0.06 H Absolute Neuts (auto) 2.7 Absolute Nucleated RBC 0.000 Nucleated RBC % 0.0 Sodium 136 L Potassium 4.3 Chloride 100 Carbon Dioxide 26 Anion Gap 10 BUN 19 Creatinine 1.07 Estim Creat Clear Calc 62 Estimated GFR > 60 Glucose 168 H POC Capillary Glucose 178 H Lactic Acid 1.6 Calcium 9.6 Magnesium 2.3 Total Bilirubin 0.4 AST 24 ALT 17 Alkaline Phosphatase 91 Total Protein 8.0 Albumin 4.6 Lipase 202 Urine Color Yellow Urine Appearance Clear Urine pH 6.0 Ur Specific [place] 1.043 H Urine Protein Trace Urine Glucose (UA) 3+ H Urine Ketones Negative Ur Blood (Man) Negative Urine Nitrate Negative Urine Bilirubin Negative Urine Urobilinogen 0.2 Leukocyte Esterase Rfl Negative Urine RBC 0-2 Urine WBC 0-5 Ur Squamous Epith Cells None seen Urine Bacteria None seen Urine Casts 0-2 03/01/25 05:44 WBC RBC Hgb Hct MCV MCH MCHC RDW Plt Count MPV Immature Gran % (Auto) Neut % (Auto) Lymph % (Auto) [place] % (Auto) Eos % (Auto) Baso % (Auto) Lymph # (Auto) [place] # (Auto) Eos # (Auto) Baso # (Auto) Abs Immat Gran (auto) Absolute Neuts (auto) Absolute Nucleated RBC Nucleated RBC % Sodium 139 Potassium 4.7 Chloride 103 Carbon Dioxide 27 Anion Gap 9 BUN 18 Creatinine 1.08 Estim Creat Clear Calc 57 Estimated GFR > 60 Glucose 172 H POC Capillary Glucose Lactic Acid Calcium 9.3 Magnesium 2.3 Total Bilirubin AST ALT Alkaline Phosphatase Total Protein Albumin Lipase Urine Color Urine Appearance Urine pH Ur Specific [place] Urine Protein Urine Glucose (UA) Urine Ketones Ur Blood (Man) Urine Nitrate Urine Bilirubin Urine Urobilinogen Leukocyte Esterase Rfl Urine RBC Urine WBC Ur Squamous Epith Cells Urine Bacteria Urine Casts Quality VTE Prophylaxis VTE prophylaxis: mechanical ordered
[2025-03-01 08:56] LABS: Iron 57 ug/dL (49-181)
[2025-03-01 09:05] LABS: Percent Iron Saturation 16 % (20-50)
[2025-03-01 10:04] LABS: Folic Acid > 20.0 ng/mL (2.76->20)
[2025-03-01 12:00] LABS: Glucose Point of Care 123 mg/dl (65-105)
--- NOTE | 2025-03-01 14:08 | PCRCNOTE ---
Checked on patient regarding home cpap communication. Pt states his family was supposed to bring his home cpap in but he currently has an NG tube. RT told patient to notify us if his family does end up bringing his home cpap in.
[2025-03-01] MEDS: LACTATED RINGERS 1,000 ML 70 ML IV CONT (15:00)
--- OUTSIDE RECORDS SUMMARY | 2025-03-01 15:08 | XMS_ITS | Clinical Summary ---
Author Organization [facility] [address] Address [address] [place] [id number] Care Team Providers Care Public Relations Associate Name Role Phone Zohaib Hoyt MD Primary Care Provider [phone] Allergies No known active allergies Medications DULoxetine [...] (15 mg total) by mouth daily Active triamcinolone (KENALOG) 0.1 % paste 09/02/2024 Active atorvastatin (LIPITOR) 20 mg tabletIndicatio ns:Hyperlipidem ia associated with type 2 diabetes mellitus (HCC) TAKE 1 TABLET(20 MG) BY MOUTH DAILY 30 tablet 11 10/14/2024 Active carvediloL (COREG) 6.25 mg tabletIndicatio ns:NICM (nonischemic cardiomyopathy) (HCC),Hypertens ion associated with diabetes (HCC) TAKE 1 TABLET(6.25 MG) BY MOUTH TWICE DAILY WITH MEALS 60 tablet 11 12/23/2024 Active Entresto 49-51 mg tabletIndicatio ns:NICM (nonischemic cardiomyopathy) (HCC),Hypertens ion associated with diabetes (HCC) TAKE 1 TABLET BY MOUTH TWICE DAILY 60 tablet 11 01/14/2025 Active Active Problems Problem Noted Date Diagnosed Date NICM (nonischemic cardiomyopathy) 12/15/2023 Nonrheumatic aortic valve stenosis 12/15/2023 APARNA (obstructive sleep apnea) 10/13/2023 Hyperlipidemia associated with type 2 diabetes m ellitus 10/13/2023 Hypertension associated with diabetes 10/13/2023 Multiple risk factors for coronary artery diseas e 10/13/2023 Chest discomfort 10/13/2023 PLAZA (dyspnea on exertion) 10/13/2023 Encounters Date Type Department Care Team Description 12/31/2024 10:00 AM CRUSHING FOREMAN Office Visit [facility] Orthopaedic Surgery [address] [place] [address] Advanced Medicine [address]th [place] [address] [place] [address] Zafar Ayala MD Lumbar spine pain (Primary Dx); Spondylolisthesis of lumbosacral region; Lumbar radiculopathy 12/31/2024 9:45 AM CRUSHING FOREMAN - 12/31/2024 11:59 PM CRUSHING FOREMAN Hospital Encounter [facility] [address] [place] [address] Lumbar spine pain Discharge Disposition: Discharge to [...] on file Legal Sex Male 8:28 AM CRUSHING FOREMAN Gender Identity Male 08/29/2024 11:56 AM CDT Sexual Orientation Straight 08/29/2024 11 :56 AM CDT Obstetrics History Last Filed Vital Signs Vital Sign Reading Time Taken Comments Blood Pressure 147/86 10/10/2024 10:03 AM CRUSHING FOREMAN Pulse 80 10/10/2024 10:03 AM CRUSHING FOREMAN Temperature - - Respiratory Rate 18 10/10/2024 10:03 AM CRUSHING FOREMAN Oxygen Saturation 97% 10/10/2024 10:03 AM CRUSHING FOREMAN Inhaled Oxygen Concentration - - Weight 86.2 kg (190 lb) 12/31/2024 10:20 AM CRUSHING FOREMAN Height 182.9 cm (6') 12/31/2024 10:20 AM CRUSHING FOREMAN Body Mass Index 25.77 12/31/2024 10:20 AM CRUSHING FOREMAN Plan of Treatment Health Maintenance Due Date Last Done Comments Albumin Creatinine Ratio, Urine 1948 Depression Screening 1948 Hemoglobin A1C 1948 Hepatitis C Screening 1948 Dilated Eye Exam 1948 Foot Exam 1948 DTaP/Tdap/Td Vaccine (1 - Tdap) 1959 Hepatitis B Screening 1966 Pneumococcal vaccine 65+ (1 of 2 - PCV) 1967 Zoster Vaccine (1 of 2) 1998 Well Visit 65+ 2013 Lipid Panel 01/01/2025 01/02/2024, 11/30, 07/29/2023 eGFR 01/01/2025 01/02/2024 Influenza Vaccine (Season Ended) 2025 Fall Risk Assessment 10/10/2025 10/10/2024 Procedures Procedure Name Priority Date/Time Associated Diagnosis Comments XR SPINE LUMBAR ROUTINE Schedule Routine, Read Routine (OP Routine) 12/31/2024 10:01 AM CRUSHING FOREMAN Lumbar spine pain LIPID PANEL Routine 01/02/2024 4:45 PM CRUSHING FOREMAN BASIC METABOLIC PANEL Routine 01/02/2024 NICM (nonischemic cardiomyopathy) (HCC) Hypertension associated with diabetes (HCC) from Last 3 Months or Most Recently Relevant to Health Maintenance Results * XR Spine Lumbar 4 or More Views (12/31/2024 10:01 AM CRUSHING FOREMAN) Anatomical Region Laterality Modality L-spine N/A Computed Radiogr aphy 12/31/2024 10:1 3 AM CRUSHING FOREMAN Impressions 12/31/2024 10:13 AM CRUSHING FOREMAN 1. Mild extra scoliosis of the thoracic lumbar spine with severe multilevel degenerative disc disease. Electronically signed by: Zulema Ernandez MD Narrative 12/31/2024 10:13 AM CRUSHING FOREMAN EXAMINATION: XR SPINE LUMBAR 4 OR MORE VIEWS HISTORY: Back pain. FINDINGS: Comparison to 09/13/2024. Mild extra scoliosis of the thoracic lumbar spine centered at L1-L2. Multilevel degenerative disease greatest and severe at L1-L2. Mild stepwise retrolisthesis from L1-L3 in neutral position, unchanged with bending. Grade 1 anterolisthesis of L5 on S1 in neutral position, unchanged with bending, secondary to pars defects. Vertebral body heights preserved. 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 FINDINGS: Comparison to 09/13/2024. Mild extra scoliosis of the thoracic lumbar spine centered at L1-L2. Multilevel degenerative disease greatest and severe at L1-L2. Mild stepwise retrolisthesis from L1-L3 in neutral position, unchanged with bending. Grade 1 anterolisthesis of L5 on S1 in neutral position, unchanged with bending, secondary to pars defects. Vertebral body heights preserved. 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 Mild extra scoliosis of the thoracic lumbar spine with severe multilevel degenerative disc disease. Electronically signed by: Zulema Ernandez MD Zafar Ayala MD IMG XR PROCEDURES Final Result * Lipid panel (01/02/2024 4:45 PM CRUSHING FOREMAN) SCRIBED Cholesterol, Total 92 <200 [facility] SCRIBED [...] N/A N/A [facility] SCRIBED eGFR in NonAfrican Kosovan 60 > or = 60 [facility] Blood 01/02/2024 Ford Sutton MD LAB BLOOD ORDERABLES Erna rashid Result [facility] from Last 3 Months or Most Recently Relevant to Health Maintenance Insurance MEDICARE [facility] FEDERAL MEDICARE [facility] FEDERAL Member Subscriber Plan / Payer (Ef fective 2015-) Name:Baljeet, Hernan Cara Relation to Subscriber:Self Name:Hernan Delong Payer ID:[id number] (NAIC) Group ID:[id number] Type:[employer] ALLIANCE Address: [facility] [id number] [place] [id number] Care Teams Public Relations Associate Relationship Specialty Start Date End Date Zohaib Hoyt MD [address] [address] PCP - General Family Medicine 08/07/23
--- OUTSIDE RECORDS SUMMARY | 2025-03-01 15:08 | XMS_ITS | Continuity of Care Document ---
Author Organization [facility] Address [address] [place] [address] [place] [address] Phone Care Team Providers Care Deputy Assessor Name Role Phone Owen Altamirano DO Unavailable Unavailable Advance Directives Directive Yes / No Effective Date File Name No Information Encounters Encounter Description Practice Location Reason(s) For Visit Diagnoses Date Provider Providers Copied on Encounter [facility], [address], [place], [place], [id number], [place] tel:[phone] [facility] No Information Evelia Doty. [address] [employer] [facility], [place], [address], [place]. tel: [phone] Family History Family Member Type Diagnosis Age At Onset No Information Payers Payer name Insurance type Covered alliance party ID Authoriza tion(s) [facility] [id number] Social History Type Description Quantity Date Captured [...]
--- OUTSIDE RECORDS SUMMARY | 2025-03-01 15:08 | XMS_ITS | Referral Summary ---
Author Organization [facility] [address] Address [address] [place] [phone] Care Team Providers Care Taxi Proprietor Name Role Phone Zohaib Hoyt MD Primary Care Provider [phone] Encounters Date Type Department Care Team Description 12/31/2024 9:45 AM MICROSYSTEMS ENGINEER - 12/31/2024 11:59 PM MICROSYSTEMS ENGINEER Hospital Encounter [facility] [address] [place] [address] Lumbar spine pain Discharge Disposition: Discharge to home or self care 12/31/2024 10:00 AM MICROSYSTEMS ENGINEER Office Visit [facility] Orthopaedic Surgery [address] [place] [address] Advanced [facility] [address]th [place] [address] [place] [address] Zafar Ayala MD Lumbar spine pain (Primary Dx); Spondylolisthesis of lumbosacral region; Lumbar radiculopathy from Last 3 Months Allergies No known [...] Hyperlipidemia associated with type 2 diabetes m corazon 10/13/2023 Hypertension associated with diabetes 10/13/2023 Multiple [...] on file Legal Sex Male 8:28 AM MICROSYSTEMS ENGINEER Gender Identity Male 08/29/2024 11:56 AM CDT Sexual Orientation Straight 08/29/2024 11 :56 AM CDT Last Filed Vital Signs Vital Sign Reading Time Taken Comments Blood Pressure 147/86 10/10/2024 10:03 AM MICROSYSTEMS ENGINEER Pulse 80 10/10/2024 10:03 AM MICROSYSTEMS ENGINEER Temperature - - Respiratory Rate 18 10/10/2024 10:03 AM MICROSYSTEMS ENGINEER Oxygen Saturation 97% 10/10/2024 10:03 AM MICROSYSTEMS ENGINEER Inhaled Oxygen Concentration - - Weight 86.2 kg (190 lb) 12/31/2024 10:20 AM MICROSYSTEMS ENGINEER Height 182.9 cm (6') 12/31/2024 10:20 AM MICROSYSTEMS ENGINEER Body Mass Index 25.77 12/31/2024 10:20 AM MICROSYSTEMS ENGINEER Plan of Treatment Not on file Procedures Procedure Name Priority Date/Time Associated Diagnosis Comments XR SPINE LUMBAR ROUTINE Schedule Routine, Read Routine (OP Routine) 12/31/2024 10:01 AM MICROSYSTEMS ENGINEER Lumbar spine pain LIPID PANEL Routine 01/02/2024 4:45 PM MICROSYSTEMS ENGINEER BASIC METABOLIC PANEL Routine 01/02/2024 NICM (nonischemic cardiomyopathy) (HCC) Hypertension associated with diabetes (HCC) from Last 3 Months or Most Recently Relevant to Health Maintenance Results * XR Spine Lumbar 4 or More Views (12/31/2024 10:01 AM MICROSYSTEMS ENGINEER) Anatomical Region Laterality Modality L-spine N/A Computed Radiogr aphy 12/31/2024 10:1 3 AM MICROSYSTEMS ENGINEER Impressions 12/31/2024 10:13 AM MICROSYSTEMS ENGINEER 1. Mild extra scoliosis of the thoracic lumbar spine with severe multilevel degenerative disc disease. Electronically signed by: Zulema Ernandez MD Narrative 12/31/2024 10:13 AM MICROSYSTEMS ENGINEER EXAMINATION: XR SPINE LUMBAR 4 OR MORE [...] Result * Lipid panel (01/02/2024 4:45 PM MICROSYSTEMS ENGINEER) SCRIBED Cholesterol, Total 92 <200 [facility] SCRIBED [...] N/A N/A [facility] SCRIBED eGFR in NonAfrican Emirati 60 > or = 60 [facility] Blood 01/02/2024 us Ford Sutton MD LAB BLOOD ORDERABLES Erna rashid Result [facility] from Last 3 Months or Most Recently Relevant to Health Maintenance Insurance MEDICARE [facility] MEDICARE [facility] FEDERAL Member Subscriber Plan / Payer (Ef fective 2015-Present) Name:Hernan Delong Relation to Subscriber:Self Name:Hernan Delong Payer ID:[id number] (NAIC) Group ID:[id number] Type:ProtAb Address: [address] [place] [address] Care Teams Taxi Proprietor Relationship Specialty Start Date End Date Zohaib Hoyt MD [address] [address] PCP - General Family Medicine 08/07/23
--- OUTSIDE RECORDS SUMMARY | 2025-03-01 15:20 | XMS_ITS | Continuity of Care Document ---
Author Organization [facility] Address [address] [place] [address] [place] [address] Phone Care Team Providers Care Government Affairs Researcher Name Role Phone Owen Altamirano DO Unavailable Unavailable Advance Directives Directive Yes / No Effective Date File Name No Information Encounters Encounter Description Practice Location Reason(s) For Visit Diagnoses Date Provider Providers Copied on Encounter [facility], [address], [place], [place], [id number], [place] tel:[phone] [facility] No Information Evelia Doty. [address] [email or web address] [facility], [place], [address], [place]. tel: [phone] Family History Family Member Type Diagnosis Age At Onset No Information Payers Payer name Insurance type Covered constitution party ID Authoriza tion(s) [place] [id number] Social History Type Description Quantity Date Captured [...]
[2025-03-01 17:58] LABS: Glucose Point of Care 116 mg/dl (65-105)
--- NOTE | 2025-03-01 18:21 | WPDCN ---
Assessment and Plan Assessment and plan (1) Small bowel obstruction: Code(s): K56.609 - Unspecified intestinal obstruction, unspecified as to partial versus complete obstruction Status: Acute Assessment and Plan: Appears the patient has recurrent small-bowel obstruction likely partial in nature since he is passing some flatus. Responding appropriately right now to nasogastric tube decompression. Does not have acute surgical abdomen. Will get a water-soluble small bowel series later today or tomorrow. If contrast passes to the colon then hopefully he will respond to non operative management. He does have some dark bloody output from his NG tube so I will go ahead and add Protonix IV as well as some Mylanta into the NG tube q.8 hours. Continue IV fluid hydration and antibiotics for small-bowel obstruction. HPI Data of Consult Date/Time: 03/01/25 18:21 Requesting Physician: Gina Lopez PA-C Primary Care Provider: Zohaib Hoyt MD Consult Narrative Reason for consult: Recurrent small-bowel obstruction Narrative: Hernan Delong is a 74 year old male who was admitted to the hospital with recurrent small-bowel obstruction. He had a open appendectomy performed 1980s with a right paramedian incision. He has had issues with recurrent small-bowel obstructions over last few years. His last admission for a small-bowel obstruction was about 4 months ago here at [facility] which was treated non operatively. Prior to that time he had not been admitted for about a year. He started feeling distended and very mild abdominal pain associated nausea and he presented to the emergency room because this is how was bowel obstructions usually begin. Nasogastric tube was placed and the bowels were decompressed. CT scan abdomen pelvis was performed dilated small bowel and a transition point in the anterior mid abdomen likely due to adhesions. White blood cell count is normal. Electrolytes are normal. He states that the abdominal distention is better the than when he was admitted with the NG tube in place. He is passing some flatus but no bowel movements. Review of Systems Review of Systems: The remainder of the review of systems to include constitutional, HEENT, cardiovascular, respiratory, GI, , integumentary, musculoskeletal, endocrine, immunologic, hematologic, psychiatric, and neurologic are all negative except for which is mentioned above in the HPI. [facility] Past Medical History Medical History Chronic anemia Heart failure with mildly reduced ejection fraction Dyspepsia and disorder of function of stomach (08/07/24) Syncope and collapse Carotid Doppler study normal on 08/01/2024. MRI of the brain and brainstem on 08/15/2024 was normal with normal aging. MRI of the lumbar spine revealed severe degenerative disc disease and facet arthropathy. At high risk for falls Chronic low back pain with left-sided sciatica Generalized weakness (~06/2024) Frequent falls (~06/2024) Controlled type 2 diabetes mellitus with hyperglycemia, without long-term current use of insulin Hemoglobin A1c 7.6 on 12/08/2021. Glucose 182 with hemoglobin A1c 7.3 on 07/06/2022. glucose 183 with hemoglobin A1c 8.5 on 01/10/2023. Glucose 130 with hemoglobin A1c 7.5 on 07/29/2023 with microalbumin ratio of 99. Glucose 223 with hemoglobin A1c 8.3 on 01/02/2024. fasting glucose 237 with hemoglobin A1c 10.1 on 06/14/2024. Fasting blood was 182 on 08/09/2024. Glucose 179 With microalbumin ratio of 88.7 on 09/06/2024. Hearing loss, left (05/06/24) Nonischemic cardiomyopathy (2022) nuclear stress test 11/15/2023 with moderate to severe left ventricular systolic dysfunction with ejection fraction 35% with no S PO scan or EKG. Cardiac catheterization 12/11/2023 with no significant coronary artery disease. Bacteremia due to Staphylococcus aureus ESR 42 on 11/06/2023. WBC 2.6 on 11/06/2023. Lung infiltrate Pyelonephritis Sepsis Dyspnea on exertion No significant coronary artery disease on catheterization on 12/11/2023. Encounter for prostate cancer screening PSA 0.42 on 07/29/2023. PSA 0.5 on 09/06/2024. Left elbow pain (~07/2022) X-ray on 11/07/2022 revealed no evidence of fracture with soft tissue swelling over the olecranon process. COVID-19 (09/23/22) Tested positive 09/28/2022. Candidiasis (~09/28/22) Microalbuminuria due to type 2 diabetes mellitus (07/06/22) microalbumin ratio of 35 on 07/06/2022. Microalbumin ratio of 99 on 07/29/2023. Microalbumin ratio of 88.7 on 09/06/2024. Aphthous ulcer of mouth (04/22/22) Small bowel obstruction (03/19/22) Recurrent and resolved in-hospital 03/23/2022. Leukocytosis WBC 8.7 on 12/08/2021 Diabetic eye exam No retinopathy on 03/18/2021. No retinopathy on 11/09/2022. Acute bilateral low back pain with left-sided sciatica Seasonal allergic rhinitis Arthritis BPH without obstruction/lower urinary tract symptoms Chronic bilateral low back pain X-ray of the lumbar spine on 07/26/2024 revealed degenerative disc disease and facet arthropathy at multiple levels with scoliosis of the lumbar spine. MRI of the lumbar spine on 08/15/2024 reveals severe degenerative disc disease with central canal stenosis and facet arthropathy with neural foraminal narrowing multiple levels. Diabetic peripheral neuropathy associated with type 2 diabetes mellitus Essential (primary) hypertension Insomnia Mixed hyperlipidemia Cholesterol 135, triglycerides 129, HDL 42, LDL 72 on 01/10/2023. cholesterol 139, triglycerides 108, HDL 46, LDL 74 with ratio 2.5 on 07/29/2023. Cholesterol 92, triglycerides 90, HDL 40, LDL 35 with ratio of 2.3 on 01/02/2024. Cholesterol 91, triglycerides 133, HDL 30, LDL less than 30 on 09/06/2024. APARNA on CPAP Type 2 diabetes mellitus without complication, without long-term current use of insulin Hemoglobin A1c 7.6 on 12/08/2021. Glucose 182 with hemoglobin A1c 7.3 on 07/06/2022. glucose 183 with hemoglobin A1c 8.5 on 01/10/2023. Glucose 130 with hemoglobin A1c 7.5 on 07/29/2023 with microalbumin ratio of 99. Glucose 223 with hemoglobin A1c 8.3 on 01/02/2024. Surgical History Surgical History History of colonoscopy History of tonsillectomy and adenoidectomy History of appendectomy Family History Family History Grandparent Cerebrovascular accident, Onset Age: 78 Father Family history of Alzheimer's disease, Onset Age: 79 Mother Family history of Alzheimer's disease, Onset Age: 85 Social History Social History Social History: Surrogate decision-maker: Malena Delong, spouse. CODE STATUS: Full code Smoking status: Never smoker Second hand tobacco smoke exposure: Yes Alcohol intake: never Substance use: never Substance use type: does not use Do You Feel Safe in your Home?: Yes Lack of Transportation: No Lack of Food: Never True Current Housing: I Have Housing Concerned About Future Housing: No Difficulty Paying Gas/Electric Bills: No Difficulty Paying for Meds: No Currently Unemployed: No Education: Bachelor's Degree Difficulty w/ Childcare or Family Care: No Living arrangements: with family Additional living arrangements comments: Lives at home with his . They have 4 children. They have 7 horses Additional occupation/education comments: Retired from the [employer]. Spiritual care concerns: No Meds Home Medications and Allergies Home Medications ?Medication ?Instructions ?Recorded ?Confirmed ?Type aspirin 81 mg tablet,delayed 81 mg PO DAILY 09/11/19 03/01/25 History release (Adult Low Dose Aspirin) multivitamin,[id number] 1 tablet PO DAILY 09/11/19 03/01/25 History (Complete Multivitamin tablet) fluticasone propionate 50 1 spray intranasal BID #16 grams 01/17/23 03/01/25 Rx mcg/actuation nasal spray,suspension (Flonase Allergy Relief) atorvastatin 20 mg tablet 20 mg PO QHS 10/19/23 03/01/25 History magnesium 500 mg tablet 500 mg PO DAILY 12/08/23 03/01/25 History vitamin B complex (B 1 tablet PO DAILY 12/08/23 03/01/25 History Complex-Vitamin B12 tablet) metformin 500 mg tablet,extended 2,000 mg (4 x 500 mg) PO DAILY 01/15/24 03/01/25 Rx release 24 hr #360 tabs carvedilol 6.25 mg tablet 6.25 mg PO Q12H 02/06/24 03/01/25 History sacubitril 49 mg-valsartan 51 mg 1 tablet PO BID 02/06/24 03/01/25 History tablet (Entresto) duloxetine 60 mg capsule,delayed 60 mg PO BID #180 caps 04/24/24 03/01/25 Rx release (Cymbalta) omeprazole magnesium 20 mg 20 mg PO DAILY 08/07/24 03/01/25 History tablet,delayed release (Prilosec OTC) meloxicam 15 mg tablet 15 mg PO DAILY PRN pain #90 tabs 12/23/24 03/01/25 Rx dutasteride 0.5 mg capsule 0.5 mg PO DAILY #90 caps 02/25/25 03/01/25 Rx empagliflozin 25 mg tablet 25 mg PO QAM #90 tabs 02/25/25 03/01/25 Rx (Jardiance) tamsulosin 0.4 mg capsule (Flomax) 0.4 mg PO DAILY #90 caps 02/25/25 03/01/25 Rx Allergies Allergy/AdvReac Type Severity Reaction Status Date / Time No Known Allergies AdvReac Unknown Verified 02/28/25 19:00 Vital Signs Vital Signs - 24 hr 02/28/25 18:35 02/28/25 19:00 02/28/25 20:24 Temperature 36.9 C Pulse Rate 79 79 76 Respiratory Rate 16 15 15 Blood Pressure 132/87 149/80 H 155/86 H Pulse Oximetry 100 99 97 Oxygen Delivery 02/28/25 21:24 02/28/25 23:07 03/01/25 00:09 Temperature Pulse Rate 81 80 Respiratory Rate 16 15 Blood Pressure 155/92 H 155/93 H Pulse Oximetry 96 99 98 Oxygen Delivery Room Air 03/01/25 00:10 03/01/25 06:00 03/01/25 08:00 Temperature 35.9 C L 35.7 C L 36.7 C Pulse Rate 81 80 76 Respiratory Rate 16 18 18 Blood Pressure 138/77 116/66 129/83 Pulse Oximetry 99 100 97 Oxygen Delivery 03/01/25 08:50 03/01/25 12:00 03/01/25 16:00 Temperature 36.8 C 36.7 C Pulse Rate 87 90 Respiratory Rate 18 18 Blood Pressure 129/84 140/84 Pulse Oximetry 99 94 Oxygen Delivery Room Air Exam Const: General: comfortable and no acute distress HENMT: Ears: TM's normal bilaterally Face/Nose/Sinus: Normal nares present Mouth: Yes moist mucous membranes Eyes: General: appearance normal, both eyes and all related structures Sclera: sclerae normal Pupils: Equal, round and reactive pupils present EOM: EOMs intact bilaterally Neck: Neck: supple and no JVD Resp: Effort & Inspection: normal respiratory effort Auscultation: clear to auscultation bilaterally Cardio: Rate: regular rate Rhythm: regular rhythm GI: Other: Abdomen is mildly distended. Minimal diffuse tenderness. Vertical right-sided paramedian scar without incisional hernia. No guarding and no generalized peritoneal signs. Skin: General skin exam: normal color and no rashes or lesions noted Neuro: General: gait normal Speech: normal speech Motor exam (neuro): 5/5 motor strength present throughout Sensory Exam: normal sensation Extrem: General: normal to inspection Psych: Mental Status: mental status grossly normal Affect: normal affect Results Labs 02/28/25 19:08 03/01/25 05:44 Labs: Short CBC 02/28/25 Range/Units 19:08 WBC 5.7 (4.5-10.0) K/mm3 Hgb 10.6 L (14.0-18.0) g/dL Hct 33.1 L (42.0-52.0) % Plt Count 168 (150-375) k/mm3 BMP 02/28/25 03/01/25 19:08 05:44 Sodium 136 L 139 Potassium 4.3 4.7 Chloride 100 103 Carbon Dioxide 26 27 BUN 19 18 Creatinine 1.07 1.08 Glucose 168 H 172 H Calcium 9.6 9.3 Liver Function 02/28/25 Range/Units 19:08 Total Bilirubin 0.4 (0.2-1.3) mg/dL AST 24 (17-59) U/L ALT 17 (6-50) U/L Alkaline Phosphatase 91 (38-126) U/L Albumin 4.6 (3.5-5.1) g/dL Urine 02/28/25 Range/Units 20:21 Urine Color Yellow (Yellow) Urine Appearance Clear (Clear) Urine pH 6.0 (5.0-9.0) Ur Specific [place] 1.043 H (1.001-1.035) Urine Protein Trace (Negative) mg/dL Urine Glucose (UA) 3+ H (Negative) mg/dL Imaging Radiologist's impression: CT Scan Report Signed Patient: Hernan Delong : 1950 MR#: [id number] Age: 74 Acct:[id number] Loc: [facility] ADM Date: 02/28/25Attending Dr: Ordering Physician: Baldomero Wood MD Date of Service: 02/28/25 Procedure(s): CT abdomen pelvis w con Accession Number(s): [id number] cc: Baldomero Wood MD; Zohaib Hoyt MD~ CT abdomen pelvis w con Ordering provider: Baldomero Wood History: 74 years Male with . abd pain . Comparison: November 26, 2024 Technique: CT abdomen and pelvis with IV and without oral contrast. Automated exposure control and iterative reconstruction technique were employed. The dose-length product was 672.48 mGy-cm. 100 mL Omnipaque 350 was given IV. Findings: VISUALIZED LOWER CHEST: 5 mm nodule is seen in the right lower lobe posteriorly. 6 months follow-up CT is advised. Otherwise, Normal. UPPER ABDOMINAL ORGANS: Liver: 2 cm hypodensity seen in the right lobe of the liver most likely a cyst unchanged from previous examination.. Focal area of biliary dilatation is seen in the left lobe of the liver unchanged. Gallbladder: Normal. Spleen: Normal. Stomach/duodenum: Normal. Pancreas: Normal. Adrenals: Normal. Kidneys: Scarring is seen in the left kidney upper pole. PELVIC ORGANS: The bladder is normal. BOWEL AND MESENTERY: Colon: No evidence of diverticulitis. Appendix is not demonstrated. Small Bowel: Dilated small bowel is noted suggestive of obstruction. The area of transition is seen in the mid abdomen anteriorly. Peritoneum/mesentery: No free air. Minimal free fluid is seen in the left side near to the small bowel, mid abdomen between the small bowel loops and in the right lower quadrant near to the small bowel loops.. Perforation cannot be excluded. No mesenteric lymphadenopathy. Small mesenteric lymph nodes are seen in the right lower quadrant. RETROPERITONEUM: Mild atheromatous disease of the abdominal aorta. No retroperitoneal lymphadenopathy. MUSCULOSKELETAL: Superficial soft tissues: The superficial soft tissues are normal. Bones: Age appropriate degenerative changes of the spine. Minimal anterolisthesis at the level of L5-S1. IMPRESSION: 1. Small bowel obstruction. 2. Minimal free fluid which may indicate perforation. Clinical correlation and follow-up advised. Brittnee in the ER was notified with the result of the patient at 9:45 PM on February 28, 2025. Reviewed, dictated and finalized at location A. Please be advised this is a medical document. It is intended for [id number] communication. It is written in medical language and may contain unfamiliar abbreviations or verbiage. Medical documents are intended to carry relevant information, facts as evident, and the clinical opinion of the practitioner at the time of the encounter. This report may have been done utilizing a voice recognition system. Attempts have been made to correct errors. However, there may be uncorrected grammatical, spelling, and recognition errors present. The file time of this note does not necessarily represent the time of service. Dictated By: Anson Poon MD 02/28/252125 Signed By: <Electronically signed by Anson Poon MD in [place]>
[2025-03-01] MEDS: LACTATED RINGERS 1,000 ML 100 ML IV CONT (18:41)
[2025-03-01] MEDS: PANTOPRAZOLE SODIUM IV 40 MG VIAL IV PUSH (18:41)
[2025-03-01] MEDS: levoFLOXacin 750 MG/D5W 150 ML 750 MG/150 ML BAG 100 MG IVPB (18:49)
[2025-03-02] VITALS (7 sets, daily range): BP systolic 145–158; BP diastolic 72–95; PULSE 79–94; RESP 12–16; TEMP 36.2–36.6; O2SAT 93–100
[2025-03-02 00:16] LABS: Glucose Point of Care 117 mg/dl (65-105)
[2025-03-02] MEDS: LACTATED RINGERS 1,000 ML 100 ML IV CONT (03:03)
[2025-03-02 05:15] LABS: Glucose Point of Care 117 mg/dl (65-105)
[2025-03-02 06:22] LABS: Hematocrit 31.6 % (42.0-52.0); Hemoglobin 9.6 g/dL (14.0-18.0); Mean Corpuscular HGB Conc 30.4 g/dl (32-36); Mean Corpuscular Hemoglobin 32.4 pg (26-34); Mean Corpuscular Volume 106.8 fl (80-100); Mean Platelet Volume 10.9 fl (7.4-10.4); Platelet Count Result 153 k/mm3 (150-375); Red Blood Count 2.96 M/mm3 (4.6-6.20); Red Cell Distribution Width 15.2 % (11.5-14.5); White Blood Count 5.5 K/mm3 (4.5-10.0)
[2025-03-02 06:36] LABS: Alanine Aminotransferase 14 U/L (6-50); Albumin Level 4.1 g/dL (3.5-5.1); Alkaline Phosphatase 93 U/L (38-126); Anion Gap 10 mmol/L (4-12); Aspartate Amino Transferase 21 U/L (17-59); Bilirubin,Total 0.5 mg/dL (0.2-1.3); Blood Urea Nitrogen 18 mg/dL (9-20); Calcium 9.1 mg/dL (8.4-10.2); Carbon Dioxide 26 mmol/L (22-30); Chloride 102 mmol/L (98-107); Estimated CRCL calculation 59 ml/min; Estimated Glomerular Filt Rate > 60; Glucose 113 mg/dL (65-110); Potassium 4.3 mmol/L (3.4-5.0); Sodium 138 mmol/L (137-145)
[2025-03-02 06:50] LABS: Hemoglobin A1C 8.1 % (<5.7)
[2025-03-02] MEDS: PANTOPRAZOLE SODIUM IV 40 MG VIAL IV PUSH (08:28)
--- NOTE | 2025-03-02 12:04 | P.PNIM_ITS ---
Progress Note: A&P Assessment and Plan (1) Small bowel obstruction: Code(s): K56.609 - Unspecified intestinal obstruction, unspecified as to partial versus complete obstruction Status: Acute Assessment and Plan: Abdomen/pelvis CT showed SBO with minimal free fluid which may indicate perforation - NG tube placed to low intermittent suction, placement confirmed with imaging - Gentle IV fluid resuscitation given the patient's NPO status. Monitor volume status given HF. - P.r.n. Anti emetics - Monitor I&Os, vital signs, neuro status and patient is a fall risk - Monitor serum electrolytes and CBC - General surgery consulted to further evaluate small bowel obstruction if the patient needs surgical intervention or fails to improve with NG decompression. surgery notes reviewed - water-soluble small bowel series ordered. - Protonix IV as well as some Mylanta into the NG tube q.8 hours. - Continue IV fluid hydration and antibiotics for small-bowel obstruction. (2) Heart failure with mildly reduced ejection fraction: Code(s): I50.22 - Chronic systolic (congestive) heart failure Status: Acute Assessment and Plan: Does not appear in acute exacerbation, patient remains euvolemic. Closely monitor volume status as patient is NPO on fluids (3) Type 2 diabetes mellitus: Code(s): E11.9 - Type 2 diabetes mellitus without complications Status: Acute Assessment and Plan: - hypoglycemia protocol - POC blood glucose ACHS - home medication - jardiance 25 mg daily, metformin 2000 mg daily - correct regimen ordered - SSI, will resume jardiance during admission when patient is no longer NPO - A1c ordered Glucose remains well controlled, continue to monitor. reviewed and stable (4) Chronic anemia: Code(s): D64.9 - Anemia, unspecified Status: Acute Assessment and Plan: H/H 10.6/33.1 on admission, appears at baseline No signs of active bleeding B12 and folate WNL Iron panel unremarkable Continue to monitor 5/4- hg/hct- 9.6/31.6 (5) Essential (primary) hypertension: Code(s): I10 - Essential (primary) hypertension Status: Acute Assessment and Plan: Chronic, home medications currently on hold Resume carvedilol 6.25 mg BID and entresto 49-51 daily when diet resumed Blood pressures remain stable at this time despite being off medications, continue to monitor Time Spent With Patient Time with patient: 25 - 35 minutes Subjective Date/time seen: 03/02/25 12:04 Interval history: 74-year-old male with history of bowel obstruction, heart failure with mildly reduced ejection fraction with an EF of 40% in 11/2023, mild aortic stenosis and mitral valve regurgitation, hypertension, type 2 diabetes mellitus, obstructive sleep apnea, and benign prostate hyperplasia who presented to the hospital for abdominal pain. Patient is seen and examined. He is pleasant and comfortable. In bed. Surgery consulted and following. he is denying chest pain, shortness of breath, palpitations, nausea/vomiting. Plan for Small-bowel follow-through series today. he reports that he feels like he would have a BM soon. Review of Systems Review of Systems: 12 systems were reviewed and are negativ e except for as per HPI. All systems reviewed & are unremarkable except as noted in HPI and below Exam Narrative: AF HR 87 RR 18 SPO2 99 BP 129/84 General: male in no acute respiratory distress who is nontoxic appearing, sitting up in bed. HEENT: Normocephalic. Atraumatic. Extraocular movement intact. Sclera clear and anicteric. No facial asymmetry. NG tube in place. Chest: Lungs are clear to auscultation bilaterally. No wheezes or crackles. CV: Heart was regular rate and rhythm. Abd: Abdomen was soft. Slight tenderness to epigastric and LLQ. Nondistended. Positive bowel sounds. Ext: No clubbing, cyanosis, or edema. DP pulses bilaterally. Neuro: Patient is alert and oriented x4. Speech is clear. Objective Data Vital Signs Vital Signs: Vital Signs - 24 hr 03/01/25 16:00 03/01/25 20:00 03/01/25 20:00 Temperature 98.1 F 97.4 F L Pulse Rate 90 84 Respiratory Rate 18 13 Blood Pressure 140/84 138/71 Pulse Oximetry 94 94 Oxygen Delivery Room Air Fraction of Inspired Oxygen 03/01/25 21:14 03/01/25 22:00 03/02/25 00:00 Temperature 97.4 F L 97.1 F L Pulse Rate 81 84 85 Respiratory Rate 20 13 12 Blood Pressure 138/71 148/80 H Pulse Oximetry 95 94 96 Oxygen Delivery Room Air Fraction of Inspired Oxygen 21 03/02/25 04:00 03/02/25 05:50 03/02/25 08:00 Temperature 97.1 F L 97.1 F L 97.2 F L Pulse Rate 79 79 85 Respiratory Rate 13 13 16 Blood Pressure 149/72 H 149/72 H 155/90 H Pulse Oximetry 97 97 100 Oxygen Delivery Fraction of Inspired Oxygen 03/02/25 08:28 Temperature Pulse Rate Respiratory Rate Blood Pressure Pulse Oximetry Oxygen Delivery Room Air Fraction of Inspired Oxygen Intake/Output Intake/Output: Intake & Output 02/27/25 02/28/25 03/01/25 03/02/25 23:59 23:59 23:59 23:59 Intake Total 587.8 836.7 Output Total 1125 1100 Balance -537.2 -263.3 Meds/Results Medications: Active Medications Generic Name Dose Route Start Last Admin Trade Name Freq PRN Reason Stop Dose Admin Al Hydrox/Mg Hydrox/Simethicone 30 ml 03/01/25 18:14 Mag Hydrox/Al Hydrox/Simeth 30 Ml Udc PO Q8H PRN blood in NGT Dextrose 12.5 gm 03/01/25 05:35 Dextrose 50% 25 Gm/50 Ml Syringe IV PUSH PRN PRN Hypoglycemia Protocol Glucagon 1 mg 03/01/25 05:35 Glucagon For Inj 1 Mg Vial IM PRN PRN Hypoglycemia Protocol Glucose 15 gm 03/01/25 05:35 Glucose Oral Gel 15 Gm Of Glucse In 37.5 Gm Tube PO PRN PRN Hypoglycemia Protocol Dextrose 1,000 mls @ 100 mls/hr 03/01/25 05:35 Dextrose 5% 1,000 Ml IVPB PRN PRN Hypoglycemia Protocol Lactated Ringer's 1,000 mls @ 100 mls/hr 03/01/25 14:25 03/02/25 03:03 Lr - Lactated Ringers Iv IV CONT 100 mls/hr .Q10H [facility] Administration Levofloxacin/Dextrose 750 mg in 150 mls @ 100 mls/hr 03/01/25 18:00 03/01/25 20:19 Levaquin 750 Mg/D5w 150 Ml IVPB Infused Q24H [facility] Infusion Insulin Aspart 3 - 6 units 03/01/25 06:00 03/02/25 09:44 Insulin Aspart (*Bkc) 100 Units/Ml SUB-Q Not Given Q6HR [facility] Protocol Morphine Sulfate 2 mg 03/01/25 05:35 Morphine Sulfate (*Crx) 2 Mg/Ml Inj IV PUSH Q4H PRN Pain Rated 7-10 Ondansetron HCl 4 mg 03/01/25 05:35 Ondansetron Inj 4 Mg/2 Ml Vial IV PUSH Q6H PRN Nausea And Vomiting Pantoprazole Sodium 40 mg 03/02/25 09:00 03/02/25 08:28 Pantoprazole Sodium Iv 40 Mg Vial IV PUSH 40 mg QAM [facility] Administration Radiology Results: ITS Impressions Abdomen/Pelvis CT 02/28/25 21:26 IMPRESSION: 1. Small bowel obstruction. 2. Minimal free fluid which may indicate perforation. Clinical correlation and follow-up advised. Brittnee in the ER was notified with the result of the patient at 9:45 PM on February 28, 2025. Labs Labs: Laboratory Results - last 24 hr 03/01/25 03/02/25 03/02/25 17:52 00:12 04:34 WBC RBC Hgb Hct MCV MCH MCHC RDW Plt Count MPV Sodium Potassium Chloride Carbon Dioxide Anion Gap BUN Creatinine Estim Creat Clear Calc Estimated GFR Glucose POC Capillary Glucose 116 H 117 H 117 H Hemoglobin A1c Calcium Total Bilirubin AST ALT Alkaline Phosphatase Total Protein Albumin 03/02/25 05:47 WBC 5.5 RBC 2.96 L Hgb 9.6 L Hct 31.6 L MCV 106.8 H MCH 32.4 MCHC 30.4 L RDW 15.2 H Plt Count 153 MPV 10.9 H Sodium 138 Potassium 4.3 Chloride 102 Carbon Dioxide 26 Anion Gap 10 BUN 18 Creatinine 1.04 Estim Creat Clear Calc 59 Estimated GFR > 60 Glucose 113 H POC Capillary Glucose Hemoglobin A1c 8.1 H Calcium 9.1 Total Bilirubin 0.5 AST 21 ALT 14 Alkaline Phosphatase 93 Total Protein 7.0 Albumin 4.1 Quality VTE Prophylaxis VTE prophylaxis: mechanical ordered
[2025-03-02 12:08] LABS: Glucose Point of Care 97 mg/dl (65-105)
--- NOTE | 2025-03-02 14:24 | WPDPN ---
Progress Note: A&P Assessment and Plan (1) Small bowel obstruction: Code(s): K56.609 - Unspecified intestinal obstruction, unspecified as to partial versus complete obstruction Status: Acute Assessment and Plan: Recurrent small-bowel obstruction has resolved. Contrast reaches the colon and 30 to 45 minutes on water-soluble small-bowel follow-through study. He is not having bowel movements. We will go ahead remove his NG tube and start him on full liquids. Likely advanced to solid food tomorrow discharge. Stop IV antibiotics. Subjective Date/time seen: 03/02/25 14:24 Interval history: Patient is doing well today. No nausea vomiting. Small-bowel follow-through series is ongoing but I see contrast in the colon [id number]. I just checked and in his room and he is on the bedside commode having a bowel movement now. He denies any abdominal pain. Exam GI: Other: Abdomen is soft and nondistended. No tenderness. Exam is benign. Objective Data Vital Signs Vital Signs: Vital Signs - 24 hr 03/01/25 16:00 03/01/25 20:00 03/01/25 20:00 Temperature 36.7 C 36.3 C L Pulse Rate 90 84 Respiratory Rate 18 13 Blood Pressure 140/84 138/71 Pulse Oximetry 94 94 Oxygen Delivery Room Air Fraction of Inspired Oxygen 03/01/25 21:14 03/01/25 22:00 03/02/25 00:00 Temperature 36.3 C L 36.2 C L Pulse Rate 81 84 85 Respiratory Rate 20 13 12 Blood Pressure 138/71 148/80 H Pulse Oximetry 95 94 96 Oxygen Delivery Room Air Fraction of Inspired Oxygen 21 03/02/25 04:00 03/02/25 05:50 03/02/25 08:00 Temperature 36.2 C L 36.2 C L 36.2 C L Pulse Rate 79 79 85 Respiratory Rate 13 13 16 Blood Pressure 149/72 H 149/72 H 155/90 H Pulse Oximetry 97 97 100 Oxygen Delivery Fraction of Inspired Oxygen 03/02/25 08:28 Temperature Pulse Rate Respiratory Rate Blood Pressure Pulse Oximetry Oxygen Delivery Room Air Fraction of Inspired Oxygen Intake/Output Intake/Output: Intake & Output 02/27/25 02/28/25 03/01/25 03/02/25 23:59 23:59 23:59 23:59 Intake Total 587.8 836.7 Output Total 1125 1100 Balance -537.2 -263.3 Meds/Results Medications: Active Medications Generic Name Dose Route Start Last Admin Trade Name Freq PRN Reason Stop Dose Admin Dextrose 12.5 gm 03/01/25 05:35 Dextrose 50% 25 Gm/50 Ml Syringe IV PUSH PRN PRN Hypoglycemia Protocol Glucagon 1 mg 03/01/25 05:35 Glucagon For Inj 1 Mg Vial IM PRN PRN Hypoglycemia Protocol Glucose 15 gm 03/01/25 05:35 Glucose Oral Gel 15 Gm Of Glucse In 37.5 Gm Tube PO PRN PRN Hypoglycemia Protocol Dextrose 1,000 mls @ 100 mls/hr 03/01/25 05:35 Dextrose 5% 1,000 Ml IVPB PRN PRN Hypoglycemia Protocol Lactated Ringer's 1,000 mls @ 75 mls/hr 03/01/25 14:25 03/02/25 03:03 Lr - Lactated Ringers Iv IV CONT 100 mls/hr .[id number] [facility] Administration Insulin Aspart 3 - 6 units 03/01/25 06:00 03/02/25 12:09 Insulin Aspart (*Bkc) 100 Units/Ml SUB-Q Not Given Q6HR [facility] Protocol Morphine Sulfate 2 mg 03/01/25 05:35 Morphine Sulfate (*Crx) 2 Mg/Ml Inj IV PUSH Q4H PRN Pain Rated 7-10 Ondansetron HCl 4 mg 03/01/25 05:35 Ondansetron Inj 4 Mg/2 Ml Vial IV PUSH Q6H PRN Nausea And Vomiting Pantoprazole Sodium 40 mg 03/03/25 09:00 Pantoprazole 40 Mg Tablet PO QAM [facility] Radiology Results: ITS Impressions Abdomen/Pelvis CT 02/28/25 21:26 IMPRESSION: 1. Small bowel obstruction. 2. Minimal free fluid which may indicate perforation. Clinical correlation and follow-up advised. Brittnee in the ER was notified with the result of the patient at 9:45 PM on February 28, 2025. Labs Labs: Laboratory Results - last 24 hr 03/01/25 03/02/25 03/02/25 17:52 00:12 04:34 WBC RBC Hgb Hct MCV MCH MCHC RDW Plt Count MPV Sodium Potassium Chloride Carbon Dioxide Anion Gap BUN Creatinine Estim Creat Clear Calc Estimated GFR Glucose POC Capillary Glucose 116 H 117 H 117 H Hemoglobin A1c Calcium Total Bilirubin AST ALT Alkaline Phosphatase Total Protein Albumin 03/02/25 03/02/25 05:47 12:05 WBC 5.5 RBC 2.96 L Hgb 9.6 L Hct 31.6 L MCV 106.8 H MCH 32.4 MCHC 30.4 L RDW 15.2 H Plt Count 153 MPV 10.9 H Sodium 138 Potassium 4.3 Chloride 102 Carbon Dioxide 26 Anion Gap 10 BUN 18 Creatinine 1.04 Estim Creat Clear Calc 59 Estimated GFR > 60 Glucose 113 H POC Capillary Glucose 97 Hemoglobin A1c 8.1 H Calcium 9.1 Total Bilirubin 0.5 AST 21 ALT 14 Alkaline Phosphatase 93 Total Protein 7.0 Albumin 4.1
[2025-03-02] MEDS: LACTATED RINGERS 1,000 ML 75 ML IV CONT (14:42)
[2025-03-02 21:00] LABS: Glucose Point of Care 146 mg/dl (65-105)
[2025-03-03 06:00] VITALS: BP 149/74; PULSE 77; RESP 12; TEMP 36.5; O2SAT 98
[2025-03-03 06:16] LABS: Hematocrit 33.3 % (42.0-52.0); Hemoglobin 10.2 g/dL (14.0-18.0); Mean Corpuscular HGB Conc 30.6 g/dl (32-36); Mean Corpuscular Volume 107.8 fl (80-100); Mean Platelet Volume 10.9 fl (7.4-10.4); Platelet Count Result 157 k/mm3 (150-375); Red Blood Count 3.09 M/mm3 (4.6-6.20); Red Cell Distribution Width 15.5 % (11.5-14.5); White Blood Count 4.3 K/mm3 (4.5-10.0)
[2025-03-03 06:30] LABS: Alanine Aminotransferase 13 U/L (6-50); Albumin Level 4.4 g/dL (3.5-5.1); Alkaline Phosphatase 89 U/L (38-126); Anion Gap 11 mmol/L (4-12); Aspartate Amino Transferase 25 U/L (17-59); Bilirubin,Total 0.7 mg/dL (0.2-1.3); Blood Urea Nitrogen 17 mg/dL (9-20); Calcium 9.2 mg/dL (8.4-10.2); Carbon Dioxide 23 mmol/L (22-30); Chloride 105 mmol/L (98-107); Estimated CRCL calculation 63 ml/min; Estimated Glomerular Filt Rate > 60; Glucose 123 mg/dL (65-110); Sodium 139 mmol/L (137-145)
--- NOTE | 2025-03-03 07:13 | PM.IMPN ---
Progress Note: A&P Assessment and Plan (1) Small bowel obstruction: Code(s): K56.609 - Unspecified intestinal obstruction, unspecified as to partial versus complete obstruction Status: Acute Assessment and Plan: Abdomen/pelvis CT showed SBO with minimal free fluid which may indicate perforation - NG tube placed to low intermittent suction, placement confirmed with imaging - Gentle IV fluid resuscitation given the patient's NPO status. Monitor volume status given HF. - P.r.n. Anti emetics - Protonix IV and mylanta per tube - Monitor I&Os, vital signs, neuro status and patient is a fall risk - Monitor serum electrolytes and CBC - General surgery consulted to further evaluate small bowel obstruction if the patient needs surgical intervention or fails to improve with NG decompression. water solube small bowel series, contrast reaches the colon and 30 to 45 minutes NG removed and started on full liquid diet, likely advance to solid (2) Heart failure with mildly reduced ejection fraction: Code(s): I50.22 - Chronic systolic (congestive) heart failure Status: Acute Assessment and Plan: Does not appear in acute exacerbation, patient remains euvolemic. Closely monitor volume status as patient is NPO on fluids (3) Type 2 diabetes mellitus: Code(s): E11.9 - Type 2 diabetes mellitus without complications Status: Acute Assessment and Plan: - hypoglycemia protocol - POC blood glucose ACHS - home medication - jardiance 25 mg daily, metformin 2000 mg daily - correct regimen ordered - SSI, will resume jardiance during admission when patient is no longer NPO - A1c ordered Glucose remains well controlled, continue to monitor. (4) Chronic anemia: Code(s): D64.9 - Anemia, unspecified Status: Acute Assessment and Plan: H/H 10.6/33.1 on admission, appears at baseline No signs of active bleeding B12 and folate WNL Iron panel unremarkable Continue to monitor (5) Essential (primary) hypertension: Code(s): I10 - Essential (primary) hypertension Status: Acute Assessment and Plan: Chronic, home medications currently on hold Resume carvedilol 6.25 mg BID and entresto 49-51 daily when diet resumed Blood pressures remain stable at this time despite being off medications, continue to monitor Subjective Date/time seen: 03/03/25 07:13 Interval history: 74-year-old male with history of bowel obstruction, heart failure with mildly reduced ejection fraction with an EF of 40% in 11/2023, mild aortic stenosis and mitral valve regurgitation, hypertension, type 2 diabetes mellitus, obstructive sleep apnea, and benign prostate hyperplasia who presented to the hospital for abdominal pain. Review of Systems Review of Systems: All systems reviewed & are unremarkable except as noted in HPI and below Exam Narrative: AF HR General: male in no acute respiratory distress who is nontoxic appearing, sitting up in bed. HEENT: Normocephalic. Atraumatic. Extraocular movement intact. Sclera clear and anicteric. No facial asymmetry. NG tube in place. Chest: Lungs are clear to auscultation bilaterally. No wheezes or crackles. CV: Heart was regular rate and rhythm. Abd: Abdomen was soft. Slight tenderness to epigastric and LLQ. Nondistended. Positive bowel sounds. Ext: No clubbing, cyanosis, or edema. DP pulses bilaterally. Neuro: Patient is alert and oriented x4. Speech is clear. Objective Data Vital Signs Vital Signs: Vital Signs - 24 hr 03/02/25 08:00 03/02/25 08:28 03/02/25 14:00 Temperature 97.2 F L 97.4 F L Pulse Rate 85 94 Respiratory Rate 16 14 Blood Pressure 155/90 H 158/95 H Pulse Oximetry 100 98 Oxygen Delivery Room Air 03/02/25 20:00 03/02/25 21:07 03/03/25 06:00 Temperature 97.7 F 97.9 F 97.7 F Pulse Rate 87 87 77 Respiratory Rate 16 16 12 Blood Pressure 145/83 H 145/83 H 149/74 H Pulse Oximetry 93 93 98 Oxygen Delivery Intake/Output Intake/Output: Intake & Output 02/28/25 03/01/25 03/02/25 03/03/25 23:59 23:59 23:59 23:59 Intake Total 587.8 2386.7 100 Output Total 1125 1875 Balance -537.2 511.7 100 Meds/Results Medications: Active Medications Generic Name Dose Route Start Last Admin Trade Name Freq PRN Reason Stop Dose Admin Dextrose 12.5 gm 03/01/25 05:35 Dextrose 50% 25 Gm/50 Ml Syringe IV PUSH PRN PRN Hypoglycemia Protocol Glucagon 1 mg 03/01/25 05:35 Glucagon For Inj 1 Mg Vial IM PRN PRN Hypoglycemia Protocol Glucose 15 gm 03/01/25 05:35 Glucose Oral Gel 15 Gm Of Glucse In 37.5 Gm Tube PO PRN PRN Hypoglycemia Protocol Dextrose 1,000 mls @ 100 mls/hr 03/01/25 05:35 Dextrose 5% 1,000 Ml IVPB PRN PRN Hypoglycemia Protocol Lactated Ringer's 1,000 mls @ 75 mls/hr 03/01/25 14:25 03/02/25 14:42 Lr - Lactated Ringers Iv IV CONT 75 mls/hr .[id number] [facility] Administration Insulin Aspart 3 - 6 units 03/02/25 21:00 03/02/25 21:16 Insulin Aspart (*Bkc) 100 Units/Ml SUB-Q Not Given ACHS [facility] Protocol Morphine Sulfate 2 mg 03/01/25 05:35 Morphine Sulfate (*Crx) 2 Mg/Ml Inj IV PUSH Q4H PRN Pain Rated 7-10 Ondansetron HCl 4 mg 03/01/25 05:35 Ondansetron Inj 4 Mg/2 Ml Vial IV PUSH Q6H PRN Nausea And Vomiting Pantoprazole Sodium 40 mg 03/03/25 09:00 Pantoprazole 40 Mg Tablet PO QAM [facility] Radiology Results: ITS Impressions Abdomen/Pelvis CT 02/28/25 21:26 IMPRESSION: 1. Small bowel obstruction. 2. Minimal free fluid which may indicate perforation. Clinical correlation and follow-up advised. Brittnee in the ER was notified with the result of the patient at 9:45 PM on February 28, 2025. Labs Labs: Laboratory Results - last 24 hr 03/02/25 03/02/25 03/03/25 12:05 19:57 05:02 WBC 4.3 L RBC 3.09 L Hgb 10.2 L Hct 33.3 L MCV 107.8 H MCH 33.0 MCHC 30.6 L RDW 15.5 H Plt Count 157 MPV 10.9 H Sodium 139 Potassium 4.0 Chloride 105 Carbon Dioxide 23 Anion Gap 11 BUN 17 Creatinine 0.96 Estim Creat Clear Calc 63 Estimated GFR > 60 Glucose 123 H POC Capillary Glucose 97 146 H Calcium 9.2 Total Bilirubin 0.7 AST 25 ALT 13 Alkaline Phosphatase 89 Total Protein 8.0 Albumin 4.4 Quality VTE Prophylaxis VTE prophylaxis: mechanical ordered
[2025-03-03 07:51] LABS: Glucose Point of Care 143 mg/dl (65-105)
[2025-03-03] MEDS: PANTOPRAZOLE 40 MG TABLET PO (09:19)
[2025-03-03 11:14] LABS: Glucose Point of Care 172 mg/dl (65-105)
--- NOTE | 2025-03-03 12:10 | P.PNGS_ITS ---
Progress Note: A&P Assessment and Plan (1) Small bowel obstruction: Code(s): K56.609 - Unspecified intestinal obstruction, unspecified as to partial versus complete obstruction Status: Acute Assessment and Plan: * Resolved. Tolerating a solid diet and bowels are moving. Surgically stable for discharge today. Follow up only as needed. Plan I have discussed the patient's case and plan of care with Dr. Palacios. Subjective Subjective Date/Time Seen: 03/03/25 12:10 Patient reports: no new complaints, feels better, tolerating a regular diet, flatus and bowel movement Interval history: Patient doing well on solid foods. No nausea, vomiting, or abdominal pain. Bowels are moving. Exam Const: General: comfortable and no acute distress GI: Inspection: non-distended GI Palp: Yes Soft to palpation, No Tenderness to palpation present (GI), No Guarding due to palpation present (GI) and No Rebound tenderness present Auscultation: normal bowel sounds Objective Data Vital Signs Vital Signs: Vital Signs - 24 hr 03/02/25 14:00 03/02/25 20:00 03/02/25 21:07 Temperature 97.4 F L 97.7 F 97.9 F Pulse Rate 94 87 87 Respiratory Rate 14 16 16 Blood Pressure 158/95 H 145/83 H 145/83 H Pulse Oximetry 98 93 93 03/03/25 06:00 Temperature 97.7 F Pulse Rate 77 Respiratory Rate 12 Blood Pressure 149/74 H Pulse Oximetry 98 Intake/Output Intake/Output: Intake & Output 02/28/25 03/01/25 03/02/25 03/03/25 23:59 23:59 23:59 23:59 Intake Total 587.8 2386.7 340 Output Total 1125 1875 Balance -537.2 511.7 340 Meds/Results Medications: Active Medications Generic Name Dose Route Start Last Admin Trade Name Freq PRN Reason Stop Dose Admin Dextrose 12.5 gm 03/01/25 05:35 Dextrose 50% 25 Gm/50 Ml Syringe IV PUSH PRN PRN Hypoglycemia Protocol Glucagon 1 mg 03/01/25 05:35 Glucagon For Inj 1 Mg Vial IM PRN PRN Hypoglycemia Protocol Glucose 15 gm 03/01/25 05:35 Glucose Oral Gel 15 Gm Of Glucse In 37.5 Gm Tube PO PRN PRN Hypoglycemia Protocol Dextrose 1,000 mls @ 100 mls/hr 03/01/25 05:35 Dextrose 5% 1,000 Ml IVPB PRN PRN Hypoglycemia Protocol Lactated Ringer's 1,000 mls @ 75 mls/hr 03/01/25 14:25 03/02/25 14:42 Lr - Lactated Ringers Iv IV CONT 75 mls/hr .[id number] [facility] Administration Insulin Aspart 3 - 6 units 03/02/25 21:00 03/03/25 09:19 Insulin Aspart (*Bkc) 100 Units/Ml SUB-Q Not Given ACHS [facility] Protocol Morphine Sulfate 2 mg 03/01/25 05:35 Morphine Sulfate (*Crx) 2 Mg/Ml Inj IV PUSH Q4H PRN Pain Rated 7-10 Ondansetron HCl 4 mg 03/01/25 05:35 Ondansetron Inj 4 Mg/2 Ml Vial IV PUSH Q6H PRN Nausea And Vomiting Pantoprazole Sodium 40 mg 03/03/25 09:00 03/03/25 09:19 Pantoprazole 40 Mg Tablet PO 40 mg QAM [facility] Administration Radiology Results: ITS Impressions Abdomen/Pelvis CT 02/28/25 21:26 IMPRESSION: 1. Small bowel obstruction. 2. Minimal free fluid which may indicate perforation. Clinical correlation and follow-up advised. Brittnee in the ER was notified with the result of the patient at 9:45 PM on February 28, 2025. Upper GI and Small Bowel X-Ray 03/03/25 08:22 IMPRESSION: short transit time. Otherwise, No definite abnormality seen. Labs Labs: Laboratory Results - last 24 hr 03/02/25 03/03/25 03/03/25 19:57 05:02 07:48 WBC 4.3 L RBC 3.09 L Hgb 10.2 L Hct 33.3 L MCV 107.8 H MCH 33.0 MCHC 30.6 L RDW 15.5 H Plt Count 157 MPV 10.9 H Sodium 139 Potassium 4.0 Chloride 105 Carbon Dioxide 23 Anion Gap 11 BUN 17 Creatinine 0.96 Estim Creat Clear Calc 63 Estimated GFR > 60 Glucose 123 H POC Capillary Glucose 146 H 143 H Calcium 9.2 Total Bilirubin 0.7 AST 25 ALT 13 Alkaline Phosphatase 89 Total Protein 8.0 Albumin 4.4 03/03/25 11:12 WBC RBC Hgb Hct MCV MCH MCHC RDW Plt Count MPV Sodium Potassium Chloride Carbon Dioxide Anion Gap BUN Creatinine Estim Creat Clear Calc Estimated GFR Glucose POC Capillary Glucose 172 H Calcium Total Bilirubin AST ALT Alkaline Phosphatase Total Protein Albumin
--- NOTE | 2025-03-03 12:36 | P.DS_ITS ---
DS: Admitting Diagnosis Discharge Date 03/03/2025 Admitting Diagnosis SBO Heart failure with mildly reduced ef Type 2 DM Chronic anemia HTN DS: Discharge Diagnosis Discharge Diagnosis (1) Small bowel obstruction: Code(s): K56.609 - Unspecified intestinal obstruction, unspecified as to partial versus complete obstruction Status: Acute (2) Heart failure with mildly reduced ejection fraction: Code(s): I50.22 - Chronic systolic (congestive) heart failure Status: Acute (3) Type 2 diabetes mellitus: Code(s): E11.9 - Type 2 diabetes mellitus without complications Status: Acute (4) Chronic anemia: Code(s): D64.9 - Anemia, unspecified Status: Acute (5) Essential (primary) hypertension: Code(s): I10 - Essential (primary) hypertension Status: Acute DS: Summary Hospital Course Reason for hospitalization: SBO Heart failure with mildly reduced ef Type 2 DM Chronic anemia HTN Hospital Course: 74-year-old male with history of bowel obstruction, heart failure with mildly reduced ejection fraction with an EF of 40% in 11/2023, mild aortic stenosis and mitral valve regurgitation, hypertension, type 2 diabetes mellitus, obstructive sleep apnea, and benign prostate hyperplasia who presented to the hospital for abdominal pain. On admission patient was anemic which appeared at baseline. Iron panel, B12 and folate WNL. No intervention required. Otherwise labs were unremarkable. CT abdomen/pelvis showed SBO with minimal free fluid which may indicate perforation. NG placed and patient stated on bowel rest with IV fluids. Surgery consulted and no acute intervention required. Upper GI and small bowel XR was unremarkable. Obstruction resolved as patient was able to have a bowel movement following the imaging. Patients diet was advanced to low fiber and he tolerated well. Surgically stable for discharge. Patient had no complaints at time of discharge denying chest pain, palpitations, shortness a breath, nausea/vomiting, abdominal pain, and dizziness/lightheadedness with ambulation. Patient discharged home with family in a stable condition. He is to follow up with his primary care provider in 1 week. Status at Discharge Functional status at discharge: independent ambulation Time Spent with Patient Time attestation: Total time spent providing and/or coordinating discharge services: Time spent: Greater than 30 minutes Exam Narrative: AF HR 77 RR 12 SpO2 98 BP 149/77 General: male in no acute respiratory distress who is nontoxic appearing, sitting up in bed. HEENT: Normocephalic. Atraumatic. Extraocular movement intact. Sclera clear and anicteric. No facial asymmetry. Chest: Lungs are clear to auscultation bilaterally. No wheezes or crackles. CV: Heart was regular rate and rhythm. Abd: Abdomen was soft. Nontender. Nondistended. Positive bowel sounds. Ext: No clubbing, cyanosis, or edema. DP pulses bilaterally. Neuro: Patient is alert and oriented x4. Speech is clear. DS: Data Data Completed and Pending Completed studies during hospitalization: upper GI and small bowel xr abdomen xr abdomen/pelvis CT Labs on day of discharge: Labs from last 24 hours 03/03/25 03/03/25 03/03/25 11:12 07:48 05:02 WBC 4.3 L RBC 3.09 L Hgb 10.2 L Hct 33.3 L MCV 107.8 H MCH 33.0 MCHC 30.6 L RDW 15.5 H Plt Count 157 MPV 10.9 H Sodium 139 Potassium 4.0 Chloride 105 Carbon Dioxide 23 Anion Gap 11 BUN 17 Creatinine 0.96 Estim Creat Clear Calc 63 Estimated GFR > 60 Glucose 123 H POC Capillary Glucose 172 H 143 H Calcium 9.2 Total Bilirubin 0.7 AST 25 ALT 13 Alkaline Phosphatase 89 Total Protein 8.0 Albumin 4.4 03/02/25 19:57 WBC RBC Hgb Hct MCV MCH MCHC RDW Plt Count MPV Sodium Potassium Chloride Carbon Dioxide Anion Gap BUN Creatinine Estim Creat Clear Calc Estimated GFR Glucose POC Capillary Glucose 146 H Calcium Total Bilirubin AST ALT Alkaline Phosphatase Total Protein Albumin Discharge Plan Discharge Attending physician on discharge: Candy Layne Consulting providers: Alhaji Palacios Discharging Clinician: Gina Lopez Anticipated Discharge Date/Time: 03/03/25 12:16 Patient Disposition: Home Activity: as tolerated Diet: as tolerated Discharge Instructions: Discharge disposition: Patient admitted to the hospital for a small bowel obstruction Evaluated by surgery and no acute surgical intervention required Continue diet as tolerated Started on protonix, attached is information on this medication Monitor stool output Monitor blood pressures Take caution while standing, rising, or moving Change positions slowly taking a break between each position change If you standing feel dizzy sit back down and take a break Encouraged to continue with yearly vaccinations Return to the emergency department if he developed sudden shortness of breath, chest pain, nausea, vomiting, upset stomach or intractable diarrhea Return to the emergency department if you develop fever greater than 101.5 Follow-up with the primary care physician within 1-2 weeks Thank you for [facility] for your healthcare needs Patient Instructions: Pantoprazole (By mouth), Bowel Obstruction (DC) Patient Language: Icelandic Stand Alone Forms: General Discharge Information Follow-up/Referrals: Zohaib Hoyt MD [Primary Care Provider] - 1 Week Discharge Medications: New pantoprazole 40 mg Tablet,Delayed Release (Dr/Ec) 40 mg PO QAM Qty: 30 0RF Continued fluticasone propionate [Flonase Allergy Relief] 50 mcg/actuation spray,suspension 1 spray intranasal BID Qty: 16 11RF Rx Instructions: administer into each nostril Entresto 49-51 mg tablet 1 tablet PO BID Patient Comments: started by foot piece assembler carvedilol 6.25 mg tablet 6.25 mg PO Q12H Patient Comments: started by foot piece assembler Rx Instructions: must administer with a meal/food magnesium 500 mg Tablet 500 mg PO DAILY vitamin B complex [B Complex-Vitamin B12] Tablet 1 tablet PO DAILY Rx Instructions: 5000 units aspirin [Adult Low Dose Aspirin] 81 mg tablet,delayed release (DR/EC) 81 mg PO DAILY Complete Multivitamin Tablet 1 tablet PO DAILY atorvastatin 20 mg tablet 20 mg PO QHS Patient Comments: started by foot piece assembler 10/13/2023. metformin 500 mg tablet extended release 24 hr 2,000 mg PO DAILY Qty: 360 5RF Rx Instructions: pt takes 2000 mg all at once each morning duloxetine [Cymbalta] 60 mg capsule,delayed release(DR/EC) 60 mg PO BID Qty: 180 3RF omeprazole magnesium [Prilosec OTC] 20 mg tablet,delayed release (DR/EC) 20 mg PO DAILY meloxicam 15 mg tablet 15 mg PO DAILY PRN (Reason: pain) Qty: 90 3RF Jardiance 25 mg tablet 25 mg PO QAM Qty: 90 3RF tamsulosin [Flomax] 0.4 mg capsule 0.4 mg PO DAILY Qty: 90 3RF dutasteride 0.5 mg capsule 0.5 mg PO DAILY Qty: 90 3RF Date of admission: 02/28/25 22:22 Primary Care Provider: Zohaib Hoyt Admitting Provider: Antoine Bhardwaj Attending physician on admission: Gina Lopez Condition: Stable Hospitalist MIPS Heart Failure (Exclusion) Patient has history of Heart Transplant or Left Ventricular Assistive Device?: No IF YES, STOP HERE Heart Failure (Qualifier) Patient has current or prior documentation of LVEF less than or equal to 40%, or mod/servere depressed LVSF?: No IF NO, STOP HERE
== END 2025-03-03 13:15 | disposition home or self-care (01) | DRG 389 ==
LOC: ANHED 22:06 → ANH3MEDSUR 23:23
PROVIDERS: Emergency Medicine; Nurse Practitioner Acute Care; Physician Assistant; Admitting Provider Internal Medicine; Emergency Provider Emergency Medicine; PCP Family Medicine; Visit Provider Student in an Organized Health Care Education/Training Program
DX: K56.609 Unspecified intestinal obstruction, unspecified as to partial versus complete obstruction (principal); I50.22 Chronic systolic (congestive) heart failure; D64.9 Anemia, unspecified; E78.2 Mixed hyperlipidemia; E11.42 Type 2 diabetes mellitus with diabetic polyneuropathy; G89.29 Other chronic pain; I11.0 Hypertensive heart disease with heart failure; I35.0 Nonrheumatic aortic (valve) stenosis; I08.0 Rheumatic disorders of both mitral and aortic valves; G47.33 Obstructive sleep apnea (adult) (pediatric); M54.9 Dorsalgia, unspecified; N40.0 Benign prostatic hyperplasia without lower urinary tract symptoms; Z79.82 Long term (current) use of aspirin
CPT/HCPCS: 36415; 74177; 74250; 80048; 80053; 81001; 82607; 82746; 82948; 83036; 83540; 83550; 83605; 83690; 83735; 85025; 85027; 99285; A9270; J1956; J2270; J2405; J2470; J7120; Q9967

== ENCOUNTER 2025-04-07 14:15 | Outpatient (CLI) | payer MEDICARE, BC, SELFPAY ==
--- NOTE | ~2025-04-07 | CT_ITS ---
CTA chest PE protocol Ordering provider: Ford Sutton MD History: 74 years Male with . Chest discomfort . Comparison: October 21, 2023 Technique: CT angiogram chest was performed following timed intravenous injection of contrast. Thin s lice axial images and reformatted coronal images were obtained. Three dimensional reformatted images of the chest were also obtained using a Troppin workstation. . Automated exposure control and iterati ve reconstruction technique were employed. The dose-length product was 456.59 mGy-cm. 100 mL Omnipaqu e 350 was given IV Findings: PULMONARY ARTERIES: No pulmonary embolus. VISUALIZED THORACIC INLET: Normal. MEDIASTINUM: Aorta/coronary arteries: The thoracic aorta is normal. Heart/other: The heart is not enlarged. Trace of pericardial effusion. Lymph nodes: No mediastinal or hilar adenopathy. LUNGS: Dependent atelectatic changes. No pulmonary nodules or masses. No infiltrates or effusions. No pneumo thorax. VISUALIZED UPPER ABDOMEN: Hyperdensity in the right lobe of the liver measuring 1.9 cm suggestive of a cyst. Otherwise, the visualized upper abdomen is normal. MUSCULOSKELETAL: Soft tissues: The superficial soft tissues are normal. Bones: Compression fracture of the superior endplate of T4 and T5 which may be acute or chronic. Othe rwise, normal Age appropriate degenerative changes of the spine. IMPRESSION: 1. No pulmonary embolism. 2. Trace of pericardial effusion 3. No acute cardiopulmonary pathology. 4. Tiny cyst in the right lobe of the liver. 5. Compression fracture of T4 and T5 which may be acute or chronic. MRI evaluation advised. Reviewed, dictated and finalized at location A. IMPRESSION: 1. No pulmonary embolism. 2. Trace of pericardial effusion 3. No acute cardiopulmonary pathology. 4. Tiny cyst in the right lobe of the liver. 5. Compression fracture of T4 and T5 which may be acute or chronic. MRI evalua tion advised.
[2025-04-07 14:33] LABS: Estimated Glomerular Filt Rate 59
--- OUTSIDE RECORDS SUMMARY | 2025-04-07 15:27 | XMS_ITS | Referral Summary ---
Author Organization [address] [address] Care Team Providers Care Preprint Analyst Name Role Phone Zohaib Hoyt MD Primary Care Provider [phone] Encounters Date Type Department Care Team Description 04/04/2025 Telephone [facility] Medical Group Cardiology at [address] [place] [address] Pavan Fitch MD 04/04/2025 Results Follow-Up [facility] Medical [facility] Cardiology [address] [place] [address] [address] [place] [address] Pavan Fitch MD US VEIN DUPLEX LOWER EXTREMITY LEFT LIMITED, UNILATERAL 04/03/2025 1:00 PM CDT Ancillary Procedure [facility] Vascular and Vein Surgery at [address] [place] [address] Swelling of left foot 04/03/2025 9:45 AM CDT Office Visit [facility] Medical [facility] Cardiology [address] [place] [address] [address] [place] [address] Pavan Fitch MD Hyperlipidemia associated with type 2 diabetes mellitus (HCC) (Primary Dx); NICM (nonischemic cardiomyopathy) (HCC); Hypertension associated with diabetes (HCC); Nonrheumatic aortic valve stenosis; APARNA (obstructive sleep apnea); Syncope and collapse; Swelling of left foot from Last 3 Months Allergies No known [...] MOUTH TWICE DAILY WITH MEALS 60 tablet 12/23/2024 Active Entresto 49-51 mg tabletIndicatio ns:NICM (nonischemic cardiomyopathy) (HCC),Hypertens ion associated with diabetes (HCC) TAKE 1 TABLET BY MOUTH TWICE DAILY 60 tablet 11 01/14/2025 Active apixaban (ELIQUIS) 5 mg tabletIndicatio ns:Venous Thrombosis Take 1 tablet (5 mg total) by mouth 2 (two) times a day 60 tablet 11 04/04/2025 04/04/20 26 Active Active Problems Problem Noted Date Diagnosed Date Swelling of left foot 04/03/2025 Syncope and collapse 04/03/2025 NICM (nonischemic cardiomyopathy) 12/15/2023 Nonrheumatic aortic valve [...] on file Legal Sex Male 8:28 AM SKI MOLDER Gender Identity Male 08/29/2024 11:56 AM CDT Sexual Orientation Straight 08/29/2024 11 :56 AM CDT Last Filed Vital Signs Vital Sign Reading Time Taken Comments Blood Pressure 124/80 04/03/2025 10:25 AM CDT Pulse 70 04/03/2025 9:47 AM CDT Temperature - - Respiratory Rate 18 10/10/2024 10:03 AM SKI MOLDER Oxygen Saturation 98% 04/03/2025 9:47 AM CDT Inhaled Oxygen Concentration - - Weight 82.6 kg (182 lb) 04/03/2025 9:47 AM CDT Height 182.9 cm (6') 04/03/2025 9:47 AM CDT Body Mass Index 24.68 04/03/2025 9:47 AM CDT Plan of Treatment Not on file Procedures Procedure Name Priority Date/Time Associated Diagnosis Comments US VEIN DUPLEX LOWER EXTREMITY LEFT LIMITED Schedule Routine, Read Routine (OP Routine) 04/03/2025 1:38 PM CDT Swelling of left foot LIPID PANEL Routine 01/02/2024 4:45 PM SKI MOLDER BASIC METABOLIC PANEL Routine 01/02/2024 NICM (nonischemic cardiomyopathy) (HCC) Hypertension associated with diabetes (HCC) from Last 3 Months or Most Recently Relevant to Health Maintenance Results * US VEIN DUPLEX LOWER EXTREMITY LEFT LIMITED, UNILATERAL (04/03/2025 1:38 PM CDT) Anatomical Region Laterality Modality Vascular Left Ultrasound 04/03/2025 12:5 1 PM CDT Narrative 04/04/2025 10:17 AM CDT Vascular & Vein Surgery [address] [place] [address] Lower Extremity Venous Report Patient Name: HERNAN DELONG W : 1950 (74y 8m) Gender: M Study Date: 04/03/2025 12:51:52 PM Religious Leader: JASIEL Location: [facility] Order Provider: PAVAN FITCH Quality: Adequate Ref Provider: PAVAN FITCH PROCEDURES: Vascular Report: A non-invasive vascular imaging study of the left lower extremity veins was performed using B-mode ultrasound, color flow, and spectral Doppler. INDICATIONS: Lt foot swelling x1 week with recent travel & hospitalization. HISTORY: HTN. HLD. COMPARISONS: No previous exams. FINDINGS: Left: Positive for acute on chronic nonocclusive deep vein thrombosis in the left lower extremity. Deep veins involved include the left mid peroneal vein. Chronic venous defects also noted in the popliteal, posterior tibial and peroneal veins. Normal compressibility and color filling, spontaneous and phasic flow, and response to distal augmentation is demonstrated in the left common femoral vein, saphenofemoral junction, mid femoral vein, distal femoral vein, gastrocnemius veins and soleal veins. Reduced compressibility is demonstrated in the left popliteal vein, posterior tibial veins and peroneal veins. For comparisons purposes, the right common femoral vein was interrogated. The common femoral vein Doppler flow was phasic, spontaneous and responded normally to distal augmentation. Provider Notification: Results given to Dr. Fitch via secure chat at 13:22. Incidental Findings: Possible Vázquez's cysts of the left popliteal fossa measuring 2.75 x 2.01 cm. CONCLUSIONS: 1. Evidence of acute deep vein thrombosis in the left peroneal vein. There is chronic thrombosis of the popliteal posterior tibial and peroneal veins. ATTESTATION: I have reviewed and interpreted the pertinent images and measurements of this study. I attest to the conclusions in the final report that is provided above. Electronically Signed By: Jarred Sheriff MD 04/04/2025 9:45:31 AM CDT Procedure Note Jarred Sheriff MD - 04/04/2025 Vascular & Vein Surgery [address] [place] [address] Lower Extremity Venous Report Patient Name: HERNAN DELONG W : 1950 (74y 8m) Gender: M Study Date: 04/03/2025 12:51:52 PM Religious Leader: JASIEL Location: [facility] Order Provider: PAVAN FITCH Quality: Adequate Ref Provider: PAVAN FITCH PROCEDURES: Vascular Report: A non-invasive vascular imaging study of the left lowerextremity veins was performed using B-mode ultrasound, color flow, and spectral Doppler. INDICATIONS: Lt foot swelling x1 week with recent travel & hospitalization. HISTORY: HTN. HLD. COMPARISONS: No previous exams. FINDINGS: Left: Positive for acute on chronic nonocclusive deep vein thrombosis inthe left lower extremity. Deep veins involved include the left mid peroneal vein. Chronicvenous defects also noted in the popliteal, posterior tibial and peroneal veins. Normalcompressibility and color filling, spontaneous and phasic flow, and response to distalaugmentation is demonstrated in the left common femoral vein, saphenofemoral junction, midfemoral vein, distal femoral vein, gastrocnemius veins and soleal veins. Reducedcompressibility is demonstrated in the left popliteal vein, posterior tibial veins andperoneal veins. For comparisons purposes, the right common femoral vein was interrogated. Thecommon femoral vein Doppler flow was phasic, spontaneous and responded normally to distalaugmentation. Provider Notification: Results given to Dr. Fitch via secure chat at13:22. Incidental Findings: Possible Vázquez's cysts of the left popliteal fossameasuring 2.75 x 2.01 cm. CONCLUSIONS: 1. Evidence of acute deep vein thrombosis in the left peroneal vein. Thereis chronic thrombosis of the popliteal posterior tibial and peroneal veins. ATTESTATION: I have reviewed and interpreted the pertinent images and measurements ofthis study. I attest to the conclusions in the final report that is provided above. Electronically Signed By: Jarred Sheriff MD 04/04/2025 9:45:31 AM CDT Pavan Fitch MD IMG US PROCEDURES Final R esult * Lipid panel (01/02/2024 4:45 PM SKI MOLDER) SCRIBED Cholesterol, Total 92 <200 [facility] SCRIBED [...] N/A N/A [facility] SCRIBED eGFR in NonAfrican Armenian 60 > or = 60 [facility] Blood 01/02/2024 Pavan Fitch MD LAB BLOOD ORDERABLES Erna l Result [facility] from Last 3 Months or Most Recently Relevant to Health Maintenance Insurance MEDICARE [facility] [employer] Member Subscriber Plan / Payer (Ef fective 2015-Present) Name:Hernan Delong Relation to Subscriber:Self Name:Hernan Delong Payer ID:[id number] (NAIC) Group ID:[id number] Type:Usentric Address: [address] [place] [address] MEDICARE [facility] [employer] Member Subscriber Plan / Payer (Ef fective 2015-Present) Name:Hernan Delong Relation to Subscriber:Self Name:Hernan Delong Payer ID:[id number] (NAIC) Group ID:[id number] Type:Usentric Address: [address] [place] [address] Care Teams Preprint Analyst Relationship Specialty Start Date End Date Zohaib Hoyt MD [address] [address] [place] [address] PCP - General Family Medicine 08/07/23
--- OUTSIDE RECORDS SUMMARY | 2025-04-07 15:27 | XMS_ITS | Encounter Summary ---
Author Organization [facility] Healthcare Address [address] [place] [address] Care Team Providers Care Oyster Shucker Name Role Phone Zohaib Hoyt MD Primary Care Provider [phone] Encounter Details Date Type Department Care Team (Late st Contact Info) Description 04/04/2025 Results Follow-Up [facility] Medical Group Cardiology [address] [place] [address] Ford Sutton MD [address] [facility] [address] [place], [place] [id number] VEIN DUPLEX LOWER EXTREMITY LEFT LIMITED, UNILATERAL Social History Tobacco Use Types Packs/Day Years Used Date Smoking Tobacco: Never Cigarettes Smokeless Tobacco: Never Personal Safety Answer Date Recorded Have you ever been in or are you currently in a harmful physical or emotional relationship or is someone making you feel afraid or unsafe? 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
--- OUTSIDE RECORDS SUMMARY | 2025-04-07 15:27 | XMS_ITS | Continuity of Care Document ---
Author Organization [facility] Address [address] [place] [address] [place] [address] Phone Care Team Providers Care Physiotherapist'S Assistant Name Role Phone Owen Altamirano DO Unavailable Unavailable Advance Directives Directive Yes / No Effective Date File Name No Information Encounters Encounter Description Practice Location Reason(s) For Visit Diagnoses Date Provider Providers Copied on Encounter [facility], [address], [place], [place], [id number], [place] tel:[phone] [facility] [place] No Information Evelia Doty. [address] [facility], [place], [address], [place]. tel: [phone] Family History Family Member Type Diagnosis Age At Onset No Information Payers Payer name Insurance type Covered democrat ID Authoriza tion(s) [facility] [id number] Social History Type Description Quantity Date Captured [...]
--- OUTSIDE RECORDS SUMMARY | 2025-04-07 15:27 | XMS_ITS | Clinical Summary ---
Author Organization [facility] [address] Address [address] [place] [address] Care Team Providers Care Fill Manager Name Role Phone Zohaib Hoyt MD Primary Care Provider [phone] Allergies No known active allergies Medications DULoxetine [...] Type Department Care Team Description 04/04/2025 Telephone [facility] Medical Group Cardiology at [address] [place] [address] Pavan Fitch MD 04/04/2025 Results Follow-Up [facility] Medical Group Cardiology [address] [place] [address] Pavan Fitch MD US VEIN DUPLEX LOWER EXTREMITY LEFT LIMITED, UNILATERAL 04/03/2025 1:00 PM CDT Ancillary Procedure [facility] Vascular and Vein Surgery at [address] [place] [address] Swelling of left foot 04/03/2025 9:45 AM CDT Office Visit [facility] Cardiology [address] [place] [address] Pavan Fitch MD Hyperlipidemia associated with type 2 diabetes mellitus (HCC) (Primary Dx); NICM (nonischemic cardiomyopathy) (HCC); Hypertension associated with diabetes (HCC); Nonrheumatic aortic valve stenosis; APARNA (obstructive sleep apnea); Syncope and collapse; Swelling of left foot from Last 3 Months Surgical History Surgery Date Site/Laterality Comments APPENDECTOMY TONSILLECTOMY Medical History Medical History Date Comments Diabetes mellitus (HCC) BPH (benign prostatic hyperplasia) Hypertension Sleep apnea Arthritis Migraines Heart disease Family History Medical History Relation Name Comments Stroke Father David Delong Cancer Mother Shannon eDlong Stroke Mother Shannon Delong Stroke Son Relation [...] on file Legal Sex 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.] foot LIPID PANEL Routine 01/02/2024 4:45 PM AERODYNAMIC CONSULTANT BASIC METABOLIC PANEL Routine 01/02/2024 NICM (nonischemic cardiomyopathy) (HCC) Hypertension associated with diabetes (HCC) from Last 3 Months or Most Recently Relevant to Health Maintenance Results * US VEIN DUPLEX LOWER EXTREMITY LEFT LIMITED, UNILATERAL (04/03/2025 1:38 PM CDT) Anatomical Region Laterality Modality Vascular Left Ultrasound 04/03/2025 12:5 1 PM CDT Narrative 04/04/2025 10:17 AM CDT Vascular & Vein Surgery [address] [place] [address] Lower Extremity Venous Report Patient Name: HERNAN DELONG W : 1950 (74y 8m) Gender: M Study Date: 04/03/2025 12:51:52 PM Dial Buffer: Location: [facility] Order Provider: PAVAN FITCH Quality: [...] MD - 04/04/2025 Vascular & Vein Surgery [address] [place] [address]. [place] [address] Lower Extremity Venous Report Patient Name: HERNAN DELONG W : 1950 (74y 8m) Gender: M Study Date: 04/03/2025 12:51:52 PM Dial Buffer: JASIEL Location: [facility] Order Provider: PAVAN FITCH [...] esult * Lipid panel (01/02/2024 4:45 PM AERODYNAMIC CONSULTANT) Pathologist [facility] SCRIBED Cholesterol, Total 92 <200 [facility] SCRIBED [...] N/A N/A [facility] SCRIBED eGFR in NonAfrican [place] Rican 60 > or = 60 [facility] Blood 01/02/2024 Pavan Fitch MD LAB BLOOD ORDERABLES Erna rashid Result [facility] from Last 3 Months or Most Recently Relevant to Health Maintenance Insurance MEDICARE [facility] Address: [address] [address] [place] [address] [facility] Member Subscriber Plan / Payer (Ef fective 2015-Present) Name:Hernan Delong Relation to Subscriber:Self Name:Baljeet, Hernan W Payer ID:[id number] (NAIC) Group ID:[id number] Type:[facility] Address: [address] [place] [address] MEDICARE [facility] [employer] Member Subscriber Plan / Payer (Ef fective 2015-Present) Name:Hernan Delong Relation to Subscriber:Self Name:Hernan Delong Payer ID:[id number] (NAIC) Group ID:[id number] Type:[facility] Address: [address] [place] [address] Care Teams Fill Manager Relationship Specialty Start Date End Date Zohaib Hoyt MD [address] [address] PCP - General Family Medicine 08/07/23
== END 2025-04-07 14:16 | disposition home or self-care (01) ==
PROVIDERS: PCP Family Medicine; Visit Provider Internal Medicine Cardiovascular Disease
DX: K76.89 Other specified diseases of liver (principal); S22.040A Wedge compression fracture of fourth thoracic vertebra, initial encounter for closed fracture; S22.050A Wedge compression fracture of T5-T6 vertebra, initial encounter for closed fracture; X58.XXXA Exposure to other specified factors, initial encounter; R07.89 Other chest pain
CPT/HCPCS: 71275; Q9967

== ENCOUNTER 2025-04-21 08:17 | Outpatient (CLI) | payer MEDICARE, BC, SELFPAY ==
[2025-04-21 09:41] LABS: Basophils Percent Auto 0.9 % (0.2-1.2); Eosinophils Percent Auto 0.6 % (0-4.4); Hematocrit 30.6 % (42.0-52.0); Hemoglobin 9.6 g/dL (14.0-18.0); Immature Granulocyte Absolute 0.04 K/mm3 (0.00-0.031); Immature Granulocyte Percent A 1.2 % (0-0.5); Lymphocytes Percent Auto 47.1 % (18.3-44.2); Mean Corpuscular HGB Conc 31.4 g/dl (32-36); Mean Corpuscular Hemoglobin 32.3 pg (26-34); Mean Platelet Volume 10.8 fl (7.4-10.4); Monocytes Absolute Auto 0.6 K/mm3 (0.1-0.6); Monocytes Percent Auto 17.6 % (2.6-8.5); Neutrophils Absolute Auto 1.1 K/mm3 (1.3-6.7); Neutrophils Percent Auto 32.6 % (45.5-73.1); Platelet Count Result 193 k/mm3 (150-375); Red Blood Count 2.97 M/mm3 (4.6-6.20); Red Cell Distribution Width 16.1 % (11.5-14.5); White Blood Count 3.4 K/mm3 (4.5-10.0)
[2025-04-21 10:30] LABS: Anion Gap 12 mmol/L (4-12); Blood Urea Nitrogen 17 mg/dL (9-20); Calcium 9.3 mg/dL (8.4-10.2); Carbon Dioxide 22 mmol/L (22-30); Chloride 106 mmol/L (98-107); Estimated Glomerular Filt Rate > 60; Glucose 207 mg/dL (65-110); Potassium 4.9 mmol/L (3.4-5.0); Sodium 140 mmol/L (137-145)
[2025-04-21 10:31] LABS: Hemoglobin A1C 8.3 % (<5.7)
== END 2025-04-21 08:18 | disposition home or self-care (01) ==
LOC: ANHLAB 08:19
PROVIDERS: PCP Family Medicine; Visit Provider Family Medicine
DX: E11.65 Type 2 diabetes mellitus with hyperglycemia (principal); D64.9 Anemia, unspecified
CPT/HCPCS: 36415; 80048; 83036; 85025

== ENCOUNTER 2025-04-25 08:03 | Outpatient (CLI) | payer MEDICARE, BC, SELFPAY ==
--- NOTE | ~2025-04-25 | MR_ITS ---
MRI of the thoracic spine Clinical History: Compression fractures of T4 and T5 Technique: Axial T2-weighted and gradient images, and sagittal T1-weighted, T2-weighted, and STIR lillie ges were acquired. Findings: There is mild chronic compression deformity of T4 with mild wedging deformity. There is mod erate to advanced compression fracture of T5 with significant loss of height and retropulsion of the posterior portion of the T5 vertebral body. No marrow edema associated with either fracture, and thes e are most likely chronic in nature. No other fracture or subluxation seen in the remainder of the th oracic spine. No significant disc bulge or herniation seen at any thoracic level. No spinal canal stenosis or cord compression identified. Neural foramina are preserved throughout the thoracic spine. No abnormal signal seen in the spinal cord. Paravertebral soft tissues are unremarkable. Impression: Chronic compression fractures of T4 and T5, as detailed above. Reviewed, dictated and finalized at [facility]. Impression: Chronic compression fractures of T4 and T5, as detailed above.
== END 2025-04-25 08:04 | disposition home or self-care (01) ==
LOC: MICIMG 08:04
PROVIDERS: PCP Family Medicine; Visit Provider Family Medicine
DX: S22.040A Wedge compression fracture of fourth thoracic vertebra, initial encounter for closed fracture (principal); X58.XXXA Exposure to other specified factors, initial encounter
CPT/HCPCS: 72146

== ENCOUNTER 2025-07-14 13:48 | Outpatient (CLI) | payer MEDICARE, BC, SELFPAY ==
--- NOTE | ~2025-07-14 | MR_ITS ---
EXAMINATION: MR lumbar spine wo con DATE: 07/14/2025 14:13 INDICATION: Spondylosis without myelopathy or radiculopathy. Low back pain. TECHNIQUE: Magnetic resonance imaging (MRI) of the lumbar spine was performed without intravenous contrast. Sequences included sagittal T2-weighted FSE, sagittal T2-weighted FS FSE, sagittal T1-weighted FSE, and axial T2-weighted FSE. COMPARISON: Lumbar spine MRI 08/15/2024 FINDINGS: There is 13 degrees dextroscoliosis of thoracolumbar spine. There are chronic bilateral L5 pars defects. There is 6 mm anterolisthesis of L5 on S1. There is 3 mm retrolisthesis of L1 on L2 and L2 on L3. Vertebral body heights are normal. There is severely decreased disc height at L1-L2, L2-L3, and L3-L4, mildly decreased disc height at L4-L5, and severely decreased disc height at L5- S1. The distal spinal cord signal intensity is normal. The conus medullaris is at T12-L1. The following disc levels are specifically discussed: L1-L2: The disc is bulging and has an annular fissure. There is moderate right and mild left facet joint osteoarthritis. There is moderate left neural foraminal stenosis. There is mild central canal stenosis. L2-L3: The disc is bulging and has an annular fissure. There is moderate bilateral facet joint osteoarthritis. There is mild bilateral neural foraminal stenosis. There is mild central canal stenosis. L3-L4: The disc is bulging and has an annular fissure. There is moderate bilateral facet joint osteoarthritis. There is mild bilateral neural foraminal stenosis. There is mild central canal stenosis. L4-L5: The disc is bulging and has an annular fissure. There is moderate bilateral facet joint osteoarthritis. There is mild bilateral neural foraminal stenosis. There is mild central canal stenosis. L5-S1: The disc is bulging and has an annular fissure. There is moderate right and severe left facet joint osteoarthritis. There is moderate bilateral neural foraminal stenosis. There is mild central canal stenosis. IMPRESSION: 1. Chronic bilateral L5 pars defects with grade 1 anterolisthesis of L5 on S1. 2. Severe lumbar spondylosis, stable from 08/15/2024. 3. Thoracolumbar dextroscoliosis. Reviewed, dictated and finalized at location E.
== END 2025-07-14 13:49 | disposition home or self-care (01) ==
LOC: MICIMG 13:48
PROVIDERS: PCP Family Medicine; Visit Provider Neurological Surgery
DX: M47.816 Spondylosis without myelopathy or radiculopathy, lumbar region (principal); M21.372 Foot drop, left foot
CPT/HCPCS: 72148

== ENCOUNTER 2025-10-22 22:23 | Inpatient (IN) | payer MEDICARE, BC, SELFPAY ==
--- NOTE | ~2025-10-22 | CT_ITS ---
EXAMINATION: CT abdomen pelvis w con DATE: 10/23/2025 05:24 INDICATION: Abdominal pain. TECHNIQUE: Computed tomography (CT) of the abdomen and pelvis was performed with 100 mL Omnipaque 350 intravenous contrast. Automated exposure control and iterative reconstruction technique were employed. The dose-length product was 796.48 mGy-cm. COMPARISON: CT abdomen and pelvis 02/28/2025 FINDINGS: The visualized portions of the lung bases demonstrate mild atelectasis. No pleural effusion. The heart size is normal. There are coronary artery calcifications. No pericardial effusion. There is a 2.0 cm cyst in the liver. The gallbladder is normal. Calcifications in the spleen are consistent with old granulomatous disease. The pancreas and adrenal glands are normal. There is mild atrophy of the kidneys. There is 8 mm cyst in left kidney. There is a 1 mm stone in left kidney. There is diverticulosis of the colon without evidence of diverticulitis. The appendix is not visualized. There are multiple dilated loops of small bowel with transition point in the left abdomen anteriorly. There is trace pelvic ascites. There are no pathologically enlarged lymph nodes. There are chronic bilateral L5 pars defects. There is 5 mm anterolisthesis of L5 on S1. There is severe lumbar spondylosis. There is dextroscoliosis of thoracolumbar spine and levoscoliosis of lower lumbar spine. IMPRESSION: 1. Small bowel obstruction with transition point in the left abdomen anteriorly. Reviewed, dictated and finalized at location E. NTORY CONTROL MANAGER IMPRESSION: 1. Small bowel obstruction with transition point in the left abdomen anteriorly .
--- NOTE | ~2025-10-22 | XR_ITS ---
XR abdomen gastric tube rechec INDICATION: Evaluate NG tube position. TECHNIQUE: Limited KUB perform for evaluating NG tube . COMPARISON: 10/23/2025 FINDINGS: NG tube tip in the stomach. Dilated small bowel in the upper abdomen, consistent with obstruction.. IMPRESSION: 1: NG tube tip in the stomach. Reviewed, dictated and finalized at location O. UM CURATOR
--- NOTE | ~2025-10-22 | XR_ITS ---
EXAMINATION: XR sm bowel follow through WS DATE: 10/24/2025 10:55 INDICATION: Small bowel obstruction TECHNIQUE: Mate First radiograph(s) of the abdomen was/were obtained. Water-soluble oral contrast was administered, and sequential radiographs of the abdomen were obtained through one hour at which point the study was terminated at the request of the referring physician. COMPARISON: None. FINDINGS: Nasogastric tube tip in proximal side port in the body the stomach. There are multiple dilated gas-filled loops of small bowel on the want ad receiver radiographs consistent with persistent small bowel obstruction. There is slow progression of contrast which extend to a short distance beyond the ligament of Treitz into the proximal jejunum on the 1 hour image. Contrast extends into a 4 cm diameter diverticulum arising from the cephalad margin of the third portion the duodenum. IMPRESSION: 1. Persistent dilated gas-filled loops of small bowel in the want ad receiver image with slow progression of contrast which had reached only short distance beyond the ligament of Treitz on the 1 hour image consistent with persistent small bowel obstruction. Reviewed, dictated and finalized at location A. KALEIDOSCOPE ANALYST IMPRESSION: 1. Persistent dilated gas-filled loops of small bowel in the want ad receiver image with s low progression of contrast which had reached only short distance beyond the li gament of Treitz on the 1 hour image consistent with persistent small bowel obs truction.
--- NOTE | ~2025-10-22 | XR_ITS ---
XR abdomen gastric tube rechec 10/23/2025 08:32 Indication: NG tube evaluation Procedure: Limited AP portable view of the lower chest and upper abdomen Comparison: No prior studies for comparison. Findings: NG tube coiled in the esophagus. Dilated small bowel upper abdomen, compatible with obstruction. Lung bases unremarkable. Impression: 1: NG tube coiled in the esophagus. 2: Dilated small bowel upper abdomen, compatible with obstruction. Reviewed, dictated and finalized at location O. RIALS ENGINEERING TECHNICIAN Impression: 1: NG tube coiled in the esophagus. 2: Dilated small bowel upper abdomen, compatible with obstruction.
--- NOTE | ~2025-10-22 | XR_ITS ---
Examination: XR chest 2V Clinical History: Hypoxia Comparison: None Technique: PA and Lateral Findings: NG tube. Cardiomediastinal silhouette normal size and configuration. Lungs clear. Except minimal left basilar atelectasis. No acute bony abnormality. IMPRESSION: 1. No acute cardiopulmonary findings. Reviewed, dictated and finalized at location R. IN PRESSER
--- NOTE | ~2025-10-22 | XR_ITS ---
XR abdomen gastric tube insert 10/23/2025 08:17 Indication: NG tube placement Procedure: Limited portable view of the lower chest and upper abdomen Comparison: 02/28/2025 Findings: NG tube coiled in the esophagus. Dilated small bowel present in the upper abdomen, suspicious for obstruction. Lung parenchyma unremarkable. Impression: 1: NG tube coiled in the esophagus. 2: Dilated small bowel upper abdomen, compatible with obstruction. Reviewed, dictated and finalized at location O. PHONE ADVICE NURSE Impression: 1: NG tube coiled in the esophagus. 2: Dilated small bowel upper abdomen, compatible with obstruction.
--- NOTE | ~2025-10-22 | XR_ITS ---
Examination: XR chest 1V portable Clinical History: Abnormal vital signs Comparison: 1 day prior Technique: Portable AP Findings: NG tube within gastric fundus. Unchanged mild cardiomegaly. Mild worsening left basilar streaky opacity. No acute bony abnormality. IMPRESSION: 1. NG tube within gastric fundus. 2. Mild worsening left basilar atelectasis and/or airspace disease. Reviewed, dictated and finalized at location R. FEATHER MACHINE OPERATOR
--- OUTSIDE RECORDS SUMMARY | 2025-10-22 22:26 | XMS_ITS | Clinical Summary ---
Author Organization [facility] [address] [place] Address [address] [place] [id number] Care Team Providers Care Ruby Developer Name Role Phone Zohaib Hoyt MD Primary Care Provider [phone] Allergies No known active allergies Medications DULoxetine [...] mg total) by mouth daily 09/21/2023 Active aspirin 81 mg enteric coated tablet [...] discomfort 10/13/2023 PLAZA (dyspnea on exertion) 10/13/2023 Surgical History Surgery Date Site/Laterality Comments APPENDECTOMY TONSILLECTOMY Medical History Medical History Date Comments Diabetes mellitus BPH (benign prostatic hyperplasia) Hypertension Sleep apnea Arthritis Migraines Heart disease Family History Medical History Relation Name Comments Stroke Father David Delong Cancer Mother Shannon Delong Stroke Mother Shannon Delong Stroke Son Relation Name Status Comments Father David Delong Mother Shannon Delong Son Social History Tobacco Use Types Packs/Day Years Used Date Smoking Tobacco: Never Smokeless Tobacco: Never Personal Safety Answer Date Recorded Have you ever been in or are you currently in a harmful physical or emotional relationship or is someone making you feel afraid or unsafe? 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 Gender Identity Male 08/29/2024 11:56 AM CDT Sexual Orientation Straight 08/29/2024 11 :56 AM CDT Last Filed Vital Signs Vital Sign Reading Time Taken Comments Blood Pressure 136/80 06/03/2025 10:42 AM CDT Pulse 79 06/03/2025 10:42 AM CDT Temperature - - Respiratory Rate 18 10/10/2024 10:03 AM LIQUID LOADER Oxygen Saturation 98% 06/03/2025 10:42 AM CDT Inhaled Oxygen Concentration - - Weight 84.4 kg (186 lb) 06/03/2025 10:42 AM CDT Height 182.9 cm (6') 06/03/2025 10:42 AM CDT Body Mass Index 25.23 06/03/2025 10:42 AM CDT Plan of Treatment Health Maintenance Due Date Last Done Comments Albumin Creatinine Ratio, Urine 1948 Depression Screening 1948 Hemoglobin A1C 1948 Hepatitis C Screening 1948 Dilated Eye Exam 1948 Foot Exam 1948 DTaP/Tdap/Td Vaccine (1 - Tdap) 1959 Hepatitis B Screening 1966 Pneumococcal vaccine 65+ (1 of 2 - PCV) 1967 Zoster Vaccine (1 of 2) 1998 Well Visit 65+ 2013 eGFR 01/01/2025 01/02/2024 Influenza Vaccine (#1) 2025 Fall Risk Assessment 10/10/2025 10/10/2024 Lipid Panel 06/03/2026 06/03/2025, 03/0 02/2024, 12/15/2023, Additional history exists Procedures Procedure Name Priority Date/Time Associated Diagnosis Comments POCT LIPID PANEL Routine 06/03/2025 10:4 8 AM CDT Lipid screening BASIC METABOLIC PANEL Routine 01/02/2024 NICM (nonischemic cardiomyopathy) (HCC) Hypertension associated with diabetes (HCC) from Last 3 Months or Most Recently Relevant to Health Maintenance Results * (ABNORMAL) POCT lipid panel (06/03/2025 10:48 AM CDT) Cholesterol, POC 101 <200 MG/DL HDL, POC 32(A) >=40 mg/dL Triglycerides, POC 207(A) <=149 mg/dL LDL Cholesterol POC 28 <=129 mg/dL Chol/HDL Ratio, POC 0.9 NONE Non-HDL Cholesterol, POC 69 NONE mg/dL Cholesterol Total, POC 101 30 - 199 mg/dL Capillary blood 06/03/2025 1 0:48 AM CDT Lizabeth Cunha NP POINT OF CARE TEST ORDERA BLES Final Result * (ABNORMAL) Basic metabolic panel (01/02/2024) SCRIBED [...] 8.6 - 10.3 mg/dl [facility] SCRIBED eGFR N/A N/A [facility] SCRIBED eGFR 60 > or = 60 [facility] Blood 01/02/2024 Ford Sutton MD LAB BLOOD ORDERABLES Erna l Result [facility] from Last 3 Months or Most Recently Relevant to Health Maintenance Insurance MEDICARE [facility] FEDERAL Member Subscriber Plan / Payer ( fective 2015-Present) Name:Hernan Delong Relation to Subscriber:Self Name:Hernan Delong Payer ID:[id number] (NAIC) Group ID:[id number] Type:[facility] Address: [address] [place] [address] MEDICARE [facility] FED[employer]AL Member Subscriber Plan / Payer ( fective 2015-) Name:Hernan Delong Relation to Subscriber:Self Name:Hernan Delong Payer ID:[id number] (NAIC) Group ID:[id number] Type:[employer] Address: [facility] [address] [place] [address] Care Teams Ruby Developer Relationship Specialty Start Date End Date Zohaib Hoyt MD [address] [address] PCP - General Family Medicine 08/07/23
[2025-10-22 22:32] VITALS: BP 124/83; PULSE 112; RESP 18; TEMP 36.6; O2SAT 98
--- NOTE | 2025-10-22 23:35 | PC.NURSE ---
Pt vomited up blood in triage at this time. Pt provided with second emesis bag at this time.
[2025-10-23] VITALS (9 sets, daily range): BP systolic 106–136; BP diastolic 69–92; PULSE 92–127; RESP 14–28; TEMP 36.4–37.2; O2SAT 92–98
[2025-10-23] MEDS: SODIUM CHLORIDE 0.9% IV 1,000 ML 999 ML IV CONT (04:08)
[2025-10-23] MEDS: MORPHINE SULFATE (*CRX) 4 MG/ML INJ IV PUSH (04:09)
[2025-10-23] MEDS: ONDANSETRON INJ 4 MG/2 ML VIAL IV PUSH ×2 (04:09→08:33)
[2025-10-23 04:10] LABS: Hematocrit 37.8 % (42.0-52.0); Hemoglobin 12.4 g/dL (14.0-18.0); Immature Granulocyte Percent A 1.4 % (0-0.5); Lymphocytes Absolute Auto 0.77 K/mm3 (0.9-3.2); Mean Corpuscular HGB Conc 32.8 g/dl (32-36); Mean Corpuscular Hemoglobin 33.5 pg (26-34); Mean Corpuscular Volume 102.2 fl (80-100); Nucleated Red Blood Cells Absolute Auto 0.000 K/mm3 (0.0-0.012); Nucleated Red Blood Cells Perc 0.0 % (0.0-0.2); Platelet Count Result 194 k/mm3 (150-375); Red Blood Count 3.70 M/mm3 (4.6-6.20); White Blood Count 17.4 K/mm3 (4.5-10.0)
[2025-10-23 04:54] LABS: Alanine Aminotransferase 17 U/L (6-50); Albumin Level 4.9 g/dL (3.5-5.1); Alkaline Phosphatase 102 U/L (38-126); Anion Gap 13 mmol/L (4-12); Anisocytosis 1+; Aspartate Amino Transferase 31 U/L (17-59); Bilirubin,Total 0.9 mg/dL (0.2-1.3); Blood Urea Nitrogen 23 mg/dL (9-20); Calcium 10.2 mg/dL (8.4-10.2); Carbon Dioxide 27 mmol/L (22-30); Chloride 99 mmol/L (98-107); Estimated CRCL calculation 49 ml/min; Estimated Glomerular Filt Rate 57; Glucose 318 mg/dL (65-110); Lipase 136 U/L (23-300); Potassium 5.1 mmol/L (3.4-5.0); Schistocytes None Seen; Sodium 139 mmol/L (137-145); Total Protein 8.9 g/dL (6.3-8.2)
--- NOTE | 2025-10-23 05:01 | ED.GENADULT ---
HPI - General Adult General Chief complaint: Abdominal Pain Stated complaint: possible bowel blockage and abdominal pain Time Seen by Provider: 10/23/25 02:22 History of Present Illness HPI narrative: Patient is a 75-year-old gentleman presents emergency department chief complaint of abdominal pain patient reports he has prior history of small-bowel obstructions and started having nausea vomiting and reports that he has not had a bowel movement since 11:30 patient reports that his abdomen feels full in feels similar to whenever he has had a small-bowel obstruction that has been treated with conservative management NG tube in past patient reports prior surgical history for appendectomy Related Data Home Medications ?Medication ?Instructions ?Recorded ?Confirmed ?Last Taken ?Type aspirin 81 mg tablet,delayed 81 mg PO DAILY 09/11/19 06/24/25 02/28/25 History release (Adult Low Dose Aspirin) multivitamin,[id number] 1 tablet PO DAILY 09/11/19 06/24/25 02/28/25 History (Complete Multivitamin tablet) atorvastatin 20 mg tablet 20 mg PO QHS 10/19/23 06/24/25 02/28/25 History magnesium 500 mg tablet 500 mg PO DAILY 12/08/23 06/24/25 02/28/25 History vitamin B complex (B 1 tablet PO DAILY 12/08/23 06/24/25 02/28/25 History Complex-Vitamin B12 tablet) carvedilol 6.25 mg tablet 6.25 mg PO Q12H 02/06/24 06/24/25 02/28/25 History sacubitril 49 mg-valsartan 51 mg 1 tablet PO BID 02/06/24 06/24/25 02/28/25 History tablet (Entresto) omeprazole magnesium 20 mg 20 mg PO DAILY 08/07/24 06/24/25 02/28/25 History tablet,delayed release (Prilosec OTC) apixaban 5 mg tablet (Eliquis) 5 mg PO BID 04/24/25 06/24/25 Unknown History Allergies Allergy/AdvReac Type Severity Reaction Status Date / Time No Known Allergies AdvReac Unknown Verified 07/24/25 15:18 Review of Systems Review of Systems: A 10 system review of systems was completed on the patient and is negative except for what is stated in the HPI. Nursing and ancillary documentation was reviewed. [facility] Past Medical History Medical History Weakness of left lower extremity (~03/2025) DVT of leg (deep venous thrombosis) DVT left lower leg 04/03/2025 treated by coat operator Small bowel obstruction Infection of mouth At moderate risk for fall (07/18/22) Abdominal pain Compression fracture of T4 vertebra compression fracture T4 and T5 on CT a of the chest 04/07/2025. MRI of the lumbar spine on 04/25/2025 reveals mild chronic compression fracture of T4 with moderate advanced chronic compression fracture of T5 with no changes in the spinal cord. Chronic anemia Heart failure with mildly reduced ejection fraction Dyspepsia and disorder of function of stomach (08/07/24) Syncope and collapse Carotid Doppler study normal on 08/01/2024. MRI of the brain and brainstem on 08/15/2024 was normal with normal aging. MRI of the lumbar spine revealed severe degenerative disc disease and facet arthropathy. At high risk for falls Chronic low back pain with left-sided sciatica X-ray of the lumbar spine on 07/26/2024 revealed degenerative disc disease and facet arthropathy at multiple levels with scoliosis of the lumbar spine. MRI of the lumbar spine on 08/15/2024 reveals severe degenerative disc disease with central canal stenosis and facet arthropathy with neural foraminal narrowing multiple levels. Generalized weakness (~06/2024) Frequent falls (~06/2024) Controlled type 2 diabetes mellitus with hyperglycemia, without long-term current use of insulin Hemoglobin A1c 7.6 on 12/08/2021. Glucose 182 with hemoglobin A1c 7.3 on 07/06/2022. glucose 183 with hemoglobin A1c 8.5 on 01/10/2023. Glucose 130 with hemoglobin A1c 7.5 on 07/29/2023 with microalbumin ratio of 99. Glucose 223 with hemoglobin A1c 8.3 on 01/02/2024. fasting glucose 237 with hemoglobin A1c 10.1 on 06/14/2024. Fasting blood was 182 on 08/09/2024. Glucose 179 With microalbumin ratio of 88.7 on 09/06/2024.Fasting glucose 207 with hemoglobin A1c 8.3 with GFR greater than 60 on 04/21/2025. Hearing loss, left (05/06/24) Nonischemic cardiomyopathy (2022) nuclear stress test 11/15/2023 with moderate to severe left ventricular systolic dysfunction with ejection fraction 35% with no S PO scan or EKG. Cardiac catheterization 12/11/2023 with no significant coronary artery disease. Bacteremia due to Staphylococcus aureus ESR 42 on 11/06/2023. WBC 2.6 on 11/06/2023. Lung infiltrate Pyelonephritis Sepsis Dyspnea on exertion No significant coronary artery disease on catheterization on 12/11/2023. Encounter for prostate cancer screening PSA 0.42 on 07/29/2023. PSA 0.5 on 09/06/2024. Left elbow pain (~07/2022) X-ray on 11/07/2022 revealed no evidence of fracture with soft tissue swelling over the olecranon process. COVID-19 (09/23/22) Tested positive 09/28/2022. Candidiasis (~09/28/22) Microalbuminuria due to type 2 diabetes mellitus (07/06/22) microalbumin ratio of 35 on 07/06/2022. Microalbumin ratio of 99 on 07/29/2023. Microalbumin ratio of 88.7 on 09/06/2024. Aphthous ulcer of mouth (04/22/22) Small bowel obstruction (03/19/22) Recurrent and resolved in-hospital 03/23/2022. Leukocytosis WBC 8.7 on 12/08/2021 Diabetic eye exam No retinopathy on 03/18/2021. No retinopathy on 11/09/2022. no retinopathy 10/10/2025. Acute bilateral low back pain with left-sided sciatica Seasonal allergic rhinitis Arthritis BPH without obstruction/lower urinary tract symptoms Chronic bilateral low back pain X-ray of the lumbar spine on 07/26/2024 revealed degenerative disc disease and facet arthropathy at multiple levels with scoliosis of the lumbar spine. MRI of the lumbar spine on 08/15/2024 reveals severe degenerative disc disease with central canal stenosis and facet arthropathy with neural foraminal narrowing multiple levels. Diabetic peripheral neuropathy associated with type 2 diabetes mellitus Essential (primary) hypertension Insomnia Mixed hyperlipidemia Cholesterol 135, triglycerides 129, HDL 42, LDL 72 on 01/10/2023. cholesterol 139, triglycerides 108, HDL 46, LDL 74 with ratio 2.5 on 07/29/2023. Cholesterol 92, triglycerides 90, HDL 40, LDL 35 with ratio of 2.3 on 01/02/2024. Cholesterol 91, triglycerides 133, HDL 30, LDL less than 30 on 09/06/2024. APARNA on CPAP Type 2 diabetes mellitus without complication, without long-term current use of insulin Hemoglobin A1c 7.6 on 12/08/2021. Glucose 182 with hemoglobin A1c 7.3 on 07/06/2022. glucose 183 with hemoglobin A1c 8.5 on 01/10/2023. Glucose 130 with hemoglobin A1c 7.5 on 07/29/2023 with microalbumin ratio of 99. Glucose 223 with hemoglobin A1c 8.3 on 01/02/2024. Surgical History Surgical History History of colonoscopy History of tonsillectomy and adenoidectomy History of appendectomy Family History Family History Grandparent Cerebrovascular accident, Onset Age: 78 Father Family history of Alzheimer's disease, Onset Age: 79 Mother Family history of Alzheimer's disease, Onset Age: 85 Social History Social History Social History: Surrogate decision-maker: Malena Delong, spouse. CODE STATUS: Full code Smoking status: Never smoker Second hand tobacco smoke exposure: Yes Alcohol intake: never Substance use: never Substance use type: does not use Lack of Transportation: No Lack of Food: Never True Current Housing: I Have Housing Concerned About Future Housing: No Difficulty Paying Gas/Electric Bills: No Difficulty Paying for Meds: No Currently Unemployed: No Education: Bachelor's Degree Difficulty w/ Childcare or Family Care: No Living arrangements: with family Additional living arrangements comments: Lives at home with his . They have 4 children. They have 7 horses Additional occupation/education comments: Retired from the [employer]. Spiritual care concerns: No Exam Narrative: GENERAL: Well-appearing, well-nourished, and in no acute distress. HEAD: Normocephalic, atraumatic. EYES: PERRLA and EOMI. ENT: Nares clear, no rhinorrhea or epistaxis. Mucous membranes moist. NECK: Supple. CHEST: Clear to auscultation. No respiratory distress. HEART: Regular rate and rhythm. No murmur heard. Normal peripheral pulses. ABDOMEN: Soft, diffuse mild tender, nondistended, normal active bowel sounds. EXTREMITIES: Normal range of motion. No edema. SKIN: Warm, dry, no rash. NEURO: No focal deficits. Alert and oriented x3. PSYCH: Normal mood and affect. Course Vital Signs Vital signs: Vital Signs Temperature 36.6 C 10/22/25 22:32 Pulse Rate 112 H 10/22/25 22:32 Respiratory Rate 18 10/22/25 22:32 Blood Pressure 124/83 10/22/25 22:32 Pulse Oximetry 98 10/22/25 22:32 Oxygen Delivery Room Air 10/22/25 22:32 Temperature 36.6 C 10/22/25 22:32 Pulse Rate 116 H 10/23/25 06:01 Respiratory Rate 20 10/23/25 06:01 Blood Pressure 128/82 10/23/25 06:01 Pulse Oximetry 92 10/23/25 06:01 Oxygen Delivery Room Air 10/22/25 22:32 MDM Differential Diagnosis Differential Diagnosis: differential diagnosis includes intra-abdominal patient, diverticulitis, colitis, small-bowel obstruction white blood cell count of 17.4 CMP showed a creatinine 1.23 BUN was 23 urinalysis showed no evidence UTI CT scan showed evidence of small-bowel obstruction an NG tube has been ordered for the patient and surgery and the hospitalist Ob consult for admission Lab Data 10/23/25 03:54 10/23/25 03:54 Labs: Lab Results 10/23/25 10/23/25 10/23/25 Range/Units 03:54 04:02 06:39 WBC 17.4 H (4.5-10.0) K/mm3 RBC 3.70 L (4.6-6.20) M/mm3 Hgb 12.4 L (14.0-18.0) g/dL Hct 37.8 L (42.0-52.0) % MCV 102.2 H (80-100) fl MCH 33.5 (26-34) pg MCHC 32.8 (32-36) g/dl RDW 14.0 (11.5-14.5) % Plt Count 194 (150-375) k/mm3 MPV 11.0 H (7.4-10.4) fl Immature Gran % (Auto) 1.4 H (0-0.5) % Neut % (Auto) 88.2 H (45.5-73.1) % Lymph % (Auto) 4.4 L (18.3-44.2) % [place] % (Auto) 5.8 (2.6-8.5) % Eos % (Auto) 0.0 (0-4.4) % Baso % (Auto) 0.2 (0.2-1.2) % Lymph # (Auto) 0.77 L (0.9-3.2) K/mm3 [place] # (Auto) 1.0 H (0.1-0.6) K/mm3 Eos # (Auto) 0.0 (0-0.3) K/mm3 Baso # (Auto) 0.0 (0.0-0.1) K/mm3 Abs Immat Gran (auto) 0.25 H (0.00-0.031) K/mm3 Absolute Neuts (auto) 15.3 H (1.3-6.7) K/mm3 Absolute Nucleated RBC 0.000 (0.0-0.012) K/mm3 Band Neutrophils % Not Reportable Nucleated RBC % 0.0 (0.0-0.2) % Platelet Estimate Adequate (Adequate) Anisocytosis 1+ Schistocytes None seen Sodium 139 (137-145) mmol/L Potassium 5.1 H (3.4-5.0) mmol/L Chloride 99 (98-107) mmol/L Carbon Dioxide 27 (22-30) mmol/L Anion Gap 13 H (4-12) mmol/L BUN 23 H (9-20) mg/dL Creatinine 1.23 (0.7-1.3) mg/dL Estim Creat Clear Calc 49 ml/min Estimated GFR 57 L (59 - ) Glucose 318 H (65-110) mg/dL Lactic Acid 2.0 (0.7-2.0) mmol/L Calcium 10.2 (8.4-10.2) mg/dL Total Bilirubin 0.9 (0.2-1.3) mg/dL AST 31 (17-59) U/L ALT 17 (6-50) U/L Alkaline Phosphatase 102 (38-126) U/L Total Protein 8.9 H (6.3-8.2) g/dL Albumin 4.9 (3.5-5.1) g/dL Lipase 136 (23-300) U/L Urine Color Yellow (Yellow) Urine Appearance Clear (Clear) Urine pH 7.0 (5.0-9.0) Ur Specific [place] > 1.045 H (1.001-1.035) Urine Protein 1+ H (Negative) mg/dL Urine Glucose (UA) 3+ H (Negative) mg/dL Urine Ketones Trace H (Negative) mg/dL Ur Blood (Man) Negative (Negative) Urine Nitrate Negative (Negative) Urine Bilirubin Negative (Negative) Urine Urobilinogen 0.2 (<2.0) mg/dL Leukocyte Esterase Rfl Negative (Negative) MADELIN/UL Urine RBC 0-2 (0-2) /hpf Urine WBC 0-5 (0-3) /hpf Ur Squamous Epith Cells None seen (Few) /hpf Urine Bacteria None seen /hpf Urine Casts 0-2 Imaging Data Radiologist's impression: ITS Impressions Abdomen/Pelvis CT 10/23/25 06:13 IMPRESSION: 1. Small bowel obstruction with transition point in the left abdomen anteriorly. Discharge Plan Discharge Clinical Impression: Complete obstruction of small intestine Patient Disposition: Still a Patient Condition: Stable Instructions: Antibiotic Form Patient Language: Mosotho Prescriptions: No Action Eliquis 5 mg tablet 5 mg PO BID Patient Comments: treated by coat operator 04/03/2025 fluticasone propionate [Flonase Allergy Relief] 50 mcg/actuation spray,suspension 1 spray intranasal BID Qty: 16 11RF Rx Instructions: administer into each nostril Entresto 49-51 mg tablet 1 tablet PO BID Patient Comments: started by coat operator carvedilol 6.25 mg tablet 6.25 mg PO Q12H Patient Comments: started by coat operator Rx Instructions: must administer with a meal/food magnesium 500 mg Tablet 500 mg PO DAILY vitamin B complex [B Complex-Vitamin B12] Tablet 1 tablet PO DAILY Rx Instructions: 5000 units aspirin [Adult Low Dose Aspirin] 81 mg tablet,delayed release (DR/EC) 81 mg PO DAILY Complete Multivitamin Tablet 1 tablet PO DAILY atorvastatin 20 mg tablet 20 mg PO QHS Patient Comments: started by coat operator 10/13/2023. omeprazole magnesium [Prilosec OTC] 20 mg tablet,delayed release (DR/EC) 20 mg PO DAILY meloxicam 15 mg tablet 15 mg PO DAILY PRN (Reason: pain) Qty: 90 3RF Jardiance 25 mg tablet 25 mg PO QAM Qty: 90 3RF dutasteride 0.5 mg capsule 0.5 mg PO DAILY Qty: 90 3RF duloxetine [Cymbalta] 60 mg capsule,delayed release(DR/EC) 60 mg PO BID Qty: 180 3RF metformin 500 mg tablet extended release 24 hr 2,000 mg PO DAILY Qty: 360 5RF Rx Instructions: pt takes 2000 mg all at once each morning Follow-up/Referrals: Zohaib Hoyt MD [Primary Care Provider, Family Practice]
[2025-10-23 06:53] LABS: Add Urine Microscopic? YES; Appearance Urine Clear (Clear); Glucose Urine UA 3+ mg/dL (Negative); Leukocyte Esterase Ur Negative LEU/UL (Negative); Nitrate Urine Negative (Negative); Non Pathogenic Casts 0-2; Specific Grav Ur > 1.045 (1.001-1.035)
--- NOTE | 2025-10-23 07:39 | ECG_ITS ---
Test Date: 2025-10-23 07:53:22 Measurements Intervals [place] Rate: 126 P: -21 HI: 221 QRS: -36 QRSD: 101 T: 6 QT: 311 QTc: 452 Interpretive Statements ATRIAL FLUTTER/TACHYCARDIA WITH NORMAL VENTRICULAR RATE LEFT AXIS DEVIATION PATTERN CONSISTENT WITH PULMONARY DISEASE NONSPECIFIC ST & T-WAVE ABNORMALITY- ANT/INF LEADS BASELINE ARTIFACT- I, II, III, AVR, AVL, AVF, V1 ABNORMAL ECG Compared to ECG 11/26/2024 20:29:21 SINUS TACHYCARDIA NO LONGER PRESENT Electronically Signed On 10-23-2025 09:08:16 CYCLE ANALYST by Jamison Oswald D.O.
--- NOTE | 2025-10-23 07:51 | PC.NURSE ---
no blood cultures ordered at this time. abx being administered at this time
[2025-10-23] MEDS: PIPERACILLIN/TAZOBACTAM SOD 3.375 GM in SODIUM CHLORIDE 0.9% IV 50 ML 100 ML IVPB ×3 (07:52→17:25)
[2025-10-23] MEDS: PANTOPRAZOLE SODIUM IV 40 MG VIAL IV PUSH (08:34)
--- NOTE | 2025-10-23 08:36 | PC.NURSE ---
[address] the NG were unsuccessful. 2 different RN attempted, 2 different NG sizes, and different nostrils with no success. this RN will call hospitalist for further orders
--- NOTE | 2025-10-23 09:02 | PC.NURSE ---
hospitalist Dr. Carver called at this time to notify of pt tachycardia, hospitalist said to consult cardiology
[2025-10-23] MEDS: LORazepam INJ (*CRX) 2 MG/ML VIAL 0.5 MG IV PUSH (09:27)
--- NOTE | 2025-10-23 09:35 | PC.NURSE ---
Dr. Palacios called to discuss difficulty with NG, Dr. Palacios disscussed with EDP Dr. Allred and medications were ordered and another NG was attempted
--- NOTE | 2025-10-23 09:36 | PC.NURSE ---
consulted cardiology Dr. Harris at this time and he said no further orders regarding pt tachycardia at this time
[2025-10-23] MEDS: BENZOCAINE/TETRACAINE SPRAY (*SP) 56 ML AEROSOL 1 SPRAY MUCOUS MEM (09:38)
--- NOTE | 2025-10-23 09:47 | WPCEDHO ---
ED Hand Off Checklist All vitals saved: yes IV Site documented: yes All med administrations documented: yes Triage Note Triage Note pt to ED via POV. Pt states he 10/23/25 03:56 thinks he has a bowel obstruction . Pt states he hasn't been able to have BM since 11:30 this morning. Pt states he is having abdominal pain. Pt abdomen appears distended at this time. Pt is A&Ox4. Pt is ambulatory to triage. Pt is A&Ox4. Pt states he feels nauseous as well. agree with triage assessment. pt resting at this time. pt VSS Allergies No Known Allergies Adverse Reaction (Unknown, Verified 10/23/25 07:51) Family History (Last Reviewed 10/23/25 @ 05:03 by Dano Pineda MD) Grandparent Cerebrovascular accident Father Family history of Alzheimer's disease Mother Family history of Alzheimer's disease Active Medications including assessments/comments Ondansetron HCl (Ondansetron Inj 4 Mg/2 Ml Vial) 4 mg IV PUSH Q4H PRN PRN Reason: Nausea Last Admin: 10/23/25 08:33 Dose: 4 mg Documented By: NAE Pantoprazole Sodium (Pantoprazole Sodium Iv 40 Mg Vial) 40 mg IV PUSH QAM SPENCER Last Admin: 10/23/25 08:34 Dose: 40 mg Documented By: NAE Administered/Completed Medications Discontinued Medications Benzocaine/Butamben/Tetracaine HCl (Benzocaine/Tetracaine Slaughters (*Sp) 56 Ml Aerosol) 1 spray MUCOUS MEM ONCE ONE Stop: 10/23/25 09:18 Last Admin: 10/23/25 09:38 Dose: 1 spray Documented By: NAE Benzocaine/Butamben/Tetracaine HCl (Benzocaine/Tetracaine Slaughters (*Sp) 56 Ml Aerosol) 1 spray MUCOUS MEM ONCE ONE Stop: 10/23/25 09:21 Last Admin: 10/23/25 09:38 Dose: Not Given Documented By: NAE Non-Admin Reason: Duplicate Dose Benzocaine/Butamben/Tetracaine HCl (Benzocaine/Tetracaine Slaughters (*Sp) 56 Ml Aerosol) Confirm Administered Dose 1 spray .ROUTE .STK-MED ONE Stop: 10/23/25 09:19 Last Admin: 10/23/25 09:37 Dose: Not Given Documented By: NAE Non-Admin Reason: Duplicate Dose Sodium Chloride (Normal Saline Iv) 1,000 mls @ 999 mls/hr IV CONT .Q1H1M STA Stop: 10/23/25 03:42 Last Infusion: 10/23/25 05:30 Dose: Infused Documented By: Admin: 10/23/25 04:08 Dose: 999 mls/hr Documented By: DAVID Piperacillin Sod/Tazobactam (Sod 3.375 gm/ Sodium Chloride) 50 mls @ 100 mls/hr IVPB ONCE STA Stop: 10/23/25 07:35 Last Infusion: 10/23/25 08:22 Dose: Infused Documented By: Admin: 10/23/25 07:52 Dose: 100 mls/hr Documented By: NAE Lorazepam (Lorazepam Inj (*Crx) 2 Mg/Ml Vial) 0.5 mg IV PUSH ONCE ONE Stop: 10/23/25 09:14 Last Admin: 10/23/25 09:27 Dose: 0.5 mg Documented By: NAE Morphine Sulfate (Morphine Sulfate (*Crx) 4 Mg/Ml Inj) 4 mg IV PUSH ONCE STA Stop: 10/23/25 02:43 Last Admin: 10/23/25 04:09 Dose: 4 mg Documented By: DAVID Ondansetron HCl (Ondansetron Inj 4 Mg/2 Ml Vial) 4 mg IV PUSH ONCE STA Stop: 10/23/25 02:43 Last Admin: 10/23/25 04:09 Dose: 4 mg Documented By: DAVID Notes 10/23/25 09:36 Nurse Note by Jackie Sharif consulted cardiology Dr. Harris at this time and he said no further orders regarding pt tachycardia at this time Initialized on 10/23/25 09:36 - END OF NOTE 10/23/25 09:35 Nurse Note by Jackie Sharif Dr. called to discuss difficulty with NG, Dr. Palacios disscussed with EDP Dr. Allred and medications were ordered and another NG was attempted Initialized on 10/23/25 09:35 - END OF NOTE 10/23/25 09:02 Nurse Note by Jackie Sharif hospitalist Dr. Carver called at this time to notify of pt tachycardia, hospitalist said to consult cardiology Initialized on 10/23/25 09:02 - END OF NOTE 10/23/25 08:36 Nurse Note by Jackie Sharif [address] the NG were unsuccessful. 2 different RN attempted, 2 different NG sizes, and different nostrils with no success. this RN will call hospitalist for further orders Initialized on 10/23/25 08:36 - END OF NOTE 10/23/25 07:51 Nurse Note by Jackie Sharif no blood cultures ordered at this time. abx being administered at this time Initialized on 10/23/25 07:51 - END OF NOTE 10/22/25 23:35 Nurse Note by Vero Padilla Pt vomited up blood in triage at this time. Pt provided with second emesis bag at this time. Initialized on 10/22/25 23:35 - END OF NOTE Interventions/Assessments IV / Saline Lock, Insert Start: 10/23/25 02:23 Freq: STAT Status: Active Protocol: Document 10/23/25 03:47 ACO (Rec: 10/23/25 03:47 ACO [id number]) IV Assessment Peripheral Access Left Forearm IV Catheter Access Initiated IV Insertion Date 10/23/25 IV Insertion Time 03:47 Catheter Gauge 20 IV Site Assessment WNL IV Care and WNL Maintenance PA: Gastrointestinal Assessment Start: 10/22/25 22:24 Freq: Status: Active Protocol: Document 10/23/25 03:57 ACO (Rec: 10/23/25 03:57 ACO [id number]) GI Assessment Gastrointestinal Nausea,Vomiting Symptoms Description Tender Pattern No Bowel Movement Nausea/Vomiting Assessment Nausea Frequency Intermittent Emesis Frequency Intermittent Last Vital Signs Temperature 97.6 F 10/23/25 07:55 Pulse Rate 118 H 10/23/25 09:46 Respiratory Rate 22 H 10/23/25 09:46 Pulse Oximetry 92 10/23/25 09:46 Blood Pressure 136/92 H 10/23/25 09:46 Blood Pressure Mean 106 10/23/25 09:46 Blood Pressure Position Sitting 10/23/25 07:55 Oxygen Delivery Room Air 10/22/25 22:32 Weight 81.8 kg 10/23/25 03:56 Last Result - Abnormals Only WBC 17.4 K/mm3 (4.5-10.0) H 10/23/25 03:54 RBC 3.70 M/mm3 (4.6-6.20) L 10/23/25 03:54 Hgb 12.4 g/dL (14.0-18.0) L 10/23/25 03:54 Hct 37.8 % (42.0-52.0) L 10/23/25 03:54 MCV 102.2 fl (80-100) H 10/23/25 03:54 MPV 11.0 fl (7.4-10.4) H 10/23/25 03:54 Immature Gran % (Auto) 1.4 % (0-0.5) H 10/23/25 03:54 Neut % (Auto) 88.2 % (45.5-73.1) H 10/23/25 03:54 Lymph % (Auto) 4.4 % (18.3-44.2) L 10/23/25 03:54 Lymph # (Auto) 0.77 K/mm3 (0.9-3.2) L 10/23/25 03:54 [place] # (Auto) 1.0 K/mm3 (0.1-0.6) H 10/23/25 03:54 Abs Immat Gran (auto) 0.25 K/mm3 (0.00-0.031) H 10/23/25 03:54 Absolute Neuts (auto) 15.3 K/mm3 (1.3-6.7) H 10/23/25 03:54 Potassium 5.1 mmol/L (3.4-5.0) H 10/23/25 03:54 Anion Gap 13 mmol/L (4-12) H 10/23/25 03:54 BUN 23 mg/dL (9-20) H 10/23/25 03:54 Estimated GFR 57 (59-) L 10/23/25 03:54 Glucose 318 mg/dL (65-110) H 10/23/25 03:54 Total Protein 8.9 g/dL (6.3-8.2) H 10/23/25 03:54 Ur Specific [place] > 1.045 (1.001-1.035) H 10/23/25 06:39 Urine Protein 1+ mg/dL (Negative) H 10/23/25 06:39 Urine Glucose (UA) 3+ mg/dL (Negative) H 10/23/25 06:39 Urine Ketones Trace mg/dL (Negative) H 10/23/25 06:39 Most Recent Suicide Severity Rating Suicide Severity Rating NO RISK INDICATED 10/23/25 03:56
--- NOTE | 2025-10-23 10:14 | PM.IMHP2 ---
H&P: HPI History of Present Illness Date/Time: 10/23/25 10:14 Chief Complaint: Abdominal pain Narrative: 75 years old male with history of multiple medical problems was admitted through the emergency room with complaints of having abdominal pain nausea and vomiting over the last few days. Patient did not have pulmonary the last few days. In the ER patient was found to have small-bowel obstruction. NG tube was placed and connected to intermittent suction. Patient was also given IV antibiotic for high WBC count. Patient was transferred to floor for further management. At present time patient lying comfortably. Abdominal pain is slightly better. NG tube is in place. No shortness of breath or chest pain. Patient has history of small-bowel obstruction the past that was treated with conservative management. Review of Systems Review of Systems: All systems reviewed & are unremarkable except as noted in HPI and below (the history and physical examination.) [facility] Past Medical History Medical History (Updated 10/23/25 @ 10:19 by Joselito Carver MD) Small bowel obstruction Small bowel obstruction (03/19/22) Recurrent and resolved in-hospital 03/23/2022. Leukocytosis WBC 8.7 on 12/08/2021 Weakness of left lower extremity (~03/2025) DVT of leg (deep venous thrombosis) DVT left lower leg 04/03/2025 treated by retail service specialist Infection of mouth At moderate risk for fall (07/18/22) Abdominal pain Compression fracture of T4 vertebra compression fracture T4 and T5 on CT a of the chest 04/07/2025. MRI of the lumbar spine on 04/25/2025 reveals mild chronic compression fracture of T4 with moderate advanced chronic compression fracture of T5 with no changes in the spinal cord. Chronic anemia Heart failure with mildly reduced ejection fraction Dyspepsia and disorder of function of stomach (08/07/24) Syncope and collapse Carotid Doppler study normal on 08/01/2024. MRI of the brain and brainstem on 08/15/2024 was normal with normal aging. MRI of the lumbar spine revealed severe degenerative disc disease and facet arthropathy. At high risk for falls Chronic low back pain with left-sided sciatica X-ray of the lumbar spine on 07/26/2024 revealed degenerative disc disease and facet arthropathy at multiple levels with scoliosis of the lumbar spine. MRI of the lumbar spine on 08/15/2024 reveals severe degenerative disc disease with central canal stenosis and facet arthropathy with neural foraminal narrowing multiple levels. Generalized weakness (~06/2024) Frequent falls (~06/2024) Controlled type 2 diabetes mellitus with hyperglycemia, without long-term current use of insulin Hemoglobin A1c 7.6 on 12/08/2021. Glucose 182 with hemoglobin A1c 7.3 on 07/06/2022. glucose 183 with hemoglobin A1c 8.5 on 01/10/2023. Glucose 130 with hemoglobin A1c 7.5 on 07/29/2023 with microalbumin ratio of 99. Glucose 223 with hemoglobin A1c 8.3 on 01/02/2024. fasting glucose 237 with hemoglobin A1c 10.1 on 06/14/2024. Fasting blood was 182 on 08/09/2024. Glucose 179 With microalbumin ratio of 88.7 on 09/06/2024.Fasting glucose 207 with hemoglobin A1c 8.3 with GFR greater than 60 on 04/21/2025. Hearing loss, left (05/06/24) Nonischemic cardiomyopathy (2022) nuclear stress test 11/15/2023 with moderate to severe left ventricular systolic dysfunction with ejection fraction 35% with no S PO scan or EKG. Cardiac catheterization 12/11/2023 with no significant coronary artery disease. Bacteremia due to Staphylococcus aureus ESR 42 on 11/06/2023. WBC 2.6 on 11/06/2023. Lung infiltrate Pyelonephritis Sepsis Dyspnea on exertion No significant coronary artery disease on catheterization on 12/11/2023. Encounter for prostate cancer screening PSA 0.42 on 07/29/2023. PSA 0.5 on 09/06/2024. Left elbow pain (~07/2022) X-ray on 11/07/2022 revealed no evidence of fracture with soft tissue swelling over the olecranon process. COVID-19 (09/23/22) Tested positive 09/28/2022. Candidiasis (~09/28/22) Microalbuminuria due to type 2 diabetes mellitus (07/06/22) microalbumin ratio of 35 on 07/06/2022. Microalbumin ratio of 99 on 07/29/2023. Microalbumin ratio of 88.7 on 09/06/2024. Aphthous ulcer of mouth (04/22/22) Diabetic eye exam No retinopathy on 03/18/2021. No retinopathy on 11/09/2022. no retinopathy 10/10/2025. Acute bilateral low back pain with left-sided sciatica Seasonal allergic rhinitis Arthritis BPH without obstruction/lower urinary tract symptoms Chronic bilateral low back pain X-ray of the lumbar spine on 07/26/2024 revealed degenerative disc disease and facet arthropathy at multiple levels with scoliosis of the lumbar spine. MRI of the lumbar spine on 08/15/2024 reveals severe degenerative disc disease with central canal stenosis and facet arthropathy with neural foraminal narrowing multiple levels. Diabetic peripheral neuropathy associated with type 2 diabetes mellitus Essential (primary) hypertension Insomnia Mixed hyperlipidemia Cholesterol 135, triglycerides 129, HDL 42, LDL 72 on 01/10/2023. cholesterol 139, triglycerides 108, HDL 46, LDL 74 with ratio 2.5 on 07/29/2023. Cholesterol 92, triglycerides 90, HDL 40, LDL 35 with ratio of 2.3 on 01/02/2024. Cholesterol 91, triglycerides 133, HDL 30, LDL less than 30 on 09/06/2024. APARNA on CPAP Type 2 diabetes mellitus without complication, without long-term current use of insulin Hemoglobin A1c 7.6 on 12/08/2021. Glucose 182 with hemoglobin A1c 7.3 on 07/06/2022. glucose 183 with hemoglobin A1c 8.5 on 01/10/2023. Glucose 130 with hemoglobin A1c 7.5 on 07/29/2023 with microalbumin ratio of 99. Glucose 223 with hemoglobin A1c 8.3 on 01/02/2024. Surgical History Surgical History History of colonoscopy History of tonsillectomy and adenoidectomy History of appendectomy Family History Family History Grandparent Cerebrovascular accident, Onset Age: 78 Father Family history of Alzheimer's disease, Onset Age: 79 Mother Family history of Alzheimer's disease, Onset Age: 85 Social History Social History Social History: Surrogate decision-maker: Malena Delong, spouse. CODE STATUS: Full code Smoking status: Never smoker Second hand tobacco smoke exposure: Yes Alcohol intake: never Substance use: never Substance use type: does not use Lack of Transportation: No Lack of Food: Never True Current Housing: I Have Housing Concerned About Future Housing: No Difficulty Paying Gas/Electric Bills: No Difficulty Paying for Meds: No Currently Unemployed: No Education: Bachelor's Degree Difficulty w/ Childcare or Family Care: No Living arrangements: with family Additional living arrangements comments: Lives at home with his . They have 4 children. They have 7 horses Additional occupation/education comments: Retired from the [email or web address]. Spiritual care concerns: No Meds Home Medications and Allergies Home Medications ?Medication ?Instructions ?Recorded ?Confirmed ?Type aspirin 81 mg tablet,delayed 81 mg PO DAILY 09/11/19 06/24/25 History release (Adult Low Dose Aspirin) multivitamin,[id number] 1 tablet PO DAILY 09/11/19 06/24/25 History (Complete Multivitamin tablet) fluticasone propionate 50 1 spray intranasal BID #16 grams 01/17/23 06/24/25 Rx mcg/actuation nasal spray,suspension (Flonase Allergy Relief) atorvastatin 20 mg tablet 20 mg PO QHS 10/19/23 06/24/25 History magnesium 500 mg tablet 500 mg PO DAILY 12/08/23 06/24/25 History vitamin B complex (B 1 tablet PO DAILY 12/08/23 06/24/25 History Complex-Vitamin B12 tablet) carvedilol 6.25 mg tablet 6.25 mg PO Q12H 02/06/24 06/24/25 History sacubitril 49 mg-valsartan 51 mg 1 tablet PO BID 02/06/24 06/24/25 History tablet (Entresto) omeprazole magnesium 20 mg 20 mg PO DAILY 08/07/24 06/24/25 History tablet,delayed release (Prilosec OTC) meloxicam 15 mg tablet 15 mg PO DAILY PRN pain #90 tabs 12/23/24 06/24/25 Rx dutasteride 0.5 mg capsule 0.5 mg PO DAILY #90 caps 02/25/25 06/24/25 Rx empagliflozin 25 mg tablet 25 mg PO QAM #90 tabs 02/25/25 06/24/25 Rx (Jardiance) duloxetine 60 mg capsule,delayed 60 mg PO BID #180 caps 04/09/25 06/24/25 Rx release (Cymbalta) apixaban 5 mg tablet (Eliquis) 5 mg PO BID 04/24/25 06/24/25 History metformin 500 mg tablet,extended 2,000 mg (4 x 500 mg) PO DAILY 05/05/25 06/24/25 Rx release 24 hr #360 tabs Allergies Allergy/AdvReac Type Severity Reaction Status Date / Time No Known Allergies AdvReac Unknown Verified 10/23/25 07:51 Vital Signs Vital Signs - 24 hr 10/22/25 22:32 10/23/25 02:21 10/23/25 03:57 Temperature 36.6 C Pulse Rate 112 H 102 H 100 Respiratory Rate 18 19 16 Blood Pressure 124/83 106/74 124/77 Pulse Oximetry 98 98 96 Oxygen Delivery Room Air 10/23/25 06:01 10/23/25 07:55 10/23/25 09:46 Temperature 36.4 C Pulse Rate 116 H 122 H 118 H Respiratory Rate 20 20 22 H Blood Pressure 128/82 117/80 136/92 H Pulse Oximetry 92 95 92 Oxygen Delivery Exam Narrative: GENERAL: Well-appearing, well-nourished, and in no acute distress. HEAD: Normocephalic, atraumatic. EYES: PERRLA and EOMI. ENT: Nares clear, no rhinorrhea or epistaxis. Mucous membranes moist. NECK: Supple. CHEST: Clear to auscultation. No respiratory distress. HEART: Regular rate and rhythm. No murmur heard. Normal peripheral pulses. ABDOMEN: Soft, diffuse mild tender, nondistended, decreased bowel sounds. NG tube in place. EXTREMITIES: Normal range of motion. No edema. SKIN: Warm, dry, no rash. NEURO: No focal deficits. Alert and oriented x3. PSYCH: Normal mood and affect. Results Labs Labs: Short CBC 10/23/25 Range/Units 03:54 WBC 17.4 H (4.5-10.0) K/mm3 Hgb 12.4 L (14.0-18.0) g/dL Hct 37.8 L (42.0-52.0) % Plt Count 194 (150-375) k/mm3 BMP 10/23/25 03:54 Sodium 139 Potassium 5.1 H Chloride 99 Carbon Dioxide 27 BUN 23 H Creatinine 1.23 Glucose 318 H Calcium 10.2 Liver Function 10/23/25 Range/Units 03:54 Total Bilirubin 0.9 (0.2-1.3) mg/dL AST 31 (17-59) U/L ALT 17 (6-50) U/L Alkaline Phosphatase 102 (38-126) U/L Albumin 4.9 (3.5-5.1) g/dL Urine 10/23/25 Range/Units 06:39 Urine Color Yellow (Yellow) Urine Appearance Clear (Clear) Urine pH 7.0 (5.0-9.0) Ur Specific [place] > 1.045 H (1.001-1.035) Urine Protein 1+ H (Negative) mg/dL Urine Glucose (UA) 3+ H (Negative) mg/dL Assessment and Plan Assessment and plan (1) Small bowel obstruction: Onset Date: 03/19/22 Code(s): K56.609 - Unspecified intestinal obstruction, unspecified as to partial versus complete obstruction Status: Acute Assessment and Plan: Surgical consult. NPO. except meds. NG tube to suction. Monitor electrolytes. Repeat x-ray in the morning. (2) Essential (primary) hypertension: Code(s): I10 - Essential (primary) hypertension Status: Acute Assessment and Plan: Will switch to IV medication pain and monitor closely. (3) Mixed hyperlipidemia: Code(s): E78.2 - Mixed hyperlipidemia Status: Chronic Assessment and Plan: Stable on current medication (4) History of DVT (deep vein thrombosis): Code(s): Z86.718 - Personal history of other venous thrombosis and embolism Status: Acute Assessment and Plan: Patient at home is taking Eliquis. Will switch to Lovenox for now. (5) Cardiac arrhythmia: Code(s): I49.9 - Cardiac arrhythmia, unspecified Status: Acute Assessment and Plan: Cardiology consult for cardiac clearance. Monitor heart rate closely. Use metoprolol if needed. (6) Leukocytosis: Code(s): D72.829 - Elevated white blood cell count, unspecified Status: Acute Assessment and Plan: Blood culture was sent. Will start IV antibiotic and monitor WBC count. Plan Patient admitted as a full admission medical surgical floor. Patient is full code DVT prophylaxis Lovenox.
--- NOTE | 2025-10-23 11:46 | PM.CNCAR ---
Assessment and Plan Assessment and plan (1) Nonischemic cardiomyopathy: Onset Date: 2022 Code(s): I42.8 - Other cardiomyopathies Status: Acute Plan This is a 75-year-old man who has a nonischemic cardiomyopathy. He has been doing well on medical therapy with carvedilol and Entresto not having any symptoms of any hemodynamic decompensation. He enters the hospital with abdominal pain is felt to have a bowel obstruction which he has had 4-5 times and what he tells me. These episodes generally respond well to conservative therapy/NG suction and bowel decompression. He is in sinus tachycardia his electrocardiogram does not show any specific arrhythmia otherwise in my opinion. If there is need to operate on him he is stable for surgery he does not require additional cardiac testing. Gaurav Harris MD [facility] History of Present Illness History of Present Illness Consult date/time: 10/23/25 11:46 Reason For Visit: Small-Bowel obstruction Narrative: This is a 75-year-old man I am seeing at the request of the hospitalist provide preoperative cardiac risk assessment. He came to the hospitalist emergency room earlier this morning with some abdominal pain which he recognized as symptoms consistent with previous bowel obstructions that he has had. The symptoms began yesterday evening and worsened overnight. He is not reporting any cardiac symptoms of any kind it was noted in the emergency room that he is tachycardic. His electrocardiogram appears to show sinus tachycardia with a heart rate in the 120 range. It was officially read as atrial flutter. The patient denies any symptoms of chest pain or dyspnea no sense of palpitations orthopnea or PND. He does have a cardiac history of a nonischemic cardiomyopathy with which he follows with my partner, Dr. Missael Sutton. He has been doing well on standard guideline directed medical therapy and was recently seen in our office. About 9 months ago he was diagnosed with a DVT for which for which he was placed on apixaban. He has not had any problems or complications of anticoagulation. He is not anticoagulated for a cardiac diagnosis. At the time of his diagnosis of ischemic myopathy in 2023 he did undergo left heart catheterization which demonstrated no evidence of coronary disease. His medical regimen for his cardiomyopathy includes carvedilol, Entresto. Review of Systems Constitutional: Constitutional: Reports no additional constitutional complaints Eyes: Eyes: Reports no additional eye complaints ENT: Reports system reviewed and no additional complaints, except as documented Cardiovascular: Cardiovascular: Reports no additional cardiovascular complaints Respiratory: Respiratory: Reports no additional respiratory complaints Gastrointestinal: Gastrointestinal: Reports no additional gastrointestinal complaints Musculoskeletal: Musculoskeletal: Reports no additional musculoskeletal complaints Integumentary/Breasts: Skin/Breast: Reports system reviewed and no additional complaints, except as docu Neurologic: Reports system reviewed and no additional complaints, except as documented Endocrine: Endocrine: Reports no additional endocrine complaints Hematologic/Lymphatic: Hematologic/Lymphatic: Reports no additional hematologic/lymphatic complaints Allergic/Immunologic: Allergic/Immunologic: Reports no additional allergic/immunologic complaints [facility] Past Medical History Medical History (Updated 10/23/25 @ 10:19 by oJselito Carver MD) Small bowel obstruction Small bowel obstruction (03/19/22) Recurrent and resolved in-hospital 03/23/2022. Leukocytosis WBC 8.7 on 12/08/2021 Weakness of left lower extremity (~03/2025) DVT of leg (deep venous thrombosis) DVT left lower leg 04/03/2025 treated by child & adolescent psychiatrist Infection of mouth At moderate risk for fall (07/18/22) Abdominal pain Compression fracture of T4 vertebra compression fracture T4 and T5 on CT a of the chest 04/07/2025. MRI of the lumbar spine on 04/25/2025 reveals mild chronic compression fracture of T4 with moderate advanced chronic compression fracture of T5 with no changes in the spinal cord. Chronic anemia Heart failure with mildly reduced ejection fraction Dyspepsia and disorder of function of stomach (08/07/24) Syncope and collapse Carotid Doppler study normal on 08/01/2024. MRI of the brain and brainstem on 08/15/2024 was normal with normal aging. MRI of the lumbar spine revealed severe degenerative disc disease and facet arthropathy. At high risk for falls Chronic low back pain with left-sided sciatica X-ray of the lumbar spine on 07/26/2024 revealed degenerative disc disease and facet arthropathy at multiple levels with scoliosis of the lumbar spine. MRI of the lumbar spine on 08/15/2024 reveals severe degenerative disc disease with central canal stenosis and facet arthropathy with neural foraminal narrowing multiple levels. Generalized weakness (~06/2024) Frequent falls (~06/2024) Controlled type 2 diabetes mellitus with hyperglycemia, without long-term current use of insulin Hemoglobin A1c 7.6 on 12/08/2021. Glucose 182 with hemoglobin A1c 7.3 on 07/06/2022. glucose 183 with hemoglobin A1c 8.5 on 01/10/2023. Glucose 130 with hemoglobin A1c 7.5 on 07/29/2023 with microalbumin ratio of 99. Glucose 223 with hemoglobin A1c 8.3 on 01/02/2024. fasting glucose 237 with hemoglobin A1c 10.1 on 06/14/2024. Fasting blood was 182 on 08/09/2024. Glucose 179 With microalbumin ratio of 88.7 on 09/06/2024.Fasting glucose 207 with hemoglobin A1c 8.3 with GFR greater than 60 on 04/21/2025. Hearing loss, left (05/06/24) Nonischemic cardiomyopathy (2022) nuclear stress test 11/15/2023 with moderate to severe left ventricular systolic dysfunction with ejection fraction 35% with no S PO scan or EKG. Cardiac catheterization 12/11/2023 with no significant coronary artery disease. Bacteremia due to Staphylococcus aureus ESR 42 on 11/06/2023. WBC 2.6 on 11/06/2023. Lung infiltrate Pyelonephritis Sepsis Dyspnea on exertion No significant coronary artery disease on catheterization on 12/11/2023. Encounter for prostate cancer screening PSA 0.42 on 07/29/2023. PSA 0.5 on 09/06/2024. Left elbow pain (~07/2022) X-ray on 11/07/2022 revealed no evidence of fracture with soft tissue swelling over the olecranon process. COVID-19 (09/23/22) Tested positive 09/28/2022. Candidiasis (~09/28/22) Microalbuminuria due to type 2 diabetes mellitus (07/06/22) microalbumin ratio of 35 on 07/06/2022. Microalbumin ratio of 99 on 07/29/2023. Microalbumin ratio of 88.7 on 09/06/2024. Aphthous ulcer of mouth (04/22/22) Diabetic eye exam No retinopathy on 03/18/2021. No retinopathy on 11/09/2022. no retinopathy 10/10/2025. Acute bilateral low back pain with left-sided sciatica Seasonal allergic rhinitis Arthritis BPH without obstruction/lower urinary tract symptoms Chronic bilateral low back pain X-ray of the lumbar spine on 07/26/2024 revealed degenerative disc disease and facet arthropathy at multiple levels with scoliosis of the lumbar spine. MRI of the lumbar spine on 08/15/2024 reveals severe degenerative disc disease with central canal stenosis and facet arthropathy with neural foraminal narrowing multiple levels. Diabetic peripheral neuropathy associated with type 2 diabetes mellitus Essential (primary) hypertension Insomnia Mixed hyperlipidemia Cholesterol 135, triglycerides 129, HDL 42, LDL 72 on 01/10/2023. cholesterol 139, triglycerides 108, HDL 46, LDL 74 with ratio 2.5 on 07/29/2023. Cholesterol 92, triglycerides 90, HDL 40, LDL 35 with ratio of 2.3 on 01/02/2024. Cholesterol 91, triglycerides 133, HDL 30, LDL less than 30 on 09/06/2024. APARNA on CPAP Type 2 diabetes mellitus without complication, without long-term current use of insulin Hemoglobin A1c 7.6 on 12/08/2021. Glucose 182 with hemoglobin A1c 7.3 on 07/06/2022. glucose 183 with hemoglobin A1c 8.5 on 01/10/2023. Glucose 130 with hemoglobin A1c 7.5 on 07/29/2023 with microalbumin ratio of 99. Glucose 223 with hemoglobin A1c 8.3 on 01/02/2024. Surgical History Surgical History History of colonoscopy History of tonsillectomy and adenoidectomy History of appendectomy Family History Family History Grandparent Cerebrovascular accident, Onset Age: 78 Father Family history of Alzheimer's disease, Onset Age: 79 Mother Family history of Alzheimer's disease, Onset Age: 85 Social History Social History Social History: Surrogate decision-maker: Malena Delong, spouse. CODE STATUS: Full code Smoking status: Never smoker Second hand tobacco smoke exposure: No Alcohol intake: never Substance use: never Substance use type: does not use Lack of Transportation: No Lack of Food: Never True Current Housing: I Have Housing Concerned About Future Housing: No Difficulty Paying Gas/Electric Bills: No Difficulty Paying for Meds: No Currently Unemployed: No Education: Don't Know Difficulty w/ Childcare or Family Care: No Living arrangements: with family Additional living arrangements comments: Lives at home with his . They have 4 children. They have 7 horses Additional occupation/education comments: Retired from the [employer]. Spiritual care concerns: No Meds Home Medications and Allergies Home Medications ?Medication ?Instructions ?Recorded ?Confirmed ?Type aspirin 81 mg tablet,delayed 81 mg PO DAILY 09/11/19 06/24/25 History release (Adult Low Dose Aspirin) multivitamin,[id number] 1 tablet PO DAILY 09/11/19 06/24/25 History (Complete Multivitamin tablet) fluticasone propionate 50 1 spray intranasal BID #16 grams 01/17/23 06/24/25 Rx mcg/actuation nasal spray,suspension (Flonase Allergy Relief) atorvastatin 20 mg tablet 20 mg PO QHS 10/19/23 06/24/25 History magnesium 500 mg tablet 500 mg PO DAILY 12/08/23 06/24/25 History vitamin B complex (B 1 tablet PO DAILY 12/08/23 06/24/25 History Complex-Vitamin B12 tablet) carvedilol 6.25 mg tablet 6.25 mg PO Q12H 02/06/24 06/24/25 History sacubitril 49 mg-valsartan 51 mg 1 tablet PO BID 02/06/24 06/24/25 History tablet (Entresto) omeprazole magnesium 20 mg 20 mg PO DAILY 08/07/24 06/24/25 History tablet,delayed release (Prilosec OTC) meloxicam 15 mg tablet 15 mg PO DAILY PRN pain #90 tabs 12/23/24 06/24/25 Rx dutasteride 0.5 mg capsule 0.5 mg PO DAILY #90 caps 02/25/25 06/24/25 Rx empagliflozin 25 mg tablet 25 mg PO QAM #90 tabs 02/25/25 06/24/25 Rx (Jardiance) duloxetine 60 mg capsule,delayed 60 mg PO BID #180 caps 04/09/25 06/24/25 Rx release (Cymbalta) apixaban 5 mg tablet (Eliquis) 5 mg PO BID 04/24/25 06/24/25 History metformin 500 mg tablet,extended 2,000 mg (4 x 500 mg) PO DAILY 05/05/25 06/24/25 Rx release 24 hr #360 tabs Allergies Allergy/AdvReac Type Severity Reaction Status Date / Time No Known Allergies AdvReac Unknown Verified 10/23/25 10:40 Vital Signs Vital Signs - 24 hr 10/22/25 22:32 10/23/25 02:21 10/23/25 03:57 Temperature 36.6 C Pulse Rate 112 H 102 H 100 Respiratory Rate 18 19 16 Blood Pressure 124/83 106/74 124/77 Pulse Oximetry 98 98 96 Oxygen Delivery Room Air 10/23/25 06:01 10/23/25 07:55 10/23/25 09:46 Temperature 36.4 C Pulse Rate 116 H 122 H 118 H Respiratory Rate 20 20 22 H Blood Pressure 128/82 117/80 136/92 H Pulse Oximetry 92 95 92 Oxygen Delivery Exam Const: General: comfortable HENMT: Mouth: Yes moist mucous membranes Eyes: Sclera: sclerae normal Neck: Neck: supple and no JVD Resp: Effort & Inspection: normal respiratory effort Auscultation: clear to auscultation bilaterally Cardio: Rate: tachycardic Rhythm: regular rhythm GI: GI Palp: Yes Firmness to palpation present (GI) Skin: General skin exam: normal color Results Labs and Meds 10/23/25 03:54 10/23/25 03:54 Lab results: Cardiac Enzymes 10/23/25 Range/Units 03:54 AST 31 (17-59) U/L CBC 10/23/25 Range/Units 03:54 WBC 17.4 H (4.5-10.0) K/mm3 RBC 3.70 L (4.6-6.20) M/mm3 Hgb 12.4 L (14.0-18.0) g/dL Hct 37.8 L (42.0-52.0) % Plt Count 194 (150-375) k/mm3 Lymph # (Auto) 0.77 L (0.9-3.2) K/mm3 Dundy # (Auto) 1.0 H (0.1-0.6) K/mm3 Eos # (Auto) 0.0 (0-0.3) K/mm3 Baso # (Auto) 0.0 (0.0-0.1) K/mm3 Comprehensive Metabolic Panel 10/23/25 Range/Units 03:54 Sodium 139 (137-145) mmol/L Potassium 5.1 H (3.4-5.0) mmol/L Chloride 99 (98-107) mmol/L Carbon Dioxide 27 (22-30) mmol/L BUN 23 H (9-20) mg/dL Creatinine 1.23 (0.7-1.3) mg/dL Glucose 318 H (65-110) mg/dL Calcium 10.2 (8.4-10.2) mg/dL AST 31 (17-59) U/L ALT 17 (6-50) U/L Alkaline Phosphatase 102 (38-126) U/L Total Protein 8.9 H (6.3-8.2) g/dL Albumin 4.9 (3.5-5.1) g/dL Intake and Output 10/22/25 10/23/25 10/23/25 23:59 07:59 15:59 Intake Total 1000 50 Output Total 1650 Balance 1000 -1600 Intake: IV 1000 50 Sodium Chloride 0.9% IV 1,000 1000 ml @ 999 mls/hr IV CONT .Q1H1M STA Rx#:[id number] Piperacillin/Tazobactam Sod 3. 50 375 gm In Sodium Chloride 0.9% IV 50 ml @ 100 mls/hr IVPB ONCE STA Rx#:[id number] Output: Gastric Drainage 1650 Emmalena Sump Right Nare 1650 Patient Weight 10/23/25 23:59 Weight 81.8 kg
--- NOTE | 2025-10-23 12:05 | WPDCN ---
Assessment and Plan Assessment and plan (1) Small bowel obstruction: Onset Date: 03/19/22 Code(s): K56.609 - Unspecified intestinal obstruction, unspecified as to partial versus complete obstruction Status: Acute Assessment and Plan: Recurrent partial small bowel obstruction. Patient seems to be improving nasogastric tube in place at this point. He has had 2 other episodes earlier this year. He has always been able to resolve the obstructions with non operative management. At this point we will start him on some antibiotics. His white blood cell count being 17,000. His abdomen is mildly tender but does not appear to have an acute surgical abdomen. Will order a water-soluble small-bowel follow-through study to be done tomorrow. IV fluids and supportive management for now. Continue the NG tube to suction for now. We will need to hold his Eliquis for now. He was seen by Cardiology today and his dilated cardiomyopathy is compensated and stable. Pacu Rn stasis patient can go to surgery if he has needs a for his bowel obstruction. HPI Data of Consult Date/Time: 10/23/25 12:05 Requesting Physician: Joselito Carver MD Primary Care Provider: Zohaib Hoyt MD Consult Narrative Reason for consult: Small-bowel obstruction Narrative: Hernan Delong is a 75 year old male who is well known to our service. He presented to the emergency room with complaints of lower abdominal pain and nausea and emesis. He has had a prior history of partial small-bowel obstructions in the past all of which had resolved with nonoperative management. His last admission was February at which time I took care of him and then he had another episode about 3 months prior in November. Again all these episodes resolve without surgical management. He has had prior open appendectomy about 40 years ago. That is his only abdominal surgery. White blood cell count was [id number] emergency room. His vital signs were stable. CT scan abdomen pelvis showed dilated loops of small bowel consistent with small-bowel obstruction with transition point in the left lower abdomen. No free air or perforation is seen. The patient has an NG-tube in place now which was placed in the emergency room. He is improved in terms of his nausea. He only has minimal pain at this point. He has not passed any flatus or had a bowel movement yet. He was just seen by the remodeler as an inpatient due to his prior cardiac history of dilated cardiomyopathy. He seems to be well compensated.. He is on Eliquis for prior history of DVT. His Eliquis has been held for now. Review of Systems Review of Systems: The remainder of the review of systems to include constitutional, HEENT, cardiovascular, respiratory, GI, , integumentary, musculoskeletal, endocrine, immunologic, hematologic, psychiatric, and neurologic are all negative except for which is mentioned above in the HPI. [facility] [place] Past Medical History Medical History Small bowel obstruction Small bowel obstruction (03/19/22) Recurrent and resolved in-hospital 03/23/2022. Leukocytosis WBC 8.7 on 12/08/2021 Weakness of left lower extremity (~03/2025) DVT of leg (deep venous thrombosis) DVT left lower leg 04/03/2025 treated by remodeler Infection of mouth At moderate risk for fall (07/18/22) Abdominal pain Compression fracture of T4 vertebra compression fracture T4 and T5 on CT a of the chest 04/07/2025. MRI of the lumbar spine on 04/25/2025 reveals mild chronic compression fracture of T4 with moderate advanced chronic compression fracture of T5 with no changes in the spinal cord. Chronic anemia Heart failure with mildly reduced ejection fraction Dyspepsia and disorder of function of stomach (08/07/24) Syncope and collapse Carotid Doppler study normal on 08/01/2024. MRI of the brain and brainstem on 08/15/2024 was normal with normal aging. MRI of the lumbar spine revealed severe degenerative disc disease and facet arthropathy. At high risk for falls Chronic low back pain with left-sided sciatica X-ray of the lumbar spine on 07/26/2024 revealed degenerative disc disease and facet arthropathy at multiple levels with scoliosis of the lumbar spine. MRI of the lumbar spine on 08/15/2024 reveals severe degenerative disc disease with central canal stenosis and facet arthropathy with neural foraminal narrowing multiple levels. Generalized weakness (~06/2024) Frequent falls (~06/2024) Controlled type 2 diabetes mellitus with hyperglycemia, without long-term current use of insulin Hemoglobin A1c 7.6 on 12/08/2021. Glucose 182 with hemoglobin A1c 7.3 on 07/06/2022. glucose 183 with hemoglobin A1c 8.5 on 01/10/2023. Glucose 130 with hemoglobin A1c 7.5 on 07/29/2023 with microalbumin ratio of 99. Glucose 223 with hemoglobin A1c 8.3 on 01/02/2024. fasting glucose 237 with hemoglobin A1c 10.1 on 06/14/2024. Fasting blood was 182 on 08/09/2024. Glucose 179 With microalbumin ratio of 88.7 on 09/06/2024.Fasting glucose 207 with hemoglobin A1c 8.3 with GFR greater than 60 on 04/21/2025. Hearing loss, left (05/06/24) Nonischemic cardiomyopathy (2022) nuclear stress test 11/15/2023 with moderate to severe left ventricular systolic dysfunction with ejection fraction 35% with no S PO scan or EKG. Cardiac catheterization 12/11/2023 with no significant coronary artery disease. Bacteremia due to Staphylococcus aureus ESR 42 on 11/06/2023. WBC 2.6 on 11/06/2023. Lung infiltrate Pyelonephritis Sepsis Dyspnea on exertion No significant coronary artery disease on catheterization on 12/11/2023. Encounter for prostate cancer screening PSA 0.42 on 07/29/2023. PSA 0.5 on 09/06/2024. Left elbow pain (~07/2022) X-ray on 11/07/2022 revealed no evidence of fracture with soft tissue swelling over the olecranon process. COVID-19 (09/23/22) Tested positive 09/28/2022. Candidiasis (~09/28/22) Microalbuminuria due to type 2 diabetes mellitus (07/06/22) microalbumin ratio of 35 on 07/06/2022. Microalbumin ratio of 99 on 07/29/2023. Microalbumin ratio of 88.7 on 09/06/2024. Aphthous ulcer of mouth (04/22/22) Diabetic eye exam No retinopathy on 03/18/2021. No retinopathy on 11/09/2022. no retinopathy 10/10/2025. Acute bilateral low back pain with left-sided sciatica Seasonal allergic rhinitis Arthritis BPH without obstruction/lower urinary tract symptoms Chronic bilateral low back pain X-ray of the lumbar spine on 07/26/2024 revealed degenerative disc disease and facet arthropathy at multiple levels with scoliosis of the lumbar spine. MRI of the lumbar spine on 08/15/2024 reveals severe degenerative disc disease with central canal stenosis and facet arthropathy with neural foraminal narrowing multiple levels. Diabetic peripheral neuropathy associated with type 2 diabetes mellitus Essential (primary) hypertension Insomnia Mixed hyperlipidemia Cholesterol 135, triglycerides 129, HDL 42, LDL 72 on 01/10/2023. cholesterol 139, triglycerides 108, HDL 46, LDL 74 with ratio 2.5 on 07/29/2023. Cholesterol 92, triglycerides 90, HDL 40, LDL 35 with ratio of 2.3 on 01/02/2024. Cholesterol 91, triglycerides 133, HDL 30, LDL less than 30 on 09/06/2024. APARNA on CPAP Type 2 diabetes mellitus without complication, without long-term current use of insulin Hemoglobin A1c 7.6 on 12/08/2021. Glucose 182 with hemoglobin A1c 7.3 on 07/06/2022. glucose 183 with hemoglobin A1c 8.5 on 01/10/2023. Glucose 130 with hemoglobin A1c 7.5 on 07/29/2023 with microalbumin ratio of 99. Glucose 223 with hemoglobin A1c 8.3 on 01/02/2024. Surgical History Surgical History History of colonoscopy History of tonsillectomy and adenoidectomy History of appendectomy Family History Family History Grandparent Cerebrovascular accident, Onset Age: 78 Father Family history of Alzheimer's disease, Onset Age: 79 Mother Family history of Alzheimer's disease, Onset Age: 85 Social History Social History Social History: Surrogate decision-maker: Malena Delong, spouse. CODE STATUS: Full code Smoking status: Never smoker Second hand tobacco smoke exposure: No Alcohol intake: never Substance use: never Substance use type: does not use Lack of Transportation: No Lack of Food: Never True Current Housing: I Have Housing Concerned About Future Housing: No Difficulty Paying Gas/Electric Bills: No Difficulty Paying for Meds: No Currently Unemployed: No Education: Don't Know Difficulty w/ Childcare or Family Care: No Living arrangements: with family Additional living arrangements comments: Lives at home with his . They have 4 children. They have 7 horses Additional occupation/education comments: Retired from the [employer]. Spiritual care concerns: No Meds Home Medications and Allergies Home Medications ?Medication ?Instructions ?Recorded ?Confirmed ?Type aspirin 81 mg tablet,delayed 81 mg PO DAILY 09/11/19 06/24/25 History release (Adult Low Dose Aspirin) multivitamin,[id number] 1 tablet PO DAILY 09/11/19 06/24/25 History (Complete Multivitamin tablet) fluticasone propionate 50 1 spray intranasal BID #16 grams 01/17/23 06/24/25 Rx mcg/actuation nasal spray,suspension (Flonase Allergy Relief) atorvastatin 20 mg tablet 20 mg PO QHS 10/19/23 06/24/25 History magnesium 500 mg tablet 500 mg PO DAILY 12/08/23 06/24/25 History vitamin B complex (B 1 tablet PO DAILY 12/08/23 06/24/25 History Complex-Vitamin B12 tablet) carvedilol 6.25 mg tablet 6.25 mg PO Q12H 02/06/24 06/24/25 History sacubitril 49 mg-valsartan 51 mg 1 tablet PO BID 02/06/24 06/24/25 History tablet (Entresto) omeprazole magnesium 20 mg 20 mg PO DAILY 08/07/24 06/24/25 History tablet,delayed release (Prilosec OTC) meloxicam 15 mg tablet 15 mg PO DAILY PRN pain #90 tabs 12/23/24 06/24/25 Rx dutasteride 0.5 mg capsule 0.5 mg PO DAILY #90 caps 02/25/25 06/24/25 Rx empagliflozin 25 mg tablet 25 mg PO QAM #90 tabs 02/25/25 06/24/25 Rx (Jardiance) duloxetine 60 mg capsule,delayed 60 mg PO BID #180 caps 04/09/25 06/24/25 Rx release (Cymbalta) apixaban 5 mg tablet (Eliquis) 5 mg PO BID 04/24/25 06/24/25 History metformin 500 mg tablet,extended 2,000 mg (4 x 500 mg) PO DAILY 05/05/25 06/24/25 Rx release 24 hr #360 tabs Allergies Allergy/AdvReac Type Severity Reaction Status Date / Time No Known Allergies AdvReac Unknown Verified 10/23/25 10:40 Vital Signs Vital Signs - 24 hr 10/22/25 22:32 12/25/25 02:21 10/23/25 03:57 Temperature 36.6 C Pulse Rate 112 H 102 H 100 Respiratory Rate 18 19 16 Blood Pressure 124/83 106/74 124/77 Pulse Oximetry 98 98 96 Oxygen Delivery Room Air 10/23/25 06:01 10/23/25 07:55 10/23/25 09:46 Temperature 36.4 C Pulse Rate 116 H 122 H 118 H Respiratory Rate 20 20 22 H Blood Pressure 128/82 117/80 136/92 H Pulse Oximetry 92 95 92 Oxygen Delivery Exam Const: General: comfortable and no acute distress HENMT: Ears: TM's normal bilaterally Face/Nose/Sinus: Normal nares present Mouth: Yes moist mucous membranes Eyes: General: appearance normal, both eyes and all related structures Sclera: sclerae normal Pupils: Equal, round and reactive pupils present EOM: EOMs intact bilaterally Neck: Neck: supple and no JVD Resp: Effort & Inspection: normal respiratory effort Auscultation: clear to auscultation bilaterally Cardio: Rate: regular rate Rhythm: regular rhythm GI: Other: Abdomen is soft and mildly distended. Mild tenderness to palpation in the left lower abdomen. No generalized peritoneal signs. No guarding. Well-healed right lower quadrant paramedian incision. No incisional hernia. Skin: General skin exam: normal color and no rashes or lesions noted Neuro: General: gait normal Speech: normal speech Motor exam (neuro): 5/5 motor strength present throughout Sensory Exam: normal sensation Extrem: General: normal to inspection Psych: Mental Status: mental status grossly normal Affect: normal affect Results Labs 10/23/25 03:54 10/23/25 03:54 Labs: Short CBC 10/23/25 Range/Units 03:54 WBC 17.4 H (4.5-10.0) K/mm3 Hgb 12.4 L (14.0-18.0) g/dL Hct 37.8 L (42.0-52.0) % Plt Count 194 (150-375) k/mm3 BMP 10/23/25 03:54 Sodium 139 Potassium 5.1 H Chloride 99 Carbon Dioxide 27 BUN 23 H Creatinine 1.23 Glucose 318 H Calcium 10.2 Liver Function 10/23/25 Range/Units 03:54 Total Bilirubin 0.9 (0.2-1.3) mg/dL AST 31 (17-59) U/L ALT 17 (6-50) U/L Alkaline Phosphatase 102 (38-126) U/L Albumin 4.9 (3.5-5.1) g/dL Urine 10/23/25 Range/Units 06:39 Urine Color Yellow (Yellow) Urine Appearance Clear (Clear) Urine pH 7.0 (5.0-9.0) Ur Specific [place] > 1.045 H (1.001-1.035) Urine Protein 1+ H (Negative) mg/dL Urine Glucose (UA) 3+ H (Negative) mg/dL Imaging Radiologist's impression: CT Scan Report Signed Patient: Hernan Delong : 1950 MR#: [id number] Age: 75 Acct:[id number] Loc: [facility] ADM Date: 10/22/[address]: Ordering Physician: Erasmo Pineda MD Date of Service: 10/23/25 Procedure(s): CT abdomen pelvis w con Accession Number(s): [id number] cc: Erasmo Pineda MD; Zohaib Hoyt MD~ EXAMINATION: CT abdomen pelvis w con DATE: 10/23/2025 05:24 INDICATION: Abdominal pain. TECHNIQUE: Computed tomography (CT) of the abdomen and pelvis was performed with 100 mL Omnipaque 350 intravenous contrast. Automated exposure control and iterative reconstruction technique were employed. The dose-length product was 796.48 mGy-cm. COMPARISON: CT abdomen and pelvis 02/28/2025 FINDINGS: The visualized portions of the lung bases demonstrate mild atelectasis. No pleural effusion. The heart size is normal. There are coronary artery calcifications. No pericardial effusion. There is a 2.0 cm cyst in the liver. The gallbladder is normal. Calcifications in the spleen are consistent with old granulomatous disease. The pancreas and adrenal glands are normal. There is mild atrophy of the kidneys. There is 8 mm cyst in left kidney. There is a 1 mm stone in left kidney. There is diverticulosis of the colon without evidence of diverticulitis. The appendix is not visualized. There are multiple dilated loops of small bowel with transition point in the left abdomen anteriorly. There is trace pelvic ascites. There are no pathologically enlarged lymph nodes. There are chronic bilateral L5 pars defects. There is 5 mm anterolisthesis of L5 on S1. There is severe lumbar spondylosis. There is dextroscoliosis of thoracolumbar spine and levoscoliosis of lower lumbar spine. IMPRESSION: 1. Small bowel obstruction with transition point in the left abdomen anteriorly. Reviewed, dictated and finalized at location E. STRATION COORDINATOR Please be advised this is a medical document. It is intended for [id number] communication. It is written in medical language and may contain unfamiliar abbreviations or verbiage. Medical documents are intended to carry relevant information, facts as evident, and the clinical opinion of the practitioner at the time of the encounter. This report may have been done utilizing a voice recognition system. Attempts have been made to correct errors. However, there may be uncorrected grammatical, spelling, and recognition errors present. The file time of this note does not necessarily represent the time of service. Dictated By: Orestes Alvarez MD 10/23/25 0613 Signed By: <Electronically signed by Orestes Alvarez MD in [place]>
[2025-10-23] MEDS: SODIUM CHLORIDE 0.9% IV 1,000 ML 100 ML IV CONT ×2 (12:53→21:43)
--- NOTE | 2025-10-23 21:16 | ECG_ITS ---
Test Date: 2025-10-23 21:32:47 Measurements Intervals [place] Rate: 122 P: 0 CO: 141 QRS: -32 QRSD: 102 T: 52 QT: 327 QTc: 468 Interpretive Statements SINUS TACHYCARDIA LEFT AXIS DEVIATION EARLY PRECORDIAL R/S TRANSITION VOLTAGE CRITERIA FOR LVH BORDERLINE ST-T WAVE ABNORMALITY- HIGH LATERAL LEADS BASELINE WANDER- II, III, AVL, AVF ABNORMAL ECG Compared to ECG 10/23/2025 07:53:22 Atrial flutter no longer present Electronically Signed On 10-24-2025 09:14:50 CPA TAX by Jamison Oswald D.O.
--- NOTE | 2025-10-23 21:30 | PM.EVENT ---
Event Note Event Note Event Note: 2129: 75-year-old male here with abdominal pain, found to have a small-bowel obstruction with the transition point in the left abdomen anteriorly. He has a history of small-bowel obstructions. He is currently being followed by the general medicine team and general surgery team. Cardiology evaluated him today and he was cleared from their standpoint if surgery is indicated. Bedside RN contacted me due to concerns for hyperglycemia, diaphoresis, and tachycardia. Patient's glucose this evening is 269, on BMP earlier today patient's glucose was 318. He does report a history of diabetes. Hypoglycemia protocol, q.6 Accu-Cheks, and corrective low-dose insulin q.6 now ordered. Reviewed EKG completed in the emergency department earlier today, showed atrial flutter/tachycardia with normal ventricular rate. Per my review, patient does appear to have P-waves in V3 but not well appreciated in other leads, however there is a fair amount of artifact making interpretation difficult. Repeating EKG now as his heart rate is in the upper 120s. Patient also has new oxygen requirement. Per bedside RN patient was 89% on room air. Now 94% on 2L nasal cannula. Does not typically need supplemental oxygen. Does wear a CPAP at night which is not currently possible due to his NG tube. Plan to obtain CXR. He currently denies chest pain, palpitations, shortness of breath, nausea, vomiting, or increase in abdominal pain. Abdominal distension is unchanged per his assessment. Reports he generally feels unwell and has been feeling intermittently sweaty this afternoon. Per my physical exam the patient has mild diaphoresis that is centralized his chest. Tachycardic with regular rhythm. Abdomen distended with hypoactive bowel sounds, worse in the right upper quadrant. No tenderness on exam. No distress on exam. No peripheral edema. Diminished in the bases bilaterally, no other adventitious lung sounds appreciated. Patient remains A&O x4. Will give additional bolus of IV fluids at this time and reassess heart rate post fluids. Awaiting CXR and EKG prior to developing further plan of care. EKG showed sinus tachycardia, rate 122 with left axis deviation and moderate voltage criteria for LVH. Per my interpretation, slight depression in V4/V5 that is new compared to his prior EKG. Will obtain troponin. Could be type 2 secondary to demand due to his tachycardia/hypoxia. Reassessment, 2300: Reviewed CXR, no significant abnormalities. Troponin 0.016. HR slightly improved with fluids, now 114. Exam largely unchanged. Patient remains tachypneic with shallow respirations. Fatigued. Bases remain diminished bilaterally. No wheezing or crackles appreciated. Tachycardic, regular rhythm. Ill-appearing. Given shallow respirations, will start IS.
[2025-10-23] MEDS: LACTATED RINGERS 1,000 ML 999 ML IV CONT (21:43)
[2025-10-23 22:27] LABS: Troponin I 0.016 ng/mL (0.000-0.034)
[2025-10-24] VITALS (19 sets, daily range): BP systolic 79–158; BP diastolic 47–89; PULSE 95–124; RESP 16–32; TEMP 36.8–38.7; O2SAT 91–99
[2025-10-24] MEDS: PIPERACILLIN/TAZOBACTAM SOD 3.375 GM in SODIUM CHLORIDE 0.9% IV 50 ML 100 ML IVPB ×4 (00:11→17:46)
[2025-10-24] MEDS: INSULIN ASPART (*BKC) 100 UNITS/ML SUB-Q ×3 (00:26→11:47)
[2025-10-24 05:03] LABS: Hematocrit 34.8 % (42.0-52.0); Hemoglobin 11.4 g/dL (14.0-18.0); Immature Granulocyte Percent A 3.5 % (0-0.5); Lymphocytes Absolute Auto 1.41 K/mm3 (0.9-3.2); Mean Corpuscular HGB Conc 32.8 g/dl (32-36); Mean Corpuscular Hemoglobin 33.8 pg (26-34); Mean Corpuscular Volume 103.3 fl (80-100); Nucleated Red Blood Cells Absolute Auto 0.000 K/mm3 (0.0-0.012); Nucleated Red Blood Cells Perc 0.0 % (0.0-0.2); Platelet Count Result 182 k/mm3 (150-375); Red Blood Count 3.37 M/mm3 (4.6-6.20); White Blood Count 39.3 K/mm3 (4.5-10.0)
[2025-10-24 05:13] LABS: Alanine Aminotransferase 17 U/L (6-50); Albumin Level 4.4 g/dL (3.5-5.1); Alkaline Phosphatase 94 U/L (38-126); Anion Gap 13 mmol/L (4-12); Aspartate Amino Transferase 34 U/L (17-59); Bilirubin,Total 0.7 mg/dL (0.2-1.3); Blood Urea Nitrogen 35 mg/dL (9-20); Calcium 9.1 mg/dL (8.4-10.2); Carbon Dioxide 23 mmol/L (22-30); Chloride 108 mmol/L (98-107); Estimated CRCL calculation 33 ml/min; Estimated Glomerular Filt Rate 35; Glucose 251 mg/dL (65-110); Sodium 144 mmol/L (137-145); Total Protein 7.9 g/dL (6.3-8.2)
[2025-10-24 05:23] LABS: Potassium 4.6 mmol/L (3.4-5.0)
[2025-10-24 05:52] LABS: Anisocytosis 1+; Schistocytes None Seen
--- NOTE | 2025-10-24 10:51 | WPDPN ---
Progress Note: A&P Assessment and Plan (1) Small bowel obstruction: Code(s): K56.609 - Unspecified intestinal obstruction, unspecified as to partial versus complete obstruction Status: Acute Assessment and Plan: Clinical abdominal exam is worse today with worsening abdominal distension and increasing tenderness. White blood cell count has markedly elevated from 17,000 up to 39,000 this morning. He is more tachycardic and creatinine has elevated suggesting acute kidney injury. I think he has a surgical grade small-bowel obstruction possibly due to adhesions. Concern for bowel ischemia is certainly present if not possible necrotic bowel. I think he will need an emergent exploratory laparotomy and possible bowel resection this morning. Non operative management is not going to be successful. I discussed this with the patient he agrees to proceed with surgery. Risks, benefits, indications, and expected outcomes were discussed in detail with the patient and/or family. They understand and I have answered all other questions. They wished to proceed with surgery as outlined above. Subjective Date/time seen: 10/24/25 10:51 Interval history: Patient seen this morning in Radiology. Hemostasis small-bowel follow-through study. This morning his pulse rate is increased to 115 to 120. Increased abdominal distention and worsening abdominal pain. His white blood cell count is increased to 39,000. He renal function is worsening. He clinically is deteriorating. Exam GI: Other: Abdomen is more distended and has moderate diffuse tenderness. No guarding. Objective Data Vital Signs Vital Signs: Vital Signs - 24 hr 10/23/25 14:00 10/23/25 20:37 10/23/25 21:19 Temperature 36.7 C 36.9 C 37.2 C Pulse Rate 92 126 H 127 H Respiratory Rate 20 20 14 Blood Pressure 128/92 H 125/82 127/74 Pulse Oximetry 93 93 94 Oxygen Delivery Nasal Cannula Oxygen Flow Rate 2 10/23/25 22:55 10/24/25 04:59 Temperature 36.9 C Pulse Rate 114 H 116 H Respiratory Rate 28 H 16 Blood Pressure 123/69 132/84 Pulse Oximetry 92 Oxygen Delivery Oxygen Flow Rate Intake/Output Intake/Output: Intake & Output 10/21/25 10/22/25 10/23/25 10/24/25 23:59 23:59 23:59 23:59 Intake Total 2033.3 50 Output Total 2100 1850 Balance -66.7 -1800 Meds/Results Medications: Active Medications Generic Name Dose Route Start Last Admin Trade Name Freq PRN Reason Stop Dose Admin Dextrose 12.5 gm 10/23/25 21:31 Dextrose 50% 25 Gm/50 Ml Syringe IV PUSH PRN PRN Hypoglycemia Protocol Enoxaparin Sodium 40 mg 10/24/25 09:00 Enoxaparin 40 Mg/0.4 Ml Syringe SUB-Q DAILY SPENCER Glucagon 1 mg 10/23/25 21:31 Glucagon For Inj 1 Mg Vial IM PRN PRN Hypoglycemia Protocol Glucose 15 gm 10/23/25 21:31 Glucose Oral Gel 15 Gm Of Glucse In 37.5 Gm Tube PO PRN PRN Hypoglycemia Protocol Piperacillin Sod/Tazobactam 50 mls @ 100 mls/hr 10/23/25 13:00 10/24/25 06:07 Sod 3.375 gm/ Sodium Chloride IVPB 100 mls/hr Q6HR SPENCER Administration Sodium Chloride 1,000 mls @ 100 mls/hr 10/23/25 12:15 10/23/25 21:43 Normal Saline Iv IV CONT 100 mls/hr .Q10H SPENCER Administration Dextrose 1,000 mls @ 100 mls/hr 10/23/25 21:31 Dextrose 5% 1,000 Ml IVPB PRN PRN Hypoglycemia Protocol Insulin Aspart 2 - 5 units 10/24/25 00:00 10/24/25 06:10 Insulin Aspart (*Bkc) 100 Units/Ml SUB-Q 3 units Q6HR SPENCER Administration Protocol Metoprolol Tartrate 5 mg 10/23/25 10:11 Metoprolol Tartrate Inj 5 Mg/5 Ml Vial IV PUSH QID PRN Blood Pressure - High Ondansetron HCl 4 mg 10/23/25 07:11 10/23/25 08:33 Ondansetron Inj 4 Mg/2 Ml Vial IV PUSH 4 mg Q4H PRN Administration Nausea Pantoprazole Sodium 40 mg 10/23/25 09:00 10/23/25 08:34 Pantoprazole Sodium Iv 40 Mg Vial IV PUSH 40 mg QAM SPENCER Administration Radiology Results: ITS Impressions Abdomen/Pelvis CT 10/23/25 06:13 IMPRESSION: 1. Small bowel obstruction with transition point in the left abdomen anteriorly. Abdomen X-Ray 10/23/25 09:55 IMPRESSION: 1: NG tube tip in the stomach. Chest X-Ray 10/24/25 09:07 IMPRESSION: 1. No acute cardiopulmonary findings. Labs Labs: Laboratory Results - last 24 hr 10/23/25 10/23/25 10/24/25 21:03 21:58 00:21 WBC RBC Hgb Hct MCV MCH MCHC RDW Plt Count MPV Immature Gran % (Auto) Neut % (Auto) Lymph % (Auto) [place] % (Auto) Eos % (Auto) Baso % (Auto) Lymph # (Auto) [place] # (Auto) Eos # (Auto) Baso # (Auto) Abs Immat Gran (auto) Absolute Neuts (auto) Absolute Nucleated RBC Band Neutrophils % Nucleated RBC % Platelet Estimate Anisocytosis Schistocytes Sodium Potassium Chloride Carbon Dioxide Anion Gap BUN Creatinine Estim Creat Clear Calc Estimated GFR Glucose POC Capillary Glucose 269 H 275 H Calcium Total Bilirubin AST ALT Alkaline Phosphatase Troponin I 0.016 Total Protein Albumin 10/24/25 10/24/25 04:17 06:05 WBC 39.3 H RBC 3.37 L Hgb 11.4 L Hct 34.8 L MCV 103.3 H MCH 33.8 MCHC 32.8 RDW 14.6 H Plt Count 182 MPV 11.4 H Immature Gran % (Auto) 3.5 H Neut % (Auto) 83.1 H Lymph % (Auto) 3.6 L Dawson % (Auto) 9.5 H Eos % (Auto) 0.0 Baso % (Auto) 0.3 Lymph # (Auto) 1.41 Dawson # (Auto) 3.7 H Eos # (Auto) 0.0 Baso # (Auto) 0.1 Abs Immat Gran (auto) 1.37 H Absolute Neuts (auto) 32.7 H Absolute Nucleated RBC 0.000 Band Neutrophils % Not Reportable Nucleated RBC % 0.0 Platelet Estimate Adequate Anisocytosis 1+ Schistocytes None seen Sodium 144 Potassium 4.6 Chloride 108 H Carbon Dioxide 23 Anion Gap 13 H BUN 35 H D Creatinine 1.87 H Estim Creat Clear Calc 33 Estimated GFR 35 L Glucose 251 H POC Capillary Glucose 255 H Calcium 9.1 Total Bilirubin 0.7 AST 34 ALT 17 Alkaline Phosphatase 94 Troponin I Total Protein 7.9 Albumin 4.4
[2025-10-24] MEDS: PANTOPRAZOLE SODIUM IV 40 MG VIAL IV PUSH (11:45)
[2025-10-24] MEDS: LACTATED RINGERS 1,000 ML 30 ML IV CONT ×2 (12:20→15:17)
--- NOTE | 2025-10-24 13:03 | WPDANESEPPF ---
Anes - Initial Pre Proc Eval Procedure: Operation Date: 10/24/25 12:15 Proposed Procedures p Exploratory Laparotomy, Possible Small Bowel Resection - Alhaji Palacios MD Date/Time: 10/24/25 13:03 Surgeon: Joselito Carver MD Pre Op Diagnosis: Small-Bowel obstruction Patient Data Age: 75 Gender: M Height: 1.83 m Weight: 81.8 kg Last Vital Signs Temp 36.9 C 10/24/25 04:59 Pulse 120 H 10/24/25 12:00 Resp 18 10/24/25 12:00 BP 158/62 H 10/24/25 12:00 Pulse Ox 96 10/24/25 12:00 O2 Del Method Nasal Cannula 10/23/25 21:19 O2 Flow Rate 2 10/23/25 21:19 Allergies Allergy/AdvReac Type Severity Reaction Status Date / Time No Known Allergies AdvReac Unknown Verified 10/23/25 10:40 Home Medications ?Medication ?Instructions ?Recorded ?Confirmed ?Type multivitamin,xj-ueyy-dkmalvan 1 tablet PO DAILY 09/11/19 10/23/25 History (Complete Multivitamin tablet) fluticasone propionate 50 1 spray intranasal BID #16 grams 01/17/23 10/23/25 Rx mcg/actuation nasal spray,suspension (Flonase Allergy Relief) atorvastatin 20 mg tablet 20 mg PO QHS 10/19/23 10/23/25 History magnesium 500 mg tablet 500 mg PO DAILY 12/08/23 10/23/25 History vitamin B complex (B 1 tablet PO DAILY 12/08/23 10/23/25 History Complex-Vitamin B12 tablet) carvedilol 6.25 mg tablet 6.25 mg PO Q12H 02/06/24 10/23/25 History sacubitril 49 mg-valsartan 51 mg 1 tablet PO BID 02/06/24 10/23/25 History tablet (Entresto) omeprazole magnesium 20 mg 20 mg PO DAILY 08/07/24 10/23/25 History tablet,delayed release (Prilosec OTC) meloxicam 15 mg tablet 15 mg PO DAILY PRN pain #90 tabs 12/23/24 10/23/25 Rx dutasteride 0.5 mg capsule 0.5 mg PO DAILY #90 caps 02/25/25 10/23/25 Rx empagliflozin 25 mg tablet 25 mg PO QAM #90 tabs 02/25/25 10/23/25 Rx (Jardiance) duloxetine 60 mg capsule,delayed 60 mg PO BID #180 caps 04/09/25 10/23/25 Rx release (Cymbalta) apixaban 5 mg tablet (Eliquis) 5 mg PO BID 04/24/25 10/23/25 History metformin 500 mg tablet,extended 2,000 mg (4 x 500 mg) PO DAILY 05/05/25 10/23/25 Rx release 24 hr #360 tabs Laboratory Tests 10/23/25 10/23/25 10/24/25 21:03 21:58 00:21 WBC RBC Hgb Hct MCV MCH MCHC RDW Plt Count MPV Immature Gran % (Auto) Neut % (Auto) Lymph % (Auto) [place] % (Auto) Eos % (Auto) Baso % (Auto) Lymph # (Auto) [place] # (Auto) Eos # (Auto) Baso # (Auto) Abs Immat Gran (auto) Absolute Neuts (auto) Absolute Nucleated RBC Band Neutrophils % Nucleated RBC % Platelet Estimate Anisocytosis Schistocytes Sodium Potassium Chloride Carbon Dioxide Anion Gap BUN Creatinine Estim Creat Clear Calc Estimated GFR Glucose POC Capillary Glucose 269 H mg/dl 275 H mg/dl (65-105) (65-105) Lactic Acid Calcium Total Bilirubin AST ALT Alkaline Phosphatase Troponin I 0.016 ng/mL (0.000-0.034) Total Protein Albumin Blood Type Antibody Screen 10/24/25 10/24/25 10/24/25 04:17 06:05 11:05 WBC 39.3 H K/mm3 (4.5-10.0) RBC 3.37 L M/mm3 (4.6-6.20) Hgb 11.4 L g/dL (14.0-18.0) Hct 34.8 L % (42.0-52.0) MCV 103.3 H fl (80-100) MCH 33.8 pg (26-34) MCHC 32.8 g/dl (32-36) RDW 14.6 H % (11.5-14.5) Plt Count 182 k/mm3 (150-375) MPV 11.4 H fl (7.4-10.4) Immature Gran % (Auto) 3.5 H % (0-0.5) Neut % (Auto) 83.1 H % (45.5-73.1) Lymph % (Auto) 3.6 L % (18.3-44.2) [place] % (Auto) 9.5 H % (2.6-8.5) Eos % (Auto) 0.0 % (0-4.4) Baso % (Auto) 0.3 % (0.2-1.2) Lymph # (Auto) 1.41 K/mm3 (0.9-3.2) [place] # (Auto) 3.7 H K/mm3 (0.1-0.6) Eos # (Auto) 0.0 K/mm3 (0-0.3) Baso # (Auto) 0.1 K/mm3 (0.0-0.1) Abs Immat Gran (auto) 1.37 H K/mm3 (0.00-0.031) Absolute Neuts (auto) 32.7 H K/mm3 (1.3-6.7) Absolute Nucleated RBC 0.000 K/mm3 (0.0-0.012) Band Neutrophils % Not Reportable Nucleated RBC % 0.0 % (0.0-0.2) Platelet Estimate Adequate (Adequate) Anisocytosis 1+ Schistocytes None seen Sodium 144 mmol/L (137-145) Potassium 4.6 mmol/L (3.4-5.0) Chloride 108 H mmol/L (98-107) Carbon Dioxide 23 mmol/L (22-30) Anion Gap 13 H mmol/L (4-12) BUN 35 H D mg/dL (9-20) Creatinine 1.87 H mg/dL (0.7-1.3) Estim Creat Clear Calc 33 ml/min Estimated GFR 35 L (59 - ) Glucose 251 H mg/dL (65-110) POC Capillary Glucose 255 H mg/dl 258 H mg/dl (65-105) (65-105) Lactic Acid Calcium 9.1 mg/dL (8.4-10.2) Total Bilirubin 0.7 mg/dL (0.2-1.3) AST 34 U/L (17-59) ALT 17 U/L (6-50) Alkaline Phosphatase 94 U/L (38-126) Troponin I Total Protein 7.9 g/dL (6.3-8.2) Albumin 4.4 g/dL (3.5-5.1) Blood Type Antibody Screen 10/24/25 10/24/25 11:10 12:44 WBC RBC Hgb Hct MCV MCH MCHC RDW Plt Count MPV Immature Gran % (Auto) Neut % (Auto) Lymph % (Auto) [place] % (Auto) Eos % (Auto) Baso % (Auto) Lymph # (Auto) [place] # (Auto) Eos # (Auto) Baso # (Auto) Abs Immat Gran (auto) Absolute Neuts (auto) Absolute Nucleated RBC Band Neutrophils % Nucleated RBC % Platelet Estimate Anisocytosis Schistocytes Sodium Potassium Chloride Carbon Dioxide Anion Gap BUN Creatinine Estim Creat Clear Calc Estimated GFR Glucose POC Capillary Glucose 260 H mg/dl (65-105) Lactic Acid 2.5 H mmol/L (0.7-2.0) Calcium Total Bilirubin AST ALT Alkaline Phosphatase Troponin I Total Protein Albumin Blood Type AB Positive Antibody Screen Negative Patient hx anesthesia problems: none Family hx anesthesia problems: none Results Review: All pre-operative results and documents have been reviewed as part of the pre-operative evaluation. [facility] Past Medical History Medical History Small bowel obstruction Small bowel obstruction (03/19/22) Recurrent and resolved in-hospital 03/23/2022. Leukocytosis WBC 8.7 on 12/08/2021 Weakness of left lower extremity (~03/2025) DVT of leg (deep venous thrombosis) DVT left lower leg 04/03/2025 treated by [employer] Infection of mouth At moderate risk for fall (07/18/22) Abdominal pain Compression fracture of T4 vertebra compression fracture T4 and T5 on CT a of the chest 04/07/2025. MRI of the lumbar spine on 04/25/2025 reveals mild chronic compression fracture of T4 with moderate advanced chronic compression fracture of T5 with no changes in the spinal cord. Chronic anemia Heart failure with mildly reduced ejection fraction Dyspepsia and disorder of function of stomach (08/07/24) Syncope and collapse Carotid Doppler study normal on 08/01/2024. MRI of the brain and brainstem on 08/15/2024 was normal with normal aging. MRI of the lumbar spine revealed severe degenerative disc disease and facet arthropathy. At high risk for falls Chronic low back pain with left-sided sciatica X-ray of the lumbar spine on 07/26/2024 revealed degenerative disc disease and facet arthropathy at multiple levels with scoliosis of the lumbar spine. MRI of the lumbar spine on 08/15/2024 reveals severe degenerative disc disease with central canal stenosis and facet arthropathy with neural foraminal narrowing multiple levels. Generalized weakness (~06/2024) Frequent falls (~06/2024) Controlled type 2 diabetes mellitus with hyperglycemia, without long-term current use of insulin Hemoglobin A1c 7.6 on 12/08/2021. Glucose 182 with hemoglobin A1c 7.3 on 07/06/2022. glucose 183 with hemoglobin A1c 8.5 on 01/10/2023. Glucose 130 with hemoglobin A1c 7.5 on 07/29/2023 with microalbumin ratio of 99. Glucose 223 with hemoglobin A1c 8.3 on 01/02/2024. fasting glucose 237 with hemoglobin A1c 10.1 on 06/14/2024. Fasting blood was 182 on 08/09/2024. Glucose 179 With microalbumin ratio of 88.7 on 09/06/2024.Fasting glucose 207 with hemoglobin A1c 8.3 with GFR greater than 60 on 04/21/2025. Hearing loss, left (05/06/24) Nonischemic cardiomyopathy (2022) nuclear stress test 11/15/2023 with moderate to severe left ventricular systolic dysfunction with ejection fraction 35% with no S PO scan or EKG. Cardiac catheterization 12/11/2023 with no significant coronary artery disease. Bacteremia due to Staphylococcus aureus ESR 42 on 11/06/2023. WBC 2.6 on 11/06/2023. Lung infiltrate Pyelonephritis Sepsis Dyspnea on exertion No significant coronary artery disease on catheterization on 12/11/2023. Encounter for prostate cancer screening PSA 0.42 on 07/29/2023. PSA 0.5 on 09/06/2024. Left elbow pain (~07/2022) X-ray on 11/07/2022 revealed no evidence of fracture with soft tissue swelling over the olecranon process. COVID-19 (09/23/22) Tested positive 09/28/2022. Candidiasis (~09/28/22) Microalbuminuria due to type 2 diabetes mellitus (07/06/22) microalbumin ratio of 35 on 07/06/2022. Microalbumin ratio of 99 on 07/29/2023. Microalbumin ratio of 88.7 on 09/06/2024. Aphthous ulcer of mouth (04/22/22) Diabetic eye exam No retinopathy on 03/18/2021. No retinopathy on 11/09/2022. no retinopathy 10/10/2025. Acute bilateral low back pain with left-sided sciatica Seasonal allergic rhinitis Arthritis BPH without obstruction/lower urinary tract symptoms Chronic bilateral low back pain X-ray of the lumbar spine on 07/26/2024 revealed degenerative disc disease and facet arthropathy at multiple levels with scoliosis of the lumbar spine. MRI of the lumbar spine on 08/15/2024 reveals severe degenerative disc disease with central canal stenosis and facet arthropathy with neural foraminal narrowing multiple levels. Diabetic peripheral neuropathy associated with type 2 diabetes mellitus Essential (primary) hypertension Insomnia Mixed hyperlipidemia Cholesterol 135, triglycerides 129, HDL 42, LDL 72 on 01/10/2023. cholesterol 139, triglycerides 108, HDL 46, LDL 74 with ratio 2.5 on 07/29/2023. Cholesterol 92, triglycerides 90, HDL 40, LDL 35 with ratio of 2.3 on 01/02/2024. Cholesterol 91, triglycerides 133, HDL 30, LDL less than 30 on 09/06/2024. APARNA on CPAP Type 2 diabetes mellitus without complication, without long-term current use of insulin Hemoglobin A1c 7.6 on 12/08/2021. Glucose 182 with hemoglobin A1c 7.3 on 07/06/2022. glucose 183 with hemoglobin A1c 8.5 on 01/10/2023. Glucose 130 with hemoglobin A1c 7.5 on 07/29/2023 with microalbumin ratio of 99. Glucose 223 with hemoglobin A1c 8.3 on 01/02/2024. Surgical History Surgical History History of colonoscopy History of tonsillectomy and adenoidectomy History of appendectomy Family History Family History Grandparent Cerebrovascular accident, Onset Age: 78 Father Family history of Alzheimer's disease, Onset Age: 79 Mother Family history of Alzheimer's disease, Onset Age: 85 Social History Social History Social History: Surrogate decision-maker: Malena Delong, spouse. CODE STATUS: Full code Smoking status: Never smoker Second hand tobacco smoke exposure: No Alcohol intake: never Substance use: never Substance use type: does not use Lack of Transportation: No Lack of Food: Never True Current Housing: I Have Housing Concerned About Future Housing: No Difficulty Paying Gas/Electric Bills: No Difficulty Paying for Meds: No Currently Unemployed: No Education: Don't Know Difficulty w/ Childcare or Family Care: No Living arrangements: with family Additional living arrangements comments: Lives at home with his . They have 4 children. They have 7 horses Additional occupation/education comments: Retired from the [employer]. Spiritual care concerns: No Anes - Eval Final PreProcedure Day of Procedure 10/24/25 13:03 Patient weight: normal Heart: regular rate and rhythm Lungs: clear to auscultation Airway: Mallampati scale class II Neurological: alert and oriented Last oral intake: >/= 8 hours ASA classification: III Emergent: no Anesthetic plan: proceed Anesthesia type and monitoring: general ETT and standard monitoring Results Review: All pre-operative results and documents have been reviewed as part of the pre-operative evaluation. Informed Consent: The patient's anesthetic plan and its attendant risks and benefits were discussed with the patient/family/POA. Questions were solicited and answers provided to the satisfaction of the patient/family/POA.
--- NOTE | 2025-10-24 13:22 | WPDHPUPDATE1 ---
History and Physical Update Update Date/Time: 10/24/25 13:22 History and Physical has been reviewed, including an updated exam of the patient. There are NO changes in the patient's condition. Risks, benefits, and alternatives have been discussed and questions answered. Patient agrees to proceed with procedure.
--- NOTE | 2025-10-24 14:19 | P.OP_ITS ---
Procedure Note - Detailed Date of Procedure 10/24/25 Pre-op Diagnosis Small-Bowel obstruction Post-op Diagnosis Other (Small bowel obstruction, hypospadias) Procedure Performed 1. Complex Hawkins catheter placement Surgeon Antoine Goldstein MD Anesthesia General Indications Urology was called to the operating room by the General Surgery team prior to the initiation of their surgical procedure for ex lap to assist with Hawkins catheter placement. The OR staff was having difficulty advancing a 14-[place] Hawkins catheter into the patient's bladder. 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 I was able to negotiate a 14 [place] Hawkins catheter into the true lumen of the urethra and into the bladder. Description of Procedure Under sterile conditions, I attempted to advance a 14 [place] catheter into what appeared to be the urethral meatus. However, this appeared to have a blind ending meatus/false pit. I then called for urethral sounds. I used a 14 [place] sound and gently probed to assess for the true lumen of the urethra. Ventral to the false pit meatus, the sound was able to be advanced a couple of centimeters. I then gently probed this area with a 14 [place] catheter and it appeared to advance into the true lumen of the urethra without resistance. I advanced the catheter until it was up to the balloon port and noted clear yellow urine return. 10 mL sterile water was inflated in the Hawkins catheter balloon and the balloon was seated at the bladder neck. The catheter was then connected to a gravity drainage bag, which essentially concluded the case. The case was then turned over to the General surgery team to proceed with their scheduled surgery. The surgery team was instructed to remove the catheter following surgery per their preference. If there are any concerns regarding urine output or otherwise, the surgery team was instructed to contact the Urology team. Estimated Blood Loss 0 Urine Output 100 Complications No immediate complications
[2025-10-24] MEDS: LIDO 1%/EPINEPHRINE 1:100,000 20 ML VIAL 30 ML INFILTRATE (14:31)
--- NOTE | 2025-10-24 14:57 | P.PNIM_ITS ---
Assessment and Plan Assessment and Plan (1) Small bowel obstruction: Onset Date: 03/19/22 Code(s): K56.609 - Unspecified intestinal obstruction, unspecified as to partial versus complete obstruction Status: Acute Assessment and Plan: Surgical consult. NPO. except meds. NG tube to suction. Monitor electrolytes. Worsened leukocytosis and x-ray with persistent dilated gas-filled loop of small bowel consistent with persistent small-bowel obstruction Plan for exploratory laparotomy this afternoon (2) Essential (primary) hypertension: Code(s): I10 - Essential (primary) hypertension Status: Acute Assessment and Plan: Continue to monitor (3) Mixed hyperlipidemia: Code(s): E78.2 - Mixed hyperlipidemia Status: Chronic Assessment and Plan: Stable on current medication (4) History of DVT (deep vein thrombosis): Code(s): Z86.718 - Personal history of other venous thrombosis and embolism Status: Acute Assessment and Plan: Patient at home is taking Eliquis. Will switch to Lovenox for now. (5) Cardiac arrhythmia: Code(s): I49.9 - Cardiac arrhythmia, unspecified Status: Acute Assessment and Plan: Cardiology consult for cardiac clearance. Monitor heart rate closely. Use metoprolol if needed. (6) Leukocytosis: Code(s): D72.829 - Elevated white blood cell count, unspecified Status: Acute Assessment and Plan: Blood culture was not obtained. Will obtain blood culture. On IV Zosyn Plan Patient is full code DVT prophylaxis Lovenox. Subjective Date/time seen: 10/24/25 14:57 Interval history: Patient states he is going for surgery this afternoon. Abdomen is distended. Mild pain persist. NG in place. Review of Systems Review of Systems: All systems reviewed & are unremarkable except as noted in HPI and below Exam Narrative: GENERAL: Well-appearing, well-nourished, and in no acute distress. HEAD: Normocephalic, atraumatic. EYES: PERRLA and EOMI. ENT: Nares clear, no rhinorrhea or epistaxis. Mucous membranes moist. NG in place NECK: Supple. CHEST: Clear to auscultation. No respiratory distress. HEART: Regular rate and rhythm. No murmur heard. Normal peripheral pulses. ABDOMEN: Soft, diffuse mild tender, distended, decreased bowel sounds. NG tube in place. EXTREMITIES: Normal range of motion. No edema. SKIN: Warm, dry, no rash. NEURO: No focal deficits. Alert and oriented x3. PSYCH: Normal mood and affect. Objective Data Vital Signs Vital Signs: Vital Signs - 24 hr 10/23/25 20:37 10/23/25 21:19 10/23/25 22:55 Temperature 98.5 F 98.9 F Pulse Rate 126 H 127 H 114 H Respiratory Rate 20 14 28 H Blood Pressure 125/82 127/74 123/69 Pulse Oximetry 93 94 92 Oxygen Delivery Nasal Cannula Oxygen Flow Rate 2 10/24/25 04:59 10/24/25 12:00 10/24/25 12:20 Temperature 98.5 F 99.2 F Pulse Rate 116 H 120 H 122 H Respiratory Rate 16 18 Blood Pressure 132/84 158/62 H 150/89 H Pulse Oximetry 96 96 Oxygen Delivery Oxygen Flow Rate Intake/Output Intake/Output: Intake & Output 10/21/25 10/22/25 10/23/25 10/24/25 23:59 23:59 23:59 23:59 Intake Total 2033.3 150 Output Total 2100 2500 Balance -66.7 -2350 Meds/Results Medications: Active Medications Generic Name Dose Route Start Last Admin Trade Name Freq PRN Reason Stop Dose Admin Dextrose 12.5 gm 10/23/25 21:31 Dextrose 50% 25 Gm/50 Ml Syringe IV PUSH PRN PRN Hypoglycemia Protocol Enoxaparin Sodium 40 mg 10/24/25 09:00 10/24/25 11:50 Enoxaparin 40 Mg/0.4 Ml Syringe SUB-Q Not Given DAILY SPENCER Fentanyl Citrate 25 mcg 10/24/25 13:04 Fentanyl Citrate Inj (*Crx) 100 Mcg/2 Ml Vial IV PUSH Q2M PRN Pain Glucagon 1 mg 10/23/25 21:31 Glucagon For Inj 1 Mg Vial IM PRN PRN Hypoglycemia Protocol Glucose 15 gm 10/23/25 21:31 Glucose Oral Gel 15 Gm Of Glucse In 37.5 Gm Tube PO PRN PRN Hypoglycemia Protocol Piperacillin Sod/Tazobactam 50 mls @ 100 mls/hr 10/23/25 13:00 10/24/25 14:30 Sod 3.375 gm/ Sodium Chloride IVPB Infused Q6HR SPENCER Infusion Sodium Chloride 1,000 mls @ 100 mls/hr 10/23/25 12:15 10/23/25 21:43 Normal Saline Iv IV CONT 100 mls/hr .Q10H SPENCER Administration Dextrose 1,000 mls @ 100 mls/hr 10/23/25 21:31 Dextrose 5% 1,000 Ml IVPB PRN PRN Hypoglycemia Protocol Lactated Ringer's 1,000 mls @ 30 mls/hr 10/24/25 13:05 10/24/25 12:20 Lr - Lactated Ringers Iv IV CONT 30 mls/hr .Q24H SPENCER Administration Lactated Ringer's 1,000 mls @ 30 mls/hr 10/24/25 13:05 Lr - Lactated Ringers Iv IV CONT .Q24H SPENCER Insulin Aspart 2 - 5 units 10/24/25 00:00 10/24/25 11:47 Insulin Aspart (*Bkc) 100 Units/Ml SUB-Q 3 units Q6HR SPENCER Administration Protocol Metoprolol Tartrate 5 mg 10/23/25 10:11 Metoprolol Tartrate Inj 5 Mg/5 Ml Vial IV PUSH QID PRN Blood Pressure - High Ondansetron HCl 4 mg 10/23/25 07:11 10/23/25 08:33 Ondansetron Inj 4 Mg/2 Ml Vial IV PUSH 4 mg Q4H PRN Administration Nausea Ondansetron HCl 4 mg 10/24/25 13:04 Ondansetron Inj 4 Mg/2 Ml Vial IV PUSH ONCE PRN Nausea Pantoprazole Sodium 40 mg 10/23/25 09:00 10/24/25 11:45 Pantoprazole Sodium Iv 40 Mg Vial IV PUSH 40 mg QAM SPENCER Administration Radiology Results: ITS Impressions Abdomen/Pelvis CT 10/23/25 06:13 IMPRESSION: 1. Small bowel obstruction with transition point in the left abdomen anteriorly. Abdomen X-Ray 10/23/25 09:55 IMPRESSION: 1: NG tube tip in the stomach. Chest X-Ray 10/24/25 09:07 IMPRESSION: 1. No acute cardiopulmonary findings. Small Bowel X-Ray 10/24/25 12:00 IMPRESSION: 1. Persistent dilated gas-filled loops of small bowel in the overlock operator image with slow progression of contrast which had reached only short distance beyond the ligament of Treitz on the 1 hour image consistent with persistent small bowel obstruction. Labs Labs: Laboratory Results - last 24 hr 12/10/23/25 10/24/25 21:03 21:58 00:21 WBC RBC Hgb Hct MCV MCH MCHC RDW Plt Count MPV Immature Gran % (Auto) Neut % (Auto) Lymph % (Auto) [place] % (Auto) Eos % (Auto) Baso % (Auto) Lymph # (Auto) [place] # (Auto) Eos # (Auto) Baso # (Auto) Abs Immat Gran (auto) Absolute Neuts (auto) Absolute Nucleated RBC Band Neutrophils % Nucleated RBC % Platelet Estimate Anisocytosis Schistocytes Sodium Potassium Chloride Carbon Dioxide Anion Gap BUN Creatinine Estim Creat Clear Calc Estimated GFR Glucose POC Capillary Glucose 269 H 275 H Lactic Acid Calcium Total Bilirubin AST ALT Alkaline Phosphatase Troponin I 0.016 Total Protein Albumin Blood Type Antibody Screen 10/24/25 10/24/25 10/24/25 04:17 06:05 11:05 WBC 39.3 H RBC 3.37 L Hgb 11.4 L Hct 34.8 L MCV 103.3 H MCH 33.8 MCHC 32.8 RDW 14.6 H Plt Count 182 MPV 11.4 H Immature Gran % (Auto) 3.5 H Neut % (Auto) 83.1 H Lymph % (Auto) 3.6 L [place] % (Auto) 9.5 H Eos % (Auto) 0.0 Baso % (Auto) 0.3 Lymph # (Auto) 1.41 [place] # (Auto) 3.7 H Eos # (Auto) 0.0 Baso # (Auto) 0.1 Abs Immat Gran (auto) 1.37 H Absolute Neuts (auto) 32.7 H Absolute Nucleated RBC 0.000 Band Neutrophils % Not Reportable Nucleated RBC % 0.0 Platelet Estimate Adequate Anisocytosis 1+ Schistocytes None seen Sodium 144 Potassium 4.6 Chloride 108 H Carbon Dioxide 23 Anion Gap 13 H BUN 35 H D Creatinine 1.87 H Estim Creat Clear Calc 33 Estimated GFR 35 L Glucose 251 H POC Capillary Glucose 255 H 258 H Lactic Acid Calcium 9.1 Total Bilirubin 0.7 AST 34 ALT 17 Alkaline Phosphatase 94 Troponin I Total Protein 7.9 Albumin 4.4 Blood Type Antibody Screen 10/24/25 10/24/25 11:10 12:44 WBC RBC Hgb Hct MCV MCH MCHC RDW Plt Count MPV Immature Gran % (Auto) Neut % (Auto) Lymph % (Auto) [place] % (Auto) Eos % (Auto) Baso % (Auto) Lymph # (Auto) [place] # (Auto) Eos # (Auto) Baso # (Auto) Abs Immat Gran (auto) Absolute Neuts (auto) Absolute Nucleated RBC Band Neutrophils % Nucleated RBC % Platelet Estimate Anisocytosis Schistocytes Sodium Potassium Chloride Carbon Dioxide Anion Gap BUN Creatinine Estim Creat Clear Calc Estimated GFR Glucose POC Capillary Glucose 260 H Lactic Acid 2.5 H Calcium Total Bilirubin AST ALT Alkaline Phosphatase Troponin I Total Protein Albumin Blood Type AB Positive Antibody Screen Negative
[2025-10-24] MEDS: INSULIN HUMAN REGULAR (*BKC) 100 UNITS/ML 7 UNITS SUB-Q (15:49)
--- NOTE | 2025-10-24 17:07 | PC.NURSE ---
Received report from fax and update from fabric pattern grader, ,returned to room per bed, Awake and alert and drowsy, NS infusing, ng to low suction, npo, abd with incision DAVID with glue, at bedside, denies pain at this time, await to void since lomas removed
[2025-10-24] MEDS: SODIUM CHLORIDE 0.9% IV 1,000 ML 100 ML IV CONT ×2 (17:48→18:03)
--- NOTE | 2025-10-24 18:08 | W.PM.PROC2 ---
Procedure Note - Detailed Date of Procedure 10/24/25 Pre-op Diagnosis Recurrent small-bowel obstruction Post-op Diagnosis Same ( Recurrent small-bowel obstruction secondary to abdominal adhesions) Procedure Performed exploratory laparotomy, abdominal adhesiolysis. Surgeon Alhaji Palacios MD Cylinder Block Mechanic Heather DINERO Anesthesia General Indications Patient is a 75-year-old gentleman who admitted to the hospital yesterday with complaints of recurrent abdominal pain associated with abdominal distention and nausea. He has had 2 other admissions to [facility] within the last 12 months for partial small-bowel obstructions which resolved with non operative management. Only other abdominal surgeries been open appendectomy many years ago. This morning his white blood cell count elevated to over 30,000. he was having more diffuse abdominal pain and he was mildly tachycardic. It was decided that his clinical abdominal exam had worsened and is being brought to the operating now for emergent exploratory laparotomy. Findings Upon entering the abdomen there is no evidence of any necrotic bowel. Direction was not any ischemia of any of the bowel. There was a transition point within about the mid jejunum. I found a single omental adhesion causing partial small-bowel obstruction. This was divided to release the obstruction. Patient also had a more distal terminal ileal adhesion which was not causing significant obstruction but this was divided as well. Description of Procedure After informed consent was obtained patient brought to the operating room was placed supine position and general endotracheal anesthesia was administered. A Hawkins catheter was placed by Urology as initial placement of Hawkins catheter was unsuccessful. The patient had a hypospadias which required the urologist to place the Hawkins catheter. The abdomen was then prepped and draped usual sterile fashion. Time-out was then performed correctly identifying the patient as well as procedure to be performed. He was already on scheduled IV antibiotics. I then proceeded to make a midline incision extending from about 6cm above the umbilicus to 6cm below the umbilicus. Dissection was then carried down through the dermis with the scalpel then electrocautery used to dissect down to the linea alba. The linea alba was then divided electrocautery and the peritoneum was opened sharply with Metzenbaum scissors. Once inside the abdomen I opened the fascia in the midline to mesh length the skin incision. I then placed a Benton retractor to aid with exposure. No evidence of any ischemic bowel noted. There did was a transition point in the mid jejunum where the proximal bowel was dilated to about 4cm and then the bowel distal to the transition point was of normal caliber. There was no stigmata of constriction however at that point. There was a omental adhesion which the bowel could have twisted around but was not causing a true constriction and it and twisted a from around this omental adhesion upon my entering the abdomen and eviscerating the small bowel. I ran the small bowel from the ligament Treitz distally all the way to the ileocecal bowel. There were couple of small adhesions of the terminal ileum to the retroperitoneum causing mild angulation of the small bowel which I performed division of the adhesion with electrocautery. This resolved the mild angulation of the terminal ileum. I then divided the omental adhesion which is likely causing the partial recurrent small-bowel obstruction with electrocautery as well. I then decompressed the small bowel by milking the contents back up into the stomach and this was aspirated via the NG tube. The loops of small bowel were then placed back into the abdomen and the omentum was then pulled down over the small bowel. The abdomen was then closed utilizing a running looped #1 PDS suture started at each end incision then run to the middle to the med just below the umbilicus there were then tied together. Subcutaneous tissues were then irrigated sterile saline solution hemostasis was good. I then close incision by placing interrupted 3-0 Vicryl sutures in subcutaneous tissues in 2 layers. The skin edges were then approximated utilizing a running subcuticular 4-0 Monocryl suture. The incision was then cleaned and skin glue was applied. The patient tolerated the procedure well no complications. All sponges, needles, and instrument counts were correct at the end procedure. EBL was _25__cc. The patient was awakened and taken to recovery in stable and satisfactory condition. At the end the procedure the Hawkins catheter was removed. Implants None Estimated Blood Loss 25 Urine Output 100 Drains No Packing No Pathology None sent Complications No immediate complications Condition Stable Disposition PACU [facility] Billing Surgery - Charge Forward: Surgery Billing
[2025-10-24] MEDS: ACETAMINOPHEN 325 MG TABLET 650 MG PO (21:54)
--- NOTE | 2025-10-24 22:08 | PC.NURSE ---
at 2140 this nurse was rounding on this pt. Their respiration rate was 32 breaths per minute, axillary temp 101.7, and pulse 124. Blood pressure 148/84. I contacted the provider to ask if it was okay to give tylenol to get the pts fever down. This nurse gave the pt 650mg tylenol and will reassess vitals in one hour.
--- NOTE | 2025-10-24 23:29 | PC.NURSE ---
At 2240 this nurse rechecked this pts vitals after admin of tylenol. Temp is now 101.1, respirations are still 32 breaths per minute, BP 152/84, 93% on 3L (had to increase O2 as pt was saturating at 89% on 2L) and 121 heart rate. The pt is also lethargic in the room. arousable to voice but goes right back to sleep. This nurse notified the CARE SPECIALIST that the vitals have not improved and pts lethargy. STAT ABGs and chest c ray ordered.
[2025-10-24 23:50] LABS: Alveolar/Arterial O2 Gradient 95.1 mmHg; Fractional Inspired Oxygen 32 %; HCO3 ABG 25.4 mEq/l (22.0-26.0); Oxygen Content ABG 17.0 %vol (16.0-22.0); Oxygen Saturation ABG 95.6 % (95.0-100.0); PCO2 ABG 44.9 mmHg (35.0-45.0); PO2 ABG 80.5 mmHg (80.0-100.0); PO2 FiO2 Ratio Arterial Blood 2.52 %
[2025-10-24 23:56] LABS: Liters per Minute 3.0 LPM; Site Drawn RIGHT BRACHIAL
[2025-10-25] VITALS (13 sets, daily range): BP systolic 148–177; BP diastolic 79–98; PULSE 102–118; RESP 16–24; TEMP 36.4–37.5; O2SAT 92–99
[2025-10-25 05:35] LABS: Hematocrit 33.4 % (42.0-52.0); Hemoglobin 10.6 g/dL (14.0-18.0); Immature Granulocyte Percent A 2.5 % (0-0.5); Lymphocytes Absolute Auto 1.28 K/mm3 (0.9-3.2); Mean Corpuscular HGB Conc 31.7 g/dl (32-36); Mean Corpuscular Hemoglobin 34.4 pg (26-34); Mean Corpuscular Volume 108.4 fl (80-100); Nucleated Red Blood Cells Absolute Auto 0.000 K/mm3 (0.0-0.012); Nucleated Red Blood Cells Perc 0.0 % (0.0-0.2); Platelet Count Result 153 k/mm3 (150-375); Red Blood Count 3.08 M/mm3 (4.6-6.20); White Blood Count 24.1 K/mm3 (4.5-10.0)
[2025-10-25] MEDS: PIPERACILLIN/TAZOBACTAM SOD 3.375 GM in SODIUM CHLORIDE 0.9% IV 50 ML 100 ML IVPB ×3 (05:41→18:31)
--- NOTE | 2025-10-25 05:48 | PC.NURSE ---
Vitals were rechecked on this pt at 0250. 99.5 temp, 114 pulse, 22 HR, 95 % back on 2 L and BP 148/84. ABGs came back normal and still awaiting results from STAT chest xray.
[2025-10-25 05:54] LABS: Anisocytosis 1+
[2025-10-25 05:55] LABS: Hypochromasia Occasional; Schistocytes None Seen
[2025-10-25 06:09] LABS: Alanine Aminotransferase 14 U/L (6-50); Albumin Level 4.1 g/dL (3.5-5.1); Alkaline Phosphatase 87 U/L (38-126); Anion Gap 10 mmol/L (4-12); Aspartate Amino Transferase 32 U/L (17-59); Bilirubin,Total 0.6 mg/dL (0.2-1.3); Blood Urea Nitrogen 49 mg/dL (9-20); Calcium 8.8 mg/dL (8.4-10.2); Carbon Dioxide 26 mmol/L (22-30); Chloride 115 mmol/L (98-107); Estimated CRCL calculation 26 ml/min; Estimated Glomerular Filt Rate 27; Glucose 227 mg/dL (65-110); Magnesium 2.9 mg/dL (1.6-2.3); Potassium 4.1 mmol/L (3.4-5.0); Sodium 151 mmol/L (137-145); Total Protein 7.5 g/dL (6.3-8.2)
--- NOTE | 2025-10-25 06:24 | PC.NURSE ---
This nurse called Yesika Vernon PROCESS COORDINATOR about new sepsis charted on pt this AM. Orders for stat blood cultures have been put in.
[2025-10-25] MEDS: INSULIN ASPART (*BKC) 100 UNITS/ML SUB-Q ×4 (06:43→23:50)
[2025-10-25] MEDS: PANTOPRAZOLE SODIUM IV 40 MG VIAL IV PUSH (09:42)
[2025-10-25] MEDS: ENOXAPARIN 40 MG/0.4 ML SYRINGE SUB-Q (09:43)
[2025-10-25] MEDS: METOPROLOL TARTRATE INJ 5 MG/5 ML VIAL IV PUSH ×3 (11:25→21:07)
[2025-10-25] MEDS: DEXTROSE 5%/0.45% SOD CHL 1,000 ML 100 ML IV CONT ×2 (11:26→23:48)
[2025-10-25] MEDS: LIDOCAINE 5% PATCH 1 PATCH TRANSDERM (11:49)
--- NOTE | 2025-10-25 13:50 | P.PNCA_ITS ---
Progress Note: A&P Assessment and Plan (1) Nonischemic cardiomyopathy: Onset Date: 2022 Code(s): I42.8 - Other cardiomyopathies Status: Acute Plan 75-year-old man with mild nonischemic cardiomyopathy he is clinically and hemodynamically stable. No cardiovascular complications related to surgery yesterday for bowel obstruction/adhesiolysis. Gaurav Harris MD [facility] Subjective Date/time seen: Date of service: 10/25/25 13:50 Interval history: Follow-up visit in this 75-year-old man with: Abdominal pain small-bowel obstruction status post operation yesterday for adhesiolysis. He is in very good spirits today offers no complaints is asking when his diet can be advanced. Upon review of the chart there have been no cardiovascular complications related to surgery Exam Const: General: comfortable and no acute distress Other: Very pleasant gentleman with NG suction in place enjoying cup of ice chips. Visiting with family Eyes: Sclera: sclerae normal Neck: Neck: supple Resp: Effort & Inspection: normal respiratory effort Auscultation: clear to auscultation bilaterally Cardio: Rate: tachycardic Rhythm: regular rhythm GI: GI Palp: Yes Soft to palpation Skin: General skin exam: normal color Neuro: Other: Alert and oriented x3 Extrem: Other: Normal perfusion Objective Data Vital Signs Vital Signs: Vital Signs - 24 hr 10/24/25 15:15 10/24/25 15:30 10/24/25 15:45 Temperature 37.1 C Pulse Rate 95 98 102 H Respiratory Rate 22 H 21 H 24 H Blood Pressure 79/47 L 97/57 L 107/56 L Pulse Oximetry 95 99 99 Oxygen Delivery Simple Face Mask Simple Face Mask Simple Face Mask Oxygen Flow Rate 8 8 8 10/24/25 16:00 10/24/25 16:15 10/24/25 16:53 Temperature 36.9 C Pulse Rate 104 H 105 H 113 H Respiratory Rate 22 H 24 H 20 Blood Pressure 111/63 116/69 129/74 Pulse Oximetry 98 96 91 Oxygen Delivery Simple Face Mask Nasal Cannula Oxygen Flow Rate 8 2 10/24/25 17:08 10/24/25 17:38 10/24/25 18:38 Temperature 37.0 C 37.1 C 37.1 C Pulse Rate 114 H 121 H 122 H Respiratory Rate 18 20 18 Blood Pressure 148/79 H 135/75 139/78 Pulse Oximetry 92 92 91 Oxygen Delivery Oxygen Flow Rate 10/24/25 20:00 10/24/25 21:40 10/24/25 21:54 Temperature 38.7 C H 38.7 C H Pulse Rate 114 H 124 H Respiratory Rate 22 H 32 H Blood Pressure 148/84 H Pulse Oximetry 95 92 Oxygen Delivery Nasal Cannula Oxygen Flow Rate 3 10/24/25 22:00 10/24/25 22:50 10/24/25 22:54 Temperature 36.8 C 38.4 C H 38.4 C H Pulse Rate 122 H 121 H Respiratory Rate 20 32 H Blood Pressure 139/85 152/84 H Pulse Oximetry 93 93 Oxygen Delivery Oxygen Flow Rate 10/24/25 23:40 10/25/25 02:50 10/25/25 05:00 Temperature 37.5 C 36.8 C Pulse Rate 114 H 114 H Respiratory Rate 22 H 20 Blood Pressure 148/84 H 158/87 H Pulse Oximetry 95 95 95 Oxygen Delivery Nasal Cannula Oxygen Flow Rate 3 10/25/25 06:29 10/25/25 08:00 10/25/25 08:30 Temperature 37.3 C 37.1 C Pulse Rate 114 H 116 H Respiratory Rate 22 H 18 Blood Pressure 154/90 H 177/85 H Pulse Oximetry 95 96 92 Oxygen Delivery Nasal Cannula Nasal Cannula Oxygen Flow Rate 2 2 10/25/25 10:50 10/25/25 11:25 10/25/25 11:31 Temperature 36.8 C 37.2 C Pulse Rate 118 H 118 H 118 H Respiratory Rate 24 H 18 Blood Pressure 158/98 H 153/87 H Pulse Oximetry 95 96 Oxygen Delivery Oxygen Flow Rate Intake/Output Intake/Output: Intake & Output 10/22/25 10/23/25 10/24/25 10/25/25 23:59 23:59 23:59 23:59 Intake Total 2033.3 2350 290 Output Total 2100 2600 750 Balance -66.7 -250 -460 Meds/Results Medications: Active Medications Generic Name Dose Route Start Last Admin Trade Name Freq PRN Reason Stop Dose Admin Acetaminophen 650 mg 10/24/25 21:38 10/24/25 21:54 Acetaminophen 325 Mg Tablet PO 650 mg Q6H PRN Administration Mild Pain (1-3) or Fever Dextrose 12.5 gm 10/23/25 21:31 Dextrose 50% 25 Gm/50 Ml Syringe IV PUSH PRN PRN Hypoglycemia Protocol Enoxaparin Sodium 40 mg 10/24/25 09:00 10/25/25 09:43 Enoxaparin 40 Mg/0.4 Ml Syringe SUB-Q 40 mg DAILY SPENCER Administration Glucagon 1 mg 10/23/25 21:31 Glucagon For Inj 1 Mg Vial IM PRN PRN Hypoglycemia Protocol Glucose 15 gm 10/23/25 21:31 Glucose Oral Gel 15 Gm Of Glucse In 37.5 Gm Tube PO PRN PRN Hypoglycemia Protocol Piperacillin Sod/Tazobactam 50 mls @ 100 mls/hr 10/23/25 13:00 10/25/25 11:25 Sod 3.375 gm/ Sodium Chloride IVPB 100 mls/hr Q6HR SPENCER Administration Dextrose 1,000 mls @ 100 mls/hr 10/23/25 21:31 Dextrose 5% 1,000 Ml IVPB PRN PRN Hypoglycemia Protocol Dextrose/Sodium Chloride 1,000 mls @ 100 mls/hr 10/25/25 09:15 10/25/25 11:26 Dextrose 5% Sodium Chloride 0.45% IV CONT 100 mls/hr .Q10H SPENCER Administration Insulin Aspart 2 - 5 units 10/24/25 00:00 10/25/25 11:50 Insulin Aspart (*Bkc) 100 Units/Ml SUB-Q 2 units Q6HR SPENCER Administration Protocol Lidocaine 1 patch 10/25/25 09:00 10/25/25 11:49 Lidocaine 5% Patch TRANSDERM 1 patch DAILY SPENCER Administration Metoprolol Tartrate 5 mg 10/23/25 10:11 10/25/25 11:25 Metoprolol Tartrate Inj 5 Mg/5 Ml Vial IV PUSH 5 mg QID PRN Administration Blood Pressure - High Morphine Sulfate 4 mg 10/25/25 10:54 Morphine Sulfate (*Crx) 4 Mg/Ml Inj IV PUSH Q4H PRN Pain Rated 7-10 Ondansetron HCl 4 mg 10/23/25 07:11 10/23/25 08:33 Ondansetron Inj 4 Mg/2 Ml Vial IV PUSH 4 mg Q4H PRN Administration Nausea Pantoprazole Sodium 40 mg 10/23/25 09:00 10/25/25 09:42 Pantoprazole Sodium Iv 40 Mg Vial IV PUSH 40 mg QAM SPENCER Administration Radiology Results: ITS Impressions Abdomen/Pelvis CT 10/23/25 06:13 IMPRESSION: 1. Small bowel obstruction with transition point in the left abdomen anteriorly. Abdomen X-Ray 10/23/25 09:55 IMPRESSION: 1: NG tube tip in the stomach. Chest X-Ray 10/24/25 09:07 IMPRESSION: 1. No acute cardiopulmonary findings. Small Bowel X-Ray 10/24/25 12:00 IMPRESSION: 1. Persistent dilated gas-filled loops of small bowel in the associate artistic director image with slow progression of contrast which had reached only short distance beyond the ligament of Treitz on the 1 hour image consistent with persistent small bowel obstruction. Labs Labs: Laboratory Results - last 24 hr 10/24/25 10/24/25 10/24/25 15:42 18:14 21:28 WBC RBC Hgb Hct MCV MCH MCHC RDW Plt Count MPV Immature Gran % (Auto) Neut % (Auto) Lymph % (Auto) [place] % (Auto) Eos % (Auto) Baso % (Auto) Lymph # (Auto) [place] # (Auto) Eos # (Auto) Baso # (Auto) Abs Immat Gran (auto) Absolute Neuts (auto) Absolute Nucleated RBC Band Neutrophils % Nucleated RBC % Platelet Estimate Hypochromasia Anisocytosis Schistocytes Puncture Site ABG pH ABG pCO2 ABG pO2 ABG PO2/FiO2 Ratio ABG HCO3 ABG O2 Saturation ABG O2 Content ABG Base Excess A-a Gradient Oxyhemoglobin Total Hemoglobin O2 Delivery Device O2 Liters/Min FiO2 Sodium Potassium Chloride Carbon Dioxide Anion Gap BUN Creatinine Estim Creat Clear Calc Estimated GFR Glucose POC Capillary Glucose 276 H 192 H Lactic Acid 1.4 Calcium Magnesium Total Bilirubin AST ALT Alkaline Phosphatase Total Protein Albumin 10/24/25 10/24/25 10/25/25 23:38 23:53 04:48 WBC 24.1 H RBC 3.08 L Hgb 10.6 L Hct 33.4 L MCV 108.4 H MCH 34.4 H MCHC 31.7 L RDW 15.0 H Plt Count 153 MPV 11.3 H Immature Gran % (Auto) 2.5 H Neut % (Auto) 79.6 H Lymph % (Auto) 5.3 L [place] % (Auto) 12.4 H Eos % (Auto) 0.0 Baso % (Auto) 0.2 Lymph # (Auto) 1.28 [place] # (Auto) 3.0 H Eos # (Auto) 0.0 Baso # (Auto) 0.1 Abs Immat Gran (auto) 0.60 H Absolute Neuts (auto) 19.2 H Absolute Nucleated RBC 0.000 Band Neutrophils % Not Reportable Nucleated RBC % 0.0 Platelet Estimate Adequate Hypochromasia Occasional Anisocytosis 1+ Schistocytes None seen Puncture Site Right brachial ABG pH 7.371 ABG pCO2 44.9 ABG pO2 80.5 ABG PO2/FiO2 Ratio 2.52 ABG HCO3 25.4 ABG O2 Saturation 95.6 ABG O2 Content 17.0 ABG Base Excess -0.1 A-a Gradient 95.1 Oxyhemoglobin 92.6 Total Hemoglobin 13.0 O2 Delivery Device Nasal cannula O2 Liters/Min 3.0 FiO2 32 Sodium 151 H Potassium 4.1 Chloride 115 H Carbon Dioxide 26 Anion Gap 10 BUN 49 H D Creatinine 2.35 H Estim Creat Clear Calc 26 Estimated GFR 27 L Glucose 227 H POC Capillary Glucose 203 H Lactic Acid Calcium 8.8 Magnesium 2.9 H Total Bilirubin 0.6 AST 32 ALT 14 Alkaline Phosphatase 87 Total Protein 7.5 Albumin 4.1 10/25/25 10/25/25 06:02 11:24 WBC RBC Hgb Hct MCV MCH MCHC RDW Plt Count MPV Immature Gran % (Auto) Neut % (Auto) Lymph % (Auto) [place] % (Auto) Eos % (Auto) Baso % (Auto) Lymph # (Auto) [place] # (Auto) Eos # (Auto) Baso # (Auto) Abs Immat Gran (auto) Absolute Neuts (auto) Absolute Nucleated RBC Band Neutrophils % Nucleated RBC % Platelet Estimate Hypochromasia Anisocytosis Schistocytes Puncture Site ABG pH ABG pCO2 ABG pO2 ABG PO2/FiO2 Ratio ABG HCO3 ABG O2 Saturation ABG O2 Content ABG Base Excess A-a Gradient Oxyhemoglobin Total Hemoglobin O2 Delivery Device O2 Liters/Min FiO2 Sodium Potassium Chloride Carbon Dioxide Anion Gap BUN Creatinine Estim Creat Clear Calc Estimated GFR Glucose POC Capillary Glucose 233 H 218 H Lactic Acid Calcium Magnesium Total Bilirubin AST ALT Alkaline Phosphatase Total Protein Albumin
--- NOTE | 2025-10-25 14:48 | P.PN_ITS ---
Progress Note: A&P Assessment and Plan (1) Small bowel obstruction: Onset Date: 03/19/22 Code(s): K56.609 - Unspecified intestinal obstruction, unspecified as to partial versus complete obstruction Status: Acute Assessment and Plan: Patient has had a couple of bowel movements this morning. We will go ahead and remove his NG tube and start him on some clear liquids. Encourage him to continue to ambulate to the bathroom sitting up in a chair. Wean oxygen as tolerated to keep sats greater than 92%. Will change his IV fluids to 0.45 NS since his sodium is 151. Monitor his creatinine closely. Appears he probably has acute kidney injury due to his obstruction. White blood cell count is decreasing we will continue the IV antibiotics. Continue DVT prophylaxis with Lovenox for right now. If he tolerated clear liquids and likely will resume his Eliquis tomorrow. Subjective Date/time seen: 10/25/25 14:48 Interval history: Patient seems to be in good spirits today. Family at bedside. He was sitting up in a chair earlier today with any problems. He wants to get his NG tube out. States that he has had 2 bowel movements since surgery. They were documented in the chart. White blood cell count is decreasing. Creatinine has increased a little and his sodium is 151. Exam GI: Other: Abdomen is soft and mildly distended but only some mild expanded tenderness to palpation around the midline incision. The incision is intact without any redness or drainage. Skin glue was then placed. Objective Data Vital Signs Vital Signs: Vital Signs - 24 hr 10/24/25 15:15 10/24/25 15:30 10/24/25 15:45 Temperature 37.1 C Pulse Rate 95 98 102 H Respiratory Rate 22 H 21 H 24 H Blood Pressure 79/47 L 97/57 L 107/56 L Pulse Oximetry 95 99 99 Oxygen Delivery Simple Face Mask Simple Face Mask Simple Face Mask Oxygen Flow Rate 8 8 8 10/24/25 16:00 10/24/25 16:15 10/24/25 16:53 Temperature 36.9 C Pulse Rate 104 H 105 H 113 H Respiratory Rate 22 H 24 H 20 Blood Pressure 111/63 116/69 129/74 Pulse Oximetry 98 96 91 Oxygen Delivery Simple Face Mask Nasal Cannula Oxygen Flow Rate 8 2 10/24/25 17:08 10/24/25 17:38 10/24/25 18:38 Temperature 37.0 C 37.1 C 37.1 C Pulse Rate 114 H 121 H 122 H Respiratory Rate 18 20 18 Blood Pressure 148/79 H 135/75 139/78 Pulse Oximetry 92 92 91 Oxygen Delivery Oxygen Flow Rate 10/24/25 20:00 10/24/25 21:40 10/24/25 21:54 Temperature 38.7 C H 38.7 C H Pulse Rate 114 H 124 H Respiratory Rate 22 H 32 H Blood Pressure 148/84 H Pulse Oximetry 95 92 Oxygen Delivery Nasal Cannula Oxygen Flow Rate 3 10/24/25 22:00 10/24/25 22:50 10/24/25 22:54 Temperature 36.8 C 38.4 C H 38.4 C H Pulse Rate 122 H 121 H Respiratory Rate 20 32 H Blood Pressure 139/85 152/84 H Pulse Oximetry 93 93 Oxygen Delivery Oxygen Flow Rate 10/24/25 23:40 10/25/25 02:50 10/25/25 05:00 Temperature 37.5 C 36.8 C Pulse Rate 114 H 114 H Respiratory Rate 22 H 20 Blood Pressure 148/84 H 158/87 H Pulse Oximetry 95 95 95 Oxygen Delivery Nasal Cannula Oxygen Flow Rate 3 10/25/25 06:29 10/25/25 08:00 10/25/25 08:30 Temperature 37.3 C 37.1 C Pulse Rate 114 H 116 H Respiratory Rate 22 H 18 Blood Pressure 154/90 H 177/85 H Pulse Oximetry 95 96 92 Oxygen Delivery Nasal Cannula Nasal Cannula Oxygen Flow Rate 2 2 10/25/25 10:50 10/25/25 11:25 10/25/25 11:31 Temperature 36.8 C 37.2 C Pulse Rate 118 H 118 H 118 H Respiratory Rate 24 H 18 Blood Pressure 158/98 H 153/87 H Pulse Oximetry 95 96 Oxygen Delivery Oxygen Flow Rate Intake/Output Intake/Output: Intake & Output 10/22/25 10/23/25 10/24/25 10/25/25 23:59 23:59 23:59 23:59 Intake Total 2033.3 2350 290 Output Total 2100 2600 750 Balance -66.7 -250 -460 Meds/Results Medications: Active Medications Generic Name Dose Route Start Last Admin Trade Name Freq PRN Reason Stop Dose Admin Acetaminophen 650 mg 10/24/25 21:38 10/24/25 21:54 Acetaminophen 325 Mg Tablet PO 650 mg Q6H PRN Administration Mild Pain (1-3) or Fever Dextrose 12.5 gm 10/23/25 21:31 Dextrose 50% 25 Gm/50 Ml Syringe IV PUSH PRN PRN Hypoglycemia Protocol Enoxaparin Sodium 40 mg 10/24/25 09:00 10/25/25 09:43 Enoxaparin 40 Mg/0.4 Ml Syringe SUB-Q 40 mg DAILY SPENCER Administration Glucagon 1 mg 10/23/25 21:31 Glucagon For Inj 1 Mg Vial IM PRN PRN Hypoglycemia Protocol Glucose 15 gm 10/23/25 21:31 Glucose Oral Gel 15 Gm Of Glucse In 37.5 Gm Tube PO PRN PRN Hypoglycemia Protocol Piperacillin Sod/Tazobactam 50 mls @ 100 mls/hr 10/23/25 13:00 10/25/25 11:25 Sod 3.375 gm/ Sodium Chloride IVPB 100 mls/hr Q6HR SPENCER Administration Dextrose 1,000 mls @ 100 mls/hr 10/23/25 21:31 Dextrose 5% 1,000 Ml IVPB PRN PRN Hypoglycemia Protocol Dextrose/Sodium Chloride 1,000 mls @ 100 mls/hr 10/25/25 09:15 10/25/25 11:26 Dextrose 5% Sodium Chloride 0.45% IV CONT 100 mls/hr .Q10H SPENCER Administration Insulin Aspart 2 - 5 units 10/24/25 00:00 10/25/25 11:50 Insulin Aspart (*Bkc) 100 Units/Ml SUB-Q 2 units Q6HR SPENCER Administration Protocol Lidocaine 1 patch 10/25/25 09:00 10/25/25 11:49 Lidocaine 5% Patch TRANSDERM 1 patch DAILY SPENCER Administration Metoprolol Tartrate 5 mg 10/23/25 10:11 10/25/25 11:25 Metoprolol Tartrate Inj 5 Mg/5 Ml Vial IV PUSH 5 mg QID PRN Administration Blood Pressure - High Morphine Sulfate 4 mg 10/25/25 10:54 Morphine Sulfate (*Crx) 4 Mg/Ml Inj IV PUSH Q4H PRN Pain Rated 7-10 Ondansetron HCl 4 mg 10/23/25 07:11 10/23/25 08:33 Ondansetron Inj 4 Mg/2 Ml Vial IV PUSH 4 mg Q4H PRN Administration Nausea Pantoprazole Sodium 40 mg 12/25/25 09:00 10/25/25 09:42 Pantoprazole Sodium Iv 40 Mg Vial IV PUSH 40 mg QAM SPENCER Administration Radiology Results: ITS Impressions Abdomen/Pelvis CT 10/23/25 06:13 IMPRESSION: 1. Small bowel obstruction with transition point in the left abdomen anteriorly. Abdomen X-Ray 10/23/25 09:55 IMPRESSION: 1: NG tube tip in the stomach. Chest X-Ray 10/24/25 09:07 IMPRESSION: 1. No acute cardiopulmonary findings. Small Bowel X-Ray 10/24/25 12:00 IMPRESSION: 1. Persistent dilated gas-filled loops of small bowel in the transcribing operator head image with slow progression of contrast which had reached only short distance beyond the ligament of Treitz on the 1 hour image consistent with persistent small bowel obstruction. Labs Labs: Laboratory Results - last 24 hr 10/24/25 10/24/25 10/24/25 15:42 18:14 21:28 WBC RBC Hgb Hct MCV MCH MCHC RDW Plt Count MPV Immature Gran % (Auto) Neut % (Auto) Lymph % (Auto) [place] % (Auto) Eos % (Auto) Baso % (Auto) Lymph # (Auto) [place] # (Auto) Eos # (Auto) Baso # (Auto) Abs Immat Gran (auto) Absolute Neuts (auto) Absolute Nucleated RBC Band Neutrophils % Nucleated RBC % Platelet Estimate Hypochromasia Anisocytosis Schistocytes Puncture Site ABG pH ABG pCO2 ABG pO2 ABG PO2/FiO2 Ratio ABG HCO3 ABG O2 Saturation ABG O2 Content ABG Base Excess A-a Gradient Oxyhemoglobin Total Hemoglobin O2 Delivery Device O2 Liters/Min FiO2 Sodium Potassium Chloride Carbon Dioxide Anion Gap BUN Creatinine Estim Creat Clear Calc Estimated GFR Glucose POC Capillary Glucose 276 H 192 H Lactic Acid 1.4 Calcium Magnesium Total Bilirubin AST ALT Alkaline Phosphatase Total Protein Albumin 10/24/25 10/24/25 10/25/25 23:38 23:53 04:48 WBC 24.1 H RBC 3.08 L Hgb 10.6 L Hct 33.4 L MCV 108.4 H MCH 34.4 H MCHC 31.7 L RDW 15.0 H Plt Count 153 MPV 11.3 H Immature Gran % (Auto) 2.5 H Neut % (Auto) 79.6 H Lymph % (Auto) 5.3 L [place] % (Auto) 12.4 H Eos % (Auto) 0.0 Baso % (Auto) 0.2 Lymph # (Auto) 1.28 [place] # (Auto) 3.0 H Eos # (Auto) 0.0 Baso # (Auto) 0.1 Abs Immat Gran (auto) 0.60 H Absolute Neuts (auto) 19.2 H Absolute Nucleated RBC 0.000 Band Neutrophils % Not Reportable Nucleated RBC % 0.0 Platelet Estimate Adequate Hypochromasia Occasional Anisocytosis 1+ Schistocytes None seen Puncture Site Right brachial ABG pH 7.371 ABG pCO2 44.9 ABG pO2 80.5 ABG PO2/FiO2 Ratio 2.52 ABG HCO3 25.4 ABG O2 Saturation 95.6 ABG O2 Content 17.0 ABG Base Excess -0.1 A-a Gradient 95.1 Oxyhemoglobin 92.6 Total Hemoglobin 13.0 O2 Delivery Device Nasal cannula O2 Liters/Min 3.0 FiO2 32 Sodium 151 H Potassium 4.1 Chloride 115 H Carbon Dioxide 26 Anion Gap 10 BUN 49 H D Creatinine 2.35 H Estim Creat Clear Calc 26 Estimated GFR 27 L Glucose 227 H POC Capillary Glucose 203 H Lactic Acid Calcium 8.8 Magnesium 2.9 H Total Bilirubin 0.6 AST 32 ALT 14 Alkaline Phosphatase 87 Total Protein 7.5 Albumin 4.1 10/25/25 10/25/25 06:02 11:24 WBC RBC Hgb Hct MCV MCH MCHC RDW Plt Count MPV Immature Gran % (Auto) Neut % (Auto) Lymph % (Auto) [place] % (Auto) Eos % (Auto) Baso % (Auto) Lymph # (Auto) [place] # (Auto) Eos # (Auto) Baso # (Auto) Abs Immat Gran (auto) Absolute Neuts (auto) Absolute Nucleated RBC Band Neutrophils % Nucleated RBC % Platelet Estimate Hypochromasia Anisocytosis Schistocytes Puncture Site ABG pH ABG pCO2 ABG pO2 ABG PO2/FiO2 Ratio ABG HCO3 ABG O2 Saturation ABG O2 Content ABG Base Excess A-a Gradient Oxyhemoglobin Total Hemoglobin O2 Delivery Device O2 Liters/Min FiO2 Sodium Potassium Chloride Carbon Dioxide Anion Gap BUN Creatinine Estim Creat Clear Calc Estimated GFR Glucose POC Capillary Glucose 233 H 218 H Lactic Acid Calcium Magnesium Total Bilirubin AST ALT Alkaline Phosphatase Total Protein Albumin
--- NOTE | 2025-10-25 15:15 | PM.IMPN2 ---
Assessment and Plan Assessment and Plan (1) Small bowel obstruction: Onset Date: 03/19/22 Code(s): K56.609 - Unspecified intestinal obstruction, unspecified as to partial versus complete obstruction Status: Acute Assessment and Plan: Surgical consult. NPO. except meds. NG tube to suction. Monitor electrolytes. Worsened leukocytosis and x-ray with persistent dilated gas-filled loop of small bowel consistent with persistent small-bowel obstruction Status post exploratory laparotomy 10/24/2025 with adhesiolysis (2) Essential (primary) hypertension: Code(s): I10 - Essential (primary) hypertension Status: Acute Assessment and Plan: Continue to monitor (3) Mixed hyperlipidemia: Code(s): E78.2 - Mixed hyperlipidemia Status: Chronic Assessment and Plan: Stable on current medication (4) History of DVT (deep vein thrombosis): Code(s): Z86.718 - Personal history of other venous thrombosis and embolism Status: Acute Assessment and Plan: Patient at home is taking Eliquis. switched to Lovenox for now. (5) Cardiac arrhythmia: Code(s): I49.9 - Cardiac arrhythmia, unspecified Status: Acute Assessment and Plan: Cardiology consult for cardiac clearance. Monitor heart rate closely. Use metoprolol if needed. (6) Leukocytosis: Code(s): D72.829 - Elevated white blood cell count, unspecified Status: Acute Assessment and Plan: Blood culture was not obtained. Will obtain blood culture. On IV Zosyn Plan Hyper natremia: Change IV fluid to D5 half-normal saline LUIS DANIEL continue IV fluid resuscitation Patient is full code DVT prophylaxis Lovenox. Subjective Date/time seen: 10/25/25 15:15 Interval history: No overnight events. Patient had exploratory laparotomy yesterday. With adhesiolysis had few bowel movement yesterday and today. Review of Systems Review of Systems: All systems reviewed & are unremarkable except as noted in HPI and below Exam Narrative: GENERAL: Well-appearing, well-nourished, and in no acute distress. HEAD: Normocephalic, atraumatic. EYES: PERRLA and EOMI. ENT: Nares clear, no rhinorrhea or epistaxis. Mucous membranes moist. NG in place NECK: Supple. CHEST: Clear to auscultation. No respiratory distress. HEART: Regular rate and rhythm. No murmur heard. Normal peripheral pulses. ABDOMEN: Soft, mildly distended, decreased bowel sounds. Surgical incision without any drainage, NG tube in place. EXTREMITIES: Normal range of motion. No edema. SKIN: Warm, dry, no rash. NEURO: No focal deficits. Alert and oriented x3. PSYCH: Normal mood and affect. Objective Data Vital Signs Vital Signs: Vital Signs - 24 hr 10/24/25 15:30 10/24/25 15:45 10/24/25 16:00 Temperature Pulse Rate 98 102 H 104 H Respiratory Rate 21 H 24 H 22 H Blood Pressure 97/57 L 107/56 L 111/63 Pulse Oximetry 99 99 98 Oxygen Delivery Simple Face Mask Simple Face Mask Simple Face Mask Oxygen Flow Rate 8 8 8 10/24/25 16:15 10/24/25 16:53 10/24/25 17:08 Temperature 98.5 F 98.6 F Pulse Rate 105 H 113 H 114 H Respiratory Rate 24 H 20 18 Blood Pressure 116/69 129/74 148/79 H Pulse Oximetry 96 91 92 Oxygen Delivery Nasal Cannula Oxygen Flow Rate 2 10/24/25 17:38 10/24/25 18:38 10/24/25 20:00 Temperature 98.7 F 98.8 F Pulse Rate 121 H 122 H 114 H Respiratory Rate 20 18 22 H Blood Pressure 135/75 139/78 Pulse Oximetry 92 91 95 Oxygen Delivery Nasal Cannula Oxygen Flow Rate 3 10/24/25 21:40 10/24/25 21:54 10/24/25 22:00 Temperature 101.7 F H 101.7 F H 98.3 F Pulse Rate 124 H 122 H Respiratory Rate 32 H 20 Blood Pressure 148/84 H 139/85 Pulse Oximetry 92 93 Oxygen Delivery Oxygen Flow Rate 10/24/25 22:50 10/24/25 22:54 10/24/25 23:40 Temperature 101.1 F H 101.1 F H Pulse Rate 121 H Respiratory Rate 32 H Blood Pressure 152/84 H Pulse Oximetry 93 95 Oxygen Delivery Nasal Cannula Oxygen Flow Rate 3 10/25/25 02:50 10/25/25 05:00 10/25/25 06:29 Temperature 99.5 F 98.3 F 99.2 F Pulse Rate 114 H 114 H 114 H Respiratory Rate 22 H 20 22 H Blood Pressure 148/84 H 158/87 H 154/90 H Pulse Oximetry 95 95 95 Oxygen Delivery Nasal Cannula Oxygen Flow Rate 2 10/25/25 08:00 10/25/25 08:30 10/25/25 10:50 Temperature 98.8 F 98.2 F Pulse Rate 116 H 118 H Respiratory Rate 18 24 H Blood Pressure 177/85 H 158/98 H Pulse Oximetry 96 92 95 Oxygen Delivery Nasal Cannula Oxygen Flow Rate 2 10/25/25 11:25 10/25/25 11:31 Temperature 99.0 F Pulse Rate 118 H 118 H Respiratory Rate 18 Blood Pressure 153/87 H Pulse Oximetry 96 Oxygen Delivery Oxygen Flow Rate Intake/Output Intake/Output: Intake & Output 10/22/25 10/23/25 10/24/25 10/25/25 23:59 23:59 23:59 23:59 Intake Total 2033.3 2350 290 Output Total 2100 2600 750 Balance -66.7 -250 -460 Meds/Results Medications: Active Medications Generic Name Dose Route Start Last Admin Trade Name Freq PRN Reason Stop Dose Admin Acetaminophen 650 mg 10/24/25 21:38 10/24/25 21:54 Acetaminophen 325 Mg Tablet PO 650 mg Q6H PRN Administration Mild Pain (1-3) or Fever Dextrose 12.5 gm 10/23/25 21:31 Dextrose 50% 25 Gm/50 Ml Syringe IV PUSH PRN PRN Hypoglycemia Protocol Enoxaparin Sodium 40 mg 10/24/25 09:00 10/25/25 09:43 Enoxaparin 40 Mg/0.4 Ml Syringe SUB-Q 40 mg DAILY SPENCER Administration Glucagon 1 mg 10/23/25 21:31 Glucagon For Inj 1 Mg Vial IM PRN PRN Hypoglycemia Protocol Glucose 15 gm 10/23/25 21:31 Glucose Oral Gel 15 Gm Of Glucse In 37.5 Gm Tube PO PRN PRN Hypoglycemia Protocol Piperacillin Sod/Tazobactam 50 mls @ 100 mls/hr 10/23/25 13:00 10/25/25 11:25 Sod 3.375 gm/ Sodium Chloride IVPB 100 mls/hr Q6HR SPENCER Administration Dextrose 1,000 mls @ 100 mls/hr 10/23/25 21:31 Dextrose 5% 1,000 Ml IVPB PRN PRN Hypoglycemia Protocol Dextrose/Sodium Chloride 1,000 mls @ 100 mls/hr 10/25/25 09:15 10/25/25 11:26 Dextrose 5% Sodium Chloride 0.45% IV CONT 100 mls/hr .Q10H SPENCER Administration Insulin Aspart 2 - 5 units 10/24/25 00:00 10/25/25 11:50 Insulin Aspart (*Bkc) 100 Units/Ml SUB-Q 2 units Q6HR SPENCER Administration Protocol Lidocaine 1 patch 10/25/25 09:00 10/25/25 11:49 Lidocaine 5% Patch TRANSDERM 1 patch DAILY SPENCER Administration Metoprolol Tartrate 5 mg 10/23/25 10:11 10/25/25 11:25 Metoprolol Tartrate Inj 5 Mg/5 Ml Vial IV PUSH 5 mg QID PRN Administration Blood Pressure - High Morphine Sulfate 4 mg 10/25/25 10:54 Morphine Sulfate (*Crx) 4 Mg/Ml Inj IV PUSH Q4H PRN Pain Rated 7-10 Ondansetron HCl 4 mg 10/23/25 07:11 10/23/25 08:33 Ondansetron Inj 4 Mg/2 Ml Vial IV PUSH 4 mg Q4H PRN Administration Nausea Pantoprazole Sodium 40 mg 10/23/25 09:00 10/25/25 09:42 Pantoprazole Sodium Iv 40 Mg Vial IV PUSH 40 mg QAM SPENCER Administration Radiology Results: ITS Impressions Abdomen/Pelvis CT 10/23/25 06:13 IMPRESSION: 1. Small bowel obstruction with transition point in the left abdomen anteriorly. Abdomen X-Ray 10/23/25 09:55 IMPRESSION: 1: NG tube tip in the stomach. Chest X-Ray 10/24/25 09:07 IMPRESSION: 1. No acute cardiopulmonary findings. Small Bowel X-Ray 10/24/25 12:00 IMPRESSION: 1. Persistent dilated gas-filled loops of small bowel in the warehouse stock clerk image with slow progression of contrast which had reached only short distance beyond the ligament of Treitz on the 1 hour image consistent with persistent small bowel obstruction. Labs Labs: Laboratory Results - last 24 hr 10/24/25 10/24/25 10/24/25 15:42 18:14 21:28 WBC RBC Hgb Hct MCV MCH MCHC RDW Plt Count MPV Immature Gran % (Auto) Neut % (Auto) Lymph % (Auto) [place] % (Auto) Eos % (Auto) Baso % (Auto) Lymph # (Auto) [place] # (Auto) Eos # (Auto) Baso # (Auto) Abs Immat Gran (auto) Absolute Neuts (auto) Absolute Nucleated RBC Band Neutrophils % Nucleated RBC % Platelet Estimate Hypochromasia Anisocytosis Schistocytes Puncture Site ABG pH ABG pCO2 ABG pO2 ABG PO2/FiO2 Ratio ABG HCO3 ABG O2 Saturation ABG O2 Content ABG Base Excess A-a Gradient Oxyhemoglobin Total Hemoglobin O2 Delivery Device O2 Liters/Min FiO2 Sodium Potassium Chloride Carbon Dioxide Anion Gap BUN Creatinine Estim Creat Clear Calc Estimated GFR Glucose POC Capillary Glucose 276 H 192 H Lactic Acid 1.4 Calcium Magnesium Total Bilirubin AST ALT Alkaline Phosphatase Total Protein Albumin 10/24/25 10/24/25 10/25/25 23:38 23:53 04:48 WBC 24.1 H RBC 3.08 L Hgb 10.6 L Hct 33.4 L MCV 108.4 H MCH 34.4 H MCHC 31.7 L RDW 15.0 H Plt Count 153 MPV 11.3 H Immature Gran % (Auto) 2.5 H Neut % (Auto) 79.6 H Lymph % (Auto) 5.3 L [place] % (Auto) 12.4 H Eos % (Auto) 0.0 Baso % (Auto) 0.2 Lymph # (Auto) 1.28 [place] # (Auto) 3.0 H Eos # (Auto) 0.0 Baso # (Auto) 0.1 Abs Immat Gran (auto) 0.60 H Absolute Neuts (auto) 19.2 H Absolute Nucleated RBC 0.000 Band Neutrophils % Not Reportable Nucleated RBC % 0.0 Platelet Estimate Adequate Hypochromasia Occasional Anisocytosis 1+ Schistocytes None seen Puncture Site Right brachial ABG pH 7.371 ABG pCO2 44.9 ABG pO2 80.5 ABG PO2/FiO2 Ratio 2.52 ABG HCO3 25.4 ABG O2 Saturation 95.6 ABG O2 Content 17.0 ABG Base Excess -0.1 A-a Gradient 95.1 Oxyhemoglobin 92.6 Total Hemoglobin 13.0 O2 Delivery Device Nasal cannula O2 Liters/Min 3.0 FiO2 32 Sodium 151 H Potassium 4.1 Chloride 115 H Carbon Dioxide 26 Anion Gap 10 BUN 49 H D Creatinine 2.35 H Estim Creat Clear Calc 26 Estimated GFR 27 L Glucose 227 H POC Capillary Glucose 203 H Lactic Acid Calcium 8.8 Magnesium 2.9 H Total Bilirubin 0.6 AST 32 ALT 14 Alkaline Phosphatase 87 Total Protein 7.5 Albumin 4.1 10/25/25 10/25/25 06:02 11:24 WBC RBC Hgb Hct MCV MCH MCHC RDW Plt Count MPV Immature Gran % (Auto) Neut % (Auto) Lymph % (Auto) [place] % (Auto) Eos % (Auto) Baso % (Auto) Lymph # (Auto) [place] # (Auto) Eos # (Auto) Baso # (Auto) Abs Immat Gran (auto) Absolute Neuts (auto) Absolute Nucleated RBC Band Neutrophils % Nucleated RBC % Platelet Estimate Hypochromasia Anisocytosis Schistocytes Puncture Site ABG pH ABG pCO2 ABG pO2 ABG PO2/FiO2 Ratio ABG HCO3 ABG O2 Saturation ABG O2 Content ABG Base Excess A-a Gradient Oxyhemoglobin Total Hemoglobin O2 Delivery Device O2 Liters/Min FiO2 Sodium Potassium Chloride Carbon Dioxide Anion Gap BUN Creatinine Estim Creat Clear Calc Estimated GFR Glucose POC Capillary Glucose 233 H 218 H Lactic Acid Calcium Magnesium Total Bilirubin AST ALT Alkaline Phosphatase Total Protein Albumin
[2025-10-25 18:08] LABS: Anion Gap 10 mmol/L (4-12); Blood Urea Nitrogen 47 mg/dL (9-20); Calcium 8.6 mg/dL (8.4-10.2); Carbon Dioxide 26 mmol/L (22-30); Chloride 116 mmol/L (98-107); Estimated CRCL calculation 29 ml/min; Estimated Glomerular Filt Rate 30; Glucose 290 mg/dL (65-110); Potassium 4.1 mmol/L (3.4-5.0); Sodium 152 mmol/L (137-145)
[2025-10-25] MEDS: PIPERACILLIN/TAZOBACTAM SOD 2.25 GM in SODIUM CHLORIDE 0.9% IV 50 ML 100 ML IVPB (23:49)
[2025-10-25] MEDS: ACETAMINOPHEN 325 MG TABLET 650 MG PO (23:54)
[2025-10-26] VITALS (11 sets, daily range): BP systolic 148–163; BP diastolic 70–84; PULSE 76–104; RESP 18–30; TEMP 36.1–36.8; O2SAT 96–99
[2025-10-26] MEDS: METOPROLOL TARTRATE INJ 5 MG/5 ML VIAL IV PUSH ×2 (03:32→09:02)
[2025-10-26 05:26] LABS: Hematocrit 30.3 % (42.0-52.0); Hemoglobin 9.4 g/dL (14.0-18.0); Immature Granulocyte Percent A 2.0 % (0-0.5); Immature Platelet Fraction Pct 4.6 % (0.9-11.2); Lymphocytes Absolute Auto 1.25 K/mm3 (0.9-3.2); Mean Corpuscular HGB Conc 31.0 g/dl (32-36); Mean Corpuscular Hemoglobin 34.6 pg (26-34); Mean Corpuscular Volume 111.4 fl (80-100); Nucleated Red Blood Cells Absolute Auto 0.000 K/mm3 (0.0-0.012); Nucleated Red Blood Cells Perc 0.0 % (0.0-0.2); Platelet Count Result 119 k/mm3 (150-375); Red Blood Count 2.72 M/mm3 (4.6-6.20); White Blood Count 11.2 K/mm3 (4.5-10.0)
[2025-10-26 05:47] LABS: Alanine Aminotransferase 16 U/L (6-50); Albumin Level 3.6 g/dL (3.5-5.1); Alkaline Phosphatase 76 U/L (38-126); Anion Gap 8 mmol/L (4-12); Aspartate Amino Transferase 36 U/L (17-59); Bilirubin,Total 0.7 mg/dL (0.2-1.3); Blood Urea Nitrogen 38 mg/dL (9-20); Calcium 8.1 mg/dL (8.4-10.2); Carbon Dioxide 25 mmol/L (22-30); Chloride 112 mmol/L (98-107); Estimated CRCL calculation 34 ml/min; Estimated Glomerular Filt Rate 36; Glucose 225 mg/dL (65-110); Magnesium 2.7 mg/dL (1.6-2.3); Potassium 3.3 mmol/L (3.4-5.0); Sodium 145 mmol/L (137-145); Total Protein 6.9 g/dL (6.3-8.2)
[2025-10-26 06:05] LABS: Anisocytosis 1+; Microcytosis 1+ (NORMAL); Schistocytes None Seen
[2025-10-26] MEDS: INSULIN ASPART (*BKC) 100 UNITS/ML SUB-Q ×4 (06:13→21:40)
[2025-10-26] MEDS: PIPERACILLIN/TAZOBACTAM SOD 2.25 GM in SODIUM CHLORIDE 0.9% IV 50 ML 100 ML IVPB (06:13)
[2025-10-26] MEDS: ACETAMINOPHEN 325 MG TABLET 650 MG PO ×2 (06:15→14:05)
[2025-10-26] MEDS: ENOXAPARIN 40 MG/0.4 ML SYRINGE SUB-Q (09:02)
[2025-10-26] MEDS: PANTOPRAZOLE SODIUM IV 40 MG VIAL IV PUSH (09:02)
[2025-10-26] MEDS: LIDOCAINE 5% PATCH 1 PATCH TRANSDERM (09:03)
--- NOTE | 2025-10-26 09:41 | PM.IMPN2 ---
Assessment and Plan Assessment and Plan (1) Small bowel obstruction: Onset Date: 03/19/22 Code(s): K56.609 - Unspecified intestinal obstruction, unspecified as to partial versus complete obstruction Status: Acute Assessment and Plan: Surgical consult. NPO. except meds. NG tube to suction. Monitor electrolytes. Worsened leukocytosis and x-ray with persistent dilated gas-filled loop of small bowel consistent with persistent small-bowel obstruction Status post exploratory laparotomy 10/24/2025 with adhesiolysis return of bowel function (2) Essential (primary) hypertension: Code(s): I10 - Essential (primary) hypertension Status: Acute Assessment and Plan: Continue to monitor on metoprolol 5 mg q6hr. will restart home medication carvedilol entresto on hold. will continue to hold due to LUIS DANIEL (3) Mixed hyperlipidemia: Code(s): E78.2 - Mixed hyperlipidemia Status: Chronic Assessment and Plan: Stable on current medication home medication restarted (4) History of DVT (deep vein thrombosis): Code(s): Z86.718 - Personal history of other venous thrombosis and embolism Status: Acute Assessment and Plan: Patient at home is taking Eliquis. switched to Lovenox for now. eliquis when okay with surgery (5) Cardiac arrhythmia: Code(s): I49.9 - Cardiac arrhythmia, unspecified Status: Acute Assessment and Plan: Cardiology consult for cardiac clearance. Monitor heart rate closely. Use metoprolol if needed. (6) Leukocytosis: Code(s): D72.829 - Elevated white blood cell count, unspecified Status: Acute Assessment and Plan: Blood culture was not obtained. blood culture to follow. On IV Zosyn NGTD Plan Hyper natremia: Change IV fluid to D5 half-normal saline and this has normalized today. LUIS DANIEL continue IV fluid resuscitation CR peaked to 2.3. now trending down. will continue ivf as ordered. Patient is full code DVT prophylaxis Lovenox. Subjective Date/time seen: 10/26/25 09:41 Interval history: No overnight events. patient's NG has been removed and tolerating clear liquid diet. patient's labs reviewed. Review of Systems Review of Systems: All systems reviewed & are unremarkable except as noted in HPI and below Exam Narrative: GENERAL: Well-appearing, well-nourished, and in no acute distress. HEAD: Normocephalic, atraumatic. EYES: PERRLA and EOMI. ENT: Nares clear, no rhinorrhea or epistaxis. Mucous membranes moist. NECK: Supple. CHEST: Clear to auscultation. No respiratory distress. HEART: Regular rate and rhythm. No murmur heard. Normal peripheral pulses. ABDOMEN: Soft, mildly distended, normoactive bs, Surgical incision without any drainage EXTREMITIES: Normal range of motion. No edema. SKIN: Warm, dry, no rash. NEURO: No focal deficits. Alert and oriented x3. PSYCH: Normal mood and affect. Objective Data Vital Signs Vital Signs: Vital Signs - 24 hr 10/25/25 10:50 10/25/25 11:25 10/25/25 11:31 Temperature 98.2 F 99.0 F Pulse Rate 118 H 118 H 118 H Respiratory Rate 24 H 18 Blood Pressure 158/98 H 153/87 H Pulse Oximetry 95 96 Oxygen Delivery Oxygen Flow Rate 10/25/25 15:38 10/25/25 15:48 10/25/25 20:00 Temperature 99.1 F Pulse Rate 107 H 107 H 102 H Respiratory Rate 16 18 Blood Pressure 155/83 H Pulse Oximetry 93 99 Oxygen Delivery Nasal Cannula Oxygen Flow Rate 1.5 10/25/25 21:00 10/25/25 21:07 10/26/25 00:23 Temperature 97.6 F 97.5 F L Pulse Rate 106 H 102 H 82 Respiratory Rate 18 20 Blood Pressure 148/79 H 163/80 H Pulse Oximetry 99 96 Oxygen Delivery Oxygen Flow Rate 10/26/25 03:32 10/26/25 03:58 10/26/25 09:02 Temperature 97 F L Pulse Rate 104 H 79 90 Respiratory Rate 22 H Blood Pressure 156/74 H Pulse Oximetry 97 Oxygen Delivery Oxygen Flow Rate Intake/Output Intake/Output: Intake & Output 10/23/25 10/24/25 10/25/25 10/26/25 23:59 23:59 23:59 23:59 Intake Total 2033.3 2350 3080 1380 Output Total 2100 2600 840 Balance -66.7 -250 2240 1380 Meds/Results Medications: Active Medications Generic Name Dose Route Start Last Admin Trade Name Freq PRN Reason Stop Dose Admin Acetaminophen 650 mg 10/24/25 21:38 10/26/25 06:15 Acetaminophen 325 Mg Tablet PO 650 mg Q6H PRN Administration Mild Pain (1-3) or Fever Dextrose 12.5 gm 10/23/25 21:31 Dextrose 50% 25 Gm/50 Ml Syringe IV PUSH PRN PRN Hypoglycemia Protocol Enoxaparin Sodium 40 mg 10/24/25 09:00 10/26/25 09:02 Enoxaparin 40 Mg/0.4 Ml Syringe SUB-Q 40 mg DAILY [facility] Administration Glucagon 1 mg 10/23/25 21:31 Glucagon For Inj 1 Mg Vial IM PRN PRN Hypoglycemia Protocol Glucose 15 gm 10/23/25 21:31 Glucose Oral Gel 15 Gm Of Glucse In 37.5 Gm Tube PO PRN PRN Hypoglycemia Protocol Dextrose 1,000 mls @ 100 mls/hr 10/23/25 21:31 Dextrose 5% 1,000 Ml IVPB PRN PRN Hypoglycemia Protocol Dextrose/Sodium Chloride 1,000 mls @ 100 mls/hr 10/25/25 09:15 10/25/25 23:48 Dextrose 5% Sodium Chloride 0.45% IV CONT 100 mls/hr .Q10H [facility] Administration Piperacillin Sod/Tazobactam 50 mls @ 100 mls/hr 10/26/25 00:00 10/26/25 06:43 Sod 2.25 gm/ Sodium Chloride IVPB Infused Q6H [facility] Infusion Insulin Aspart 2 - 5 units 10/24/25 00:00 10/26/25 06:13 Insulin Aspart (*Bkc) 100 Units/Ml SUB-Q 2 units Q6HR [facility] Administration Protocol Lidocaine 1 patch 10/25/25 09:00 10/26/25 09:03 Lidocaine 5% Patch TRANSDERM 1 patch DAILY [facility] Administration Metoprolol Tartrate 5 mg 10/25/25 15:25 10/26/25 09:02 Metoprolol Tartrate Inj 5 Mg/5 Ml Vial IV PUSH 5 mg Q6H [facility] Administration Morphine Sulfate 4 mg 10/25/25 10:54 Morphine Sulfate (*Crx) 4 Mg/Ml Inj IV PUSH Q4H PRN Pain Rated 7-10 Ondansetron HCl 4 mg 10/23/25 07:11 10/23/25 08:33 Ondansetron Inj 4 Mg/2 Ml Vial IV PUSH 4 mg Q4H PRN Administration Nausea Pantoprazole Sodium 40 mg 10/23/25 09:00 10/26/25 09:02 Pantoprazole Sodium Iv 40 Mg Vial IV PUSH 40 mg QAM [facility] Administration Potassium Chloride 40 meq 10/26/25 09:41 Potassium Chloride 20 Meq Er Tablet PO 10/26/25 09:42 ONCE ONE Radiology Results: ITS Impressions Abdomen/Pelvis CT 10/23/25 06:13 IMPRESSION: 1. Small bowel obstruction with transition point in the left abdomen anteriorly. Abdomen X-Ray 10/23/25 09:55 IMPRESSION: 1: NG tube tip in the stomach. Chest X-Ray 10/24/25 09:07 IMPRESSION: 1. No acute cardiopulmonary findings. Small Bowel X-Ray 10/24/25 12:00 IMPRESSION: 1. Persistent dilated gas-filled loops of small bowel in the bunk assembler image with slow progression of contrast which had reached only short distance beyond the ligament of Treitz on the 1 hour image consistent with persistent small bowel obstruction. Labs Labs: Laboratory Results - last 24 hr 10/25/25 10/25/25 10/25/25 11:24 17:45 18:28 WBC RBC Hgb Hct MCV MCH MCHC RDW Plt Count MPV Immature Gran % (Auto) Neut % (Auto) Lymph % (Auto) [place] % (Auto) Eos % (Auto) Baso % (Auto) Lymph # (Auto) [place] # (Auto) Eos # (Auto) Baso # (Auto) Abs Immat Gran (auto) Absolute Neuts (auto) Absolute Nucleated RBC Band Neutrophils % Nucleated RBC % Platelet Estimate % Immature Plt Fraction Anisocytosis Microcytosis Schistocytes Sodium 152 H Potassium 4.1 Chloride 116 H Carbon Dioxide 26 Anion Gap 10 BUN 47 H Creatinine 2.16 H Estim Creat Clear Calc 29 Estimated GFR 30 L Glucose 290 H POC Capillary Glucose 218 H 267 H Calcium 8.6 Magnesium Total Bilirubin AST ALT Alkaline Phosphatase Total Protein Albumin 10/25/25 10/26/25 10/26/25 23:37 04:43 05:59 WBC 11.2 H RBC 2.72 L Hgb 9.4 L Hct 30.3 L MCV 111.4 H MCH 34.6 H MCHC 31.0 L RDW 14.8 H Plt Count 119 L MPV 11.6 H Immature Gran % (Auto) 2.0 H Neut % (Auto) 76.8 H Lymph % (Auto) 11.1 L [place] % (Auto) 9.9 H Eos % (Auto) 0.0 Baso % (Auto) 0.2 Lymph # (Auto) 1.25 [place] # (Auto) 1.1 H Eos # (Auto) 0.0 Baso # (Auto) 0.0 Abs Immat Gran (auto) 0.22 H Absolute Neuts (auto) 8.6 H Absolute Nucleated RBC 0.000 Band Neutrophils % Not Reportable Nucleated RBC % 0.0 Platelet Estimate Decreased % Immature Plt Fraction 4.6 Anisocytosis 1+ Microcytosis 1+ Schistocytes None seen Sodium 145 Potassium 3.3 L Chloride 112 H Carbon Dioxide 25 Anion Gap 8 BUN 38 H Creatinine 1.83 H Estim Creat Clear Calc 34 Estimated GFR 36 L Glucose 225 H POC Capillary Glucose 298 H 204 H Calcium 8.1 L Magnesium 2.7 H Total Bilirubin 0.7 AST 36 ALT 16 Alkaline Phosphatase 76 Total Protein 6.9 Albumin 3.6
--- NOTE | 2025-10-26 10:53 | P.PN_ITS ---
Progress Note: A&P Assessment and Plan (1) Small bowel obstruction: Code(s): K56.609 - Unspecified intestinal obstruction, unspecified as to partial versus complete obstruction Status: Acute Assessment and Plan: Resolved exploratory laparotomy and abdominal adhesiolysis. Postop day 2. We will go ahead advanced to full liquids today. Had a bowel movement this morning. Replace his potassium which the hospitalist has been doing already. Continue to ambulate up to chair. White blood cell count is decreased down to 11,000 today. There was no ischemic bowel. Go ahead and stop the Zosyn. Hopefully can advanced to solid food tomorrow and then maybe home discharge within the next 24 to 48 hours. Will see if he can go home with home PT OT versus intermediate depending on PT OT evaluation. Subjective Date/time seen: 10/26/25 10:53 Interval history: Patient is now postop day 2 after exploratory laparotomy adhesiolysis for small bowel obstruction. He is doing well today. Tolerated NG tube removal yesterday and clear liquids. He had another bowel movement this morning. Creatinine is stabilized around 1.8. Potassium was low this morning around 3.3 and so he has been given some potassium supplement. No nausea. Taking mostly just Tylenol for pain. White blood cell count decreased from 20,000 down to 11,000 today. He continues on Zosyn for IV antibiotics. Exam GI: Other: Abdomen is soft and minimally distended. Midline incision intact with skin glue in place. No redness or drainage from the incision. Good bowel sounds. Objective Data Vital Signs Vital Signs: Vital Signs - 24 hr 10/25/25 11:25 10/25/25 11:31 10/25/25 15:38 Temperature 37.2 C Pulse Rate 118 H 118 H 107 H Respiratory Rate 18 Blood Pressure 153/87 H Pulse Oximetry 96 Oxygen Delivery Oxygen Flow Rate 10/25/25 15:48 10/25/25 20:00 10/25/25 21:00 Temperature 37.3 C 36.4 C Pulse Rate 107 H 102 H 106 H Respiratory Rate 16 18 18 Blood Pressure 155/83 H 148/79 H Pulse Oximetry 93 99 99 Oxygen Delivery Nasal Cannula Oxygen Flow Rate 1.5 10/25/25 21:07 10/26/25 00:23 10/26/25 03:32 Temperature 36.4 C L Pulse Rate 102 H 82 104 H Respiratory Rate 20 Blood Pressure 163/80 H Pulse Oximetry 96 Oxygen Delivery Oxygen Flow Rate 10/26/25 03:58 10/26/25 09:02 Temperature 36.1 C L Pulse Rate 79 90 Respiratory Rate 22 H Blood Pressure 156/74 H Pulse Oximetry 97 Oxygen Delivery Oxygen Flow Rate Intake/Output Intake/Output: Intake & Output 10/23/25 10/24/25 10/25/25 10/26/25 23:59 23:59 23:59 23:59 Intake Total 2033.3 2350 3080 1380 Output Total 2100 2600 840 Balance -66.7 -250 2240 1380 Meds/Results Medications: Active Medications Generic Name Dose Route Start Last Admin Trade Name Freq PRN Reason Stop Dose Admin Acetaminophen 650 mg 10/24/25 21:38 10/26/25 06:15 Acetaminophen 325 Mg Tablet PO 650 mg Q6H PRN Administration Mild Pain (1-3) or Fever Atorvastatin Calcium 20 mg 10/26/25 21:00 Atorvastatin 20 Mg Tablet PO QHS [facility] Carvedilol 6.25 mg 10/26/25 09:50 Carvedilol 6.25 Mg Tablet PO Q12HR [facility] Dextrose 12.5 gm 10/23/25 21:31 Dextrose 50% 25 Gm/50 Ml Syringe IV PUSH PRN PRN Hypoglycemia Protocol Dutasteride 0.5 mg 10/27/25 09:00 Dutasteride 0.5 Mg Capsule PO DAILY [facility] Enoxaparin Sodium 40 mg 10/24/25 09:00 10/26/25 09:02 Enoxaparin 40 Mg/0.4 Ml Syringe SUB-Q 40 mg DAILY [facility] Administration Fluticasone Propionate 1 spray 10/26/25 17:00 Fluticasone Propionate 0.05% Na Spr 16 Gm Btl (*Bkc) NASAL BID [facility] Glucagon 1 mg 10/23/25 21:31 Glucagon For Inj 1 Mg Vial IM PRN PRN Hypoglycemia Protocol Glucose 15 gm 10/23/25 21:31 Glucose Oral Gel 15 Gm Of Glucse In 37.5 Gm Tube PO PRN PRN Hypoglycemia Protocol Dextrose 1,000 mls @ 100 mls/hr 10/23/25 21:31 Dextrose 5% 1,000 Ml IVPB PRN PRN Hypoglycemia Protocol Dextrose/Sodium Chloride 1,000 mls @ 100 mls/hr 10/25/25 09:15 10/25/25 23:48 Dextrose 5% Sodium Chloride 0.45% IV CONT 100 mls/hr .Q10H [facility] Administration Piperacillin Sod/Tazobactam 50 mls @ 100 mls/hr 10/26/25 00:00 10/26/25 06:43 Sod 2.25 gm/ Sodium Chloride IVPB Infused Q6H [facility] Infusion Insulin Aspart 2 - 5 units 10/24/25 00:00 10/26/25 06:13 Insulin Aspart (*Bkc) 100 Units/Ml SUB-Q 2 units Q6HR [facility] Administration Protocol Lidocaine 1 patch 10/25/25 09:00 10/26/25 09:03 Lidocaine 5% Patch TRANSDERM 1 patch DAILY [facility] Administration Metoprolol Tartrate 5 mg 10/26/25 09:51 Metoprolol Tartrate Inj 5 Mg/5 Ml Vial IV PUSH Q6H PRN Blood Pressure - High Morphine Sulfate 4 mg 10/25/25 10:54 Morphine Sulfate (*Crx) 4 Mg/Ml Inj IV PUSH Q4H PRN Pain Rated 7-10 Ondansetron HCl 4 mg 10/23/25 07:11 10/23/25 08:33 Ondansetron Inj 4 Mg/2 Ml Vial IV PUSH 4 mg Q4H PRN Administration Nausea Pantoprazole Sodium 40 mg 10/27/25 09:00 Pantoprazole 40 Mg Tablet PO QAM [facility] Vitamin B Complex 1 cap 10/27/25 09:00 Vitamin B Complex Capsule PO DAILY [facility] Radiology Results: ITS Impressions Abdomen/Pelvis CT 10/23/25 06:13 IMPRESSION: 1. Small bowel obstruction with transition point in the left abdomen anteriorly. Abdomen X-Ray 10/23/25 09:55 IMPRESSION: 1: NG tube tip in the stomach. Chest X-Ray 10/24/25 09:07 IMPRESSION: 1. No acute cardiopulmonary findings. Small Bowel X-Ray 10/24/25 12:00 IMPRESSION: 1. Persistent dilated gas-filled loops of small bowel in the disability specialist image with slow progression of contrast which had reached only short distance beyond the ligament of Treitz on the 1 hour image consistent with persistent small bowel obstruction. Labs Labs: Laboratory Results - last 24 hr 10/25/25 10/25/25 10/25/25 11:24 17:45 18:28 WBC RBC Hgb Hct MCV MCH MCHC RDW Plt Count MPV Immature Gran % (Auto) Neut % (Auto) Lymph % (Auto) [place] % (Auto) Eos % (Auto) Baso % (Auto) Lymph # (Auto) [place] # (Auto) Eos # (Auto) Baso # (Auto) Abs Immat Gran (auto) Absolute Neuts (auto) Absolute Nucleated RBC Band Neutrophils % Nucleated RBC % Platelet Estimate % Immature Plt Fraction Anisocytosis Microcytosis Schistocytes Sodium 152 H Potassium 4.1 Chloride 116 H Carbon Dioxide 26 Anion Gap 10 BUN 47 H Creatinine 2.16 H Estim Creat Clear Calc 29 Estimated GFR 30 L Glucose 290 H POC Capillary Glucose 218 H 267 H Calcium 8.6 Magnesium Total Bilirubin AST ALT Alkaline Phosphatase Total Protein Albumin 10/25/25 10/26/25 10/26/25 23:37 04:43 05:59 WBC 11.2 H RBC 2.72 L Hgb 9.4 L Hct 30.3 L MCV 111.4 H MCH 34.6 H MCHC 31.0 L RDW 14.8 H Plt Count 119 L MPV 11.6 H Immature Gran % (Auto) 2.0 H Neut % (Auto) 76.8 H Lymph % (Auto) 11.1 L [place] % (Auto) 9.9 H Eos % (Auto) 0.0 Baso % (Auto) 0.2 Lymph # (Auto) 1.25 [place] # (Auto) 1.1 H Eos # (Auto) 0.0 Baso # (Auto) 0.0 Abs Immat Gran (auto) 0.22 H Absolute Neuts (auto) 8.6 H Absolute Nucleated RBC 0.000 Band Neutrophils % Not Reportable Nucleated RBC % 0.0 Platelet Estimate Decreased % Immature Plt Fraction 4.6 Anisocytosis 1+ Microcytosis 1+ Schistocytes None seen Sodium 145 Potassium 3.3 L Chloride 112 H Carbon Dioxide 25 Anion Gap 8 BUN 38 H Creatinine 1.83 H Estim Creat Clear Calc 34 Estimated GFR 36 L Glucose 225 H POC Capillary Glucose 298 H 204 H Calcium 8.1 L Magnesium 2.7 H Total Bilirubin 0.7 AST 36 ALT 16 Alkaline Phosphatase 76 Total Protein 6.9 Albumin 3.6
[2025-10-26] MEDS: POTASSIUM CHLORIDE 20 MEQ ER TABLET 40 MEQ PO (14:14)
[2025-10-26] MEDS: FLUTICASONE PROPIONATE 0.05% NA SPR 16 GM BTL (*BKC) 1 SPRAY NASAL (16:28)
[2025-10-26] MEDS: ATORVASTATIN 20 MG TABLET PO (21:40)
[2025-10-27] VITALS (10 sets, daily range): BP systolic 136–165; BP diastolic 68–89; PULSE 88–100; RESP 16–18; TEMP 36.3–37.1; O2SAT 90–100
[2025-10-27 04:58] LABS: Hematocrit 32.2 % (42.0-52.0); Hemoglobin 9.9 g/dL (14.0-18.0); Immature Granulocyte Percent A 1.8 % (0-0.5); Immature Platelet Fraction Pct 5.3 % (0.9-11.2); Lymphocytes Absolute Auto 1.16 K/mm3 (0.9-3.2); Mean Corpuscular HGB Conc 30.7 g/dl (32-36); Mean Corpuscular Hemoglobin 34.1 pg (26-34); Mean Corpuscular Volume 111.0 fl (80-100); Nucleated Red Blood Cells Absolute Auto 0.000 K/mm3 (0.0-0.012); Nucleated Red Blood Cells Perc 0.0 % (0.0-0.2); Platelet Count Result 123 k/mm3 (150-375); Red Blood Count 2.90 M/mm3 (4.6-6.20); White Blood Count 4.5 K/mm3 (4.5-10.0)
[2025-10-27 05:21] LABS: Alanine Aminotransferase 17 U/L (6-50); Albumin Level 3.6 g/dL (3.5-5.1); Alkaline Phosphatase 78 U/L (38-126); Anion Gap 4 mmol/L (4-12); Aspartate Amino Transferase 38 U/L (17-59); Bilirubin,Total 0.7 mg/dL (0.2-1.3); Blood Urea Nitrogen 23 mg/dL (9-20); Calcium 8.1 mg/dL (8.4-10.2); Carbon Dioxide 24 mmol/L (22-30); Chloride 113 mmol/L (98-107); Estimated CRCL calculation 52 ml/min; Estimated Glomerular Filt Rate > 60; Glucose 166 mg/dL (65-110); Magnesium 2.6 mg/dL (1.6-2.3); Potassium 3.6 mmol/L (3.4-5.0); Sodium 141 mmol/L (137-145); Total Protein 6.9 g/dL (6.3-8.2)
--- NOTE | 2025-10-27 09:35 | P.PN_ITS ---
Progress Note: A&P Assessment and Plan (1) Small bowel obstruction: Code(s): K56.609 - Unspecified intestinal obstruction, unspecified as to partial versus complete obstruction Status: Acute Assessment and Plan: Small-bowel obstruction resolved after exploratory laparotomy and adhesiolysis. He is doing well. Bowel function has returned. Advancing him to solid food today. Plan home tomorrow. PT OT to see him today and see if he needs any outpatient therapy. If they feel he could benefit from home PT/OT then can set that up with home health prior to discharge. Patient to follow-up see me in the office in 2 weeks after discharge. Subjective Date/time seen: 10/27/25 09:35 Interval history: Patient did very well. Postop day 4 after exploratory laparotomy and adhesiolysis for small bowel obstruction. Eating and drinking well. Full liquids is going well. He has had multiple bowel movements last evening and today. We will go ahead advanced to solid food today. He wants to have solid food and hopefully go home soon. PT and OT have not seen him me yet today. Exam GI: Other: Abdomen is soft and nondistended. Midline incision is healing well. No redness or drainage. Skin glue in place. No tom. Objective Data Vital Signs Vital Signs: Vital Signs - 24 hr 10/26/25 14:06 10/26/25 14:35 10/26/25 15:36 Temperature 36.6 C Pulse Rate 80 76 Respiratory Rate 20 30 H Blood Pressure 148/70 H Pulse Oximetry 96 96 Oxygen Delivery Oxygen Flow Rate 10/26/25 20:00 10/26/25 21:00 10/26/25 21:40 Temperature 36.8 C Pulse Rate 92 96 92 Respiratory Rate 18 18 Blood Pressure 160/84 H Pulse Oximetry 99 99 Oxygen Delivery Nasal Cannula Oxygen Flow Rate 1 10/27/25 00:54 10/27/25 05:00 10/27/25 08:35 Temperature 37.1 C 36.3 C L 36.4 C Pulse Rate 89 89 88 Respiratory Rate 18 18 16 Blood Pressure 136/68 163/89 H 155/83 H Pulse Oximetry 90 100 98 Oxygen Delivery Oxygen Flow Rate Intake/Output Intake/Output: Intake & Output 10/24/25 10/25/25 10/26/25 10/27/25 23:59 23:59 23:59 23:59 Intake Total 2350 3080 3657 770 Output Total 2600 840 Balance -250 2240 3657 770 Meds/Results Medications: Active Medications Generic Name Dose Route Start Last Admin Trade Name Freq PRN Reason Stop Dose Admin Acetaminophen 650 mg 10/24/25 21:38 10/26/25 14:05 Acetaminophen 325 Mg Tablet PO 650 mg Q6H PRN Administration Mild Pain (1-3) or Fever Atorvastatin Calcium 20 mg 10/26/25 21:00 10/26/25 21:40 Atorvastatin 20 Mg Tablet PO 20 mg QHS [facility] Administration Carvedilol 6.25 mg 10/26/25 09:50 10/26/25 21:40 Carvedilol 6.25 Mg Tablet PO 6.25 mg Q12HR [facility] Administration Dextrose 12.5 gm 10/23/25 21:31 Dextrose 50% 25 Gm/50 Ml Syringe IV PUSH PRN PRN Hypoglycemia Protocol Dutasteride 0.5 mg 10/27/25 09:00 Dutasteride 0.5 Mg Capsule PO DAILY [facility] Enoxaparin Sodium 40 mg 10/24/25 09:00 10/26/25 09:02 Enoxaparin 40 Mg/0.4 Ml Syringe SUB-Q 40 mg DAILY [facility] Administration Fluticasone Propionate 1 spray 10/26/25 17:00 10/26/25 16:28 Fluticasone Propionate 0.05% Na Spr 16 Gm Btl (*Bkc) NASAL 1 spray BID [facility]ER Administration Glucagon 1 mg 10/23/25 21:31 Glucagon For Inj 1 Mg Vial IM PRN PRN Hypoglycemia Protocol Glucose 15 gm 10/23/25 21:31 Glucose Oral Gel 15 Gm Of Glucse In 37.5 Gm Tube PO PRN PRN Hypoglycemia Protocol Dextrose 1,000 mls @ 100 mls/hr 10/23/25 21:31 Dextrose 5% 1,000 Ml IVPB PRN PRN Hypoglycemia Protocol Insulin Aspart 2 - 5 units 10/26/25 16:30 10/27/25 07:21 Insulin Aspart (*Bkc) 100 Units/Ml SUB-Q Not Given ACHS [facility] Protocol Lidocaine 1 patch 10/25/25 09:00 10/26/25 09:03 Lidocaine 5% Patch TRANSDERM 1 patch DAILY [facility] Administration Metoprolol Tartrate 5 mg 10/26/25 09:51 Metoprolol Tartrate Inj 5 Mg/5 Ml Vial IV PUSH Q6H PRN Blood Pressure - High Morphine Sulfate 4 mg 10/25/25 10:54 Morphine Sulfate (*Crx) 4 Mg/Ml Inj IV PUSH Q4H PRN Pain Rated 7-10 Ondansetron HCl 4 mg 10/23/25 07:11 10/23/25 08:33 Ondansetron Inj 4 Mg/2 Ml Vial IV PUSH 4 mg Q4H PRN Administration Nausea Pantoprazole Sodium 40 mg 10/27/25 09:00 Pantoprazole 40 Mg Tablet PO QAM [facility] Vitamin B Complex 1 cap 10/27/25 09:00 Vitamin B Complex Capsule PO DAILY [facility] Radiology Results: ITS Impressions Abdomen/Pelvis CT 10/23/25 06:13 IMPRESSION: 1. Small bowel obstruction with transition point in the left abdomen anteriorly. Abdomen X-Ray 10/23/25 09:55 IMPRESSION: 1: NG tube tip in the stomach. Small Bowel X-Ray 10/24/25 12:00 IMPRESSION: 1. Persistent dilated gas-filled loops of small bowel in the orthopaedic physician assistant image with slow progression of contrast which had reached only short distance beyond the ligament of Treitz on the 1 hour image consistent with persistent small bowel obstruction. Chest X-Ray 10/26/25 11:50 IMPRESSION: 1. NG tube within gastric fundus. 2. Mild worsening left basilar atelectasis and/or airspace disease. Labs Labs: Laboratory Results - last 24 hr 10/26/25 10/26/25 10/26/25 14:01 16:07 21:23 WBC RBC Hgb Hct MCV MCH MCHC RDW Plt Count MPV Immature Gran % (Auto) Neut % (Auto) Lymph % (Auto) [place] % (Auto) Eos % (Auto) Baso % (Auto) Lymph # (Auto) [place] # (Auto) Eos # (Auto) Baso # (Auto) Abs Immat Gran (auto) Absolute Neuts (auto) Absolute Nucleated RBC Nucleated RBC % % Immature Plt Fraction Sodium Potassium Chloride Carbon Dioxide Anion Gap BUN Creatinine Estim Creat Clear Calc Estimated GFR Glucose POC Capillary Glucose 268 H 249 H 218 H Calcium Magnesium Total Bilirubin AST ALT Alkaline Phosphatase Total Protein Albumin 10/27/25 10/27/25 10/27/25 00:57 04:25 07:44 WBC 4.5 RBC 2.90 L Hgb 9.9 L Hct 32.2 L MCV 111.0 H MCH 34.1 H MCHC 30.7 L RDW 14.3 Plt Count 123 L MPV 11.7 H Immature Gran % (Auto) 1.8 H Neut % (Auto) 59.9 Lymph % (Auto) 25.7 [place] % (Auto) 11.7 H Eos % (Auto) 0.2 Baso % (Auto) 0.7 Lymph # (Auto) 1.16 [place] # (Auto) 0.5 Eos # (Auto) 0.0 Baso # (Auto) 0.0 Abs Immat Gran (auto) 0.08 H Absolute Neuts (auto) 2.7 Absolute Nucleated RBC 0.000 Nucleated RBC % 0.0 % Immature Plt Fraction 5.3 Sodium 141 Potassium 3.6 Chloride 113 H Carbon Dioxide 24 Anion Gap 4 BUN 23 H D Creatinine 1.16 Estim Creat Clear Calc 52 Estimated GFR > 60 Glucose 166 H POC Capillary Glucose 186 H 171 H Calcium 8.1 L Magnesium 2.6 H Total Bilirubin 0.7 AST 38 ALT 17 Alkaline Phosphatase 78 Total Protein 6.9 Albumin 3.6
[2025-10-27] MEDS: LIDOCAINE 5% PATCH 1 PATCH TRANSDERM (09:45)
[2025-10-27] MEDS: PANTOPRAZOLE 40 MG TABLET PO (09:45)
[2025-10-27] MEDS: VITAMIN B COMPLEX CAPSULE 1 CAP PO (09:46)
[2025-10-27] MEDS: DUTASTERIDE 0.5 MG CAPSULE PO (09:46)
[2025-10-27] MEDS: ENOXAPARIN 40 MG/0.4 ML SYRINGE SUB-Q (09:46)
[2025-10-27] MEDS: FLUTICASONE PROPIONATE 0.05% NA SPR 16 GM BTL (*BKC) 1 SPRAY NASAL ×2 (09:46→17:08)
--- NOTE | 2025-10-27 10:58 | PM.IMPN2 ---
Assessment and Plan Assessment and Plan (1) Small bowel obstruction: Onset Date: 03/19/22 Code(s): K56.609 - Unspecified intestinal obstruction, unspecified as to partial versus complete obstruction Status: Acute Assessment and Plan: Surgical consult. NPO. except meds. NG tube to suction. Monitor electrolytes. Worsened leukocytosis and x-ray with persistent dilated gas-filled loop of small bowel consistent with persistent small-bowel obstruction Status post exploratory laparotomy 10/24/2025 with adhesiolysis return of bowel function present Advancing diet per General surgery. PT OT to see (2) Essential (primary) hypertension: Code(s): I10 - Essential (primary) hypertension Status: Acute Assessment and Plan: Continue to monitor on metoprolol 5 mg q6hr. will restart home medication carvedilol entresto on hold. will continue to hold due to LUIS DANIEL (3) Mixed hyperlipidemia: Code(s): E78.2 - Mixed hyperlipidemia Status: Chronic Assessment and Plan: Stable on current medication home medication restarted (4) History of DVT (deep vein thrombosis): Code(s): Z86.718 - Personal history of other venous thrombosis and embolism Status: Acute Assessment and Plan: Patient at home is taking Eliquis. switched to Lovenox for now. eliquis when okay with surgery (5) Cardiac arrhythmia: Code(s): I49.9 - Cardiac arrhythmia, unspecified Status: Acute Assessment and Plan: Cardiology consult for cardiac clearance. Monitor heart rate closely. Use metoprolol if needed. (6) Leukocytosis: Code(s): D72.829 - Elevated white blood cell count, unspecified Status: Acute Assessment and Plan: Blood culture was not obtained. blood culture to follow. On IV Zosyn NGTD IV Zosyn stopped Plan Hyper natremia: Change IV fluid to D5 half-normal saline and this has normalized. LUIS DANIEL continue IV fluid resuscitation CR peaked to 2.3. now trending down. will continue ivf as ordered. Resolved now Patient is full code DVT prophylaxis Lovenox. Subjective Date/time seen: 10/27/25 10:58 Interval history: No overnight events. Tolerating full liquid diet. Labs reviewed. Having bowel movement. Some abdominal distention but much better now. Some incisional pain reported. Review of Systems Review of Systems: All systems reviewed & are unremarkable except as noted in HPI and below Exam Narrative: GENERAL: Well-appearing, well-nourished, and in no acute distress. HEAD: Normocephalic, atraumatic. EYES: PERRLA and EOMI. ENT: Nares clear, no rhinorrhea or epistaxis. Mucous membranes moist. NECK: Supple. CHEST: Clear to auscultation. No respiratory distress. HEART: Regular rate and rhythm. No murmur heard. Normal peripheral pulses. ABDOMEN: Soft, mildly distended, normoactive bs, Surgical incision without any drainage EXTREMITIES: Normal range of motion. No edema. SKIN: Warm, dry, no rash. NEURO: No focal deficits. Alert and oriented x3. PSYCH: Normal mood and affect. Objective Data Vital Signs Vital Signs: Vital Signs - 24 hr 10/26/25 14:06 10/26/25 14:35 10/26/25 15:36 Temperature 97.9 F Pulse Rate 80 76 Respiratory Rate 20 30 H Blood Pressure 148/70 H Pulse Oximetry 96 96 Oxygen Delivery Oxygen Flow Rate Fraction of Inspired Oxygen 10/26/25 20:00 10/26/25 21:00 10/26/25 21:40 Temperature 98.2 F Pulse Rate 92 96 92 Respiratory Rate 18 18 Blood Pressure 160/84 H Pulse Oximetry 99 99 Oxygen Delivery Nasal Cannula Oxygen Flow Rate 1 Fraction of Inspired Oxygen 10/27/25 00:54 10/27/25 05:00 10/27/25 08:35 Temperature 98.7 F 97.4 F L 97.6 F Pulse Rate 89 89 88 Respiratory Rate 18 18 16 Blood Pressure 136/68 163/89 H 155/83 H Pulse Oximetry 90 100 98 Oxygen Delivery Oxygen Flow Rate Fraction of Inspired Oxygen 10/27/25 09:46 10/27/25 09:56 Temperature Pulse Rate 88 Respiratory Rate Blood Pressure Pulse Oximetry 93 Oxygen Delivery Nasal Cannula Oxygen Flow Rate 3 Fraction of Inspired Oxygen 32 Intake/Output Intake/Output: Intake & Output 10/24/25 10/25/25 10/26/25 10/27/25 23:59 23:59 23:59 23:59 Intake Total 2350 3080 3657 770 Output Total 2600 840 Balance -250 2240 3657 770 Meds/Results Medications: Active Medications Generic Name Dose Route Start Last Admin Trade Name Freq PRN Reason Stop Dose Admin Acetaminophen 650 mg 10/24/25 21:38 12/28/25 14:05 Acetaminophen 325 Mg Tablet PO 650 mg Q6H PRN Administration Mild Pain (1-3) or Fever Atorvastatin Calcium 20 mg 10/26/25 21:00 10/26/25 21:40 Atorvastatin 20 Mg Tablet PO 20 mg QHS SPENCER Administration Carvedilol 6.25 mg 10/26/25 09:50 10/27/25 09:46 Carvedilol 6.25 Mg Tablet PO 6.25 mg Q12HR SPENCER Administration Dextrose 12.5 gm 10/23/25 21:31 Dextrose 50% 25 Gm/50 Ml Syringe IV PUSH PRN PRN Hypoglycemia Protocol Dutasteride 0.5 mg 10/27/25 09:00 10/27/25 09:46 Dutasteride 0.5 Mg Capsule PO 0.5 mg DAILY SPENCER Administration Enoxaparin Sodium 40 mg 10/24/25 09:00 10/27/25 09:46 Enoxaparin 40 Mg/0.4 Ml Syringe SUB-Q 40 mg DAILY SPENCER Administration Fluticasone Propionate 1 spray 10/26/25 17:00 10/27/25 09:46 Fluticasone Propionate 0.05% Na Spr 16 Gm Btl (*Bkc) NASAL 1 spray BID SPENCER Administration Glucagon 1 mg 10/23/25 21:31 Glucagon For Inj 1 Mg Vial IM PRN PRN Hypoglycemia Protocol Glucose 15 gm 10/23/25 21:31 Glucose Oral Gel 15 Gm Of Glucse In 37.5 Gm Tube PO PRN PRN Hypoglycemia Protocol Dextrose 1,000 mls @ 100 mls/hr 10/23/25 21:31 Dextrose 5% 1,000 Ml IVPB PRN PRN Hypoglycemia Protocol Insulin Aspart 2 - 5 units 10/26/25 16:30 10/27/25 07:21 Insulin Aspart (*Bkc) 100 Units/Ml SUB-Q Not Given ACHS SPENCER Protocol Lidocaine 1 patch 10/25/25 09:00 10/27/25 09:45 Lidocaine 5% Patch TRANSDERM 1 patch DAILY SPENCER Administration Metoprolol Tartrate 5 mg 10/26/25 09:51 Metoprolol Tartrate Inj 5 Mg/5 Ml Vial IV PUSH Q6H PRN Blood Pressure - High Morphine Sulfate 4 mg 10/25/25 10:54 Morphine Sulfate (*Crx) 4 Mg/Ml Inj IV PUSH Q4H PRN Pain Rated 7-10 Ondansetron HCl 4 mg 10/23/25 07:11 10/23/25 08:33 Ondansetron Inj 4 Mg/2 Ml Vial IV PUSH 4 mg Q4H PRN Administration Nausea Pantoprazole Sodium 40 mg 10/27/25 09:00 10/27/25 09:45 Pantoprazole 40 Mg Tablet PO 40 mg QAM SPENCER Administration Vitamin B Complex 1 cap 10/27/25 09:00 10/27/25 09:46 Vitamin B Complex Capsule PO 1 cap DAILY SPENCER Administration Radiology Results: ITS Impressions Abdomen/Pelvis CT 10/23/25 06:13 IMPRESSION: 1. Small bowel obstruction with transition point in the left abdomen anteriorly. Abdomen X-Ray 10/23/25 09:55 IMPRESSION: 1: NG tube tip in the stomach. Small Bowel X-Ray 10/24/25 12:00 IMPRESSION: 1. Persistent dilated gas-filled loops of small bowel in the lpn care manager image with slow progression of contrast which had reached only short distance beyond the ligament of Treitz on the 1 hour image consistent with persistent small bowel obstruction. Chest X-Ray 10/26/25 11:50 IMPRESSION: 1. NG tube within gastric fundus. 2. Mild worsening left basilar atelectasis and/or airspace disease. Labs Labs: Laboratory Results - last 24 hr 10/26/25 10/26/25 10/26/25 14:01 16:07 21:23 WBC RBC Hgb Hct MCV MCH MCHC RDW Plt Count MPV Immature Gran % (Auto) Neut % (Auto) Lymph % (Auto) [place] % (Auto) Eos % (Auto) Baso % (Auto) Lymph # (Auto) [place] # (Auto) Eos # (Auto) Baso # (Auto) Abs Immat Gran (auto) Absolute Neuts (auto) Absolute Nucleated RBC Nucleated RBC % % Immature Plt Fraction Sodium Potassium Chloride Carbon Dioxide Anion Gap BUN Creatinine Estim Creat Clear Calc Estimated GFR Glucose POC Capillary Glucose 268 H 249 H 218 H Calcium Magnesium Total Bilirubin AST ALT Alkaline Phosphatase Total Protein Albumin 10/27/25 10/27/25 10/27/25 00:57 04:25 07:44 WBC 4.5 RBC 2.90 L Hgb 9.9 L Hct 32.2 L MCV 111.0 H MCH 34.1 H MCHC 30.7 L RDW 14.3 Plt Count 123 L MPV 11.7 H Immature Gran % (Auto) 1.8 H Neut % (Auto) 59.9 Lymph % (Auto) 25.7 [place] % (Auto) 11.7 H Eos % (Auto) 0.2 Baso % (Auto) 0.7 Lymph # (Auto) 1.16 [place] # (Auto) 0.5 Eos # (Auto) 0.0 Baso # (Auto) 0.0 Abs Immat Gran (auto) 0.08 H Absolute Neuts (auto) 2.7 Absolute Nucleated RBC 0.000 Nucleated RBC % 0.0 % Immature Plt Fraction 5.3 Sodium 141 Potassium 3.6 Chloride 113 H Carbon Dioxide 24 Anion Gap 4 BUN 23 H D Creatinine 1.16 Estim Creat Clear Calc 52 Estimated GFR > 60 Glucose 166 H POC Capillary Glucose 186 H 171 H Calcium 8.1 L Magnesium 2.6 H Total Bilirubin 0.7 AST 38 ALT 17 Alkaline Phosphatase 78 Total Protein 6.9 Albumin 3.6
--- NOTE | 2025-10-27 15:37 | PM.PNCARD ---
Progress Note: A&P Assessment and Plan (1) Nonischemic cardiomyopathy: Onset Date: 2022 Code(s): I42.8 - Other cardiomyopathies Status: Acute Plan - Status post exploratory laparotomy - Acute kidney injury - history of ischemic cardiomyopathy - history of hypertension - history of diabetes - History of DVT - in regards to ischemic cardiomyopathy, appears to be compensated. Continue carvedilol. Add low-dose Entresto today due to high blood pressure. At home he takes Entresto 49-51 mg b.i.d.. We will titrate gradually. at home also patient takes Jardiance which can be resumed maybe tomorrow. - in regards to acute kidney injury, creatinine improving from 2.8-1.16 today which is around his baseline. - Regards history of hypertension, blood pressure is elevated. Add low-dose Entresto. - regards to history of DVT, he takes Eliquis. Resume when okay with surgery Subjective Date/time seen: 10/27/25 15:37 Interval history: Follow-up visit in this 75-year-old man with: Abdominal pain small-bowel obstruction status post operation yesterday for adhesiolysis. He is in very good spirits today offers no complaints is asking when his diet can be advanced. Upon review of the chart there have been no cardiovascular complications related to surgery date of service 10/27/2025- resting comfortably in chair. Feels much better. No chest pain or shortness of breath. No lower extremity edema. Review of Systems Constitutional: Constitutional: Reports no additional constitutional complaints Eyes: Eyes: Reports no additional eye complaints ENT: Reports system reviewed and no additional complaints, except as documented Cardiovascular: Cardiovascular: Reports no additional cardiovascular complaints Respiratory: Respiratory: Reports no additional respiratory complaints Gastrointestinal: Gastrointestinal: Reports no additional gastrointestinal complaints Musculoskeletal: Musculoskeletal: Reports no additional musculoskeletal complaints Integumentary/Breasts: Skin/Breast: Reports system reviewed and no additional complaints, except as docu Neurologic: Reports system reviewed and no additional complaints, except as documented Endocrine: Endocrine: Reports no additional endocrine complaints Hematologic/Lymphatic: Hematologic/Lymphatic: Reports no additional hematologic/lymphatic complaints Allergic/Immunologic: Allergic/Immunologic: Reports no additional allergic/immunologic complaints Exam Const: General: comfortable and no acute distress Other: Very pleasant gentleman with NG suction in place enjoying cup of ice chips. Visiting with family HENMT: Mouth: Yes moist mucous membranes Eyes: Sclera: sclerae normal Neck: Neck: supple and no JVD Resp: Effort & Inspection: normal respiratory effort Auscultation: clear to auscultation bilaterally Cardio: Rate: tachycardic Rhythm: regular rhythm Skin: General skin exam: normal color Neuro: Other: Alert and oriented x3 Extrem: Other: Normal perfusion Objective Data Vital Signs Vital Signs: Vital Signs - 24 hr 10/26/25 20:00 10/26/25 21:00 10/26/25 21:40 Temperature 36.8 C Pulse Rate 92 96 92 Respiratory Rate 18 18 Blood Pressure 160/84 H Pulse Oximetry 99 99 Oxygen Delivery Nasal Cannula Oxygen Flow Rate 1 Fraction of Inspired Oxygen 10/27/25 00:54 10/27/25 05:00 10/27/25 08:00 Temperature 37.1 C 36.3 C L Pulse Rate 89 89 Respiratory Rate 18 18 Blood Pressure 136/68 163/89 H Pulse Oximetry 90 100 100 Oxygen Delivery Oxygen Flow Rate Fraction of Inspired Oxygen 10/27/25 08:35 10/27/25 09:46 10/27/25 09:56 Temperature 36.4 C Pulse Rate 88 88 Respiratory Rate 16 Blood Pressure 155/83 H Pulse Oximetry 98 93 Oxygen Delivery Nasal Cannula Oxygen Flow Rate 3 Fraction of Inspired Oxygen 32 10/27/25 11:51 10/27/25 14:56 Temperature Pulse Rate 92 Respiratory Rate 16 Blood Pressure 160/88 H Pulse Oximetry 100 Oxygen Delivery Room Air Oxygen Flow Rate Fraction of Inspired Oxygen Intake/Output Intake/Output: Intake & Output 10/24/25 10/25/25 10/26/25 10/27/25 23:59 23:59 23:59 23:59 Intake Total 2350 3080 3657 1010 Output Total 2600 840 Balance -250 2240 3657 1010 Meds/Results Medications: Active Medications Generic Name Dose Route Start Last Admin Trade Name Freq PRN Reason Stop Dose Admin Acetaminophen 650 mg 10/24/25 21:38 10/26/25 14:05 Acetaminophen 325 Mg Tablet PO 650 mg Q6H PRN Administration Mild Pain (1-3) or Fever Atorvastatin Calcium 20 mg 10/26/25 21:00 10/26/25 21:40 Atorvastatin 20 Mg Tablet PO 20 mg QHS SPENCER Administration Carvedilol 6.25 mg 10/26/25 09:50 10/27/25 09:46 Carvedilol 6.25 Mg Tablet PO 6.25 mg Q12HR SPENCER Administration Dextrose 12.5 gm 10/23/25 21:31 Dextrose 50% 25 Gm/50 Ml Syringe IV PUSH PRN PRN Hypoglycemia Protocol Dutasteride 0.5 mg 10/27/25 09:00 10/27/25 09:46 Dutasteride 0.5 Mg Capsule PO 0.5 mg DAILY SPENCER Administration Enoxaparin Sodium 40 mg 10/24/25 09:00 10/27/25 09:46 Enoxaparin 40 Mg/0.4 Ml Syringe SUB-Q 40 mg DAILY SPENCER Administration Fluticasone Propionate 1 spray 10/26/25 17:00 10/27/25 09:46 Fluticasone Propionate 0.05% Na Spr 16 Gm Btl (*Bkc) NASAL 1 spray BID SPENCER Administration Glucagon 1 mg 10/23/25 21:31 Glucagon For Inj 1 Mg Vial IM PRN PRN Hypoglycemia Protocol Glucose 15 gm 10/23/25 21:31 Glucose Oral Gel 15 Gm Of Glucse In 37.5 Gm Tube PO PRN PRN Hypoglycemia Protocol Dextrose 1,000 mls @ 100 mls/hr 10/23/25 21:31 Dextrose 5% 1,000 Ml IVPB PRN PRN Hypoglycemia Protocol Insulin Aspart 2 - 5 units 10/26/25 16:30 10/27/25 14:01 Insulin Aspart (*Bkc) 100 Units/Ml SUB-Q Not Given ACHS SPENCER Protocol Lidocaine 1 patch 10/25/25 09:00 10/27/25 09:45 Lidocaine 5% Patch TRANSDERM 1 patch DAILY SPENCER Administration Metoprolol Tartrate 5 mg 10/26/25 09:51 Metoprolol Tartrate Inj 5 Mg/5 Ml Vial IV PUSH Q6H PRN Blood Pressure - High Morphine Sulfate 4 mg 10/25/25 10:54 Morphine Sulfate (*Crx) 4 Mg/Ml Inj IV PUSH Q4H PRN Pain Rated 7-10 Ondansetron HCl 4 mg 10/23/25 07:11 10/23/25 08:33 Ondansetron Inj 4 Mg/2 Ml Vial IV PUSH 4 mg Q4H PRN Administration Nausea Pantoprazole Sodium 40 mg 10/27/25 09:00 10/27/25 09:45 Pantoprazole 40 Mg Tablet PO 40 mg QAM SPENCER Administration Vitamin B Complex 1 cap 10/27/25 09:00 10/27/25 09:46 Vitamin B Complex Capsule PO 1 cap DAILY SPENCER Administration Radiology Results: ITS Impressions Abdomen/Pelvis CT 10/23/25 06:13 IMPRESSION: 1. Small bowel obstruction with transition point in the left abdomen anteriorly. Abdomen X-Ray 10/23/25 09:55 IMPRESSION: 1: NG tube tip in the stomach. Small Bowel X-Ray 10/24/25 12:00 IMPRESSION: 1. Persistent dilated gas-filled loops of small bowel in the universal grinder tool image with slow progression of contrast which had reached only short distance beyond the ligament of Treitz on the 1 hour image consistent with persistent small bowel obstruction. Chest X-Ray 10/26/25 11:50 IMPRESSION: 1. NG tube within gastric fundus. 2. Mild worsening left basilar atelectasis and/or airspace disease. Labs Labs: Laboratory Results - last 24 hr 10/26/25 10/26/25 10/27/25 16:07 21:23 00:57 WBC RBC Hgb Hct MCV MCH MCHC RDW Plt Count MPV Immature Gran % (Auto) Neut % (Auto) Lymph % (Auto) [place] % (Auto) Eos % (Auto) Baso % (Auto) Lymph # (Auto) [place] # (Auto) Eos # (Auto) Baso # (Auto) Abs Immat Gran (auto) Absolute Neuts (auto) Absolute Nucleated RBC Nucleated RBC % % Immature Plt Fraction Sodium Potassium Chloride Carbon Dioxide Anion Gap BUN Creatinine Estim Creat Clear Calc Estimated GFR Glucose POC Capillary Glucose 249 H 218 H 186 H Calcium Magnesium Total Bilirubin AST ALT Alkaline Phosphatase Total Protein Albumin 10/27/25 10/27/25 10/27/25 04:25 07:44 11:44 WBC 4.5 RBC 2.90 L Hgb 9.9 L Hct 32.2 L MCV 111.0 H MCH 34.1 H MCHC 30.7 L RDW 14.3 Plt Count 123 L MPV 11.7 H Immature Gran % (Auto) 1.8 H Neut % (Auto) 59.9 Lymph % (Auto) 25.7 [place] % (Auto) 11.7 H Eos % (Auto) 0.2 Baso % (Auto) 0.7 Lymph # (Auto) 1.16 [place] # (Auto) 0.5 Eos # (Auto) 0.0 Baso # (Auto) 0.0 Abs Immat Gran (auto) 0.08 H Absolute Neuts (auto) 2.7 Absolute Nucleated RBC 0.000 Nucleated RBC % 0.0 % Immature Plt Fraction 5.3 Sodium 141 Potassium 3.6 Chloride 113 H Carbon Dioxide 24 Anion Gap 4 BUN 23 H D Creatinine 1.16 Estim Creat Clear Calc 52 Estimated GFR > 60 Glucose 166 H POC Capillary Glucose 171 H 175 H Calcium 8.1 L Magnesium 2.6 H Total Bilirubin 0.7 AST 38 ALT 17 Alkaline Phosphatase 78 Total Protein 6.9 Albumin 3.6
[2025-10-27] MEDS: INSULIN ASPART (*BKC) 100 UNITS/ML SUB-Q (17:08)
[2025-10-27] MEDS: ATORVASTATIN 20 MG TABLET PO (21:03)
[2025-10-27] MEDS: ACETAMINOPHEN 325 MG TABLET 650 MG PO (21:04)
[2025-10-28 00:41] VITALS: BP 158/88; PULSE 94; RESP 18; TEMP 36.8; O2SAT 93
[2025-10-28 05:00] VITALS: BP 158/90; PULSE 100; RESP 18; TEMP 36.6; O2SAT 100
[2025-10-28 05:51] LABS: Hematocrit 31.4 % (42.0-52.0); Hemoglobin 10.0 g/dL (14.0-18.0); Immature Granulocyte Percent A 1.6 % (0-0.5); Immature Platelet Fraction Pct 5.4 % (0.9-11.2); Lymphocytes Absolute Auto 1.33 K/mm3 (0.9-3.2); Mean Corpuscular HGB Conc 31.8 g/dl (32-36); Mean Corpuscular Hemoglobin 33.8 pg (26-34); Mean Corpuscular Volume 106.1 fl (80-100); Nucleated Red Blood Cells Absolute Auto 0.000 K/mm3 (0.0-0.012); Nucleated Red Blood Cells Perc 0.0 % (0.0-0.2); Platelet Count Result 142 k/mm3 (150-375); Red Blood Count 2.96 M/mm3 (4.6-6.20); White Blood Count 4.3 K/mm3 (4.5-10.0)
[2025-10-28 06:12] LABS: Alanine Aminotransferase 17 U/L (6-50); Albumin Level 3.7 g/dL (3.5-5.1); Alkaline Phosphatase 83 U/L (38-126); Anion Gap 9 mmol/L (4-12); Aspartate Amino Transferase 34 U/L (17-59); Bilirubin,Total 0.8 mg/dL (0.2-1.3); Blood Urea Nitrogen 17 mg/dL (9-20); Calcium 8.1 mg/dL (8.4-10.2); Carbon Dioxide 25 mmol/L (22-30); Chloride 109 mmol/L (98-107); Estimated CRCL calculation 57 ml/min; Estimated Glomerular Filt Rate > 60; Glucose 191 mg/dL (65-110); Magnesium 2.3 mg/dL (1.6-2.3); Potassium 3.3 mmol/L (3.4-5.0); Sodium 143 mmol/L (137-145); Total Protein 7.0 g/dL (6.3-8.2)
[2025-10-28 06:55] LABS: Anisocytosis 1+; Macrocytosis Occasional (NORMAL); Schistocytes None Seen
[2025-10-28 10:07] VITALS: PULSE 100
[2025-10-28] MEDS: VITAMIN B COMPLEX CAPSULE 1 CAP PO (10:07)
[2025-10-28] MEDS: PANTOPRAZOLE 40 MG TABLET PO (10:07)
[2025-10-28] MEDS: POTASSIUM CHLORIDE 20 MEQ ER TABLET 40 MEQ PO (10:07)
[2025-10-28] MEDS: LIDOCAINE 5% PATCH 1 PATCH TRANSDERM (10:08)
[2025-10-28] MEDS: FLUTICASONE PROPIONATE 0.05% NA SPR 16 GM BTL (*BKC) 1 SPRAY NASAL (10:08)
[2025-10-28] MEDS: DUTASTERIDE 0.5 MG CAPSULE PO (10:08)
[2025-10-28] MEDS: ENOXAPARIN 40 MG/0.4 ML SYRINGE SUB-Q (10:08)
--- NOTE | 2025-10-28 10:23 | PM.PNGS ---
Progress Note: A&P Assessment and Plan (1) Small bowel obstruction: Code(s): K56.609 - Unspecified intestinal obstruction, unspecified as to partial versus complete obstruction Status: Acute Assessment and Plan: POD4 s/p exploratory laparotomy, abdominal adhesiolysis. Patient doing well. Tolerating regular diet without any nausea or vomiting. Having regular bowel function. Still distended, but has good bowel sounds. Ambulating with walker. PT evaluated patient yesterday and has no concerns with patient returning home. Surgically stable for discharge with follow up in office in 2 weeks. Plan Discussed patient's case and plan of care with Dr. Hawk. Subjective Subjective Date/Time Seen: 10/28/25 10:23 Patient reports: no new complaints, feels better, tolerating a regular diet and afebrile Interval history: Patient feeling better today. Up in chair. Had a large bowel movement this morning. Denies any melena or hematochezia. Exam Const: General: comfortable and no acute distress Eyes: General: appearance normal, both eyes and all related structures GI: Inspection: distended GI Palp: Yes Firmness to palpation present (GI) and Yes Tenderness to palpation present (GI) (diffusely, mostly surrounding incision. ) Auscultation: normal bowel sounds Other: No peritoneal signs. Incision is clean and dry with no signs of infection. Skin: General skin exam: normal color and no rashes or lesions noted Neuro: Sensory Exam: normal sensation Extrem: General: normal to inspection Psych: Mental Status: mental status grossly normal Objective Data Vital Signs Vital Signs: Vital Signs - 24 hr 10/27/25 11:51 10/27/25 14:56 10/27/25 17:00 Temperature Pulse Rate 92 100 Respiratory Rate 16 16 Blood Pressure 160/88 H 137/80 Pulse Oximetry 100 98 Oxygen Delivery Room Air 10/27/25 20:25 10/27/25 21:03 10/27/25 21:25 Temperature 98.6 F Pulse Rate 96 98 Respiratory Rate 18 Blood Pressure 165/85 H Pulse Oximetry 96 Oxygen Delivery Room Air 10/28/25 00:41 10/28/25 05:00 10/28/25 10:07 Temperature 98.2 F 97.9 F Pulse Rate 94 100 100 Respiratory Rate 18 18 Blood Pressure 158/88 H 158/90 H Pulse Oximetry 93 100 Oxygen Delivery Intake/Output Intake/Output: Intake & Output 10/25/25 10/26/25 10/27/25 10/28/25 23:59 23:59 23:59 23:59 Intake Total 3080 3657 2750 480 Output Total 840 Balance 2240 3657 2750 480 Meds/Results Medications: Active Medications Generic Name Dose Route Start Last Admin Trade Name Freq PRN Reason Stop Dose Admin Acetaminophen 650 mg 10/24/25 21:38 10/27/25 21:04 Acetaminophen 325 Mg Tablet PO 650 mg Q6H PRN Administration Mild Pain (1-3) or Fever Atorvastatin Calcium 20 mg 10/26/25 21:00 10/27/25 21:03 Atorvastatin 20 Mg Tablet PO 20 mg QHS SPENCER Administration Carvedilol 6.25 mg 10/26/25 09:50 10/28/25 10:07 Carvedilol 6.25 Mg Tablet PO 6.25 mg Q12HR SPENCER Administration Dextrose 12.5 gm 10/23/25 21:31 Dextrose 50% 25 Gm/50 Ml Syringe IV PUSH PRN PRN Hypoglycemia Protocol Dutasteride 0.5 mg 10/27/25 09:00 10/28/25 10:08 Dutasteride 0.5 Mg Capsule PO 0.5 mg DAILY SPENCER Administration Enoxaparin Sodium 40 mg 10/24/25 09:00 10/28/25 10:08 Enoxaparin 40 Mg/0.4 Ml Syringe SUB-Q 40 mg DAILY SPENCER Administration Fluticasone Propionate 1 spray 10/26/25 17:00 10/28/25 10:08 Fluticasone Propionate 0.05% Na Spr 16 Gm Btl (*Bkc) NASAL 1 spray BID SPENCER Administration Glucagon 1 mg 10/23/25 21:31 Glucagon For Inj 1 Mg Vial IM PRN PRN Hypoglycemia Protocol Glucose 15 gm 10/23/25 21:31 Glucose Oral Gel 15 Gm Of Glucse In 37.5 Gm Tube PO PRN PRN Hypoglycemia Protocol Dextrose 1,000 mls @ 100 mls/hr 10/23/25 21:31 Dextrose 5% 1,000 Ml IVPB PRN PRN Hypoglycemia Protocol Insulin Aspart 2 - 5 units 10/26/25 16:30 10/28/25 06:53 Insulin Aspart (*Bkc) 100 Units/Ml SUB-Q Not Given ACHS SPENCER Protocol Lidocaine 1 patch 10/25/25 09:00 10/28/25 10:08 Lidocaine 5% Patch TRANSDERM 1 patch DAILY SPENCER Administration Metoprolol Tartrate 5 mg 10/26/25 09:51 Metoprolol Tartrate Inj 5 Mg/5 Ml Vial IV PUSH Q6H PRN Blood Pressure - High Morphine Sulfate 4 mg 10/25/25 10:54 Morphine Sulfate (*Crx) 4 Mg/Ml Inj IV PUSH Q4H PRN Pain Rated 7-10 Ondansetron HCl 4 mg 10/23/25 07:11 10/23/25 08:33 Ondansetron Inj 4 Mg/2 Ml Vial IV PUSH 4 mg Q4H PRN Administration Nausea Pantoprazole Sodium 40 mg 10/27/25 09:00 10/28/25 10:07 Pantoprazole 40 Mg Tablet PO 40 mg QAM SPENCER Administration Vitamin B Complex 1 cap 10/27/25 09:00 10/28/25 10:07 Vitamin B Complex Capsule PO 1 cap DAILY SPENCER Administration Radiology Results: ITS Impressions Abdomen/Pelvis CT 10/23/25 06:13 IMPRESSION: 1. Small bowel obstruction with transition point in the left abdomen anteriorly. Abdomen X-Ray 10/23/25 09:55 IMPRESSION: 1: NG tube tip in the stomach. Small Bowel X-Ray 10/24/25 12:00 IMPRESSION: 1. Persistent dilated gas-filled loops of small bowel in the meat cutting teacher image with slow progression of contrast which had reached only short distance beyond the ligament of Treitz on the 1 hour image consistent with persistent small bowel obstruction. Chest X-Ray 10/26/25 11:50 IMPRESSION: 1. NG tube within gastric fundus. 2. Mild worsening left basilar atelectasis and/or airspace disease. Labs Labs: Laboratory Results - last 24 hr 10/27/25 10/27/25 10/27/25 11:44 16:54 20:24 WBC RBC Hgb Hct MCV MCH MCHC RDW Plt Count MPV Immature Gran % (Auto) Neut % (Auto) Lymph % (Auto) [place] % (Auto) Eos % (Auto) Baso % (Auto) Lymph # (Auto) [place] # (Auto) Eos # (Auto) Baso # (Auto) Abs Immat Gran (auto) Absolute Neuts (auto) Absolute Nucleated RBC Band Neutrophils % Nucleated RBC % Platelet Estimate % Immature Plt Fraction Anisocytosis Macrocytosis Schistocytes Sodium Potassium Chloride Carbon Dioxide Anion Gap BUN Creatinine Estim Creat Clear Calc Estimated GFR Glucose POC Capillary Glucose 175 H 247 H 193 H Calcium Magnesium Total Bilirubin AST ALT Alkaline Phosphatase Total Protein Albumin 10/28/25 10/28/25 05:24 08:03 WBC 4.3 L RBC 2.96 L Hgb 10.0 L Hct 31.4 L MCV 106.1 H MCH 33.8 MCHC 31.8 L RDW 13.7 Plt Count 142 L MPV 11.2 H Immature Gran % (Auto) 1.6 H Neut % (Auto) 55.7 Lymph % (Auto) 30.8 [place] % (Auto) 10.9 H Eos % (Auto) 0.5 Baso % (Auto) 0.5 Lymph # (Auto) 1.33 [place] # (Auto) 0.5 Eos # (Auto) 0.0 Baso # (Auto) 0.0 Abs Immat Gran (auto) 0.07 H Absolute Neuts (auto) 2.4 Absolute Nucleated RBC 0.000 Band Neutrophils % Not Reportable Nucleated RBC % 0.0 Platelet Estimate Slightly decreased % Immature Plt Fraction 5.4 Anisocytosis 1+ Macrocytosis Occasional Schistocytes None seen Sodium 143 Potassium 3.3 L Chloride 109 H Carbon Dioxide 25 Anion Gap 9 BUN 17 Creatinine 1.06 Estim Creat Clear Calc 57 Estimated GFR > 60 Glucose 191 H POC Capillary Glucose 177 H Calcium 8.1 L Magnesium 2.3 Total Bilirubin 0.8 AST 34 ALT 17 Alkaline Phosphatase 83 Total Protein 7.0 Albumin 3.7
--- NOTE | 2025-10-28 11:28 | PM.DS ---
DS: Admitting Diagnosis Discharge Date 10/28/2025 Admitting Diagnosis Bowel obstruction DS: Discharge Diagnosis Discharge Diagnosis (1) Small bowel obstruction: Onset Date: 03/19/22 Code(s): K56.609 - Unspecified intestinal obstruction, unspecified as to partial versus complete obstruction Status: Acute (2) Essential (primary) hypertension: Code(s): I10 - Essential (primary) hypertension Status: Acute (3) Mixed hyperlipidemia: Code(s): E78.2 - Mixed hyperlipidemia Status: Chronic (4) History of DVT (deep vein thrombosis): Code(s): Z86.718 - Personal history of other venous thrombosis and embolism Status: Acute (5) Cardiac arrhythmia: Code(s): I49.9 - Cardiac arrhythmia, unspecified Status: Acute (6) Leukocytosis: Code(s): D72.829 - Elevated white blood cell count, unspecified Status: Acute DS: Summary Hospital Course Hospital Course: # Small bowel obstruction: Surgical consult. NPO. except meds. NG tube to suction based on admission. Monitor electrolytes. Worsened leukocytosis and x-ray with persistent dilated gas-filled loop of small bowel consistent with persistent small-bowel obstruction Status post exploratory laparotomy 10/24/2025 with adhesiolysis return of bowel function following surgery Advancing diet per General surgery and tolerated well PT OT ambulated and did well. Follow-up with general surgery as an outpatient basis in 2 weeks. # Essential (primary) hypertension: Continue to monitor on metoprolol 5 mg q6hr. Restarted home medication carvedilol entresto on hold. will continue to hold due to LUIS DANIEL will resume at discharge # Mixed hyperlipidemia: Stable on current medication home medication restarted # History of DVT (deep vein thrombosis): Patient at home is taking Eliquis. switched to Lovenox for now. eliquis when okay with surgery. Will resume at discharge # Cardiac arrhythmia: Cardiology consult for cardiac clearance. Monitor heart rate closely. Was transitioned to metoprolol and now back to home carvedilol # Leukocytosis: Blood culture no growth to date. Initially was treated with IV Zosyn. NGTD IV Zosyn subsequently stopped # Hyper natremia: Change IV fluid to D5 half-normal saline and this has normalized. # LUIS DANIEL continue IV fluid resuscitation CR peaked to 2.3. now trending down. will continue ivf as ordered. Resolved now # Patient is full code # DVT prophylaxis Lovenox. Time Spent with Patient Time attestation: Total time spent providing and/or coordinating discharge services: 40 minutes Exam Narrative: GENERAL: Well-appearing, well-nourished, and in no acute distress. HEAD: Normocephalic, atraumatic. EYES: PERRLA and EOMI. ENT: Nares clear, no rhinorrhea or epistaxis. Mucous membranes moist. NECK: Supple. CHEST: Clear to auscultation. No respiratory distress. HEART: Regular rate and rhythm. No murmur heard. Normal peripheral pulses. ABDOMEN: Soft, mildly distended, normoactive bs, Surgical incision without any drainage EXTREMITIES: Normal range of motion. No edema. SKIN: Warm, dry, no rash. NEURO: No focal deficits. Alert and oriented x3. PSYCH: Normal mood and affect. DS: Data Data Completed and Pending Labs on day of discharge: Labs from last 24 hours 10/28/25 10/28/25 10/27/25 08:03 05:24 20:24 WBC 4.3 L RBC 2.96 L Hgb 10.0 L Hct 31.4 L MCV 106.1 H MCH 33.8 MCHC 31.8 L RDW 13.7 Plt Count 142 L MPV 11.2 H Immature Gran % (Auto) 1.6 H Neut % (Auto) 55.7 Lymph % (Auto) 30.8 [place] % (Auto) 10.9 H Eos % (Auto) 0.5 Baso % (Auto) 0.5 Lymph # (Auto) 1.33 [place] # (Auto) 0.5 Eos # (Auto) 0.0 Baso # (Auto) 0.0 Abs Immat Gran (auto) 0.07 H Absolute Neuts (auto) 2.4 Absolute Nucleated RBC 0.000 Band Neutrophils % Not Reportable Nucleated RBC % 0.0 Platelet Estimate Slightly decreased % Immature Plt Fraction 5.4 Anisocytosis 1+ Macrocytosis Occasional Schistocytes None seen Sodium 143 Potassium 3.3 L Chloride 109 H Carbon Dioxide 25 Anion Gap 9 BUN 17 Creatinine 1.06 Estim Creat Clear Calc 57 Estimated GFR > 60 Glucose 191 H POC Capillary Glucose 177 H 193 H Calcium 8.1 L Magnesium 2.3 Total Bilirubin 0.8 AST 34 ALT 17 Alkaline Phosphatase 83 Total Protein 7.0 Albumin 3.7 12/29/25 12/29/25 16:54 11:44 WBC RBC Hgb Hct MCV MCH MCHC RDW Plt Count MPV Immature Gran % (Auto) Neut % (Auto) Lymph % (Auto) [place] % (Auto) Eos % (Auto) Baso % (Auto) Lymph # (Auto) [place] # (Auto) Eos # (Auto) Baso # (Auto) Abs Immat Gran (auto) Absolute Neuts (auto) Absolute Nucleated RBC Band Neutrophils % Nucleated RBC % Platelet Estimate % Immature Plt Fraction Anisocytosis Macrocytosis Schistocytes Sodium Potassium Chloride Carbon Dioxide Anion Gap BUN Creatinine Estim Creat Clear Calc Estimated GFR Glucose POC Capillary Glucose 247 H 175 H Calcium Magnesium Total Bilirubin AST ALT Alkaline Phosphatase Total Protein Albumin Preliminary micro results at discharge 10/25/25 06:44 Blood Culture - Preliminary Blood 10/25/25 06:35 Blood Culture - Preliminary Blood 10/24/25 18:14 Blood Culture - Preliminary Blood 10/24/25 18:21 Blood Culture - Preliminary Blood Procedures/Treatments: Procedure Note - Detailed Date of Procedure 10/24/25 Pre-op Diagnosis Recurrent small-bowel obstruction Post-op Diagnosis Same ( Recurrent small-bowel obstruction secondary to abdominal adhesions) Procedure Performed exploratory laparotomy, abdominal adhesiolysis. Surgeon Alhaji Palacios MD [employer] Translator Heather DINERO Anesthesia General Indications Patient is a 75-year-old gentleman who admitted to the hospital yesterday with complaints of recurrent abdominal pain associated with abdominal distention and nausea. He has had 2 other admissions to [facility] within the last 12 months for partial small-bowel obstructions which resolved with non operative management. Only other abdominal surgeries been open appendectomy many years ago. This morning his white blood cell count elevated to over 30,000. he was having more diffuse abdominal pain and he was mildly tachycardic. It was decided that his clinical abdominal exam had worsened and is being brought to the operating now for emergent exploratory laparotomy. Findings Upon entering the abdomen there is no evidence of any necrotic bowel. Direction was not any ischemia of any of the bowel. There was a transition point within about the mid jejunum. I found a single omental adhesion causing partial small-bowel obstruction. This was divided to release the obstruction. Patient also had a more distal terminal ileal adhesion which was not causing significant obstruction but this was divided as well. Description of Procedure After informed consent was obtained patient brought to the operating room was placed supine position and general endotracheal anesthesia was administered. A Hawkins catheter was placed by Urology as initial placement of Hawkins catheter was unsuccessful. The patient had a hypospadias which required the urologist to place the Hawkins catheter. The abdomen was then prepped and draped usual sterile fashion. Time-out was then performed correctly identifying the patient as well as procedure to be performed. He was already on scheduled IV antibiotics. I then proceeded to make a midline incision extending from about 6cm above the umbilicus to 6cm below the umbilicus. Dissection was then carried down through the dermis with the scalpel then electrocautery used to dissect down to the linea alba. The linea alba was then divided electrocautery and the peritoneum was opened sharply with Metzenbaum scissors. Once inside the abdomen I opened the fascia in the midline to mesh length the skin incision. I then placed a [place] retractor to aid with exposure. No evidence of any ischemic bowel noted. There did was a transition point in the mid jejunum where the proximal bowel was dilated to about 4cm and then the bowel distal to the transition point was of normal caliber. There was no stigmata of constriction however at that point. There was a omental adhesion which the bowel could have twisted around but was not causing a true constriction and it and twisted a from around this omental adhesion upon my entering the abdomen and eviscerating the small bowel. I ran the small bowel from the ligament Treitz distally all the way to the ileocecal bowel. There were couple of small adhesions of the terminal ileum to the retroperitoneum causing mild angulation of the small bowel which I performed division of the adhesion with electrocautery. This resolved the mild angulation of the terminal ileum. I then divided the omental adhesion which is likely causing the partial recurrent small-bowel obstruction with electrocautery as well. I then decompressed the small bowel by milking the contents back up into the stomach and this was aspirated via the NG tube. The loops of small bowel were then placed back into the abdomen and the omentum was then pulled down over the small bowel. The abdomen was then closed utilizing a running looped #1 PDS suture started at each end incision then run to the middle to the med just below the umbilicus there were then tied together. Subcutaneous tissues were then irrigated sterile saline solution hemostasis was good. I then close incision by placing interrupted 3-0 Vicryl sutures in subcutaneous tissues in 2 layers. The skin edges were then approximated utilizing a running subcuticular 4-0 Monocryl suture. The incision was then cleaned and skin glue was applied. The patient tolerated the procedure well no complications. All sponges, needles, and instrument counts were correct at the end procedure. EBL was _25__cc. The patient was awakened and taken to recovery in stable and satisfactory condition. At the end the procedure the Hawkins catheter was removed. Implants None Estimated Blood Loss 25 Urine Output 100 Drains No Packing No Pathology None sent Complications No immediate complications Condition Stable Disposition PACU [facility] Billing Surgery - Charge Forward: Surgery Billing Imaging Radiologist's impression: ITS Impressions Abdomen/Pelvis CT 10/23/25 06:13 IMPRESSION: 1. Small bowel obstruction with transition point in the left abdomen anteriorly. Abdomen X-Ray 10/23/25 09:06 Impression: 1: NG tube coiled in the esophagus. 2: Dilated small bowel upper abdomen, compatible with obstruction. Abdomen X-Ray 10/23/25 09:09 Impression: 1: NG tube coiled in the esophagus. 2: Dilated small bowel upper abdomen, compatible with obstruction. Abdomen X-Ray 10/23/25 09:55 IMPRESSION: 1: NG tube tip in the stomach. Chest X-Ray 10/24/25 09:07 IMPRESSION: 1. No acute cardiopulmonary findings. Small Bowel X-Ray 10/24/25 12:00 IMPRESSION: 1. Persistent dilated gas-filled loops of small bowel in the administrative personal assistant image with slow progression of contrast which had reached only short distance beyond the ligament of Treitz on the 1 hour image consistent with persistent small bowel obstruction. Chest X-Ray 10/26/25 11:50 IMPRESSION: 1. NG tube within gastric fundus. 2. Mild worsening left basilar atelectasis and/or airspace disease. Discharge Plan Discharge Attending physician on discharge: Antoine Bhardwaj Consulting providers: Alhaji Palacios; Gaurav Harris Discharging Clinician: Antoine Bhardwaj Anticipated Discharge Date/Time: 10/28/25 11:32 Patient Disposition: Home Activity: as tolerated Diet: heart healthy and diabetic Discharge Instructions: OK to shower. No soaking in a bath or other body of water for the next two weeks. No lifting more than 10-15 pounds for the next 4-6 weeks until you are otherwise instructed by your surgeon. The general surgery office should call you within the next few days to schedule an appointment. If you do not hear from them within 1 week, please call to schedule. Resume your home medications, including your blood thinner. Take Tylenol or ibuprofen for pain. Call the office or go to the emergency department if you develop any new or worsening pain, vomiting, or bleeding. Call if you have any issues with the wound including increased redness, pain or drainage. Patient Instructions: Antibiotic Form Patient Language: Trinidadian Stand Alone Forms: General Discharge Information Follow-up/Referrals: Gaurav Harris MD [Physician, Cardiology] - Keep Reg. Scheduled Appt. Zohaib Hoyt MD [Primary Care Provider, Family Practice] - 1 Week Alhaji Palacios MD [Physician, General Surgery] - 2 Weeks Discharge Medications: New acetaminophen 325 mg Tablet 650 mg PO Q6H PRN (Reason: Mild Pain (1-3) Or Fever) Qty: 30 0RF Continued Eliquis 5 mg tablet 5 mg PO BID Patient Comments: treated by care giver 04/03/2025 fluticasone propionate [Flonase Allergy Relief] 50 mcg/actuation spray,suspension 1 spray intranasal BID Qty: 16 11RF Rx Instructions: administer into each nostril Entresto 49-51 mg tablet 1 tablet PO BID Patient Comments: started by care giver carvedilol 6.25 mg tablet 6.25 mg PO Q12H Patient Comments: started by care giver Rx Instructions: must administer with a meal/food magnesium 500 mg Tablet 500 mg PO DAILY vitamin B complex [B Complex-Vitamin B12] Tablet 1 tablet PO DAILY Rx Instructions: 5000 units Complete Multivitamin Tablet 1 tablet PO DAILY atorvastatin 20 mg tablet 20 mg PO QHS Patient Comments: started by care giver 10/13/2023. omeprazole magnesium [Prilosec OTC] 20 mg tablet,delayed release (DR/EC) 20 mg PO DAILY meloxicam 15 mg tablet 15 mg PO DAILY PRN (Reason: pain) Qty: 90 3RF Jardiance 25 mg tablet 25 mg PO QAM Qty: 90 3RF dutasteride 0.5 mg capsule 0.5 mg PO DAILY Qty: 90 3RF duloxetine [Cymbalta] 60 mg capsule,delayed release(DR/EC) 60 mg PO BID Qty: 180 3RF metformin 500 mg tablet extended release 24 hr 2,000 mg PO DAILY Qty: 360 5RF Rx Instructions: pt takes 2000 mg all at once each morning Date of admission: 10/24/25 10:43 Primary Care Provider: Zohaib Hoyt Admitting Provider: Joselito Carver Attending physician on admission: Joselito Carver Condition: Stable
== END 2025-10-28 11:15 | disposition home or self-care (01) | DRG 336 ==
LOC: ANHED 10-23 07:08 → ANH2MED 10-23 07:39
PROVIDERS: Nurse Practitioner; Student in an Organized Health Care Education/Training Program; Surgery; Admitting Provider Internal Medicine; Emergency Provider Emergency Medicine; PCP Family Medicine; Visit Provider Internal Medicine
PROC: 0DN80ZZ Release Small Intestine, Open Approach (ICD-10-PCS; CPT 49000; principal; 2025-10-24 12:15)
DX: K56.51 Intestinal adhesions [bands], with partial obstruction (principal); E87.0 Hyperosmolality and hypernatremia; I42.8 Other cardiomyopathies; N17.9 Acute kidney failure, unspecified; E78.2 Mixed hyperlipidemia; I49.9 Cardiac arrhythmia, unspecified; Q54.0 Hypospadias, balanic; D72.829 Elevated white blood cell count, unspecified; D64.9 Anemia, unspecified; I11.0 Hypertensive heart disease with heart failure; I50.9 Heart failure, unspecified; N40.0 Benign prostatic hyperplasia without lower urinary tract symptoms; G47.33 Obstructive sleep apnea (adult) (pediatric); Z86.718 Personal history of other venous thrombosis and embolism; Z90.49 Acquired absence of other specified parts of digestive tract
CPT/HCPCS: 36415; 36600; 71045; 71046; 74177; 74250; 80048; 80053; 81001; 82805; 82948; 83605; 83690; 83735; 84484; 85018; 85025; 85055; 86850; 86900; 86901; 87040; 93005; 96361; 96365; 96375; 97116; 99285; A9270; C1769; G0378; J0616; J1650; J1815; J2004; J2060; J2270; J2405; J2470; J2543; J2704; J7030; J7120; Q9967